=== PATIENT | male | born 1940 | race Caucasian/White ===

== ENCOUNTER 2017-07-24 10:15 | Emergency (ER) | payer OTHER ==
--- NOTE | 2017-07-24 10:26 | PDOC ---
History of Present Illness - General Chief Complaint: Itching Stated Complaint: ITCHING BOTH LEGS Time Seen by Provider: 07/24/17 10:26 History Source: Patient Exam Limitations: No Limitations - History of Present Illness Initial Comments: 07/24/17 10:47 76 yo legs itching for the past four days..... no obvious cause. Has not taken or used any otc meds. Diabetes HTN, CAD on a boatload of medicines. Dr. Alba is his doctor. He does not want me to do any tests he just wants to know what he can do to stop the itching. I reviewed all of his meds.... he can use benadryl oral or topical. Timing/Duration: getting worse Severity: moderate Modifying Factors: improves with: other (none) Associated Symptoms: denies: denies symptoms Past History - Past Medical History Allergies/Adverse Reactions: Allergies Allergy/AdvReac Type Severity Reaction Status Date / Time ranolazine [From Ranexa] AdvReac Intermediate Hallucinati Verified 07/24/17 10: 18 ons Home Medications: Ambulatory Orders Clopidogrel Bisulfate [Plavix -] 75 mg PO DAILY 09/04/15 Pantoprazole Sodium [Protonix] 40 mg PO DAILY 09/04/15 [place]-3 Acid Ethyl Esters [Lovaza -] 0 mg PO BID 12/12/15 Cholecalciferol (Vitamin D3) [Vitamin D3] 1,000 unit PO DAILY tablet 04/05/17 Furosemide 0 mg PO BID tablet 04/05/17 Insulin Glargine,Hum.rec.anlog [Lantus Solostar PEN (NF)] 16 units SQ AM Insulin Glargine,Hum.rec.anlog [Lantus Solostar PEN (NF)] 50 units SQ HS Insulin Lispro [Humalog] 14 unit SQ TID 07/24/17 Metoprolol Succinate [Toprol Xl] 50 mg PO ASDIR 07/24/17 Nitroglycerin 0.6 mg SL ASDIR 07/24/17 Nitroglycerin [Nitrostat] 0.4 mg SL ASDIR 07/24/17 Anemia: Yes Asthma: No Cardiac Disorders: Yes (BYPASS 03/03/13, cath c stent placement 09/2015) COPD: No CHF: No Diabetes: Yes GI Disorders: Yes (REFLUX) Disorders: Yes HTN: Yes Hypercholesterolemia: Yes - Surgical History Cardiac Surgery: Yes (STENT) - Immunization History Immunization Up to Date: No - Psycho/Social/Smoking Cessation Hx Anxiety: No Suicidal Ideation: No Smoking Status: No Smoking History: Never smoked Have you smoked in the past 12 months: No Number of Cigarettes Smoked Daily: 0 Hx Alcohol Use: No Drug/Substance Use Hx: No Substance Use Type: None Hx Substance Use Treatment: No Review of Systems - Review of Systems Able to Perform ROS?: Yes Is the patient limited Algerian proficient: No Constitutional: No: Symptoms Reported HEENTM: No: Symptoms Reported Respiratory: No: Symptoms reported Cardiac (ROS): No: Symptoms Reported ABD/GI: No: Symptoms Reported : No: Symptoms Reported Musculoskeletal: No: Symptoms Reported Integumentary: Yes: See HPI Neurological: No: Symptoms reported Psychiatric: No: Anxiety, Depression Endocrine: No: Symptoms Reported Hematologic/Lymphatic: No: Symptoms Reported All Other Systems: Reviewed and Negative *Physical Exam - Physical Exam Comments: 07/24/17 10:50 76 yo male c.o itching legs, knees down, no redness, no rash, no obvious cause General Appearance: Yes: Nourished, Appropriately Dressed HEENT: positive: EOMI, DEE, Normal ENT Inspection Neck: positive: Normal Thyroid, Supple. negative: Tender Respiratory/Chest: positive: Lungs Clear, Normal Breath Sounds. negative: Chest Tender Cardiovascular: positive: Regular Rhythm, Regular Rate. negative: Edema, JVD, Murmur Gastrointestinal/Abdominal: positive: Normal Bowel Sounds, Flat, Soft Lymphatic: negative: Adenopathy, Tenderness Musculoskeletal: positive: Normal Inspection Extremity: positive: Normal Capillary Refill, Normal Inspection, Normal Range of Motion, Other (no rash). 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 I told him that he refused the blood work and I told him that the medicine would make him sleepy and he could not drive a car..... and he got angry and raised his voice and shook his finger at me.... when I told him to stop that he told me that I was supposed to be a doctor and look how I was treating him...... I walked away rather than continue and security was able to move him from the ED. *DC/Admit/Observation/Transfer Diagnosis at time of Disposition: Pruritus - Discharge Dispostion Disposition: HOME Condition at time of disposition: Unchanged/Unknown Admit: No - Referrals Referrals: Yovani Alba MD [Primary Care Provider] - - Patient Instructions Printed Discharge Instructions: DI for Itching Additional Instructions: Mr Whipple- I am not sure why you are itching. You can use BENADRYL (diphenhydramine) tablets 25mg, You can take one every six hours or you could use a topical benadryl product like a spray. Ask your pharmacist to help you pick a product. Follow up with Dr. Alba. Return to us if any problems
[2017-07-24 10:31] VITALS: BP 133/73; PULSE 58; TEMP 98; BMI 31.5
== END 2017-07-24 11:00 | disposition home or self-care (01) ==
LOC: FER 10:15
DX: L29.9 Pruritus, unspecified (principal); E11.9 Type 2 diabetes mellitus without complications; K21.9 Gastro-esophageal reflux disease without esophagitis; E78.00 Pure hypercholesterolemia, unspecified; I10 Essential (primary) hypertension; Z79.4 Long term (current) use of insulin
CPT/HCPCS: 36415; 80048; 80061; 80076; 82607; 83036; 84153; 84443; 99281-25

== ENCOUNTER 2018-01-09 10:19 | Emergency (ER) | payer OTHER ==
[2018-01-09] MEDS ORDERED: ASPIRIN 81 MG CHEWABLE TABLETS PO ONE (10:41)
[2018-01-09] MEDS ORDERED: NITROGLYCERIN SUBLINGUAL 1/150 0.4 MG TAB SL ONE (10:41)
--- NOTE | 2018-01-09 10:45 | PDOC ---
History of Present Illness - General Chief Complaint: Chest Pain Stated Complaint: CHEST PRESSURE Time Seen by Provider: 01/09/18 10:36 History Source: Patient Exam Limitations: No Limitations - History of Present Illness Initial Comments: 01/09/18 10:42 77 y/o male with left sided chest pain since last night, hx of cardiac disease, denies radiation to arm, jaw or back. No fall or trauma. Did not take any of his medication this morning. Patient see Engineering Tech Dr. Melgar, but did nottake his sublingual nitro fro the ches pain. Denies N/V/d/C, or diaphoresis. Feels a little weak. No SOB. Presenting Symptoms: Chest Pain Timing/Duration: reports: constant Severity/Quality: reports: mild Location: reports: substernal Chest Pain Radiation: reports: no radiation Activities at Onset: reports: none Past History - Past Medical History Allergies/Adverse Reactions: Allergies Allergy/AdvReac Type Severity Reaction Status Date / Time ranolazine [From Ranexa] AdvReac Intermediate Hallucinati Verified 07/24/17 10: 18 ons Home Medications: Ambulatory Orders Clopidogrel Bisulfate [Plavix -] 75 mg PO DAILY 09/04/15 Pantoprazole Sodium [Protonix] 40 mg PO DAILY 09/04/15 [place]-3 Acid Ethyl Esters [Lovaza -] 0 mg PO BID 12/12/15 Cholecalciferol (Vitamin D3) [Vitamin D3] 1,000 unit PO DAILY tablet 04/05/17 Furosemide 80 mg PO DAILY tablet 04/05/17 Insulin Glargine,Hum.rec.anlog [Lantus Solostar PEN (NF)] 16 units SQ AM Insulin Glargine,Hum.rec.anlog [Lantus Solostar PEN (NF)] 50 units SQ HS Metoprolol Succinate [Toprol Xl] 50 mg PO BID 07/24/17 Nitroglycerin 0.6 mg SL ASDIR 07/24/17 Nitroglycerin [Nitrostat] 0.4 mg SL ASDIR 07/24/17 Aspirin [Aspirin EC] 81 mg PO DAILY 01/09/18 Donepezil HCl [Aricept] 5 mg PO DAILY 01/09/18 Duloxetine HCl [Cymbalta] 30 mg PO DAILY 01/09/18 Potassium Chloride [K-Dur -] 20 meq PO DAILY 01/09/18 Anemia: Yes Asthma: No Cardiac Disorders: Yes (BYPASS 03/03/13, cath c stent placement 09/2015) COPD: No CHF: No Diabetes: Yes GI Disorders: Yes (REFLUX) Disorders: Yes HTN: Yes Hypercholesterolemia: Yes - Surgical History Cardiac Surgery: Yes (STENT) - Immunization History Immunization Up to Date: No - Suicide/Smoking/Psychosocial Hx Smoking Status: No Smoking History: Never smoked Have you smoked in the past 12 months: No Number of Cigarettes Smoked Daily: 0 Hx Alcohol Use: No Drug/Substance Use Hx: No Substance Use Type: None Hx Substance Use Treatment: No Review of Systems - Review of Systems Able to Perform ROS?: Yes Is the patient limited Nicaraguan proficient: No Constitutional: No: Chills, Fever HEENTM: No: Throat Pain Respiratory: No: Cough, Shortness of Breath Cardiac (ROS): Yes: Chest Pain ABD/GI: No: Nausea, Vomiting Musculoskeletal: No: Back Pain All Other Systems: Reviewed and Negative *Physical Exam - Vital Signs Last Vital Signs Temp Pulse Resp BP Pulse Ox 97.6 F 70 18 173/89 96 01/09/18 10:20 01/09/18 10:20 01/09/18 10:20 01/09/18 10:20 01/09/18 10:20 - Physical Exam General Appearance: Yes: Nourished, Appropriately Dressed, Mild Distress HEENT: positive: EOMI, DEE, Normal ENT Inspection, Pharynx Normal Neck: positive: Trachea midline, Normal Thyroid, Supple. negative: Tender, Rigid, Carotid bruit Respiratory/Chest: positive: Lungs Clear, Normal Breath Sounds. negative: Chest Tender, Respiratory Distress Cardiovascular: positive: Regular Rhythm, Regular Rate, S1, S2. negative: Edema , JVD, Murmur Vascular Pulses: Femoral (R): 4+, Femoral (L): 4+, Carotid (R): 4+, Carotid (L) : 4+, Dorsalis-Pedis (R): 4+, Doralis-Pedis (L): 4+ Gastrointestinal/Abdominal: positive: Normal Bowel Sounds, Flat, Soft. 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, Fully Oriented, Alert, Normal Mood/ Affect, Normal Response, Motor Strength 5/5 Heart Score/ECG Review - History History: Highly suspicious - Age Age: >/= 65 - Risk Factors Risk Factors Heart Score: Yes Hx Hypertension, Yes Positive family hx of cardiac disease Based on the list above the patient has:: >/=3 risk factors or Hx atherosclerotic disease - ECG Intrepretation Comment:: 01/09/18 10:49 at 1028 NSR LBBB similar to EKG of 12/12/2015 ED Treatment Course - LABORATORY CBC & Chemistry Diagram: 01/09/18 10:50 01/09/18 10:50 - ADDITIONAL ORDERS Additional order review: Laboratory Results 01/09/18 01/09/18 10:50 10:50 Sodium 133 L Potassium 4.1 Chloride 101 Carbon Dioxide 25 Anion Gap 7 L BUN 23 H Creatinine 1.5 H Creat Clearance w eGFR 45.38 Random Glucose 245 H Calcium 8.3 L Total Bilirubin 1.3 H AST 19 ALT 22 Alkaline Phosphatase 58 Troponin I 0.03 Total Protein 6.5 Albumin 3.6 01/09/18 10:50 RBC 3.78 L MCV 86.0 MCHC 34.2 RDW 16.2 H MPV 7.4 L Neutrophils % 75.3 Lymphocytes % 15.4 D Monocytes % 6.5 Eosinophils % 2.2 Basophils % 0.6 - RADIOLOGY Radiology Studies Ordered: Category Date Time Status CHEST PA & LAT [RAD] Stat Radiology 01/09/18 10:41 Completed - Medications Given in the ED: ED Medications Discontinued Medications Generic Name Dose Route Start Last Admin Trade Name Freq PRN Reason Stop Dose Admin Aspirin 324 mg 01/09/18 10:41 01/09/18 11:00 Asa - PO 01/09/18 10:42 324 mg ONCE ONE Administration Nitroglycerin 0.4 mg 01/09/18 10:41 01/09/18 11:03 Nitrostat - SL 01/09/18 10:42 0.4 mg ONCE ONE Administration Progress Note - Progress Note Progress Note: Pt with cardiac history present with chest pain, will obtain cardiac work up. Pt i in agreement with plan. Chest pressure resolved with [address] Alaniz, Engineering Tech, pt has LBBB in 10/2017 Agrees with observation and stress test Pt refuses admission, wants to sign out AMA Risks and benefits discussed with pt. *DC/Admit/Observation/Transfer Diagnosis at time of Disposition: Chest pain Qualifiers: Chest pain type: unspecified Qualified Code(s): R07.9 - Chest pain, unspecified - Discharge Dispostion Disposition: AGAINST MEDICAL ADVICE Condition at time of disposition: Fair Admit: No - Referrals Referrals: Yovani Alba MD [Primary Care Provider] - - Patient Instructions - Post Discharge Activity
[2018-01-09] MEDS ORDERED: ASPIRIN 81 MG CHEWABLE TABLETS ONE (11:01)
[2018-01-09] MEDS ORDERED: NITROGLYCERIN SUBLINGUAL 1/150 0.4 MG TAB ONE (11:02)
[2018-01-09 11:10] VITALS: BP 173/89; PULSE 70; TEMP 97.6; BMI 31.7
[2018-01-09 11:35] LABS: BASO % 0.6 % (0-2.0); EOS % 2.2 % (0-4.5); HEMATOCRIT 32.5 % (35.4-49); HEMOGLOBIN 11.1 GM/dl (11.7-16.9); LYMPH % 15.4 % (8-40); MCH 29.4 pg (25.7-33.7); MCHC 34.2 g/dl (32.0-35.9); MEAN PLT VOLUME 7.4 fl (7.5-11.1); MONO % 6.5 % (3.8-10.2); NEUT % 75.3 % (42.8-82.8); PLATELET COUNT 191 K/MM3 (134-434); RBC 3.78 M/mm3 (4.00-5.60); RDW 16.2 % (11.9-15.9); WHITE BLOOD COUNT 6.7 K/mm3 (4.0-10.8)
[2018-01-09 12:21] LABS: ALBUMIN 3.6 g/dl (3.5-5.0); ALK PHOS 58 U/L (32-92); ANION GAP 7 (8-16); BILIRUBIN,TOTAL 1.3 mg/dl (0.2-1.0); BLOOD UREA NITROGEN 23 mg/dl (7-18); CALCIUM 8.3 mg/dl (8.4-10.2); CHLORIDE 101 mmol/L (98-107); CO2 25 mmol/L (22-28); CREATININE 1.5 mg/dl (0.6-1.3); GLUCOSE,RANDOM 245 mg/dl (74-106); POTASSIUM 4.1 mmol/L (3.5-5.1); SGOT/AST 19 U/L (10-42); SGPT/ALT 22 U/L (10-40); SODIUM 133 mmol/L (136-145); TOT PROT 6.5 g/dl (6.4-8.3)
--- NOTE | 2018-01-09 16:53 | EKG ---
Test Reason : Blood Pressure : / mmHG Vent. Rate : 068 BPM Atrial Rate : 068 BPM P-R Int : 192 ms QRS Dur : 152 ms QT Int : 454 ms P-R-T Axes : 043 -29 145 degrees QTc Int : 482 ms NORMAL SINUS RHYTHM LEFT BUNDLE BRANCH BLOCK WHEN COMPARED WITH ECG OF 02-OCT-2015 09:02, LEFT BUNDLE BRANCH BLOCK IS NOW PRESENT Confirmed by MD GOLD, PITO ([id number]) on 01/09/2018 4:52:47 PM Referred By: LENNIE HUMPHRIES Confirmed By:PITO MALCOLM MD
== END 2018-01-09 12:35 | disposition left against medical advice (07) ==
LOC: FER 10:19
DX: R07.9 Chest pain, unspecified (principal); E11.9 Type 2 diabetes mellitus without complications; I10 Essential (primary) hypertension; E78.00 Pure hypercholesterolemia, unspecified; Z95.5 Presence of coronary angioplasty implant and graft; Z79.4 Long term (current) use of insulin; J45.909 Unspecified asthma, uncomplicated
CPT/HCPCS: 36415; 71046-TC-FY; 80048; 80053; 83036; 84484; 85025; 93005; 99284-25

== ENCOUNTER 2018-11-20 15:50 | Inpatient (IN) | payer OTHER ==
--- NOTE | 2018-11-20 15:56 | PDOC ---
Rapid Medical Evaluation Medical Evaluation: Allergies Allergy/AdvReac Type Severity Reaction Status Date / Time ranolazine [From Ranexa] AdvReac Intermediate Hallucinati Verified 11/20/18 15: 26 ons I have performed a brief in-person evaluation of this patient. The patient presents with a chief complaint of: Sent from wound care clinic to be admitted for R toe infection Pertinent physical exam findings: Currently R toe is wrapped; will have it examined in main ED I have ordered the following: Labs The patient will proceed to the ED for further evaluation. 11/20/18 15:55 Discharge Disposition - Referrals Referrals: Dom Staples MD [Primary Care Provider] - - Patient Instructions - Post Discharge Activity
[2018-11-20 16:01] VITALS: BMI 32.5
[2018-11-20 16:32] LABS: BASO % 0.8 % (0-2.0); EOS % 2.7 % (0-4.5); HEMATOCRIT 33.3 % (35.4-49); HEMOGLOBIN 11.7 GM/dL (11.7-16.9); LYMPH % 20.5 % (8-40); MCH 30.6 pg (25.7-33.7); MCHC 35.2 g/dl (32.0-35.9); MEAN PLT VOLUME 7.4 fl (7.5-11.1); MONO % 8.7 % (3.8-10.2); NEUT % 67.3 % (42.8-82.8); PLATELET COUNT 206 K/MM3 (134-434); RBC 3.83 M/mm3 (4.00-5.60); RDW 19.1 % (11.9-15.9); WHITE BLOOD COUNT 7.2 K/mm3 (4.0-10.0)
[2018-11-20 16:49] LABS: ANION GAP 7 MMOL/L (8-16); BLOOD UREA NITROGEN 40 mg/dL (7-18); CALCIUM 8.8 mg/dL (8.5-10.1); CHLORIDE 101 mmol/L (98-107); CO2 31 mmol/L (21-32); CREATININE 2.4 mg/dL (0.55-1.3); GLUCOSE,RANDOM 121 mg/dL (74-106); POTASSIUM 4.5 mmol/L (3.5-5.1); SODIUM 139 mmol/L (136-145)
--- NOTE | 2018-11-20 20:05 | PDOC ---
History of Present Illness - General Chief Complaint: Wound Stated Complaint: Wound Time Seen by Provider: 11/20/18 19:29 History Source: Patient Exam Limitations: No Limitations - History of Present Illness Initial Comments: 11/20/18 20:30 Patient is a 77 year old male with a PMHx of HTN, HLD, IDDMII, WI s/p multiple stents, CAD, TIA, Systolic CHF, GERD, Anemia of chronic disease, diabetic neuropathy, hard of hearing who presented to the ED from his podiatrists office for worsening right hallux pain and erythema. According to patient, he initially had a small blister one month ago and progressively worsened throughout the last couple of weeks. States his toe is more erythemetous and now his right second toenail is black. When he went to the gun perforator loader this morning, he recommended to come to the ED to rule out osteomyelitis. Otherwise , patient denies any fever, chills, nausea, vomiting, abdominal pain. Denies any trauma, injury or fall Patient follows up at wound clinic with Dr. Jasso. PCP: Dr. Staples Export Coordinator: Dr. Delarosa Bulk Plant Manager: Dr. Steven Gas Derrick Operator: Dr. Gabriel Brown PMHx: HTN HLD IDDMII WI s/p multiple stents CAD TIA Systolic CHF GERD Anemia of chronic disease diabetic neuropathy hard of hearing PSHx: CABG S/P multiple stents B/L Carpal tunnel release B/L rotator cuff surgery Appendectomy Social Hx: Denies alcohol Denies drugs Denies smoking Lives with and son Retired [employer] 11/21/18 00:07 11/21/18 00:35 Past History - Past Medical History Allergies/Adverse Reactions: Allergies Allergy/AdvReac Type Severity Reaction Status Date / Time ranolazine [From Ranexa] AdvReac Intermediate Hallucinati Verified 11/20/18 15: 57 ons Home Medications: Ambulatory Orders Clopidogrel Bisulfate [Plavix -] 75 mg PO DAILY 09/04/15 Pantoprazole Sodium [Protonix] 40 mg PO DAILY 09/04/15 Cholecalciferol (Vitamin D3) [Vitamin D3] 1,000 unit PO DAILY tablet 04/05/17 Furosemide 80 mg PO DAILY tablet 04/05/17 Insulin Glargine,Hum.rec.anlog [Lantus Solostar PEN (NF)] 16 units SQ AM Insulin Glargine,Hum.rec.anlog [Lantus Solostar PEN (NF)] 50 units SQ HS Metoprolol Succinate [Toprol Xl] 50 mg PO BID 07/24/17 Nitroglycerin 0.6 mg SL ASDIR 07/24/17 Nitroglycerin [Nitrostat] 0.4 mg SL ASDIR 07/24/17 Aspirin [Aspirin EC] 81 mg PO DAILY 01/09/18 Collagenase Clostridium Hist. [Santyl] 1 applic TP DAILY #90 oint...g. 11/03/18 Donepezil HCl [Aricept] 10 mg PO DAILY 11/20/18 Escitalopram Oxalate [Lexapro -] 20 mg PO DAILY 11/20/18 Ferrous Sulfate 325 mg PO DAILY 11/20/18 Insulin Aspart [Novolog] 10 unit SQ DAILY 11/20/18 [place]-3S/Dha/Epa/Fish Oil [Fish Oil 1,200 mg Softgel] 1 each PO DAILY 11/20/18 Spironolactone 25 mg PO DAILY 11/20/18 Tamsulosin HCl [Flomax] 0.4 mg PO BID 11/20/18 Anemia: Yes Asthma: No Cardiac Disorders: Yes (Bypass 03/03/13,Cath with Stents 09/2015) COPD: No CHF: No Dementia: Yes Diabetes: Yes GI Disorders: Yes (Reflux) Disorders: Yes HTN: Yes Hypercholesterolemia: Yes - Surgical History Cardiac Surgery: Yes (Stents) - Immunization History Immunization Up to Date: No - Suicide/Smoking/Psychosocial Hx Smoking Status: No Smoking History: Current every day smoker Have you smoked in the past 12 months: No Number of Cigarettes Smoked Daily: 0 Information on smoking cessation initiated: No Hx Alcohol Use: No Drug/Substance Use Hx: No Substance Use Type: None Hx Substance Use Treatment: No Review of Systems - Review of Systems Constitutional: No: Chills, Diaphoresis, Fever, Night Sweats, Weakness HEENTM: No: Eye Pain, Blurred Vision, Throat Pain Respiratory: No: Cough, Orthopnea, Shortness of Breath, SOB with Exertion, Wheezing, Productive cough Cardiac (ROS): No: Chest Pain, Edema, Lightheadedness, Syncope, Chest Tightness ABD/GI: No: Abdominal Distended, Constipated, Diarrhea, Difficulty Swallowing, Nausea, Rectal Bleeding, Vomiting, Indigestion, Abdominal cramping : No: Burning, Dysuria, Discharge Musculoskeletal: No: Muscle Pain, Muscle Weakness Integumentary: Yes: Erythema (right first digit ) Neurological: No: Headache, Numbness, Seizure, Tingling Psychiatric: No: Frequent Crying, Sleep Pattern Change Endocrine: No: Flushing, Intolerance to Cold, Intolerance to Heat *Physical Exam - Vital Signs Last Vital Signs Temp Pulse Resp BP Pulse Ox 97.7 F 89 16 102/53 L 100 11/20/18 15:57 11/20/18 15:57 11/20/18 15:57 11/20/18 15:57 11/20/18 15:57 - Physical Exam General Appearance: Yes: Other (Awake, alert, oriented x3, in no acute distress ) HEENT: positive: EOMI, DEE, Pharynx Normal. negative: Tonsillar Exudate, Rhinorrhea, Sinus Tenderness Neck: positive: Trachea midline, Supple Respiratory/Chest: positive: Lungs Clear, Normal Breath Sounds. negative: Respiratory Distress, Accessory Muscle Use, Decreased Breath Sounds, Crackles, Rales, Rhonchi Cardiovascular: positive: Regular Rhythm, Regular Rate, Systolic Murmur Gastrointestinal/Abdominal: positive: Normal Bowel Sounds, Soft. negative: Distended, Guarding, Rebound Musculoskeletal: positive: Normal Inspection. negative: CVA Tenderness, CVA Tenderness (R), CVA Tenderness (L) Extremity: positive: Normal Range of Motion, Other (2x2 cm right medial 1st digit wound with fibrotic and granulation tissue. Right second toe nail with black eschar ). 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, Fully Oriented, Alert, Normal Mood/ Affect, Normal Response, Motor Strength 5/5 Moderate Sedation - Procedure Monitoring Vital Signs: Procedure Monitoring Vital Signs Temperature 97.7 F 11/20/18 15:57 Pulse Rate 89 11/20/18 15:57 Respiratory Rate 16 11/20/18 15:57 Blood Pressure 102/53 L 11/20/18 15:57 O2 Sat by Pulse Oximetry (%) 100 11/20/18 15:57 ED Treatment Course - LABORATORY CBC & Chemistry Diagram: 11/20/18 16:16 11/20/18 21:00 - ADDITIONAL ORDERS Additional order review: Laboratory Results 11/20/18 16:16 Sodium 139 Potassium 4.5 Chloride 101 Carbon Dioxide 31 Anion Gap 7 L BUN 40 H Creatinine 2.4 H Creat Clearance w eGFR 26.38 Random Glucose 121 H Calcium 8.8 11/20/18 16:16 RBC 3.83 L MCV 87.0 MCHC 35.2 RDW 19.1 H MPV 7.4 L Neutrophils % 67.3 Lymphocytes % 20.5 Monocytes % 8.7 Eosinophils % 2.7 Basophils % 0.8 Progress Note - Progress Note Progress Note: Patient is a 77 year old male who was sent by his gun perforator loader for worsening diabetic foot wound. -Will order x-ray to rule out osteo -CXR, EKG -cbc, cmp, esr, crp, coags, cardiac profile ordered -Blood cultures ordered -IV Vanco and Zosyn -Awaiting X-rays -Patient admitted to [facility] *DC/Admit/Observation/Transfer Diagnosis at time of Disposition: Diabetic foot infection - Discharge Dispostion Condition at time of disposition: Stable - Referrals - Patient Instructions - Post Discharge Activity
--- NOTE | 2018-11-20 20:13 | PDOC ---
Attending Attestation - HPI HPI: 11/20/18 20:31 The patient is a 77 year old male with a significant past medical history of insulin dependant diabetes who presents to the ED with worsening foot wound. Patient reports a diabetic foot wound to his right toe for several weeks. He states he is currently being treated with outpatient antibiotics but states his right foot wound is worsening. 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 Denies fever or chills. Denies chest pain or shortness of breath. Denies abdominal pain, nausea, vomiting, or diarrhea. Denies headache, dizziness, or lightheadedness. Denies focal numbness/weakness/tingling. Denies any other symptoms. - Physicial Exam PE: 11/20/18 20:31 Constitutional: Awake, alert, oriented. No acute distress. Head: Normocephalic. Atraumatic Eyes: PERRL. EOMI. Conjunctivae are not pale. ENT: Mucous membranes are moist and intact. Posterior pharynx without exudates or erythema. Uvula midline. Neck: Supple. Full ROM. No lymphadenopathy. Cardiovascular: Regular rate. Regular rhythm. S1, S2 regular. Distal pulses are 2+ and symmetric. Pulmonary/Chest: No evidence of respiratory distress. Clear to auscultation bilaterally No wheezing, rales or rhonchi. Abdominal: Soft and non-distended. There is no tenderness. No rebound, guarding or rigidity. No organomegaly. No palpable masses. Good bowel sounds. Back: No CVA tenderness. Musculoskeletal: + Wound underneath right big toe, no drainage. The entire right toe is cellulitic, coming up forefoot. No edema. No cyanosis. No clubbing. Full range of motion in all extremities. No calf tenderness. Radial/ pedal pulses are intact and 2+ bilaterally Skin: Skin is warm and dry. No petechiae. No purpura. Neurological: Alert and oriented to person, place, and time. Cranial nerves II -XII are grossly intact. Normal speech. Strength is grossly symmetric. No sensory deficits. Psychiatric: Good eye contact. Normal interaction, affect and behavior. <Andrea Pike - Last Filed: 11/20/18 20:31> - Resident Resident Name: Michelle Estrada - ED Attending Attestation I have performed the following: I have examined & evaluated the patient, The case was reviewed & discussed with the resident, I agree w/resident's findings & plan, Exceptions are as noted - Medical Decision Making 11/20/18 20:13 I, Dr. Marina Alvarez DO, attest that this document has been prepared under my direction and personally reviewed by me in its entirety. I further attest, that it accurately reflects all work, treatment, procedures and medical decision -making performed by me. 11/20/18 21:15 a/p: 77yo male with diabetic foot wound sent from podiatry for failed outpt abx -concern for poss osteo and diabetic foot wound to R big toe with redness spreading up toe and midfoot. also with dry wound to underside of R big toe and 2nd toe on right foot -will send labs, cultures, xray foot -will start broad spectrum abx -will admit for failed outpt abx -will consult podiatry and vasc sx 11/20/18 22:04 case discussed with Nataly from [facility] who accepts pt to service 11/20/18 22:[address] Jasso and Dr. Steven <Marina Alvarez - Last Filed: 11/20/18 22:06> *DC/Admit/Observation/Transfer - Discharge Dispostion Decision to Admit order: Yes <Marina Alvarez - Last Filed: 11/20/18 22:06> Diagnosis at time of Disposition: Diabetic foot infection - Discharge Dispostion Condition at time of disposition: Stable - Referrals Referrals: Dom Staples MD [Primary Care Provider] - - Patient Instructions - Post Discharge Activity Heart Score/ECG Review - ECG Intrepretation Comment:: 11/20/18 22:04 sinus at 61, L axis, LBBB, no acute st/t wave findings <Marina Alvarez - Last Filed: 11/20/18 22:06> Attestations - Attestations 11/20/18 20:32 Documentation prepared by Andrea Pike, acting as medical lab technician for Marina Alvarez DO <Andrea Pike - Last Filed: 11/20/18 20:31>
[2018-11-20] MEDS ORDERED: PIPERACILLIN/TAZOB 2.25 GM 2.25 GM in DEXTROSE 5%-WATER - 50 ML IVPB ONE (20:26)
[2018-11-20] MEDS ORDERED: VANCOMYCIN 1 GM in D5W (PRE-DOCKED) 1,000 MG/250 ML IVPB ONE (20:27)
[2018-11-20] MEDS ORDERED: PIPERACILLIN/TAZOB 2.25 GM 2.25 GM/50 ML BAG IVPB ONE (20:30)
[2018-11-20] MEDS ORDERED: VANCOMYCIN 1 GRAM (PRE-DOCKED) 1,000 MG/250 ML BAG IVPB ONE (20:30)
[2018-11-20 21:43] LABS: ALBUMIN 4.1 g/dl (3.4-5.0); ALK PHOS 88 U/L (45-117); ANION GAP 6 MMOL/L (8-16); BILIRUBIN,TOTAL 1.2 mg/dL (0.2-1); BLOOD UREA NITROGEN 43 mg/dL (7-18); CALCIUM 8.3 mg/dL (8.5-10.1); CHLORIDE 104 mmol/L (98-107); CO2 27 mmol/L (21-32); CREATININE 2.4 mg/dL (0.55-1.3); GLUCOSE,RANDOM 113 mg/dL (74-106); POTASSIUM 4.6 mmol/L (3.5-5.1); SGOT/AST 20 U/L (15-37); SGPT/ALT 25 U/L (13-61); SODIUM 137 mmol/L (136-145); TOT PROT 7.8 g/dl (6.4-8.2)
[2018-11-20 21:44] LABS: INR 1.15 (0.83-1.09); PROTHROMBIN TIME (PATIENT) 13.6 SEC (9.7-13.0)
[2018-11-20] MEDS ORDERED: NITROGLYCERIN SUBLINGUAL 1/150 0.4 MG TAB SL PRN (23:15)
[2018-11-20] MEDS ORDERED: NITROGLYCERIN 0.6 MG SL SCH (23:15)
--- NOTE | 2018-11-21 00:17 | HP ---
CHIEF COMPLAINT: Right toe wound cellulitis failed OP abx PCP: Dr. Sood HISTORY OF PRESENT ILLNESS: 77 year old male with a PMHx significant for HTN, HLD, IDDMII, [place] s/p multiple stents, CAD, TIA, Systolic CHF, GERD, Anemia of chronic disease, diabetic neuropathy, hard of hearing who presented to the ED from his podiatrists office for worsening right hallux pain and erythema which first appeared one month ago. Patient is follwed at the wound clinic with Dr. Jasso. Denies fever, chills , CP, palpitations, SOB, abdominal pain, n/v/d. Upon admission to the ED, VSS, labs notable for ESR of 37, BUN/Cr 43/2.4 ( baseline), final read pending for foot x-ray and CXR. Recent Travel: No PAST MEDICAL HISTORY: HTN HLD IDDMII AK s/p multiple stents CAD TIA Systolic CHF GERD Anemia of chronic disease diabetic neuropathy hard of hearing PAST SURGICAL HISTORY: Bypass 03/03/13, Cath with Stents 09/2015 B/L Carpal tunnel release B/L rotator cuff surgery Appendectomy Social History: Retired [employer], lives with and son Smoking: Never Alcohol: Denies Drugs: Denies Family History: Mother: HTN, DM Father: AK, age 45 Allergies ranolazine [From Ranexa] Adverse Reaction (Intermediate, Verified 11/20/18 15:57 ) Hallucinations only at high dose of 1000, taking 500 mg and has been ok HOME MEDICATIONS: Home Medications Medication Instructions Recorded Clopidogrel Bisulfate [Plavix -] 75 mg PO DAILY 09/04/15 Pantoprazole Sodium [Protonix] 40 mg PO DAILY 09/04/15 Cholecalciferol (Vitamin D3) 1,000 unit PO DAILY tablet 04/05/17 [Vitamin D3] Furosemide 80 mg PO DAILY tablet 04/05/17 Insulin Glargine,Hum.rec.anlog 16 units SQ AM 07/24/17 [Lantus Solostar PEN (NF)] Insulin Glargine,Hum.rec.anlog 50 units SQ HS 07/24/17 [Lantus Solostar PEN (NF)] Metoprolol Succinate [Toprol Xl] 50 mg PO BID 07/24/17 Nitroglycerin 0.6 mg SL ASDIR 07/24/17 Nitroglycerin [Nitrostat] 0.4 mg SL ASDIR 07/24/17 Aspirin [Aspirin EC] 81 mg PO DAILY 01/09/18 Collagenase Clostridium Hist. 1 applic TP DAILY #90 oint...g. 11/03/18 [Santyl] Donepezil HCl [Aricept] 10 mg PO DAILY 11/20/18 Escitalopram Oxalate [Lexapro -] 20 mg PO DAILY 11/20/18 Ferrous Sulfate 325 mg PO DAILY 11/20/18 Insulin Aspart [Novolog] 10 unit SQ DAILY 11/20/18 [place]-3S/Dha/Epa/Fish Oil [Fish 1 each PO DAILY 11/20/18 Oil 1,200 mg Softgel] Spironolactone 25 mg PO DAILY 11/20/18 Tamsulosin HCl [Flomax] 0.4 mg PO BID 11/20/18 REVIEW OF SYSTEMS CONSTITUTIONAL: Absent: fever, chills, diaphoresis, generalized weakness, malaise, loss of appetite, weight change HEENT: Absent: rhinorrhea, nasal congestion, throat pain, throat swelling, difficulty swallowing, mouth swelling, ear pain, eye pain, visual changes CARDIOVASCULAR: Absent: chest pain, syncope, palpitations, irregular heart rate, lightheadedness , peripheral edema RESPIRATORY: Absent: cough, shortness of breath, dyspnea with exertion, orthopnea, wheezing, stridor, hemoptysis GASTROINTESTINAL: Absent: abdominal pain, abdominal distension, nausea, vomiting, diarrhea, constipation, melena, hematochezia GENITOURINARY: Absent: dysuria, frequency, urgency, hesitancy, hematuria, flank pain, genital pain MUSCULOSKELETAL: (+) right toe swelling, redness and pain Absent: myalgia, arthralgia, joint swelling, back pain, neck pain SKIN: Absent: rash, itching, pallor HEMATOLOGIC/IMMUNOLOGIC: Absent: easy bleeding, easy bruising, lymphadenopathy, frequent infections ENDOCRINE: Absent: unexplained weight gain, unexplained weight loss, heat intolerance, cold intolerance NEUROLOGIC: Absent: headache, focal weakness or paresthesias, dizziness, unsteady gait, seizure, mental status changes, bladder or bowel incontinence PSYCHIATRIC: Absent: anxiety, depression, suicidal or homicidal ideation, hallucinations. PHYSICAL EXAMINATION Vital Signs - 24 hr 11/20/18 11/20/18 15:57 21:09 Temperature 97.7 F Pulse Rate 89 Pulse Rate [ 61 Left Radial] Respiratory 16 22 H Rate Blood Pressure 102/53 L Blood Pressure 103/51 L [Right Arm] O2 Sat by Pulse 100 100 Oximetry (%) GENERAL: Awake, alert, and fully oriented, in no acute distress. HEAD: Normal with no signs of trauma. EYES: Pupils equal, round and reactive to light, extraocular movements intact, sclera anicteric, conjunctiva clear. No lid lag. EARS, NOSE, THROAT: Ears normal, nares patent, oropharynx clear without exudates. Moist mucous membranes. NECK: Normal range of motion, supple without lymphadenopathy, JVD, or masses. LUNGS: Breath sounds equal, clear to auscultation bilaterally. No wheezes, and no crackles. No accessory muscle use. HEART: +SSM, Regular rate and rhythm, normal S1 and S2 ABDOMEN: Obese, protuberent, slightly distended, nontender, normoactive bowel sounds MUSCULOSKELETAL: Normal range of motion at all joints. No bony deformities or tenderness. No CVA tenderness. UPPER EXTREMITIES: 2+ pulses, warm, well-perfused. No cyanosis. No clubbing. No peripheral edema. LOWER EXTREMITIES: 2+ pulses, warm, well-perfused. No calf tenderness. No peripheral edema. NEUROLOGICAL: No focal deficit, normal speech PSYCHIATRIC: Cooperative. Good eye contact. Appropriate mood and affect. SKIN: 2 x 2 cm right medial 1st digit wound with fibrotic and granulation tissue. Right second toe nail with black eschar. Laboratory Results - last 24 hr 11/20/18 11/20/18 11/20/18 16:16 16:16 21:00 WBC 7.2 RBC 3.83 L Hgb 11.7 Hct 33.3 L MCV 87.0 MCH 30.6 MCHC 35.2 RDW 19.1 H Plt Count 206 D MPV 7.4 L Absolute Neuts (auto) 4.8 Neutrophils % 67.3 Lymphocytes % 20.5 Monocytes % 8.7 Eosinophils % 2.7 Basophils % 0.8 Nucleated RBC % 0 ESR PT with INR 13.60 H INR 1.15 H PTT (Actin FS) 28.0 Sodium 139 Potassium 4.5 Chloride 101 Carbon Dioxide 31 Anion Gap 7 L BUN 40 H Creatinine 2.4 H Creat Clearance w eGFR 26.38 Random Glucose 121 H Calcium 8.8 Total Bilirubin AST ALT Alkaline Phosphatase C-Reactive Protein Total Protein Albumin 12/11/20/18 11/20/18 21:00 21:00 21:00 WBC RBC Hgb Hct MCV MCH MCHC RDW Plt Count MPV Absolute Neuts (auto) Neutrophils % Lymphocytes % Monocytes % Eosinophils % Basophils % Nucleated RBC % ESR 37 H PT with INR INR PTT (Actin FS) Sodium 137 Potassium 4.6 Chloride 104 Carbon Dioxide 27 Anion Gap 6 L BUN 43 H Creatinine 2.4 H Creat Clearance w eGFR 26.38 Random Glucose 113 H Calcium 8.3 L Total Bilirubin 1.2 H AST 20 ALT 25 Alkaline Phosphatase 88 C-Reactive Protein 0.3 Total Protein 7.8 Albumin 4.1 ASSESSMENT/PLAN: 77 year old male with a PMHx significant for HTN, HLD, IDDMII, [place] s/p multiple stents, CAD, TIA, Systolic CHF, GERD, Anemia of chronic disease, diabetic neuropathy, hard of hearing who presented to the ED from his podiatrists office for worsening right hallux pain and erythema which first appeared one month ago. He has been admitted for treatment with IV antibiotics and possible surgical intervention by vascular and or podiatry. Right toe cellulitis - Failed OP course of PO antibiotics - Given Vancomycin and Zosyn in the ED - Consult with ID specialist Dr. Fulton ordered - Consult with vascular surgeon Dr. Jasso ordered - Consult with lease out man Dr. Delgadillo ordered HTN - Metoprolol Succinate 50 mg PO BID IDDMII - Fingerstick glucose monitoring - SS with Novolog - Lantus 16 units SQ AM and 50 units SQ HS - Gabapentin 100 mg PO TID for neuropathy CKD - BUN/Cr 43/2.4 - Baseline - Renal dosing for medications - Avoid nephrotoxic agents - Consider renal consult - Monitor BMP CAD - [place] s/p multiple stents - Aspirin 81 mg PO DAILY - Plavix 75 mg PO DAILY Systolic CHF - Euvolemic - Aldactone 25 mg po DAILY - Furosemide 80 mg PO DAILY - Potassium Chloride 20 meq PO DAILY Iron deficiency anemia - H&H 11.7/33.3 - FeSO4 325 mg PO DAILY BPH - Tamsulosin 0.4 mg PO qday Dementia - Aricept 5 mg PO DAILY Depression - Lexapro 20 mg PO DAILY Supplement - [place]-3 1 tab PO BID - Vitamin D3 1,000 unit PO DAILY Prophylaxis - DVT: Heparin SQ - GI: Protonix 40 mg PO DAILY FEN - PO intake adequate - BMP in the morning - DM, Na, cholesterol diet Disp: Patient requires further inpatient monitoring for his emergent condition. Visit type - Emergency Visit Emergency Visit: Yes ED Registration Date: 11/20/18 Care time: The patient presented to the Emergency Department on the above date and was hospitalized for further evaluation of their emergent condition. - New Patient This patient is new to me today: Yes Date on this admission: 11/21/18 - Critical Care Critical Care patient: No
[2018-11-21] MEDS ORDERED: INSULIN SLIDING SCALE (NOVOLOG) 1 VIAL SQ SCH ×2 (00:20→07:00)
[2018-11-21] MEDS: INSULIN SLIDING SCALE (NOVOLOG) 1 VIAL SQ SCH ×5 (00:32→21:13)
[2018-11-21] MEDS ORDERED: INSULIN REGULAR HUMAN 100 UNITS/ML *VIAL ONE (00:34)
[2018-11-21] MEDS ORDERED: PIPERACILLIN/TAZOB 2.25 GM 2.25 GM/50 ML BAG IVPB ONE (04:57)
[2018-11-21] MEDS ORDERED: PIPERACILLIN/TAZOB 2.25 GM 2.25 GM in DEXTROSE 5%-WATER - 50 ML IVPB ONE (05:00)
[2018-11-21 06:40] LABS: HEMATOCRIT 32.9 % (35.4-49); HEMOGLOBIN 10.6 GM/dL (11.7-16.9); MCH 28.4 pg (25.7-33.7); MCHC 32.1 g/dl (32.0-35.9); MEAN CELL VOLUME 88.4 fl (80-96); MEAN PLT VOLUME 7.5 fl (7.5-11.1); PLATELET COUNT 167 K/MM3 (134-434); RBC 3.72 M/mm3 (4.00-5.60); WHITE BLOOD COUNT 7.2 K/mm3 (4.0-10.0)
[2018-11-21] MEDS ORDERED: HEPARIN NA (PORCINE) 5,000 UNITS/ML 1ML VIAL ONE (06:49)
[2018-11-21] MEDS ORDERED: INSULIN (LEVEMIR) 100 UNITS/ML UNITS SQ ONE (06:50)
[2018-11-21] MEDS: INSULIN (LEVEMIR) 100 UNITS/ML UNITS SQ SCH ×2 (06:56→21:22)
[2018-11-21] MEDS: GABAPENTIN 300 MG CAPSULE (FP) PO SCH ×3 (06:57→21:12)
[2018-11-21] MEDS: HEPARIN NA (PORCINE) 5,000 UNITS/ML 1ML VIAL SQ SCH ×3 (06:57→21:12)
[2018-11-21 09:09] LABS: BLOOD UREA NITROGEN 43 mg/dL (7-18); CREATININE 2.4 mg/dL (0.55-1.3); GLUCOSE,RANDOM 121 mg/dL (74-106); SODIUM 137 mmol/L (136-145)
[2018-11-21 09:10] LABS: ANION GAP 7 MMOL/L (8-16); CALCIUM 7.9 mg/dL (8.5-10.1); CHLORIDE 103 mmol/L (98-107); CO2 27 mmol/L (21-32); MAGNESIUM 2.1 mg/dL (1.8-2.4)
[2018-11-21] MEDS ORDERED: FUROSEMIDE 40 MG TABLET (FP) PO SCH (10:00)
--- NOTE | 2018-11-21 10:09 | PN ---
Progress Note, Physician History of Present Illness: 77 year old male with a PMHx significant for HTN, HLD, IDDMII, [place] s/p multiple stents, CAD, TIA, Systolic CHF, GERD, Anemia of chronic disease, diabetic neuropathy, hard of hearing who presented to the ED from his podiatrists office for worsening right hallux pain and erythema which first appeared one month ago. Patient is follwed at the wound clinic with Dr. Jasso. Denies fever, chills , CP, palpitations, SOB, abdominal pain, n/v/d. - Current Medication List Current Medications: Active Medications Aspirin (Ecotrin -) 81 mg PO DAILY [facility] Atorvastatin Calcium (Lipitor -) 20 mg PO HS [facility] Cholecalciferol (Vitamin D3 -) 1,000 unit PO DAILY [facility] Clopidogrel Bisulfate (Plavix -) 75 mg PO DAILY [facility] Collagenase (Santyl -) 1 applic TP DAILY [facility]; Protocol Donepezil HCl (Aricept -) 10 mg PO HS [facility] Escitalopram Oxalate (Lexapro -) 20 mg PO DAILY [facility] Ferrous Sulfate (Feosol -) 325 mg PO DAILY [facility] Furosemide (Lasix -) 80 mg PO DAILY [facility] Gabapentin (Neurontin -) 300 mg PO TID [facility] Last Admin: 11/21/18 06:57 Dose: 300 mg Heparin Sodium (Porcine) (Heparin -) 5,000 unit SQ TID [facility] Last Admin: 11/21/18 06:57 Dose: 5,000 unit Insulin Aspart (Novolog Vial Sliding Scale -) 1 vial SQ ACHS [facility]; Protocol Last Admin: 11/21/18 06:43 Dose: Not Given Insulin Detemir (Levemir Vial) 16 units SQ AM [facility] Last Admin: 11/21/18 06:56 Dose: 16 unit Insulin Detemir (Levemir Vial) 50 units SQ HS [facility] Metoprolol Succinate (Toprol Xl -) 50 mg PO BID [facility] Nitroglycerin (Nitrostat -) 0.4 mg SL Q5M PRN PRN Reason: ANGINA [place]-3-[place] Ethyl Esters (Lovaza -) 1 gm PO DAILY [facility] Pantoprazole Sodium (Protonix -) 40 mg PO DAILY [facility] Spironolactone (Aldactone -) 25 mg PO DAILY [facility] Tamsulosin HCl (Flomax -) 0.4 mg PO BID [facility] - Objective Vital Signs: Vital Signs Temperature 97.8 F 11/21/18 07:14 Pulse Rate 60 11/21/18 07:14 Respiratory Rate 18 11/21/18 01:25 Blood Pressure 97/55 L 11/21/18 07:14 O2 Sat by Pulse Oximetry (%) 98 11/21/18 07:14 Cardiovascular: Yes: Murmur, S1, S2 Respiratory: Yes: Regular, CTA Bilaterally Gastrointestinal: Yes: Normal Bowel Sounds, Soft Edema: No Labs: CBC, BMP 11/21/18 06:02 11/21/18 06:02 INR, PTT INR 1.15 (0.83-1.09) H 11/20/18 21:00 Problem List - Problems (1) Diabetic foot infection Assessment/Plan: - Failed OP course of PO antibiotics - Given Vancomycin and Zosyn in the ED - Consult with ID specialist - Consult with vascular surgeon Dr. Jasso ordered - Consult with labor relations consultant Dr. Delgadillo ordered - DVT: Heparin SQ - GI: Protonix 40 mg PO DAILY Code(s): E11.628 - TYPE 2 DIABETES MELLITUS WITH OTHER SKIN COMPLICATIONS; L08.9 - LOCAL INFECTION OF THE SKIN AND SUBCUTANEOUS TISSUE, UNSP (2) CAD (coronary artery disease) Assessment/Plan: - MD s/p multiple stents - Aspirin 81 mg PO DAILY - Plavix 75 mg PO DAILY Code(s): I25.10 - ATHSCL HEART DISEASE OF [place] CORONARY ARTERY W/O ANG PCTRS Qualifiers: Coronary Disease-Associated Artery/Lesion type: [place] artery [place] vs. transplanted heart: [place] heart Associated angina: with unstable angina Qualified Code(s): I25.110 - Atherosclerotic heart disease of [place] coronary artery with unstable angina pectoris (3) CKD (chronic kidney disease) Assessment/Plan: - BUN/Cr 43/2.4 - Baseline - Renal dosing for medications - Avoid nephrotoxic agents - renal consult - Monitor BMP Code(s): N18.9 - CHRONIC KIDNEY DISEASE, UNSPECIFIED (4) Diabetes mellitus Assessment/Plan: - Fingerstick glucose monitoring - SS with Novolog - Lantus 16 units SQ AM and 50 units SQ HS - Gabapentin 100 mg PO TID for neuropathy Code(s): E11.9 - TYPE 2 DIABETES MELLITUS WITHOUT COMPLICATIONS Qualifiers: Diabetes mellitus type: type 2 Diabetes mellitus complication status: with kidney complications Diabetes mellitus complication detail: with chronic kidney disease Qualified Code(s): E11.22 - Type 2 diabetes mellitus with diabetic chronic kidney disease (5) HTN (hypertension) Assessment/Plan: - Metoprolol Succinate 50 mg Po bid Code(s): I10 - ESSENTIAL (PRIMARY) HYPERTENSION Qualifiers: Hypertension type: essential hypertension Qualified Code(s): I10 - Essential (primary) hypertension (6) Sleep apnea in adult Code(s): G47.33 - OBSTRUCTIVE SLEEP APNEA (ADULT) (PEDIATRIC) (7) Chronic systolic heart failure Assessment/Plan: - Euvolemic - Aldactone 25 mg po DAILY - Furosemide 80 mg PO DAILY - Potassium Chloride 20 meq PO DAILY Code(s): I50.22 - CHRONIC SYSTOLIC (CONGESTIVE) HEART FAILURE
[2018-11-21] MEDS: SPIRONOLACTONE 25 MG TABLET (FP) PO SCH (10:56)
[2018-11-21] MEDS: FERROUS SO4 325 MG TABLET (FP) PO SCH (10:57)
[2018-11-21] MEDS: ESCITALOPRAM OXALATE 20 MG TABLET (FP) PO SCH (10:57)
[2018-11-21] MEDS: OMEGA-3 ACID ETHYL ESTERS (FATTY-ACIDS) 1 GM CAPSULE (FP) PO SCH (10:57)
[2018-11-21] MEDS: PANTOPRAZOLE 40 MG TABLET (FP) PO SCH (10:57)
[2018-11-21] MEDS: TAMSULOSIN HCL 0.4 MG CAP PO SCH ×2 (10:57→21:12)
[2018-11-21] MEDS: CLOPIDOGREL BISULFATE 75 MG TABLET (FP) PO SCH (10:57)
[2018-11-21] MEDS: CHOLECALCIFEROL (VITAMIN D3) 1,000 UNIT TABLET (FP) PO SCH (10:57)
[2018-11-21] MEDS: ASPIRIN COATED 81 MG TABLET.EC PO SCH (11:00)
--- NOTE | 2018-11-21 11:29 | EKG ---
Test Reason : Blood Pressure : / mmHG Vent. Rate : 061 BPM Atrial Rate : 061 BPM P-R Int : 160 ms QRS Dur : 148 ms QT Int : 490 ms P-R-T Axes : 067 -35 134 degrees QTc Int : 493 ms NORMAL SINUS RHYTHM LEFT AXIS DEVIATION LEFT BUNDLE BRANCH BLOCK ABNORMAL ECG WHEN COMPARED WITH ECG OF 09-JAN-2018 10:28, NO SIGNIFICANT CHANGE WAS FOUND Confirmed by WADE SALMON, ELMIRA ([id number]) on 11/21/2018 11:29:18 AM Referred By: Confirmed By:ELMIRA OLVERA MD
--- NOTE | 2018-11-21 12:33 | PN ---
Progress Note (short form) - Note Progress Note: Vascular surgery Pt seen and examined. Well known to wound care clinic. Right great toe gangrene with osteo. Pt will get nereida/arterial duplex here on 5w on saturday morning at 8am. That was his regularly scheduled visit. Pt's Creatinine is 2.4. Cannot order CTA. Pt does not have any palpable pulses in right foot. Will probably need angiogram after ultrasound on saturday Ender Jasso DO
--- NOTE | 2018-11-21 13:36 | CONSULT ---
Consult Consult Specialty:: Podiatry Reason for Consultation:: Vanesa right foot - History of Present Illness Chief Complaint: Pain and redness right big toe. History of Present Illness: Chronic wound with questionable outpatient MRI for OM - History Source History Provided By: Medical Record - Past Medical History [employer]: Yes: Dementia, TIA Cardio/Vascular: Yes: CAD, CHF, HTN, Hyperlipdemia, [place] Gastrointestinal: Yes: GERD Psych: Yes: Depression Musculoskeletal: Yes: Chronic low back pain, Other (diabetic neuropathy) ENT: Yes: Other (hard of hearing) Endocrine: Yes: Diabetes Mellitus - Past Surgical History Past Surgical History: Yes: Appendectomy, CABG, Stent - Alcohol/Substance Use Hx Alcohol Use: No History of Substance Use: reports: None - Smoking History Smoking history: Current every day smoker Have you smoked in the past 12 months: No Aproximately how many cigarettes per day: 0 - Social History Usual Living Arrangement: With Spouse History of Recent Travel: No Home Medications - Allergies Allergies/Adverse Reactions: Allergies Allergy/AdvReac Type Severity Reaction Status Date / Time ranolazine [From Ranexa] AdvReac Intermediate Hallucinati Verified 11/20/18 15: 57 ons - Home Medications Home Medications: Ambulatory Orders Clopidogrel Bisulfate [Plavix -] 75 mg PO DAILY 09/04/15 Pantoprazole Sodium [Protonix] 40 mg PO DAILY 09/04/15 Cholecalciferol (Vitamin D3) [Vitamin D3] 1,000 unit PO DAILY tablet 04/05/17 Insulin Glargine,Hum.rec.anlog [Lantus Solostar PEN (NF)] 16 units SQ AM Insulin Glargine,Hum.rec.anlog [Lantus Solostar PEN (NF)] 50 units SQ HS Metoprolol Succinate [Toprol Xl] 50 mg PO BID 07/24/17 Nitroglycerin 0.6 mg SL ASDIR 07/24/17 Nitroglycerin [Nitrostat] 0.4 mg SL ASDIR 07/24/17 Aspirin [Aspirin EC] 81 mg PO DAILY 01/09/18 Collagenase Clostridium Hist. [Santyl] 1 applic TP DAILY #90 oint...g. 11/03/18 Donepezil HCl [Aricept] 10 mg PO DAILY 11/20/18 Escitalopram Oxalate [Lexapro -] 20 mg PO DAILY 11/20/18 Ferrous Sulfate 325 mg PO DAILY 11/20/18 Insulin Aspart [Novolog] 10 unit SQ DAILY 11/20/18 [place]-3S/Dha/Epa/Fish Oil [Fish Oil 1,200 mg Softgel] 1 each PO DAILY 11/20/18 Spironolactone 25 mg PO DAILY 11/20/18 Tamsulosin HCl [Flomax] 0.4 mg PO BID 11/20/18 Family Disease History - Family Disease History Family Disease History: Diabetes: Mother (HTN), Heart Disease: Father ( of [place] age 45), Mother Physical Exam Vital Signs: Vital Signs Temperature 97.8 F 11/21/18 07:14 Pulse Rate 60 11/21/18 07:14 Respiratory Rate 18 11/21/18 01:25 Blood Pressure 97/55 L 11/21/18 07:14 O2 Sat by Pulse Oximetry (%) 98 11/21/18 07:14 Extremities: Yes: Other (+cellulitis right big toe, +eschar with wound, -mal odor, -drainage, pvd) Labs: CBC, BMP 11/21/18 06:02 11/21/18 06:02 Assessment/Plan PVD chronic wound right big toe cellulitis Eschar wound XRAY. MRI. Vascular consult done. Santyl to wound right big toe. Will follow. ID requesting bone biopsy.
--- NOTE | 2018-11-21 15:05 | CONSULT ---
Consult - text type - Consultation Consultation Note: Renal consult for CKD This is a 77 year old gentleman with hx of CKD stage 3 (baseline Cr ~2), DM on insulin, CAD, Hypertension, diabetic neuropathy who presented with LE pain and found to have suspected osteomylitis. Pt follows with Dr. Yovany Kaplan for his CKD as an outpatient. Pt reports that his toe has been bothering him for 1 month and had an outpatient course of oral antibiotics w/o improvement. He currently denies any sob, cp, abd pain, N/V/D. No flank pain. Making urine w/o difficulty. PMHx: as above Allergies: Ranolazine Family Hx: NC social Hx: ROS: as per HPI Home Medications Medication Instructions Recorded Clopidogrel Bisulfate [Plavix -] 75 mg PO DAILY 09/04/15 Pantoprazole Sodium [Protonix] 40 mg PO DAILY 09/04/15 Cholecalciferol (Vitamin D3) 1,000 unit PO DAILY tablet 04/05/17 [Vitamin D3] Insulin Glargine,Hum.rec.anlog 16 units SQ AM 07/24/17 [Lantus Solostar PEN (NF)] Insulin Glargine,Hum.rec.anlog 50 units SQ HS 07/24/17 [Lantus Solostar PEN (NF)] Metoprolol Succinate [Toprol Xl] 50 mg PO BID 07/24/17 Nitroglycerin 0.6 mg SL ASDIR 07/24/17 Nitroglycerin [Nitrostat] 0.4 mg SL ASDIR 07/24/17 Aspirin [Aspirin EC] 81 mg PO DAILY 01/09/18 Collagenase Clostridium Hist. 1 applic TP DAILY #90 oint...g. 11/03/18 [Santyl] Donepezil HCl [Aricept] 10 mg PO DAILY 11/20/18 Escitalopram Oxalate [Lexapro -] 20 mg PO DAILY 11/20/18 Ferrous Sulfate 325 mg PO DAILY 11/20/18 Insulin Aspart [Novolog] 10 unit SQ DAILY 11/20/18 [place]-3S/Dha/Epa/Fish Oil [Fish 1 each PO DAILY 11/20/18 Oil 1,200 mg Softgel] Spironolactone 25 mg PO DAILY 11/20/18 Tamsulosin HCl [Flomax] 0.4 mg PO BID 12/20/18 Vital Signs Temperature 98.6 F 11/21/18 13:52 Pulse Rate 70 11/21/18 13:52 Respiratory Rate 18 11/21/18 13:52 Blood Pressure 136/50 L 11/21/18 13:52 O2 Sat by Pulse Oximetry (%) 98 11/21/18 07:14 Intake & Output 11/18/18 11/19/18 11/20/18 11/21/18 23:59 23:59 23:59 23:59 Weight 99.79 kg 99.79 kg NAD awake and alert neck supple no JVD RRR, + systolic murmur CTA, on rales soft, obese NT/ND no CVA tenderness Trace LE edema, eschar on 2nd right toe CBC, BMP 11/21/18 06:02 11/21/18 06:02 Laboratory Tests 11/21/18 06:02 Creat Clearance w eGFR 26.38 Calcium 7.9 L Magnesium 2.1 Current Medications Aspirin (Ecotrin -) 81 mg PO DAILY [facility] Last Admin: 11/21/18 11:00 Dose: 81 mg Atorvastatin Calcium (Lipitor -) 20 mg PO HS [facility] Cholecalciferol (Vitamin D3 -) 1,000 unit PO DAILY [facility] Last Admin: 11/21/18 10:57 Dose: 1,000 unit Clopidogrel Bisulfate (Plavix -) 75 mg PO DAILY [facility] Last Admin: 11/21/18 10:57 Dose: 75 mg Collagenase (Santyl -) 1 applic TP DAILY [facility]; Protocol Donepezil HCl (Aricept -) 10 mg PO [facility] Escitalopram Oxalate (Lexapro -) 20 mg PO DAILY [facility] Last Admin: 11/21/18 10:57 Dose: 20 mg Ferrous Sulfate (Feosol -) 325 mg PO DAILY [facility] Last Admin: 11/21/18 10:57 Dose: 325 mg Furosemide (Lasix -) 80 mg PO DAILY [facility] Last Admin: 11/21/18 10:58 Dose: 80 mg Gabapentin (Neurontin -) 300 mg PO TID [facility] Last Admin: 11/21/18 06:57 Dose: 300 mg Heparin Sodium (Porcine) (Heparin -) 5,000 unit SQ TID [facility] Last Admin: 11/21/18 06:57 Dose: 5,000 unit Insulin Aspart (Novolog Vial Sliding Scale -) 1 vial SQ [facility]; Protocol Last Admin: 12/21/18 11:42 Dose: 4 unit Insulin Detemir (Levemir Vial) 16 units SQ AM [facility] Last Admin: 11/21/18 06:56 Dose: 16 unit Insulin Detemir (Levemir Vial) 50 units SQ HS [facility] Metoprolol Succinate (Toprol Xl -) 50 mg PO BID [facility] Last Admin: 11/21/18 10:57 Dose: 50 mg Nitroglycerin (Nitrostat -) 0.4 mg SL Q5M PRN PRN Reason: ANGINA [place]-2-[place] Ethyl Esters (Lovaza -) 1 gm PO DAILY [facility] Last Admin: 11/21/18 10:57 Dose: 1 gm Pantoprazole Sodium (Protonix -) 40 mg PO DAILY [facility] Last Admin: 11/21/18 10:57 Dose: 40 mg Spironolactone (Aldactone -) 25 mg PO DAILY [facility] Last Admin: 11/21/18 10:56 Dose: 25 mg Tamsulosin HCl (Flomax -) 0.4 mg PO BID [facility] Last Admin: 11/21/18 10:57 Dose: 0.4 mg A/P 77 year old gentleman with hx of CKD stage 3 (baseline Cr ~2), DM on insulin, CAD, Hypertension, diabetic neuropathy who presented with LE pain and found to have suspected osteomylitis. 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 Would continue oral diuretics: Torsemide + Aldactone Pt not on ACEi, was discontinue by cardiology as an outpatient Continue Abx as per ID, if vanco to be continued please monitor levels pt is at risk for contrast nephropathy given his hx of significant CKD, would avoid IV contrast and attempt CO2 angiogram if an angiogram is warranted avoid nephrotoxins (NSAIDs, Fleets) Vacuolar and podiatry follow up BP goal < 140/90 as inpatinet continue SC insulin Thank you Will follow up Cortes Houser DO
[2018-11-21] MEDS: COLLAGENASE CLOSTRIDIUM HIST. 30 GRAMS TUBE TP SCH (15:24)
--- NOTE | 2018-11-21 16:22 | CONS ---
INFECTIOUS DISEASE CONSULTATION DATE OF CONSULTATION: DATE OF DICTATION: 11/21/2018 The patient is a 77-year-old male who is evaluated for osteomyelitis of the right great toe. The patient presented to the wound care center for followup yesterday. He was noted to have a necrotic, dry ulceration over the medial aspect of the right great toe as well as swelling and erythema of the great toe. He had been prescribed an oral antibiotic prior to admission without significant improvement. The patient had originally developed a blister on the great toe, which ruptured and resulted in a nonhealing ulcer. He now has persistent erythema of the great toe as well as a nonhealing ulcer. No reports of any wound drainage. No associated fever or chills. An MRI was performed as an outpatient and was positive for osteomyelitis of the right distal phalanx. PAST MEDICAL HISTORY: Positive for diabetes mellitus, chronic kidney disease, mild dementia, coronary artery disease, congestive heart failure, hypertension, hyperlipidemia, myocardial infarction. PAST SURGICAL HISTORY: Status post appendectomy and bypass surgery. ALLERGIES: RANOLAZINE. MEDICATIONS: At the present time include Flomax, heparin, Neurontin, Lexapro, Lovaza, Toprol, Lipitor, NovoLog, Levemir, Demadex, Aldactone, Ecotrin, Aricept, Plavix, Protonix. SOCIAL HISTORY: He lives at home with his in the community. He suffers from mild dementia and is hard of hearing. He is a nonsmoker, nondrinker. SYSTEMS REVIEW: Neurologic: Positive for mild dementia. No loss of consciousness, seizure activity, focal weakness. Cardiac: Negative chest pain or palpitations. Respiratory: Negative cough or sputum production. Gastrointestinal: Negative vomiting or diarrhea. Genitourinary: Negative for urinary tract infection. LABORATORY DATA: White count 7.2, hematocrit 32.9, platelet count 167. ESR 37. BUN 43, creatinine 2.4. C-reactive protein 0.3. Urinalysis pending. Blood culture is pending. PHYSICAL EXAMINATION: General: Patient is awake and alert, out of bed to chair, in no acute distress. Vital Signs: Temperature 98.6; blood pressure 136/50; pulse 70, regular; respirations 18 per minute. HEENT: Sclerae anicteric. Heart: Sounds S1, S2. Lungs: Clear. Abdomen: Soft. No tenderness elicited. Right Foot: There is an oval-shaped, shallow-based ulceration present over the medial aspect of the right great toe. It is approximately 3 x 2 cm. There is erythema and swelling involving the right great toe. There is no purulent drainage. No crepitus or fluctuance. No lymphangitic streaking. IMPRESSION: 1. Nonhealing right great toe ulcer. 2. Chronic osteomyelitis of the right great toe. 3. Azotemia. Podiatry consultation has been requested for biopsy of the right great toe with cultures to direct antibiotic therapy. Will need a PICC line and long-term IV antibiotic therapy. Continue local wound care. Will follow. Thank you for the kind referral. YULISSA KIMBLE M.D. [id number]
[2018-11-21] MEDS ORDERED: INSULIN (NOVOLOG) ASPART 100 UNITS/ML 10ML VIAL ONE (18:35)
[2018-11-21] MEDS ORDERED: FLU VACCINE QUAD 60 MCG/0.5 ML (MDV 18-19) IM ONE (19:00)
[2018-11-21] MEDS: DONEPEZIL HCL 10 MG TABLET (FP) PO SCH (21:12)
[2018-11-21] MEDS: ATORVASTATIN CA 20 MG TABLET (FP) PO SCH (21:12)
[2018-11-21] MEDS ORDERED: PT OWN MED DRAWER 7, Y5N ONE (21:48)
[2018-11-22] MEDS: GABAPENTIN 300 MG CAPSULE (FP) PO SCH ×3 (06:20→21:16)
[2018-11-22] MEDS: HEPARIN NA (PORCINE) 5,000 UNITS/ML 1ML VIAL SQ SCH ×3 (06:20→21:17)
[2018-11-22] MEDS: INSULIN SLIDING SCALE (NOVOLOG) 1 VIAL SQ SCH ×4 (06:21→21:42)
[2018-11-22] MEDS: INSULIN (LEVEMIR) 100 UNITS/ML UNITS SQ SCH ×2 (06:25→21:41)
[2018-11-22] MEDS ORDERED: INSULIN (NOVOLOG) ASPART 100 UNITS/ML 10ML VIAL ONE (07:19)
[2018-11-22] MEDS ORDERED: INSULIN (LEVEMIR) 100 UNITS/ML UNITS SQ ONE (07:20)
[2018-11-22 07:26] LABS: BASO % 0.7 % (0-2.0); EOS % 1.9 % (0-4.5); HEMATOCRIT 31.7 % (35.4-49); HEMOGLOBIN 10.5 GM/dL (11.7-16.9); LYMPH % 14.1 % (8-40); MCH 29.1 pg (25.7-33.7); MCHC 33.2 g/dl (32.0-35.9); MEAN CELL VOLUME 87.5 fl (80-96); MEAN PLT VOLUME 7.5 fl (7.5-11.1); MONO % 8.2 % (3.8-10.2); NEUT % 75.1 % (42.8-82.8); PLATELET COUNT 155 K/MM3 (134-434); RBC 3.62 M/mm3 (4.00-5.60); RDW 18.7 % (11.9-15.9); WHITE BLOOD COUNT 6.7 K/mm3 (4.0-10.0)
[2018-11-22 08:44] LABS: ALBUMIN 3.4 g/dl (3.4-5.0); ALK PHOS 79 U/L (45-117); ANION GAP 11 MMOL/L (8-16); BLOOD UREA NITROGEN 37 mg/dL (7-18); CALCIUM 7.9 mg/dL (8.5-10.1); CHLORIDE 100 mmol/L (98-107); CO2 26 mmol/L (21-32); CREATININE 2.2 mg/dL (0.55-1.3); GLUCOSE,RANDOM 107 mg/dL (74-106); PHOSPHOROUS 6.1 mg/dL (2.5-4.9); SGOT/AST 16 U/L (15-37); SGPT/ALT 21 U/L (13-61); SODIUM 136 mmol/L (136-145); TOT PROT 6.8 g/dl (6.4-8.2)
--- NOTE | 2018-11-22 10:19 | PN ---
Progress Note, Physician Chief Complaint: Diabetic Ulcer R great toe History of Present Illness: Previous notes and events reviewed awake and alert NAD transferred to ED from wound center for ulcer to R great toe that did not respond to PO ABT , MRI of lower extremity show osteomyelitis WBC wnl, afebrile - Current Medication List Current Medications: Active Medications Aspirin (Ecotrin -) 81 mg PO DAILY [facility] Last Admin: 11/21/18 11:00 Dose: 81 mg Atorvastatin Calcium (Lipitor -) 20 mg PO HS [facility] Last Admin: 11/21/18 21:12 Dose: 20 mg Cholecalciferol (Vitamin D3 -) 1,000 unit PO DAILY [facility] Last Admin: 11/21/18 10:57 Dose: 1,000 unit Clopidogrel Bisulfate (Plavix -) 75 mg PO DAILY [facility] Last Admin: 11/21/18 10:57 Dose: 75 mg Collagenase (Santyl -) 1 applic TP DAILY [facility]; Protocol Last Admin: 11/21/18 15:24 Dose: 1 applic Donepezil HCl (Aricept -) 10 mg PO HS [facility] Last Admin: 11/21/18 21:12 Dose: 10 mg Escitalopram Oxalate (Lexapro -) 20 mg PO DAILY [facility] Last Admin: 11/21/18 10:57 Dose: 20 mg Ferrous Sulfate (Feosol -) 325 mg PO DAILY [facility] Last Admin: 11/21/18 10:57 Dose: 325 mg Gabapentin (Neurontin -) 300 mg PO TID [facility] Last Admin: 11/22/18 06:20 Dose: 300 mg Heparin Sodium (Porcine) (Heparin -) 5,000 unit SQ TID [facility] Last Admin: 11/22/18 06:20 Dose: 5,000 unit Insulin Aspart (Novolog Vial Sliding Scale -) 1 vial SQ [facility]; Protocol Last Admin: 11/22/18 06:21 Dose: Not Given Insulin Detemir (Levemir Vial) 16 units SQ AM [facility] Last Admin: 11/22/18 06:25 Dose: 16 unit Insulin Detemir (Levemir Vial) 50 units SQ HS [facility] Last Admin: 11/21/18 21:22 Dose: 50 units Metoprolol Succinate (Toprol Xl -) 50 mg PO BID [facility] Last Admin: 11/21/18 21:12 Dose: 50 mg Nitroglycerin (Nitrostat -) 0.4 mg SL Q5M PRN PRN Reason: ANGINA Zfgnk-2-Couh Ethyl Esters (Lovaza -) 1 gm PO DAILY [facility] Last Admin: 11/21/18 10:57 Dose: 1 gm Pantoprazole Sodium (Protonix -) 40 mg PO DAILY [facility] Last Admin: 11/21/18 10:57 Dose: 40 mg Spironolactone (Aldactone -) 25 mg PO DAILY [facility] Last Admin: 11/21/18 10:56 Dose: 25 mg Tamsulosin HCl (Flomax -) 0.4 mg PO BID [facility] Last Admin: 11/21/18 21:12 Dose: 0.4 mg Torsemide (Demadex -) 20 mg PO DAILY [facility] - Objective Vital Signs: Vital Signs Temperature 97.8 F 11/22/18 07:07 Pulse Rate 66 11/22/18 07:07 Respiratory Rate 20 11/22/18 07:07 Blood Pressure 125/69 11/22/18 07:07 O2 Sat by Pulse Oximetry (%) 98 11/21/18 21:00 Constitutional: Yes: Well Nourished, No Distress, Calm Neck: Yes: Supple Cardiovascular: Yes: Regular Rate and Rhythm Respiratory: Yes: Regular, CTA Bilaterally Gastrointestinal: Yes: Normal Bowel Sounds, Soft Musculoskeletal: Yes: WNL Extremities: Yes: WNL Edema: No Wound/Incision: Yes: Dressing Dry and Intact, Other (diabetic ulcer noted to R great toe, eschar, no drainage, mal-odor) Neurological: Yes: Alert, Oriented Psychiatric: Yes: Alert, Oriented Labs: CBC, BMP 11/22/18 06:30 11/22/18 06:30 INR, PTT INR 1.15 (0.83-1.09) H 11/20/18 21:00 Problem List - Problems (1) Diabetic foot infection Code(s): E11.628 - TYPE 2 DIABETES MELLITUS WITH OTHER SKIN COMPLICATIONS; L08.9 - LOCAL INFECTION OF THE SKIN AND SUBCUTANEOUS TISSUE, UNSP (2) CAD (coronary artery disease) Code(s): I25.10 - ATHSCL HEART DISEASE OF [place] CORONARY ARTERY W/O ANG PCTRS Qualifiers: Coronary Disease-Associated Artery/Lesion type: [place] artery [place] vs. transplanted heart: [place] heart Associated angina: with unstable angina Qualified Code(s): I25.110 - Atherosclerotic heart disease of [place] coronary artery with unstable angina pectoris (3) Diabetes mellitus Code(s): E11.9 - TYPE 2 DIABETES MELLITUS WITHOUT COMPLICATIONS Qualifiers: Diabetes mellitus type: type 2 Diabetes mellitus complication status: with kidney complications Diabetes mellitus complication detail: with chronic kidney disease Qualified Code(s): E11.22 - Type 2 diabetes mellitus with diabetic chronic kidney disease (4) HTN (hypertension) Code(s): I10 - ESSENTIAL (PRIMARY) HYPERTENSION Qualifiers: Hypertension type: essential hypertension Qualified Code(s): I10 - Essential (primary) hypertension Assessment/Plan -ID on board -Podiatry on board -pending bone bx to determine ABT -wound care -BGM -cont with BP med regimen -dvt ppx
[2018-11-22] MEDS: PANTOPRAZOLE 40 MG TABLET (FP) PO SCH (10:41)
[2018-11-22] MEDS: FERROUS SO4 325 MG TABLET (FP) PO SCH (10:41)
[2018-11-22] MEDS: CLOPIDOGREL BISULFATE 75 MG TABLET (FP) PO SCH (10:41)
[2018-11-22] MEDS: ESCITALOPRAM OXALATE 20 MG TABLET (FP) PO SCH (10:41)
[2018-11-22] MEDS: ASPIRIN COATED 81 MG TABLET.EC PO SCH (10:41)
[2018-11-22] MEDS: TAMSULOSIN HCL 0.4 MG CAP PO SCH ×2 (10:42→21:16)
[2018-11-22] MEDS: SPIRONOLACTONE 25 MG TABLET (FP) PO SCH (10:42)
[2018-11-22] MEDS: TORSEMIDE 20 MG TABLET (FP) PO SCH (10:42)
[2018-11-22] MEDS: OMEGA-3 ACID ETHYL ESTERS (FATTY-ACIDS) 1 GM CAPSULE (FP) PO SCH (10:43)
[2018-11-22] MEDS ORDERED: LIDOCAINE HCL 1%, 10 MG/ML (20ML VIAL) NR ONE (11:27)
--- NOTE | 2018-11-22 11:59 | PN ---
Progress Note (short form) - Note Progress Note: Patint seen in bed. vss, Tmax 97.8 +dry eschar, +om right great toe, om pvd diabetic wound ID requesting bone biopsy to tx patient. HBO consult. Will do bone biopsy once kit is available on floor. Currently unavailable.
[2018-11-22] MEDS: CHOLECALCIFEROL (VITAMIN D3) 1,000 UNIT TABLET (FP) PO SCH (12:18)
[2018-11-22] MEDS: COLLAGENASE CLOSTRIDIUM HIST. 30 GRAMS TUBE TP SCH (13:51)
--- NOTE | 2018-11-22 13:58 | PN ---
Progress Note, Physician History of Present Illness: Awake, alert No c/o foot pain No fever - Current Medication List Current Medications: Active Medications Aspirin (Ecotrin -) 81 mg PO DAILY [facility] Last Admin: 11/22/18 10:41 Dose: 81 mg Atorvastatin Calcium (Lipitor -) 20 mg PO HS [facility] Last Admin: 11/21/18 21:12 Dose: 20 mg Cholecalciferol (Vitamin D3 -) 1,000 unit PO DAILY [facility] Last Admin: 11/22/18 12:18 Dose: 1,000 unit Clopidogrel Bisulfate (Plavix -) 75 mg PO DAILY [facility] Last Admin: 11/22/18 10:41 Dose: 75 mg Collagenase (Santyl -) 1 applic TP DAILY [facility]; Protocol Last Admin: 11/22/18 13:51 Dose: 1 applic Donepezil HCl (Aricept -) 10 mg PO HS [facility] Last Admin: 11/21/18 21:12 Dose: 10 mg Escitalopram Oxalate (Lexapro -) 20 mg PO DAILY [facility] Last Admin: 11/22/18 10:41 Dose: 20 mg Ferrous Sulfate (Feosol -) 325 mg PO DAILY [facility] Last Admin: 11/22/18 10:41 Dose: 325 mg Gabapentin (Neurontin -) 300 mg PO TID [facility] Last Admin: 11/22/18 13:43 Dose: 300 mg Heparin Sodium (Porcine) (Heparin -) 5,000 unit SQ TID [facility] Last Admin: 11/22/18 13:43 Dose: Not Given Vancomycin HCl 1,000 mg/ (Dextrose) 250 mls @ 200 mls/hr IVPB Q24H [facility]; Protocol Piperacillin Sod/Tazobactam (Sod 2.25 gm/ Dextrose) 50 mls @ 100 mls/hr IVPB Q8H-IV [facility]; Protocol Insulin Aspart (Novolog Vial Sliding Scale -) 1 vial SQ ACHS [facility]; Protocol Last Admin: 11/22/18 12:14 Dose: 8 unit Insulin Detemir (Levemir Vial) 16 units SQ AM [facility] Last Admin: 11/22/18 06:25 Dose: 16 unit Insulin Detemir (Levemir Vial) 50 units SQ HS [facility] Last Admin: 11/21/18 21:22 Dose: 50 units Metoprolol Succinate (Toprol Xl -) 50 mg PO BID [facility] Last Admin: 11/22/18 10:41 Dose: 50 mg Nitroglycerin (Nitrostat -) 0.4 mg SL Q5M PRN PRN Reason: ANGINA [id number] Ethyl Esters (Lovaza -) 1 gm PO DAILY [facility] Last Admin: 11/22/18 10:43 Dose: 1 gm Pantoprazole Sodium (Protonix -) 40 mg PO DAILY [facility] Last Admin: 11/22/18 10:41 Dose: 40 mg Spironolactone (Aldactone -) 25 mg PO DAILY [facility] Last Admin: 11/22/18 10:42 Dose: 25 mg Tamsulosin HCl (Flomax -) 0.4 mg PO BID [facility] Last Admin: 11/22/18 10:42 Dose: 0.4 mg Torsemide (Demadex -) 20 mg PO DAILY [facility] Last Admin: 11/22/18 10:42 Dose: 20 mg - Objective Vital Signs: Vital Signs Temperature 97.7 F 11/22/18 10:00 Pulse Rate 66 11/22/18 10:00 Respiratory Rate 18 11/22/18 10:00 Blood Pressure 112/63 11/22/18 10:00 O2 Sat by Pulse Oximetry (%) 98 11/21/18 21:00 Constitutional: Yes: No Distress Eyes: Yes: Conjunctiva Clear Cardiovascular: Yes: Regular Rate and Rhythm, S1, S2 Respiratory: Yes: CTA Bilaterally Gastrointestinal: Yes: Normal Bowel Sounds, Soft. No: Tenderness Extremities: Yes: Other (+ erythema great toe, dry ulcer) Labs: CBC, BMP 11/22/18 06:30 11/22/18 06:30 INR, PTT INR 1.15 (0.83-1.09) H 11/20/18 21:00 Assessment/Plan Cellulitis/ osteomyelitis great toe Azotemia For bone bx Empiric vancomycin/ zosyn
[2018-11-22] MEDS ORDERED: VANCOMYCIN 1,000 MG in DEXTROSE 5%-WATER - 250 ML IVPB SCH (14:00)
[2018-11-22] MEDS ORDERED: DEXTROSE 5%-WATER - 50 ML IVPB ONE (14:50)
[2018-11-22] MEDS ORDERED: PIPERACILLIN/TAZOBACTAM 2.25 GM VIAL IVPB ONE (14:50)
[2018-11-22] MEDS: PIPERACILLIN/TAZOB 2.25 GM 2.25 GM in DEXTROSE 5%-WATER - 50 ML IVPB SCH ×2 (14:59→17:02)
[2018-11-22] MEDS: VANCOMYCIN 1 GRAM (PRE-DOCKED) 1,000 MG/250 ML BAG IVPB SCH (15:21)
[2018-11-22] MEDS ORDERED: LIDOCAINE HCL 1%, 10 MG/ML (20ML VIAL) ONE (16:20)
--- NOTE | 2018-11-22 17:08 | PN ---
Progress Note (short form) - Note Progress Note: covering dr lee 77 year old gentleman with hx of CKD stage 3 (baseline Cr ~2), DM on insulin, CAD, Hypertension, diabetic neuropathy who presented with LE pain/suspected osteomylitis. 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 #r/o arterial insufficiency #Hypertension #Dm on insulin Current Medications Aspirin (Ecotrin -) 81 mg PO DAILY [facility] Last Admin: 11/22/18 10:41 Dose: 81 mg Atorvastatin Calcium (Lipitor -) 20 mg PO HS [facility] Last Admin: 11/21/18 21:12 Dose: 20 mg Cholecalciferol (Vitamin D3 -) 1,000 unit PO DAILY [facility] Last Admin: 11/22/18 12:18 Dose: 1,000 unit Clopidogrel Bisulfate (Plavix -) 75 mg PO DAILY [facility] Last Admin: 11/22/18 10:41 Dose: 75 mg Collagenase (Santyl -) 1 applic TP DAILY [facility]; Protocol Last Admin: 11/22/18 13:51 Dose: 1 applic Donepezil HCl (Aricept -) 10 mg PO HS [facility] Last Admin: 11/21/18 21:12 Dose: 10 mg Escitalopram Oxalate (Lexapro -) 20 mg PO DAILY [facility] Last Admin: 11/22/18 10:41 Dose: 20 mg Ferrous Sulfate (Feosol -) 325 mg PO DAILY [facility] Last Admin: 11/22/18 10:41 Dose: 325 mg Gabapentin (Neurontin -) 300 mg PO TID [facility] Last Admin: 11/22/18 13:43 Dose: 300 mg Heparin Sodium (Porcine) (Heparin -) 5,000 unit SQ TID [facility] Last Admin: 11/22/18 13:43 Dose: Not Given Piperacillin Sod/Tazobactam (Sod 2.25 gm/ Dextrose) 50 mls @ 100 mls/hr IVPB Q8H-IV [facility]; Protocol Last Admin: 11/22/18 17:02 Dose: Not Given Vancomycin HCl (Vancomycin (Pre-Docked)) 1,000 mg in 250 mls @ 166.667 mls/hr IVPB DAILY@1500 [facility]; Protocol Last Admin: 11/22/18 15:21 Dose: 166.667 mls/hr Insulin Aspart (Novolog Vial Sliding Scale -) 1 vial SQ ACHS [facility]; Protocol Last Admin: 11/22/18 17:01 Dose: 8 unit Insulin Detemir (Levemir Vial) 16 units SQ AM [facility] Last Admin: 11/22/18 06:25 Dose: 16 unit Insulin Detemir (Levemir Vial) 50 units SQ HS [facility] Last Admin: 11/21/18 21:22 Dose: 50 units Metoprolol Succinate (Toprol Xl -) 50 mg PO BID [facility] Last Admin: 11/22/18 10:41 Dose: 50 mg Nitroglycerin (Nitrostat -) 0.4 mg SL Q5M PRN PRN Reason: ANGINA [id number]-3-[id number] Ethyl Esters (Lovaza -) 1 gm PO DAILY [facility] Last Admin: 11/22/18 10:43 Dose: 1 gm Pantoprazole Sodium (Protonix -) 40 mg PO DAILY [facility] Last Admin: 11/22/18 10:41 Dose: 40 mg Spironolactone (Aldactone -) 25 mg PO DAILY [facility] Last Admin: 11/22/18 10:42 Dose: 25 mg Tamsulosin HCl (Flomax -) 0.4 mg PO BID [facility] Last Admin: 11/22/18 10:42 Dose: 0.4 mg Torsemide (Demadex -) 20 mg PO DAILY [facility] Last Admin: 11/22/18 10:42 Dose: 20 mg Last Vital Signs Temp Pulse Resp BP Pulse Ox 97.7 F 58 L 20 119/68 98 11/22/18 17:05 11/22/18 17:05 11/22/18 17:05 11/22/18 17:05 11/21/18 21:00 CBC, BMP 11/22/18 06:30 11/22/18 06:30 11/20/18 11/21/18 11/22/18 21:00 06:02 06:30 Sodium 137 137 136 Potassium 4.6 4.0 4.0 BUN 43 H 43 H 37 H Creatinine 2.4 H 2.4 H 2.2 H Serum Cr is slightly above his baseline but not a significant change. Would continue oral diuretics: Torsemide + Aldactone Pt not on ACEi, was discontinue by cardiology as an outpatient Continue Abx as per ID, if vanco to be continued please monitor levels pt is at risk for contrast nephropathy given his hx of significant CKD, would avoid IV contrast and attempt CO2 angiogram if an angiogram is warranted avoid nephrotoxins (NSAIDs, Fleets) Vacuolar and podiatry follow up BP goal < 140/90 as inpatinet continue SC insulin
[2018-11-22] MEDS: ATORVASTATIN CA 20 MG TABLET (FP) PO SCH (21:16)
[2018-11-22] MEDS: DONEPEZIL HCL 10 MG TABLET (FP) PO SCH (21:16)
[2018-11-23] MEDS ORDERED: PIPERACILLIN/TAZOBACTAM 2.25 GM VIAL IVPB ONE ×3 (01:08→18:14)
[2018-11-23] MEDS ORDERED: DEXTROSE 5%-WATER - 50 ML IVPB ONE ×3 (01:08→18:15)
[2018-11-23] MEDS: PIPERACILLIN/TAZOB 2.25 GM 2.25 GM in DEXTROSE 5%-WATER - 50 ML IVPB SCH ×3 (01:22→18:26)
[2018-11-23] MEDS: INSULIN SLIDING SCALE (NOVOLOG) 1 VIAL SQ SCH ×4 (06:35→21:09)
[2018-11-23] MEDS: HEPARIN NA (PORCINE) 5,000 UNITS/ML 1ML VIAL SQ SCH ×3 (06:39→21:05)
[2018-11-23] MEDS: GABAPENTIN 300 MG CAPSULE (FP) PO SCH ×3 (06:45→21:04)
[2018-11-23] MEDS: INSULIN (LEVEMIR) 100 UNITS/ML UNITS SQ SCH ×2 (06:45→21:08)
[2018-11-23] MEDS ORDERED: INSULIN (LEVEMIR) 100 UNITS/ML UNITS SQ ONE (07:05)
[2018-11-23] MEDS ORDERED: INSULIN (NOVOLOG) ASPART 100 UNITS/ML 10ML VIAL ONE (07:05)
[2018-11-23 08:50] LABS: ALBUMIN 3.3 g/dl (3.4-5.0); ALK PHOS 74 U/L (45-117); ANION GAP 9 MMOL/L (8-16); BLOOD UREA NITROGEN 36 mg/dL (7-18); CALCIUM 8.1 mg/dL (8.5-10.1); CHLORIDE 101 mmol/L (98-107); CO2 29 mmol/L (21-32); CREATININE 2.3 mg/dL (0.55-1.3); GLUCOSE,RANDOM 99 mg/dL (74-106); SGOT/AST 13 U/L (15-37); SGPT/ALT 20 U/L (13-61); SODIUM 139 mmol/L (136-145); TOT PROT 6.7 g/dl (6.4-8.2)
[2018-11-23] MEDS ORDERED: PT OWN MED DRAWER 7, Y5N ONE (10:48)
[2018-11-23] MEDS: PANTOPRAZOLE 40 MG TABLET (FP) PO SCH (11:21)
[2018-11-23] MEDS: ESCITALOPRAM OXALATE 20 MG TABLET (FP) PO SCH (11:21)
[2018-11-23] MEDS: TAMSULOSIN HCL 0.4 MG CAP PO SCH ×2 (11:22→21:05)
[2018-11-23] MEDS: FERROUS SO4 325 MG TABLET (FP) PO SCH (11:22)
[2018-11-23] MEDS: ASPIRIN COATED 81 MG TABLET.EC PO SCH (11:22)
[2018-11-23] MEDS: CLOPIDOGREL BISULFATE 75 MG TABLET (FP) PO SCH (11:22)
[2018-11-23] MEDS: CHOLECALCIFEROL (VITAMIN D3) 1,000 UNIT TABLET (FP) PO SCH (11:22)
[2018-11-23] MEDS: OMEGA-3 ACID ETHYL ESTERS (FATTY-ACIDS) 1 GM CAPSULE (FP) PO SCH (11:23)
[2018-11-23] MEDS: COLLAGENASE CLOSTRIDIUM HIST. 30 GRAMS TUBE TP SCH (11:25)
[2018-11-23] MEDS: TORSEMIDE 20 MG TABLET (FP) PO SCH (11:26)
--- NOTE | 2018-11-23 11:33 | PN ---
Progress Note, Physician Chief Complaint: Diabetic Ulcer R great toe History of Present Illness: Previous notes and events reviewed awake and alert NAD transferred to ED from wound center for ulcer to R great toe that did not respond to PO ABT , MRI of lower extremity show osteomyelitis WBC wnl, afebrile - Current Medication List Current Medications: Active Medications Aspirin (Ecotrin -) 81 mg PO DAILY [facility] Last Admin: 11/23/18 11:22 Dose: 81 mg Atorvastatin Calcium (Lipitor -) 20 mg PO HS [facility] Last Admin: 11/22/18 21:16 Dose: 20 mg Cholecalciferol (Vitamin D3 -) 1,000 unit PO DAILY [facility] Last Admin: 11/23/18 11:22 Dose: 1,000 unit Clopidogrel Bisulfate (Plavix -) 75 mg PO DAILY [facility] Last Admin: 11/23/18 11:22 Dose: 75 mg Collagenase (Santyl -) 1 applic TP DAILY [facility]; Protocol Last Admin: 11/23/18 11:25 Dose: 1 applic Donepezil HCl (Aricept -) 10 mg PO HS [facility] Last Admin: 11/22/18 21:16 Dose: 10 mg Escitalopram Oxalate (Lexapro -) 20 mg PO DAILY [facility] Last Admin: 11/23/18 11:21 Dose: 20 mg Ferrous Sulfate (Feosol -) 325 mg PO DAILY [facility] Last Admin: 11/23/18 11:22 Dose: 325 mg Gabapentin (Neurontin -) 300 mg PO TID [facility] Last Admin: 11/23/18 06:45 Dose: 300 mg Heparin Sodium (Porcine) (Heparin -) 5,000 unit SQ TID [facility] Last Admin: 11/23/18 06:39 Dose: Not Given Piperacillin Sod/Tazobactam (Sod 2.25 gm/ Dextrose) 50 mls @ 100 mls/hr IVPB Q8H-IV [facility]; Protocol Last Admin: 11/23/18 11:20 Dose: 100 mls/hr Vancomycin HCl (Vancomycin (Pre-Docked)) 1,000 mg in 250 mls @ 166.667 mls/hr IVPB DAILY@1500 [facility]; Protocol Last Admin: 11/22/18 15:21 Dose: 166.667 mls/hr Insulin Aspart (Novolog Vial Sliding Scale -) 1 vial SQ ACHS [facility]; Protocol Last Admin: 11/23/18 11:26 Dose: 2 unit Insulin Detemir (Levemir Vial) 16 units SQ AM [facility] Last Admin: 11/23/18 06:45 Dose: 16 unit Insulin Detemir (Levemir Vial) 50 units SQ HS [facility] Last Admin: 11/22/18 21:41 Dose: 50 units Metoprolol Succinate (Toprol Xl -) 50 mg PO BID [facility] Last Admin: 11/23/18 11:25 Dose: Not Given Nitroglycerin (Nitrostat -) 0.4 mg SL Q5M PRN PRN Reason: ANGINA Sewxh-1-Wyah Ethyl Esters (Lovaza -) 1 gm PO DAILY [facility] Last Admin: 11/23/18 11:23 Dose: 1 gm Pantoprazole Sodium (Protonix -) 40 mg PO DAILY [facility] Last Admin: 11/23/18 11:21 Dose: 40 mg Spironolactone (Aldactone -) 25 mg PO DAILY [facility] Last Admin: 11/22/18 10:42 Dose: 25 mg Tamsulosin HCl (Flomax -) 0.4 mg PO BID [facility] Last Admin: 11/23/18 11:22 Dose: 0.4 mg Torsemide (Demadex -) 20 mg PO DAILY [facility] Last Admin: 11/23/18 11:26 Dose: 20 mg - Objective Vital Signs: Vital Signs Temperature 98 F 11/23/18 06:41 Pulse Rate 56 L 11/23/18 06:41 Respiratory Rate 20 11/23/18 06:41 Blood Pressure 128/66 11/23/18 06:41 O2 Sat by Pulse Oximetry (%) 98 11/22/18 21:00 Constitutional: Yes: Well Nourished, No Distress, Calm Eyes: Yes: Conjunctiva Clear Neck: Yes: Supple Cardiovascular: Yes: Regular Rate and Rhythm Respiratory: Yes: Regular, CTA Bilaterally Gastrointestinal: Yes: WNL, Normal Bowel Sounds, Soft Musculoskeletal: Yes: WNL Extremities: Yes: WNL Edema: No Wound/Incision: Yes: Other (ulcer R great toe, malodor) Neurological: Yes: Alert, Oriented Psychiatric: Yes: Alert, Oriented Labs: CBC, BMP 11/22/18 06:30 11/23/18 06:00 INR, PTT INR 1.15 (0.83-1.09) H 11/20/18 21:00 Problem List - Problems (1) Diabetic foot infection Code(s): E11.628 - TYPE 2 DIABETES MELLITUS WITH OTHER SKIN COMPLICATIONS; L08.9 - LOCAL INFECTION OF THE SKIN AND SUBCUTANEOUS TISSUE, UNSP (2) CAD (coronary artery disease) Code(s): I25.10 - ATHSCL HEART DISEASE OF [place] CORONARY ARTERY W/O ANG PCTRS Qualifiers: Coronary Disease-Associated Artery/Lesion type: [place] artery [place] vs. transplanted heart: [place] heart Associated angina: with unstable angina Qualified Code(s): I25.110 - Atherosclerotic heart disease of [place] coronary artery with unstable angina pectoris (3) Diabetes mellitus Code(s): E11.9 - TYPE 2 DIABETES MELLITUS WITHOUT COMPLICATIONS Qualifiers: Diabetes mellitus type: type 2 Diabetes mellitus complication status: with kidney complications Diabetes mellitus complication detail: with chronic kidney disease Qualified Code(s): E11.22 - Type 2 diabetes mellitus with diabetic chronic kidney disease (4) HTN (hypertension) Code(s): I10 - ESSENTIAL (PRIMARY) HYPERTENSION Qualifiers: Hypertension type: essential hypertension Qualified Code(s): I10 - Essential (primary) hypertension Assessment/Plan -ID on board, started on IB ABT -Podiatry on board -pending bone bx -wound care -BGM, ISS -cont with BP med regimen -dvt ppx
--- NOTE | 2018-11-23 12:14 | PN ---
Progress Note (short form) - Note Progress Note: Patint seen in bed. +dry eschar, +om right great toe, om pvd diabetic wound Bone biopsy and bone culture done today under sterile technique after surgical consent signed and witnessed. Abx as per ID. Betadine dressing done.
[2018-11-23] MEDS: SPIRONOLACTONE 25 MG TABLET (FP) PO SCH (12:47)
--- NOTE | 2018-11-23 13:26 | PN ---
Progress Note, Physician History of Present Illness: Awake, alert Seated in bed S/P Bone bx great toe No c/o foot pain No fever - Current Medication List Current Medications: Active Medications Aspirin (Ecotrin -) 81 mg PO DAILY [facility] Last Admin: 11/23/18 11:22 Dose: 81 mg Atorvastatin Calcium (Lipitor -) 20 mg PO HS [facility] Last Admin: 11/22/18 21:16 Dose: 20 mg Cholecalciferol (Vitamin D3 -) 1,000 unit PO DAILY [facility] Last Admin: 11/23/18 11:22 Dose: 1,000 unit Clopidogrel Bisulfate (Plavix -) 75 mg PO DAILY [facility] Last Admin: 11/23/18 11:22 Dose: 75 mg Collagenase (Santyl -) 1 applic TP DAILY [facility]; Protocol Last Admin: 11/23/18 11:25 Dose: 1 applic Donepezil HCl (Aricept -) 10 mg PO HS [facility] Last Admin: 11/22/18 21:16 Dose: 10 mg Escitalopram Oxalate (Lexapro -) 20 mg PO DAILY [facility] Last Admin: 11/23/18 11:21 Dose: 20 mg Ferrous Sulfate (Feosol -) 325 mg PO DAILY [facility] Last Admin: 11/23/18 11:22 Dose: 325 mg Gabapentin (Neurontin -) 300 mg PO TID [facility] Last Admin: 11/23/18 06:45 Dose: 300 mg Heparin Sodium (Porcine) (Heparin -) 5,000 unit SQ TID [facility] Last Admin: 11/23/18 06:39 Dose: Not Given Piperacillin Sod/Tazobactam (Sod 2.25 gm/ Dextrose) 50 mls @ 100 mls/hr IVPB Q8H-IV [facility]; Protocol Last Admin: 11/23/18 11:20 Dose: 100 mls/hr Vancomycin HCl (Vancomycin (Pre-Docked)) 1,000 mg in 250 mls @ 166.667 mls/hr IVPB DAILY@1500 [facility]; Protocol Last Admin: 11/22/18 15:21 Dose: 166.667 mls/hr Insulin Aspart (Novolog Vial Sliding Scale -) 1 vial SQ ACHS [facility]; Protocol Last Admin: 11/23/18 11:26 Dose: 2 unit Insulin Detemir (Levemir Vial) 16 units SQ AM [facility] Last Admin: 11/23/18 06:45 Dose: 16 unit Insulin Detemir (Levemir Vial) 50 units SQ HS [facility] Last Admin: 11/22/18 21:41 Dose: 50 units Metoprolol Succinate (Toprol Xl -) 50 mg PO BID [facility] Last Admin: 11/23/18 11:25 Dose: Not Given Nitroglycerin (Nitrostat -) 0.4 mg SL Q5M PRN PRN Reason: ANGINA [id number]-[id number] Ethyl Esters (Lovaza -) 1 gm PO DAILY [facility] Last Admin: 11/23/18 11:23 Dose: 1 gm Pantoprazole Sodium (Protonix -) 40 mg PO DAILY [facility] Last Admin: 11/23/18 11:21 Dose: 40 mg Spironolactone (Aldactone -) 25 mg PO DAILY [facility] Last Admin: 11/23/18 12:47 Dose: Not Given Tamsulosin HCl (Flomax -) 0.4 mg PO BID [facility] Last Admin: 11/23/18 11:22 Dose: 0.4 mg Torsemide (Demadex -) 20 mg PO DAILY [facility] Last Admin: 11/23/18 11:26 Dose: 20 mg - Objective Vital Signs: Vital Signs Temperature 98.7 F 11/23/18 11:36 Pulse Rate 54 L 11/23/18 11:36 Respiratory Rate 18 11/23/18 11:36 Blood Pressure 104/52 L 11/23/18 11:36 O2 Sat by Pulse Oximetry (%) 98 11/22/18 21:00 Constitutional: Yes: No Distress Eyes: Yes: Conjunctiva Clear Cardiovascular: Yes: Regular Rate and Rhythm, S1, S2 Respiratory: Yes: CTA Bilaterally Gastrointestinal: Yes: Normal Bowel Sounds, Soft. No: Tenderness Extremities: Yes: Other (dressing in place post procedure Left intact) Labs: CBC, BMP 11/22/18 06:30 11/23/18 06:00 INR, PTT INR 1.15 (0.83-1.09) H 11/20/18 21:00 Assessment/Plan Cellulitis/ osteomyelitis R great toe Azotemia S/P bone bx Empiric vancomycin/ zosyn
[2018-11-23] MEDS: VANCOMYCIN 1 GRAM (PRE-DOCKED) 1,000 MG/250 ML BAG IVPB SCH (14:22)
[2018-11-23] MEDS: ATORVASTATIN CA 20 MG TABLET (FP) PO SCH (21:05)
[2018-11-23] MEDS: DONEPEZIL HCL 10 MG TABLET (FP) PO SCH (21:05)
--- NOTE | 2018-11-23 21:12 | PN ---
Progress Note (short form) - Note Progress Note: covering dr lee 77 year old gentleman with hx of CKD stage 3 (baseline Cr ~2), DM on insulin, CAD, Hypertension, diabetic neuropathy who presented with LE pain/suspected osteomylitis. 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 #r/o arterial insufficiency #Hypertension #Dm on insulin Current Medications Aspirin (Ecotrin -) 81 mg PO DAILY KJ Last Admin: 11/23/18 11:22 Dose: 81 mg Atorvastatin Calcium (Lipitor -) 20 mg PO HS KJ Last Admin: 11/22/18 21:16 Dose: 20 mg Cholecalciferol (Vitamin D3 -) 1,000 unit PO DAILY KJ Last Admin: 11/23/18 11:22 Dose: 1,000 unit Clopidogrel Bisulfate (Plavix -) 75 mg PO DAILY [facility] Last Admin: 11/23/18 11:22 Dose: 75 mg Collagenase (Santyl -) 1 applic TP DAILY KJ; Protocol Last Admin: 11/23/18 11:25 Dose: 1 applic Donepezil HCl (Aricept -) 10 mg PO HS [facility] Last Admin: 11/22/18 21:16 Dose: 10 mg Escitalopram Oxalate (Lexapro -) 20 mg PO DAILY KJ Last Admin: 11/23/18 11:21 Dose: 20 mg Ferrous Sulfate (Feosol -) 325 mg PO DAILY [facility] Last Admin: 11/23/18 11:22 Dose: 325 mg Gabapentin (Neurontin -) 300 mg PO TID KJ Last Admin: 11/23/18 14:22 Dose: 300 mg Heparin Sodium (Porcine) (Heparin -) 5,000 unit SQ TID KJ Last Admin: 11/23/18 14:22 Dose: 5,000 unit Piperacillin Sod/Tazobactam (Sod 2.25 gm/ Dextrose) 50 mls @ 100 mls/hr IVPB Q8H-IV KJ; Protocol Last Admin: 11/23/18 18:26 Dose: 100 mls/hr Vancomycin HCl (Vancomycin (Pre-Docked)) 1,000 mg in 250 mls @ 166.667 mls/hr IVPB DAILY@1500 KJ; Protocol Last Admin: 11/23/18 14:22 Dose: 166.667 mls/hr Insulin Aspart (Novolog Vial Sliding Scale -) 1 vial SQ ACHS KJ; Protocol Last Admin: 11/23/18 18:25 Dose: 6 unit Insulin Detemir (Levemir Vial) 16 units SQ AM [facility] Last Admin: 11/23/18 06:45 Dose: 16 unit Insulin Detemir (Levemir Vial) 50 units SQ HS [facility] Last Admin: 11/22/18 21:41 Dose: 50 units Metoprolol Succinate (Toprol Xl -) 50 mg PO BID [facility] Last Admin: 11/23/18 11:25 Dose: Not Given Nitroglycerin (Nitrostat -) 0.4 mg SL Q5M PRN PRN Reason: ANGINA [id number] Ethyl Esters (Lovaza -) 1 gm PO DAILY [facility] Last Admin: 11/23/18 11:23 Dose: 1 gm Pantoprazole Sodium (Protonix -) 40 mg PO DAILY [facility] Last Admin: 11/23/18 11:21 Dose: 40 mg Spironolactone (Aldactone -) 25 mg PO DAILY [facility] Last Admin: 11/23/18 12:47 Dose: Not Given Tamsulosin HCl (Flomax -) 0.4 mg PO BID [facility] Last Admin: 11/23/18 11:22 Dose: 0.4 mg Torsemide (Demadex -) 20 mg PO DAILY [facility] Last Admin: 11/23/18 11:26 Dose: 20 mg Last Vital Signs Temp Pulse Resp BP Pulse Ox 98 F 61 20 103/59 L 98 11/23/18 17:10 11/23/18 17:10 11/23/18 17:10 11/23/18 17:10 11/23/18 20:56 CBC, BMP 11/23/18 06:00 CBC, BMP 11/22/18 06:30 11/22/18 06:30 11/20/18 11/21/18 11/22/18 21:00 06:02 06:30 Sodium 137 137 136 Potassium 4.6 4.0 4.0 BUN 43 H 43 H 37 H Creatinine 2.4 H 2.4 H 2.2 H IMP- CKD Cellulitis/ osteomyelitis R great toe Azotemia S/P bone bx Empiric vancomycin/ zosyn Plan- follow renal function
--- NOTE | 2018-11-23 22:44 | OP ---
Operative Note - Note: Operative Date: 11/23/18 Pre-Operative Diagnosis: osteomyelitis right big toe Operation: right big toe sterile bone biopsy and culture bedside utilizing a Jamsheedi needle. Findings: soft bone distal phalanx Post-Operative Diagnosis: Same as Pre-op Surgeon: Kenny Steven Anesthesia: Local Specimens Removed: bone and bone marrow. Through puncture lateral to wound. Wound avoided. Biopsy of bone under ulceration through angled technique. Estimated Blood Loss (mls): 2 Operative Report Dictated: No
[2018-11-24] MEDS ORDERED: DEXTROSE 5%-WATER - 50 ML IVPB ONE ×3 (01:10→18:08)
[2018-11-24] MEDS ORDERED: PIPERACILLIN/TAZOBACTAM 2.25 GM VIAL IVPB ONE ×3 (01:10→18:08)
[2018-11-24] MEDS: PIPERACILLIN/TAZOB 2.25 GM 2.25 GM in DEXTROSE 5%-WATER - 50 ML IVPB SCH ×3 (01:27→18:28)
[2018-11-24] MEDS: HEPARIN NA (PORCINE) 5,000 UNITS/ML 1ML VIAL SQ SCH ×3 (05:51→21:21)
[2018-11-24] MEDS: INSULIN SLIDING SCALE (NOVOLOG) 1 VIAL SQ SCH ×4 (06:08→21:48)
[2018-11-24] MEDS: GABAPENTIN 300 MG CAPSULE (FP) PO SCH ×3 (06:53→21:21)
[2018-11-24] MEDS: INSULIN (LEVEMIR) 100 UNITS/ML UNITS SQ SCH ×2 (06:54→21:47)
--- NOTE | 2018-11-24 10:19 | PN ---
Progress Note (short form) - Note Progress Note: Vascular Surgery Arterial US performed today. In right leg there is severe tibial disease. In left leg there is a moderate stenosis in the above knee popliteal artery . Pt's creatinine is 2.3. Cannot get contrast. please optimize. Pt will need CO2 angio to try to get more runoff into foot. Please clear from medical and cardiology standpoint for angiogram. ID on case treating osteo. Ender Jasso dO
[2018-11-24] MEDS: COLLAGENASE CLOSTRIDIUM HIST. 30 GRAMS TUBE TP SCH (10:43)
[2018-11-24] MEDS: SPIRONOLACTONE 25 MG TABLET (FP) PO SCH (10:48)
[2018-11-24] MEDS: ASPIRIN COATED 81 MG TABLET.EC PO SCH (10:48)
[2018-11-24] MEDS: FERROUS SO4 325 MG TABLET (FP) PO SCH (10:48)
[2018-11-24] MEDS: TORSEMIDE 20 MG TABLET (FP) PO SCH (10:48)
[2018-11-24] MEDS: TAMSULOSIN HCL 0.4 MG CAP PO SCH ×2 (10:48→21:21)
[2018-11-24] MEDS: CLOPIDOGREL BISULFATE 75 MG TABLET (FP) PO SCH (10:50)
[2018-11-24] MEDS: OMEGA-3 ACID ETHYL ESTERS (FATTY-ACIDS) 1 GM CAPSULE (FP) PO SCH (10:50)
[2018-11-24] MEDS: PANTOPRAZOLE 40 MG TABLET (FP) PO SCH (10:50)
[2018-11-24] MEDS: CHOLECALCIFEROL (VITAMIN D3) 1,000 UNIT TABLET (FP) PO SCH (10:50)
[2018-11-24] MEDS: ESCITALOPRAM OXALATE 20 MG TABLET (FP) PO SCH (10:50)
--- NOTE | 2018-11-24 10:56 | PN ---
Progress Note (short form) - Note Progress Note: Patint seen in wound care. having vascular study today. post bone biopsy. no pain. +dry eschar, +om right great toe, om pvd diabetic wound santyl dressing change daily will follow. read and appreciate vascular note. May debride once re-vascularized.
[2018-11-24] MEDS ORDERED: INSULIN (NOVOLOG) ASPART 100 UNITS/ML 10ML VIAL ONE (11:45)
--- NOTE | 2018-11-24 12:31 | PN ---
Progress Note, Physician Chief Complaint: Diabetic Ulcer R great toe History of Present Illness: Previous notes and events reviewed awake and alert NAD WBC wnl, afebrile - Current Medication List Current Medications: Active Medications Aspirin (Ecotrin -) 81 mg PO DAILY [facility] Last Admin: 11/24/18 10:48 Dose: Not Given Atorvastatin Calcium (Lipitor -) 20 mg PO HS [facility] Last Admin: 11/23/18 21:05 Dose: 20 mg Cholecalciferol (Vitamin D3 -) 1,000 unit PO DAILY [facility] Last Admin: 11/24/18 10:50 Dose: Not Given Clopidogrel Bisulfate (Plavix -) 75 mg PO DAILY [facility] Last Admin: 11/24/18 10:50 Dose: Not Given Collagenase (Santyl -) 1 applic TP DAILY [facility]; Protocol Last Admin: 11/24/18 10:43 Dose: 1 applic Donepezil HCl (Aricept -) 10 mg PO HS [facility] Last Admin: 11/23/18 21:05 Dose: 10 mg Escitalopram Oxalate (Lexapro -) 20 mg PO DAILY [facility] Last Admin: 11/24/18 10:50 Dose: Not Given Ferrous Sulfate (Feosol -) 325 mg PO DAILY [facility] Last Admin: 11/24/18 10:48 Dose: Not Given Gabapentin (Neurontin -) 300 mg PO TID [facility] Last Admin: 11/24/18 06:53 Dose: Not Given Heparin Sodium (Porcine) (Heparin -) 5,000 unit SQ TID [facility] Last Admin: 11/24/18 05:51 Dose: Not Given Piperacillin Sod/Tazobactam (Sod 2.25 gm/ Dextrose) 50 mls @ 100 mls/hr IVPB Q8H-IV [facility]; Protocol Last Admin: 11/24/18 10:39 Dose: 100 mls/hr Vancomycin HCl (Vancomycin (Pre-Docked)) 1,000 mg in 250 mls @ 166.667 mls/hr IVPB DAILY@1500 KJ; Protocol Last Admin: 11/23/18 14:22 Dose: 166.667 mls/hr Insulin Aspart (Novolog Vial Sliding Scale -) 1 vial SQ ACHS [facility]; Protocol Last Admin: 11/24/18 11:46 Dose: 4 unit Insulin Detemir (Levemir Vial) 16 units SQ AM [facility] Last Admin: 11/24/18 06:54 Dose: Not Given Insulin Detemir (Levemir Vial) 50 units SQ HS [facility] Last Admin: 11/23/18 21:08 Dose: 50 units Metoprolol Succinate (Toprol Xl -) 50 mg PO BID [facility] Last Admin: 11/24/18 10:45 Dose: 50 mg Nitroglycerin (Nitrostat -) 0.4 mg SL Q5M PRN PRN Reason: ANGINA [id number] Ethyl Esters (Lovaza -) 1 gm PO DAILY [facility] Last Admin: 11/24/18 10:50 Dose: Not Given Pantoprazole Sodium (Protonix -) 40 mg PO DAILY [facility] Last Admin: 11/24/18 10:50 Dose: Not Given Spironolactone (Aldactone -) 25 mg PO DAILY [facility] Last Admin: 11/24/18 10:48 Dose: Not Given Tamsulosin HCl (Flomax -) 0.4 mg PO BID [facility] Last Admin: 11/24/18 10:48 Dose: Not Given Torsemide (Demadex -) 20 mg PO DAILY [facility] Last Admin: 11/24/18 10:48 Dose: Not Given - Objective Vital Signs: Vital Signs Temperature 97.9 F 11/24/18 06:00 Pulse Rate 60 11/24/18 06:00 Respiratory Rate 20 11/24/18 06:00 Blood Pressure 141/65 11/24/18 06:00 O2 Sat by Pulse Oximetry (%) 98 11/23/18 20:56 Constitutional: Yes: Well Nourished, No Distress, Calm Eyes: Yes: Conjunctiva Clear Cardiovascular: Yes: Regular Rate and Rhythm Respiratory: Yes: Regular, CTA Bilaterally Musculoskeletal: Yes: WNL Extremities: Yes: WNL Edema: No Wound/Incision: Yes: Dressing Dry and Intact Neurological: Yes: Alert, Oriented Psychiatric: Yes: Alert, Oriented Labs: CBC, BMP 11/22/18 06:30 11/23/18 06:00 INR, PTT INR 1.15 (0.83-1.09) H 11/20/18 21:00 Problem List - Problems (1) Diabetic foot infection Code(s): E11.628 - TYPE 2 DIABETES MELLITUS WITH OTHER SKIN COMPLICATIONS; L08.9 - LOCAL INFECTION OF THE SKIN AND SUBCUTANEOUS TISSUE, UNSP (2) CAD (coronary artery disease) Code(s): I25.10 - ATHSCL HEART DISEASE OF [place] CORONARY ARTERY W/O ANG PCTRS Qualifiers: Coronary Disease-Associated Artery/Lesion type: [place] artery [place] vs. transplanted heart: [place] heart Associated angina: with unstable angina Qualified Code(s): I25.110 - Atherosclerotic heart disease of [place] coronary artery with unstable angina pectoris (3) Diabetes mellitus Code(s): E11.9 - TYPE 2 DIABETES MELLITUS WITHOUT COMPLICATIONS Qualifiers: Diabetes mellitus type: type 2 Diabetes mellitus complication status: with kidney complications Diabetes mellitus complication detail: with chronic kidney disease Qualified Code(s): E11.22 - Type 2 diabetes mellitus with diabetic chronic kidney disease (4) HTN (hypertension) Code(s): I10 - ESSENTIAL (PRIMARY) HYPERTENSION Qualifiers: Hypertension type: essential hypertension Qualified Code(s): I10 - Essential (primary) hypertension Assessment/Plan -ID on board, started on IV ABT -Podiatry on board -bone bx performed, pending result -vascular on board, requesting medical and cardiac clearance for CO2 angio, cardiology consult placed -wound care -BGM, ISS -cont with BP med regimen -dvt ppx
[2018-11-24 12:44] LABS: HEMOGLOBIN 10.2 GM/dL (11.7-16.9); MCH 28.6 pg (25.7-33.7); MEAN CELL VOLUME 86.8 fl (80-96); MEAN PLT VOLUME 7.6 fl (7.5-11.1); PLATELET COUNT 144 K/MM3 (134-434); RBC 3.57 M/mm3 (4.00-5.60); RDW 18.8 % (11.9-15.9); WHITE BLOOD COUNT 5.3 K/mm3 (4.0-10.0)
[2018-11-24 13:23] LABS: ALBUMIN 3.3 g/dl (3.4-5.0); ALK PHOS 71 U/L (45-117); ANION GAP 7 MMOL/L (8-16); BLOOD UREA NITROGEN 31 mg/dL (7-18); CHLORIDE 101 mmol/L (98-107); CO2 29 mmol/L (21-32); CREATININE 2.3 mg/dL (0.55-1.3); GLUCOSE,RANDOM 207 mg/dL (74-106); POTASSIUM 4.5 mmol/L (3.5-5.1); SGOT/AST 16 U/L (15-37); SGPT/ALT 19 U/L (13-61); SODIUM 137 mmol/L (136-145); TOT PROT 6.5 g/dl (6.4-8.2)
--- NOTE | 2018-11-24 13:44 | CON.CARD ---
Consult Consult Specialty:: Cardiology Referred by:: Paolo Reason for Consultation:: preop - History of Present Illness Chief Complaint: preop, foot pain History of Present Illness: 77M h/o HTN, HLD, DM, CAD s/p stents, chronic systolic HF EF 30-35%, moderate , TIA, GERD, anemia p/w right toe pain, erythema. On abx per ID, had bone bx with plan for CO2 angio. Patient of Dr. Delarosa, last seen 10/2018. Had PET with inferior ischemia and partially reversible anterior/apex, TID, severely reduced EF <30%, awaiting evaluation with Dr. Ortez for consult regarding CABG/AVR vs multivessel PCI to attempt to improve LV function. Has been stable, walks at home including stairs without dyspnea, chest pain, no edema, orthopnea, PND. 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 Cardio/Vascular: Yes: CAD, CHF, HTN, Hyperlipdemia, DC Gastrointestinal: Yes: GERD Psych: Yes: Depression Musculoskeletal: Yes: Chronic low back pain, Other (diabetic neuropathy) ENT: Yes: Other (hard of hearing) Endocrine: Yes: Diabetes Mellitus - Past Surgical History Past Surgical History: Yes: Appendectomy, CABG, Stent - Alcohol/Substance Use Hx Alcohol Use: No History of Substance Use: reports: None - Smoking History Smoking history: Current every day smoker Have you smoked in the past 12 months: No Aproximately how many cigarettes per day: 0 - Social History Usual Living Arrangement: With Spouse History of Recent Travel: No Home Medications - Allergies Allergies/Adverse Reactions: Allergies Allergy/AdvReac Type Severity Reaction Status Date / Time ranolazine [From Ranexa] AdvReac Intermediate Hallucinati Verified 11/20/18 15: 57 ons - Home Medications Home Medications: Ambulatory Orders Clopidogrel Bisulfate [Plavix -] 75 mg PO DAILY 09/04/15 Pantoprazole Sodium [Protonix] 40 mg PO DAILY 09/04/15 Cholecalciferol (Vitamin D3) [Vitamin D3] 1,000 unit PO DAILY tablet 04/05/17 Insulin Glargine,Hum.rec.anlog [Lantus Solostar PEN (NF)] 16 units SQ AM Insulin Glargine,Hum.rec.anlog [Lantus Solostar PEN (NF)] 50 units SQ HS Metoprolol Succinate [Toprol Xl] 50 mg PO BID 07/24/17 Nitroglycerin 0.6 mg SL ASDIR 07/24/17 Nitroglycerin [Nitrostat] 0.4 mg SL ASDIR 07/24/17 Aspirin [Aspirin EC] 81 mg PO DAILY 01/09/18 Collagenase Clostridium Hist. [Santyl] 1 applic TP DAILY #90 oint...g. 11/03/18 Donepezil HCl [Aricept] 10 mg PO DAILY 11/20/18 Escitalopram Oxalate [Lexapro -] 20 mg PO DAILY 11/20/18 Ferrous Sulfate 325 mg PO DAILY 11/20/18 Insulin Aspart [Novolog] 10 unit SQ DAILY 11/20/18 Beattie-3S/Dha/Epa/Fish Oil [Fish Oil 1,200 mg Softgel] 1 each PO DAILY 11/20/18 Spironolactone 25 mg PO DAILY 11/20/18 Tamsulosin HCl [Flomax] 0.4 mg PO BID 11/20/18 Gabapentin 600 mg PO TID 11/23/18 Family Disease History - Family Disease History Family Disease History: Diabetes: Mother (HTN), Heart Disease: Father ( of [place] age 45), Mother Review of Systems - Review of Systems Constitutional: reports: No Symptoms Eyes: reports: No Symptoms HENT: reports: No Symptoms Neck: reports: No Symptoms Cardiovascular: reports: No Symptoms Respiratory: reports: No Symptoms Gastrointestinal: reports: No Symptoms Genitourinary: reports: No Symptoms Musculoskeletal: reports: No Symptoms Integumentary: reports: No Symptoms Neurological: reports: No Symptoms Endocrine: reports: No Symptoms Hematology/Lymphatic: reports: No Symptoms Psychiatric: reports: No Symptoms Vital Signs: Vital Signs Temperature 97.9 F 11/24/18 06:00 Pulse Rate 60 11/24/18 06:00 Respiratory Rate 20 11/24/18 06:00 Blood Pressure 141/65 11/24/18 06:00 O2 Sat by Pulse Oximetry (%) 98 11/24/18 09:00 Constitutional: Yes: No Distress, Calm Eyes: Yes: Conjunctiva Clear, EOM Intact HENT: Yes: Atraumatic, Normocephalic Neck: Yes: Supple, Trachea Midline Respiratory: Yes: Regular, CTA Bilaterally Gastrointestinal: Yes: Normal Bowel Sounds, Soft Cardiovascular: Yes: Regular Rate and Rhythm JVD: No Carotid Bruit: No PMI: Non-Displaced Heart Sounds: Yes: S1, S2 Murmur: Yes: Systolic Murmur, Grade 3 (systolic crescendo-decrescendo, audible S2) Musculoskeletal: No: Back Pain Extremities: No: Cold Edema: No Peripheral Pulses WNL: No Peripheral Pulses: 1+ Left Doralis Pedis, 2+ Left Carotid, 2+ Right Carotid Integumentary: No: Jaundice Neurological: Yes: Alert, Oriented Psychiatric: Yes: Alert, Oriented - Other Data Labs, Other Data: CBC, BMP 11/24/18 11:40 11/24/18 11:40 INR, PTT INR 1.15 (0.83-1.09) H 11/20/18 21:00 Assessment/Plan EKG: sinus, LBBB, PVCs cardiac FDG PET perfusion [facility] 10/2018: large, severe partially reversible defect anterior and apex, medium , moderate predominantly reversible inferior defect +TID, globally decreased LVSF , EF 28%, myocardium viable throughout Echo 08/2018 [facility] exam limited, no definity used. 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 with large collateral from LCx, mid dstal LA occluded (CARPET FINISHING SUPERVISOR) prior to LINDER touchdown, D2 jailed ([employer]PET FINISHING SUPERVISOR), OM1 moderate diffuse dz Preop evaluation, R toe osteo - while patient is currently undergoing workup for revascularization, he is currently asymptomatic and euvolemic - may proceed with angiogram for RLE as planned, continue current meds perioperativel CAD - s/p PCI (LAURA pLAD with PTCA of ostial diag 12/2011, ISR with CABG 03/2013, cath 05/2013 patient LINDER (30% at anasthamosis site) with good perfusion of distal LAD but anasthamotic clips distal wall and occludes backflow; old CARPET FINISHING SUPERVISOR of RCA with collats unchanged) - stable, asymptomatic with plan for further workup and management of CAD, at [facility] - on aspirin, plavix, metoprolol, statin Chronic systolic HF - euvolemic on aldactone, furosemide, continue HTN - stable on metoprolol HLD - continue statin DM - manage per primary CKD - renal function at baseline anemia - stable, manage per primary
--- NOTE | 2018-11-24 14:29 | EKG ---
Test Reason : Blood Pressure : / mmHG Vent. Rate : 060 BPM Atrial Rate : 060 BPM P-R Int : 196 ms QRS Dur : 160 ms QT Int : 508 ms P-R-T Axes : 039 -33 137 degrees QTc Int : 508 ms SINUS RHYTHM WITH OCCASIONAL PREMATURE VENTRICULAR COMPLEXES LEFT AXIS DEVIATION LEFT BUNDLE BRANCH BLOCK ABNORMAL ECG WHEN COMPARED WITH ECG OF 20-NOV-2018 20:49, PREMATURE VENTRICULAR COMPLEXES ARE NOW PRESENT Confirmed by Nael Carter ([id number]) on 11/24/2018 2:29:04 PM Referred By: LEONELA MAY Confirmed By:Nael Carter
[2018-11-24] MEDS: VANCOMYCIN 1 GRAM (PRE-DOCKED) 1,000 MG/250 ML BAG IVPB SCH (14:51)
[2018-11-24] MEDS ORDERED: PT OWN MED DRAWER 7, Y5N ONE ×3 (18:48→22:30)
--- NOTE | 2018-11-24 19:14 | PN ---
Progress Note (short form) - Note Progress Note: covering dr lee 77 year old gentleman with hx of CKD stage 3 (baseline Cr ~2), DM on insulin, CAD, Hypertension, diabetic neuropathy who presented with LE pain/suspected osteomylitis. 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 r/o arterial insufficiency Hypertension Dm on insulin Current Medications Aspirin (Ecotrin -) 81 mg PO DAILY KJ Last Admin: 11/24/18 10:48 Dose: Not Given Atorvastatin Calcium (Lipitor -) 20 mg PO HS KJ Last Admin: 11/23/18 21:05 Dose: 20 mg Cholecalciferol (Vitamin D3 -) 1,000 unit PO DAILY KJ Last Admin: 11/24/18 10:50 Dose: Not Given Clopidogrel Bisulfate (Plavix -) 75 mg PO DAILY [facility] Last Admin: 11/24/18 10:50 Dose: Not Given Collagenase (Santyl -) 1 applic TP DAILY [facility]; Protocol Last Admin: 11/24/18 10:43 Dose: 1 applic Donepezil HCl (Aricept -) 10 mg PO HS [facility] Last Admin: 11/23/18 21:05 Dose: 10 mg Escitalopram Oxalate (Lexapro -) 20 mg PO DAILY [facility] Last Admin: 11/24/18 10:50 Dose: Not Given Ferrous Sulfate (Feosol -) 325 mg PO DAILY [facility] Last Admin: 11/24/18 10:48 Dose: Not Given Gabapentin (Neurontin -) 300 mg PO TID [facility] Last Admin: 11/24/18 13:10 Dose: Not Given Heparin Sodium (Porcine) (Heparin -) 5,000 unit SQ TID KJ Last Admin: 11/24/18 15:13 Dose: 5,000 unit Piperacillin Sod/Tazobactam (Sod 2.25 gm/ Dextrose) 50 mls @ 100 mls/hr IVPB Q8H-IV KJ; Protocol Last Admin: 11/24/18 18:28 Dose: 100 mls/hr Vancomycin HCl (Vancomycin (Pre-Docked)) 1,000 mg in 250 mls @ 166.667 mls/hr IVPB DAILY@1500 KJ; Protocol Last Admin: 11/24/18 14:51 Dose: 166.667 mls/hr Insulin Aspart (Novolog Vial Sliding Scale -) 1 vial SQ ACHS KJ; Protocol Last Admin: 11/24/18 16:42 Dose: 4 unit Insulin Detemir (Levemir Vial) 16 units SQ AM [facility] Last Admin: 11/24/18 06:54 Dose: Not Given Insulin Detemir (Levemir Vial) 50 units SQ HS [facility] Last Admin: 11/23/18 21:08 Dose: 50 units Metoprolol Succinate (Toprol Xl -) 50 mg PO BID [facility] Last Admin: 11/24/18 10:45 Dose: 50 mg Nitroglycerin (Nitrostat -) 0.4 mg SL Q5M PRN PRN Reason: ANGINA [id number] Ethyl Esters (Lovaza -) 1 gm PO DAILY [facility] Last Admin: 11/24/18 10:50 Dose: Not Given Pantoprazole Sodium (Protonix -) 40 mg PO DAILY [facility] Last Admin: 11/24/18 10:50 Dose: Not Given Spironolactone (Aldactone -) 25 mg PO DAILY [facility] Last Admin: 11/24/18 10:48 Dose: Not Given Tamsulosin HCl (Flomax -) 0.4 mg PO BID [facility] Last Admin: 11/24/18 10:48 Dose: Not Given Torsemide (Demadex -) 20 mg PO DAILY [facility] Last Admin: 11/24/18 10:48 Dose: Not Given Last Vital Signs Temp Pulse Resp BP Pulse Ox 97.5 F L 55 L 20 141/66 98 11/24/18 17:16 11/24/18 17:16 11/24/18 17:16 11/24/18 17:16 11/24/18 09:00 Lungs clear Heart reg Abd soft nontender ext no edema CBC, BMP 11/24/18 11:40 11/24/18 11:40 IMP- CKD- stable renal function (baseline s creatinine 1.7-1.8) Cellulitis/ osteomyelitis R great toe Azotemia S/P bone bx Empiric vancomycin/ zosyn Plan- encourage plenty fluids follow renal function
[2018-11-24] MEDS: ACETAMINOPHEN 325 MG TABLET (FP) PO PRN (19:49)
[2018-11-24] MEDS: ATORVASTATIN CA 20 MG TABLET (FP) PO SCH (21:21)
[2018-11-24] MEDS: DONEPEZIL HCL 10 MG TABLET (FP) PO SCH (21:21)
[2018-11-25] MEDS ORDERED: PIPERACILLIN/TAZOBACTAM 2.25 GM VIAL IVPB ONE ×4 (01:54→23:21)
[2018-11-25] MEDS ORDERED: DEXTROSE 5%-WATER - 50 ML IVPB ONE ×4 (01:54→23:21)
[2018-11-25] MEDS: PIPERACILLIN/TAZOB 2.25 GM 2.25 GM in DEXTROSE 5%-WATER - 50 ML IVPB SCH ×3 (02:13→17:40)
[2018-11-25] MEDS: HEPARIN NA (PORCINE) 5,000 UNITS/ML 1ML VIAL SQ SCH ×3 (07:19→21:11)
[2018-11-25] MEDS: GABAPENTIN 300 MG CAPSULE (FP) PO SCH ×3 (07:19→21:10)
[2018-11-25] MEDS: INSULIN SLIDING SCALE (NOVOLOG) 1 VIAL SQ SCH ×4 (07:20→21:13)
[2018-11-25] MEDS: INSULIN (LEVEMIR) 100 UNITS/ML UNITS SQ SCH ×2 (07:21→21:14)
--- NOTE | 2018-11-25 10:51 | PN ---
Progress Note (short form) - Note Progress Note: [facility] *LIVE* Consult Specialty:: Cardiology Referred by:: Paolo Reason for Consultation:: preop - History of Present Illness Chief Complaint: preop, foot pain s: feels well, no chest pain, palps, dizziness, lightheadedness Current Medications Acetaminophen (Tylenol -) 650 mg PO Q6H PRN PRN Reason: PAIN LEVEL 1-5 Last Admin: 11/24/18 19:49 Dose: 650 mg Aspirin (Ecotrin -) 81 mg PO DAILY [facility] Last Admin: 11/24/18 10:48 Dose: Not Given Atorvastatin Calcium (Lipitor -) 20 mg PO HS [facility] Last Admin: 11/24/18 21:21 Dose: 20 mg Cholecalciferol (Vitamin D3 -) 1,000 unit PO DAILY [facility] Last Admin: 11/24/18 10:50 Dose: Not Given Clopidogrel Bisulfate (Plavix -) 75 mg PO DAILY [facility] Last Admin: 11/24/18 10:50 Dose: Not Given Collagenase (Santyl -) 1 applic TP DAILY [facility]; Protocol Last Admin: 11/24/18 10:43 Dose: 1 applic Donepezil HCl (Aricept -) 10 mg PO HS [facility] Last Admin: 11/24/18 21:21 Dose: 10 mg Escitalopram Oxalate (Lexapro -) 20 mg PO DAILY [facility] Last Admin: 11/24/18 10:50 Dose: Not Given Ferrous Sulfate (Feosol -) 325 mg PO DAILY [facility] Last Admin: 11/24/18 10:48 Dose: Not Given Gabapentin (Neurontin -) 300 mg PO TID [facility] Last Admin: 11/25/18 07:19 Dose: 300 mg Heparin Sodium (Porcine) (Heparin -) 5,000 unit SQ TID [facility] Last Admin: 11/25/18 07:19 Dose: 5,000 unit Piperacillin Sod/Tazobactam (Sod 2.25 gm/ Dextrose) 50 mls @ 100 mls/hr IVPB Q8H-IV [facility]; Protocol Last Admin: 11/25/18 02:13 Dose: 100 mls/hr Vancomycin HCl (Vancomycin (Pre-Docked)) 1,000 mg in 250 mls @ 166.667 mls/hr IVPB DAILY@1500 [facility]; Protocol Last Admin: 11/24/18 14:51 Dose: 166.667 mls/hr Insulin Aspart (Novolog Vial Sliding Scale -) 1 vial SQ ACHS [facility]; Protocol Last Admin: 11/25/18 07:20 Dose: 4 unit Insulin Detemir (Levemir Vial) 16 units SQ AM [facility] Last Admin: 11/25/18 07:21 Dose: 16 unit Insulin Detemir (Levemir Vial) 50 units SQ HS [facility] Last Admin: 11/24/18 21:47 Dose: 50 units Metoprolol Succinate (Toprol Xl -) 50 mg PO BID [facility] Last Admin: 11/24/18 21:21 Dose: 50 mg Nitroglycerin (Nitrostat -) 0.4 mg SL Q5M PRN PRN Reason: ANGINA Rvcoz-0-Oaoi Ethyl Esters (Lovaza -) 1 gm PO DAILY [facility] Last Admin: 11/24/18 10:50 Dose: Not Given Pantoprazole Sodium (Protonix -) 40 mg PO DAILY [facility] Last Admin: 11/24/18 10:50 Dose: Not Given Spironolactone (Aldactone -) 25 mg PO DAILY [facility] Last Admin: 11/24/18 10:48 Dose: Not Given Tamsulosin HCl (Flomax -) 0.4 mg PO BID [facility] Last Admin: 11/24/18 21:21 Dose: 0.4 mg Torsemide (Demadex -) 20 mg PO DAILY [facility] Last Admin: 11/24/18 10:48 Dose: Not Given Vital Signs: Vital Signs Period Temp Pulse Resp BP Sys/Julio Pulse Ox Last 24 Hr 97.4 F-97.8 F 53-60 18-20 116-141/55-76 98 Constitutional: Yes: No Distress, Calm Eyes: Yes: Conjunctiva Clear, EOM Intact HENT: Yes: Atraumatic, Normocephalic Neck: Yes: Supple, Trachea Midline Respiratory: Yes: Regular, CTA Bilaterally Gastrointestinal: Yes: Normal Bowel Sounds, Soft Cardiovascular: Yes: Regular Rate and Rhythm JVD: No Carotid Bruit: No PMI: Non-Displaced Heart Sounds: Yes: S1, S2 Murmur: Yes: Systolic Murmur, Grade 3 (systolic crescendo-decrescendo, audible S2) Musculoskeletal: No: Back Pain Extremities: No: Cold Edema: No Peripheral Pulses WNL: No Peripheral Pulses: 1+ Left Doralis Pedis, 2+ Left Carotid, 2+ Right Carotid Integumentary: No: Jaundice Neurological: Yes: Alert, Oriented Psychiatric: Yes: Alert, Oriented Assessment/Plan EKG: sinus, LBBB, PVCs cardiac FDG PET perfusion [facility] 10/2018: large, severe partially reversible defect anterior and apex, medium , moderate predominantly reversible inferior defect +TID, globally decreased LVSF , EF 28%, myocardium viable throughout Echo 08/2018 [facility] exam limited, no definity used. 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 with large collateral from LCx, mid dstal LA occluded (LACQUER MIXER) prior to LINDER touchdown, D2 jailed (LACQUER MIXER), OM1 moderate diffuse dz Preop evaluation, R toe osteo - while patient is currently undergoing workup for revascularization, he is currently asymptomatic and euvolemic - may proceed with angiogram for RLE as planned, continue current meds perioperatively CAD - s/p PCI (LAURA pLAD with PTCA of ostial diag 12/2011, ISR with CABG 03/2013, cath 05/2013 patient LINDER (30% at anasthamosis site) with good perfusion of distal LAD but anasthamotic clips distal wall and occludes backflow; old LACQUER MIXER of RCA with collats unchanged) - stable, asymptomatic with plan for further workup and management of CAD, at [facility] - on aspirin, plavix, metoprolol, statin Chronic systolic HF - euvolemic on aldactone, furosemide, continue HTN - stable on metoprolol HLD - continue statin DM - manage per primary CKD - renal function at baseline anemia - stable, manage per primary
[2018-11-25] MEDS: TORSEMIDE 20 MG TABLET (FP) PO SCH (11:14)
[2018-11-25] MEDS: TAMSULOSIN HCL 0.4 MG CAP PO SCH ×2 (11:14→21:10)
[2018-11-25] MEDS: ESCITALOPRAM OXALATE 20 MG TABLET (FP) PO SCH (11:14)
[2018-11-25] MEDS: ASPIRIN COATED 81 MG TABLET.EC PO SCH (11:14)
[2018-11-25] MEDS: CLOPIDOGREL BISULFATE 75 MG TABLET (FP) PO SCH (11:14)
[2018-11-25] MEDS: FERROUS SO4 325 MG TABLET (FP) PO SCH (11:15)
[2018-11-25] MEDS: CHOLECALCIFEROL (VITAMIN D3) 1,000 UNIT TABLET (FP) PO SCH (11:15)
[2018-11-25] MEDS: PANTOPRAZOLE 40 MG TABLET (FP) PO SCH (11:15)
[2018-11-25] MEDS: OMEGA-3 ACID ETHYL ESTERS (FATTY-ACIDS) 1 GM CAPSULE (FP) PO SCH (11:16)
[2018-11-25] MEDS: SPIRONOLACTONE 25 MG TABLET (FP) PO SCH (11:23)
--- NOTE | 2018-11-25 11:58 | PN ---
Progress Note, Physician Chief Complaint: CHART AND NOTES REVIEWED PATIENT COMFORTABLE DENIES FEVER/CHILLS PAIN - Current Medication List Current Medications: Active Medications Acetaminophen (Tylenol -) 650 mg PO Q6H PRN PRN Reason: PAIN LEVEL 1-5 Last Admin: 11/24/18 19:49 Dose: 650 mg Aspirin (Ecotrin -) 81 mg PO DAILY [facility] Last Admin: 11/25/18 11:14 Dose: 81 mg Atorvastatin Calcium (Lipitor -) 20 mg PO HS [facility] Last Admin: 11/24/18 21:21 Dose: 20 mg Cholecalciferol (Vitamin D3 -) 1,000 unit PO DAILY [facility] Last Admin: 11/25/18 11:15 Dose: 1,000 unit Clopidogrel Bisulfate (Plavix -) 75 mg PO DAILY [facility] Last Admin: 11/25/18 11:14 Dose: 75 mg Collagenase (Santyl -) 1 applic TP DAILY [facility]; Protocol Last Admin: 11/25/18 11:17 Dose: 1 applic Donepezil HCl (Aricept -) 10 mg PO HS [facility] Last Admin: 11/24/18 21:21 Dose: 10 mg Escitalopram Oxalate (Lexapro -) 20 mg PO DAILY [facility] Last Admin: 11/25/18 11:14 Dose: 20 mg Ferrous Sulfate (Feosol -) 325 mg PO DAILY [facility] Last Admin: 11/25/18 11:15 Dose: 325 mg Gabapentin (Neurontin -) 300 mg PO TID [facility] Last Admin: 11/25/18 07:19 Dose: 300 mg Heparin Sodium (Porcine) (Heparin -) 5,000 unit SQ TID [facility] Last Admin: 11/25/18 07:19 Dose: 5,000 unit Piperacillin Sod/Tazobactam (Sod 2.25 gm/ Dextrose) 50 mls @ 100 mls/hr IVPB Q8H-IV [facility]; Protocol Last Admin: 11/25/18 11:15 Dose: 100 mls/hr Vancomycin HCl (Vancomycin (Pre-Docked)) 1,000 mg in 250 mls @ 166.667 mls/hr IVPB DAILY@1500 [facility]; Protocol Last Admin: 11/24/18 14:51 Dose: 166.667 mls/hr Insulin Aspart (Novolog Vial Sliding Scale -) 1 vial SQ ACHS [facility]; Protocol Last Admin: 11/25/18 11:12 Dose: 6 unit Insulin Detemir (Levemir Vial) 16 units SQ AM [facility] Last Admin: 11/25/18 07:21 Dose: 16 unit Insulin Detemir (Levemir Vial) 50 units SQ HS [facility] Last Admin: 11/24/18 21:47 Dose: 50 units Metoprolol Succinate (Toprol Xl -) 50 mg PO BID [facility] Last Admin: 11/25/18 11:23 Dose: Not Given Nitroglycerin (Nitrostat -) 0.4 mg SL Q5M PRN PRN Reason: ANGINA Aertr-2-Fgnp Ethyl Esters (Lovaza -) 1 gm PO DAILY [facility] Last Admin: 11/25/18 11:16 Dose: 1 gm Pantoprazole Sodium (Protonix -) 40 mg PO DAILY [facility] Last Admin: 11/25/18 11:15 Dose: 40 mg Spironolactone (Aldactone -) 25 mg PO DAILY [facility] Last Admin: 11/25/18 11:23 Dose: 25 mg Tamsulosin HCl (Flomax -) 0.4 mg PO BID [facility] Last Admin: 11/25/18 11:14 Dose: 0.4 mg Torsemide (Demadex -) 20 mg PO DAILY [facility] Last Admin: 11/25/18 11:14 Dose: 20 mg - Objective Vital Signs: Vital Signs Temperature 97.4 F L 11/25/18 10:21 Pulse Rate 53 L 11/25/18 10:21 Respiratory Rate 18 11/25/18 10:21 Blood Pressure 116/55 L 11/25/18 10:21 O2 Sat by Pulse Oximetry (%) 98 11/24/18 20:23 Constitutional: Yes: Mild Distress Eyes: Yes: WNL HENT: Yes: WNL Neck: Yes: WNL Respiratory: Yes: WNL Gastrointestinal: Yes: WNL Genitourinary: Yes: Incontinence Musculoskeletal: Yes: Muscle Weakness Extremities: Yes: Deformity Edema: Yes Wound/Incision: Yes: Dressing Dry and Intact (RIGHT FOOT) Labs: CBC, BMP 11/24/18 11:40 11/24/18 11:40 INR, PTT INR 1.15 (0.83-1.09) H 11/20/18 21:00 Problem List - Problems (1) Diabetic foot infection Code(s): E11.628 - TYPE 2 DIABETES MELLITUS WITH OTHER SKIN COMPLICATIONS; L08.9 - LOCAL INFECTION OF THE SKIN AND SUBCUTANEOUS TISSUE, UNSP (2) Anemia Code(s): D64.9 - ANEMIA, UNSPECIFIED (3) 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 transplanted heart: [place] heart Associated angina: with unstable angina Qualified Code(s): I25.110 - Atherosclerotic heart disease of [place] coronary artery with unstable angina pectoris (5) CKD (chronic kidney disease) Code(s): N18.9 - CHRONIC KIDNEY DISEASE, UNSPECIFIED (6) HTN (hypertension) Code(s): I10 - ESSENTIAL (PRIMARY) HYPERTENSION Qualifiers: Hypertension type: essential hypertension Qualified Code(s): I10 - Essential (primary) hypertension (7) Hyperlipidemia Code(s): E78.5 - HYPERLIPIDEMIA, UNSPECIFIED Qualifiers: Hyperlipidemia type: unspecified hyperlipidemia Qualified Code(s): E78.5 - Hyperlipidemia, unspecified (8) Type 2 diabetes mellitus with foot ulcer Code(s): E11.621 - TYPE 2 DIABETES MELLITUS WITH FOOT ULCER; L97.509 - NON- PRESSURE CHRONIC ULCER OTH PRT UNSP FOOT W UNSP SEVERITY Assessment/Plan IV ABX PER ID PAIN CONTROL PODIATRY/VASC SX EVAL BGM CHECKS [facility] SN[facility] CANDIDATE FOR IV ABX
[2018-11-25] MEDS: VANCOMYCIN 1 GRAM (PRE-DOCKED) 1,000 MG/250 ML BAG IVPB SCH (14:08)
[2018-11-25] MEDS: ACETAMINOPHEN 325 MG TABLET (FP) PO PRN (15:32)
[2018-11-25] MEDS: COLLAGENASE CLOSTRIDIUM HIST. 30 GRAMS TUBE TP SCH (15:45)
--- NOTE | 2018-11-25 18:51 | PN ---
Progress Note (short form) - Note Progress Note: covering dr lee 77 year old gentleman with hx of CKD stage 3 (baseline Cr ~2), DM on insulin, CAD, Hypertension, diabetic neuropathy who presented with LE pain/suspected osteomylitis. 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 r/o arterial insufficiency Hypertension Dm on insulin Current Medications Acetaminophen (Tylenol -) 650 mg PO Q6H PRN PRN Reason: PAIN LEVEL 1-5 Last Admin: 11/25/18 15:32 Dose: 650 mg Aspirin (Ecotrin -) 81 mg PO DAILY [facility] Last Admin: 11/25/18 11:14 Dose: 81 mg Atorvastatin Calcium (Lipitor -) 20 mg PO HS [facility] Last Admin: 11/24/18 21:21 Dose: 20 mg Cholecalciferol (Vitamin D3 -) 1,000 unit PO DAILY [facility] Last Admin: 11/25/18 11:15 Dose: 1,000 unit Clopidogrel Bisulfate (Plavix -) 75 mg PO DAILY [facility] Last Admin: 11/25/18 11:14 Dose: 75 mg Collagenase (Santyl -) 1 applic TP DAILY [facility]; Protocol Last Admin: 11/25/18 15:45 Dose: 1 applic Donepezil HCl (Aricept -) 10 mg PO HS [facility] Last Admin: 11/24/18 21:21 Dose: 10 mg Escitalopram Oxalate (Lexapro -) 20 mg PO DAILY [facility] Last Admin: 11/25/18 11:14 Dose: 20 mg Ferrous Sulfate (Feosol -) 325 mg PO DAILY [facility] Last Admin: 11/25/18 11:15 Dose: 325 mg Gabapentin (Neurontin -) 300 mg PO TID [facility] Last Admin: 11/25/18 14:08 Dose: 300 mg Heparin Sodium (Porcine) (Heparin -) 5,000 unit SQ TID [facility] Last Admin: 11/25/18 14:07 Dose: 5,000 unit Piperacillin Sod/Tazobactam (Sod 2.25 gm/ Dextrose) 50 mls @ 100 mls/hr IVPB Q8H-IV [facility]; Protocol Last Admin: 11/25/18 17:40 Dose: 100 mls/hr Vancomycin HCl (Vancomycin (Pre-Docked)) 1,000 mg in 250 mls @ 166.667 mls/hr IVPB DAILY@1500 [facility]; Protocol Last Admin: 11/25/18 14:08 Dose: 166.667 mls/hr Insulin Aspart (Novolog Vial Sliding Scale -) 1 vial SQ ACHS [facility]; Protocol Last Admin: 11/25/18 16:30 Dose: 6 unit Insulin Detemir (Levemir Vial) 16 units SQ AM [facility] Last Admin: 11/25/18 07:21 Dose: 16 unit Insulin Detemir (Levemir Vial) 50 units SQ HS [facility] Last Admin: 11/24/18 21:47 Dose: 50 units Metoprolol Succinate (Toprol Xl -) 50 mg PO BID [facility] Last Admin: 11/25/18 11:23 Dose: Not Given Nitroglycerin (Nitrostat -) 0.4 mg SL Q5M PRN PRN Reason: ANGINA [id number] Ethyl Esters (Lovaza -) 1 gm PO DAILY [facility] Last Admin: 11/25/18 11:16 Dose: 1 gm Pantoprazole Sodium (Protonix -) 40 mg PO DAILY [facility] Last Admin: 11/25/18 11:15 Dose: 40 mg Spironolactone (Aldactone -) 25 mg PO DAILY [facility] Last Admin: 11/25/18 11:23 Dose: 25 mg Tamsulosin HCl (Flomax -) 0.4 mg PO BID [facility] Last Admin: 11/25/18 11:14 Dose: 0.4 mg Torsemide (Demadex -) 20 mg PO DAILY [facility] Last Admin: 11/25/18 11:14 Dose: 20 mg Last Vital Signs Temp Pulse Resp BP Pulse Ox 98.0 F 73 18 94/57 L 98 11/25/18 14:50 11/25/18 14:50 11/25/18 14:50 11/25/18 14:50 11/25/18 09:00 Lungs clear Heart reg Abd soft nontender ext no edema CBC, BMP 11/24/18 11:40 11/24/18 11:40 IMP- CKD- stable renal function (baseline s creatinine 1.7-1.8) Cellulitis/ osteomyelitis R great toe Azotemia S/P bone bx Empiric vancomycin/ zosyn Plan- continue to encourage plenty fluids follow renal function
[2018-11-25] MEDS: DONEPEZIL HCL 10 MG TABLET (FP) PO SCH (21:10)
[2018-11-25] MEDS: ATORVASTATIN CA 20 MG TABLET (FP) PO SCH (21:10)
[2018-11-26] MEDS: PIPERACILLIN/TAZOB 2.25 GM 2.25 GM in DEXTROSE 5%-WATER - 50 ML IVPB SCH ×3 (02:26→17:17)
[2018-11-26] MEDS: HEPARIN NA (PORCINE) 5,000 UNITS/ML 1ML VIAL SQ SCH ×3 (06:37→21:11)
[2018-11-26] MEDS: GABAPENTIN 300 MG CAPSULE (FP) PO SCH ×3 (06:37→21:10)
[2018-11-26] MEDS: INSULIN SLIDING SCALE (NOVOLOG) 1 VIAL SQ SCH ×4 (06:38→21:15)
[2018-11-26] MEDS: INSULIN (LEVEMIR) 100 UNITS/ML UNITS SQ SCH ×2 (06:38→21:16)
[2018-11-26] MEDS ORDERED: PIPERACILLIN/TAZOBACTAM 2.25 GM VIAL IVPB ONE ×3 (08:47→23:40)
[2018-11-26] MEDS ORDERED: DEXTROSE 5%-WATER - 50 ML IVPB ONE ×3 (08:48→23:40)
--- NOTE | 2018-11-26 10:01 | PN ---
Progress Note (short form) - Note Progress Note: Patint seen in bed. +dry eschar, +om right great toe, wbc=5.3, +cellulitis greatly improved, no growth aerobic bone biopsy om pvd diabetic wound santyl dressing change daily will follow. Awaiting ID recommendations and vascular.
[2018-11-26] MEDS: FERROUS SO4 325 MG TABLET (FP) PO SCH (10:43)
[2018-11-26] MEDS: ASPIRIN COATED 81 MG TABLET.EC PO SCH (10:43)
[2018-11-26] MEDS: TAMSULOSIN HCL 0.4 MG CAP PO SCH ×2 (10:44→21:10)
[2018-11-26] MEDS: TORSEMIDE 20 MG TABLET (FP) PO SCH (10:44)
[2018-11-26] MEDS: CHOLECALCIFEROL (VITAMIN D3) 1,000 UNIT TABLET (FP) PO SCH (10:44)
[2018-11-26] MEDS: CLOPIDOGREL BISULFATE 75 MG TABLET (FP) PO SCH (10:44)
[2018-11-26] MEDS: PANTOPRAZOLE 40 MG TABLET (FP) PO SCH (10:44)
[2018-11-26] MEDS: ESCITALOPRAM OXALATE 20 MG TABLET (FP) PO SCH (10:44)
[2018-11-26] MEDS: SPIRONOLACTONE 25 MG TABLET (FP) PO SCH (10:44)
[2018-11-26] MEDS: COLLAGENASE CLOSTRIDIUM HIST. 30 GRAMS TUBE TP SCH (10:45)
[2018-11-26] MEDS: OMEGA-3 ACID ETHYL ESTERS (FATTY-ACIDS) 1 GM CAPSULE (FP) PO SCH (10:45)
--- NOTE | 2018-11-26 10:48 | PN ---
Progress Note, Physician Chief Complaint: SURGERY CANCELED UNTIL TOMORROW PATIENT ASLEEP NO ACUTE CHANGES OVERNIGHT - Current Medication List Current Medications: Active Medications Acetaminophen (Tylenol -) 650 mg PO Q6H PRN PRN Reason: PAIN LEVEL 1-5 Last Admin: 11/25/18 15:32 Dose: 650 mg Aspirin (Ecotrin -) 81 mg PO DAILY [facility] Last Admin: 11/26/18 10:43 Dose: 81 mg Atorvastatin Calcium (Lipitor -) 20 mg PO HS [facility] Last Admin: 11/25/18 21:10 Dose: 20 mg Cholecalciferol (Vitamin D3 -) 1,000 unit PO DAILY [facility] Last Admin: 11/26/18 10:44 Dose: 1,000 unit Clopidogrel Bisulfate (Plavix -) 75 mg PO DAILY [facility] Last Admin: 11/26/18 10:44 Dose: 75 mg Collagenase (Santyl -) 1 applic TP DAILY [facility]; Protocol Last Admin: 11/26/18 10:45 Dose: 1 applic Donepezil HCl (Aricept -) 10 mg PO HS [facility] Last Admin: 11/25/18 21:10 Dose: 10 mg Escitalopram Oxalate (Lexapro -) 20 mg PO DAILY [facility] Last Admin: 11/26/18 10:44 Dose: 20 mg Ferrous Sulfate (Feosol -) 325 mg PO DAILY [facility] Last Admin: 11/26/18 10:43 Dose: 325 mg Gabapentin (Neurontin -) 300 mg PO TID [facility] Last Admin: 11/26/18 06:37 Dose: Not Given Heparin Sodium (Porcine) (Heparin -) 5,000 unit SQ TID [facility] Last Admin: 11/26/18 06:37 Dose: Not Given Piperacillin Sod/Tazobactam (Sod 2.25 gm/ Dextrose) 50 mls @ 100 mls/hr IVPB Q8H-IV [facility]; Protocol Last Admin: 11/26/18 09:18 Dose: 100 mls/hr Vancomycin HCl (Vancomycin (Pre-Docked)) 1,000 mg in 250 mls @ 166.667 mls/hr IVPB DAILY@1500 [facility]; Protocol Last Admin: 11/25/18 14:08 Dose: 166.667 mls/hr Insulin Aspart (Novolog Vial Sliding Scale -) 1 vial SQ ACHS [facility]; Protocol Last Admin: 11/26/18 06:38 Dose: Not Given Insulin Detemir (Levemir Vial) 16 units SQ AM [facility] Last Admin: 11/26/18 06:38 Dose: Not Given Insulin Detemir (Levemir Vial) 50 units SQ HS [facility] Last Admin: 11/25/18 21:14 Dose: 50 units Metoprolol Succinate (Toprol Xl -) 50 mg PO BID [facility] Last Admin: 11/26/18 09:18 Dose: 50 mg Nitroglycerin (Nitrostat -) 0.4 mg SL Q5M PRN PRN Reason: ANGINA Ovddf-7-Ezze Ethyl Esters (Lovaza -) 1 gm PO DAILY [facility] Last Admin: 11/26/18 10:45 Dose: 1 gm Pantoprazole Sodium (Protonix -) 40 mg PO DAILY [facility] Last Admin: 11/26/18 10:44 Dose: 40 mg Spironolactone (Aldactone -) 25 mg PO DAILY [facility] Last Admin: 11/26/18 10:44 Dose: 25 mg Tamsulosin HCl (Flomax -) 0.4 mg PO BID [facility] Last Admin: 11/26/18 10:44 Dose: 0.4 mg Torsemide (Demadex -) 20 mg PO DAILY [facility] Last Admin: 11/26/18 10:44 Dose: 20 mg - Objective Vital Signs: Vital Signs Temperature 97.6 F 11/26/18 10:00 Pulse Rate 59 L 11/26/18 10:00 Respiratory Rate 20 11/26/18 10:00 Blood Pressure 136/64 11/26/18 10:00 O2 Sat by Pulse Oximetry (%) 98 11/25/18 21:00 Constitutional: Yes: No Distress Eyes: Yes: WNL HENT: Yes: WNL Neck: Yes: WNL Cardiovascular: Yes: WNL Respiratory: Yes: WNL Gastrointestinal: Yes: Abdomen, Obese Genitourinary: Yes: WNL Musculoskeletal: Yes: Muscle Weakness Extremities: Yes: Deformity Edema: Yes Peripheral Pulses WNL: Yes Integumentary: Yes: Pressure Ulcer Wound/Incision: Yes: Dressing Dry and Intact Neurological: Yes: Pre-Existing Deficit ...Motor Strength: LLE, RLE Psychiatric: Yes: Other Labs: CBC, BMP 11/24/18 11:40 11/24/18 11:40 INR, PTT INR 1.15 (0.83-1.09) H 12/20/18 21:00 Problem List - Problems (1) Diabetic foot infection Code(s): E11.628 - TYPE 2 DIABETES MELLITUS WITH OTHER SKIN COMPLICATIONS; L08.9 - LOCAL INFECTION OF THE SKIN AND SUBCUTANEOUS TISSUE, UNSP (2) Anemia Code(s): D64.9 - ANEMIA, UNSPECIFIED (3) 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 transplanted heart: [place] heart Associated angina: with unstable angina Qualified Code(s): I25.110 - Atherosclerotic heart disease of [place] coronary artery with unstable angina pectoris (5) CKD (chronic kidney disease) Code(s): N18.9 - CHRONIC KIDNEY DISEASE, UNSPECIFIED (6) HTN (hypertension) Code(s): I10 - ESSENTIAL (PRIMARY) HYPERTENSION Qualifiers: Hypertension type: essential hypertension Qualified Code(s): I10 - Essential (primary) hypertension (7) Hyperlipidemia Code(s): E78.5 - HYPERLIPIDEMIA, UNSPECIFIED Qualifiers: Hyperlipidemia type: unspecified hyperlipidemia (8) Type 2 diabetes mellitus with foot ulcer Code(s): E11.621 - TYPE 2 DIABETES MELLITUS WITH FOOT ULCER; L97.509 - NON- PRESSURE CHRONIC ULCER OTH PRT UNSP FOOT W UNSP SEVERITY Assessment/Plan IV ABX PER ID PAIN CONTROL PODIATRY/VASC SX EVAL BGM CHECKS [facility] SN[facility] CANDIDATE FOR IV ABX VASC SX TOMORROW
--- NOTE | 2018-11-26 10:52 | SPA.PREOP ---
- PRE-OP NOTE Dx: Rigt great to gangrene Planned Procedure: CO2 angiogram Surgeon: Dr. Jasso Last Vital Signs Temp Pulse Resp BP Pulse Ox 97.6 F 59 L 20 136/64 98 11/26/18 10:00 11/26/18 10:00 11/26/18 10:00 11/26/18 10:00 11/25/18 21:00 Lab Results WBC 5.3 K/mm3 (4.0-10.0) 11/24/18 11:40 RBC 3.57 M/mm3 (4.00-5.60) L 11/24/18 11:40 Hgb 10.2 GM/dL (11.7-16.9) L 11/24/18 11:40 Hct 31.0 % (35.4-49) L 11/24/18 11:40 MCV 86.8 fl (80-96) 11/24/18 11:40 MCHC 33.0 g/dl (32.0-35.9) 11/24/18 11:40 RDW 18.8 % (11.9-15.9) H 11/24/18 11:40 Plt Count 144 K/MM3 (134-434) 11/24/18 11:40 Sodium 137 mmol/L (136-145) 11/24/18 11:40 Potassium 4.5 mmol/L (3.5-5.1) 11/24/18 11:40 Chloride 101 mmol/L (98-107) 11/24/18 11:40 Carbon Dioxide 29 mmol/L (21-32) 11/24/18 11:40 Anion Gap 7 MMOL/L (8-16) L 11/24/18 11:40 BUN 31 mg/dL (7-18) H 11/24/18 11:40 Creatinine 2.3 mg/dL (0.55-1.3) H 11/24/18 11:40 Random Glucose 207 mg/dL (74-106) H 11/24/18 11:40 Calcium 8.0 mg/dL (8.5-10.1) L 11/24/18 11:40 INR 1.15 (0.83-1.09) H 11/20/18 21:00 Microbiology 11/23/18 12:30 Bone Gram Stain - Final 11/23/18 12:30 Bone Anaerobic Culture - Final NO ANAEROBES WERE ISOLATED 11/20/18 21:00 Blood - Peripheral Venous Blood Culture - Final NO GROWTH AFTER 5 DAYS INCUBATION 11/20/18 21:00 Blood - Peripheral Venous Blood Culture - Final NO GROWTH AFTER 5 DAYS INCUBATION 11/23/18 12:30 Bone Tissue Culture - Preliminary Staphylococcus Coagulase Neg - ASSESSMENT/PLAN 1. Make NPO after midnight except po meds 2. GI/DVT PPX 3. Medical optimization / clearance 4. Consent to be obtained by surgeon after risks, benefits and alternatives discussed with patient and or Health Care Proxy. Problem List - Problems (1) Diabetic foot infection Assessment/Plan: Right great toe with infection, s/p bedside Right great toe bone biopsy and tissue culture by podiatry The patient is cleared for an angiogram procedure, he is awaiting CT surgery eval for possible CABF/AVR Npo after midnight, may take cardiac meds with sip of water T&S ordered Code(s): E11.628 - TYPE 2 DIABETES MELLITUS WITH OTHER SKIN COMPLICATIONS; L08.9 - LOCAL INFECTION OF THE SKIN AND SUBCUTANEOUS TISSUE, UNSP
--- NOTE | 2018-11-26 12:35 | PN ---
Progress Note (short form) - Note Progress Note: Renal follow up for CKD Pt seen and examined at the bedside awake and alert no acute complaints for angiogram tomorrow Vital Signs Temperature 97.6 F 11/26/18 10:00 Pulse Rate 59 L 11/26/18 10:00 Respiratory Rate 20 11/26/18 10:00 Blood Pressure 136/64 11/26/18 10:00 O2 Sat by Pulse Oximetry (%) 98 11/25/18 21:00 Intake & Output 11/23/18 11/24/18 11/25/18 11/26/18 23:59 23:59 23:59 23:59 Intake Total 1450 1300 700 50 Balance 1450 1300 700 50 NAD awake and alert no LE edema CBC, BMP 11/24/18 11:40 11/24/18 11:40 Current Medications Acetaminophen (Tylenol -) 650 mg PO Q6H PRN PRN Reason: PAIN LEVEL 1-5 Last Admin: 11/25/18 15:32 Dose: 650 mg Aspirin (Ecotrin -) 81 mg PO DAILY [facility] Last Admin: 11/26/18 10:43 Dose: 81 mg Atorvastatin Calcium (Lipitor -) 20 mg PO HS [facility] Last Admin: 11/25/18 21:10 Dose: 20 mg Cholecalciferol (Vitamin D3 -) 1,000 unit PO DAILY [facility] Last Admin: 11/26/18 10:44 Dose: 1,000 unit Clopidogrel Bisulfate (Plavix -) 75 mg PO DAILY [facility] Last Admin: 11/26/18 10:44 Dose: 75 mg Collagenase (Santyl -) 1 applic TP DAILY [facility]; Protocol Last Admin: 11/26/18 10:45 Dose: 1 applic Donepezil HCl (Aricept -) 10 mg PO HS [facility] Last Admin: 11/25/18 21:10 Dose: 10 mg Escitalopram Oxalate (Lexapro -) 20 mg PO DAILY [facility] Last Admin: 11/26/18 10:44 Dose: 20 mg Ferrous Sulfate (Feosol -) 325 mg PO DAILY [facility] Last Admin: 11/26/18 10:43 Dose: 325 mg Gabapentin (Neurontin -) 300 mg PO TID [facility] Last Admin: 11/26/18 06:37 Dose: Not Given Heparin Sodium (Porcine) (Heparin -) 5,000 unit SQ TID [facility] Last Admin: 11/26/18 06:37 Dose: Not Given Piperacillin Sod/Tazobactam (Sod 2.25 gm/ Dextrose) 50 mls @ 100 mls/hr IVPB Q8H-IV [facility]; Protocol Last Admin: 11/26/18 09:18 Dose: 100 mls/hr Vancomycin HCl (Vancomycin (Pre-Docked)) 1,000 mg in 250 mls @ 166.667 mls/hr IVPB DAILY@1500 [facility]; Protocol Last Admin: 11/25/18 14:08 Dose: 166.667 mls/hr Insulin Aspart (Novolog Vial Sliding Scale -) 1 vial SQ ACHS [facility]; Protocol Last Admin: 11/26/18 11:09 Dose: 2 unit Insulin Detemir (Levemir Vial) 16 units SQ AM [facility] Last Admin: 11/26/18 06:38 Dose: Not Given Insulin Detemir (Levemir Vial) 50 units SQ HS [facility] Last Admin: 11/25/18 21:14 Dose: 50 units Metoprolol Succinate (Toprol Xl -) 50 mg PO BID [facility] Last Admin: 11/26/18 09:18 Dose: 50 mg Nitroglycerin (Nitrostat -) 0.4 mg SL Q5M PRN PRN Reason: ANGINA Miopp-[id number] Ethyl Esters (Lovaza -) 1 gm PO DAILY [facility] Last Admin: 11/26/18 10:45 Dose: 1 gm Pantoprazole Sodium (Protonix -) 40 mg PO DAILY [facility] Last Admin: 11/26/18 10:44 Dose: 40 mg Spironolactone (Aldactone -) 25 mg PO DAILY [facility] Last Admin: 11/26/18 10:44 Dose: 25 mg Tamsulosin HCl (Flomax -) 0.4 mg PO BID [facility] Last Admin: 11/26/18 10:44 Dose: 0.4 mg Torsemide (Demadex -) 20 mg PO DAILY [facility] Last Admin: 11/26/18 10:44 Dose: 20 mg A/P 77 year old gentleman with hx of CKD stage 3 (baseline Cr ~2), DM on insulin, CAD, Hypertension, diabetic neuropathy who presented with LE pain and found to have suspected osteomylitis. 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
[2018-11-26] MEDS: VANCOMYCIN 1 GRAM (PRE-DOCKED) 1,000 MG/250 ML BAG IVPB SCH (14:29)
--- NOTE | 2018-11-26 16:44 | PN ---
Progress Note (short form) - Note Progress Note: Chief Complaint: preop, foot pain s: feels well, no chest pain, palps, dizziness, lightheadedness Current Medications Generic Name Dose Route Start Last Admin Trade Name Chuck PRN Reason Stop Dose Admin Acetaminophen 650 mg 11/24/18 19:16 11/25/18 15:32 Tylenol - PO 650 mg Q6H PRN Administration PAIN LEVEL 1-5 Aspirin 81 mg 11/21/18 10:00 11/26/18 10:43 Ecotrin - PO 81 mg DAILY KJ Administration Atorvastatin Calcium 20 mg 11/21/18 22:00 11/25/18 21:10 Lipitor - PO 20 mg HS KJ Administration Cholecalciferol 1,000 unit 11/21/18 10:00 11/26/18 10:44 Vitamin D3 - PO 1,000 unit DAILY KJ Administration Clopidogrel Bisulfate 75 mg 11/21/18 10:00 11/26/18 10:44 Plavix - PO 75 mg DAILY KJ Administration Collagenase 1 applic 11/21/18 10:00 11/26/18 10:45 Santyl - TP 1 applic DAILY KJ Administration Protocol Donepezil HCl 10 mg 11/21/18 22:00 11/25/18 21:10 Aricept - PO 10 mg HS KJ Administration Escitalopram Oxalate 20 mg 11/21/18 10:00 11/26/18 10:44 Lexapro - PO 20 mg DAILY KJ Administration Ferrous Sulfate 325 mg 11/21/18 10:00 11/26/18 10:43 Feosol - PO 325 mg DAILY KJ Administration Gabapentin 300 mg 11/21/18 06:00 11/26/18 13:21 Neurontin - PO 300 mg TID KJ Administration Heparin Sodium (Porcine) 5,000 unit 11/21/18 06:00 11/26/18 13:21 Heparin - SQ 5,000 unit TID KJ Administration Piperacillin Sod/Tazobactam 50 mls @ 100 mls/hr 11/22/18 14:00 11/26/18 09:18 Sod 2.25 gm/ Dextrose IVPB 100 mls/hr Q8H-IV KJ Administration Protocol Vancomycin HCl 1,000 mg in 250 mls @ 166.667 mls/hr 11/22/18 15:00 11/26/18 14:29 Vancomycin (Pre-Docked) IVPB 166.667 mls/hr DAILY@1500 [facility] Administration Protocol Insulin Aspart 1 vial 11/21/18 00:30 11/26/18 11:09 Novolog Vial Sliding Scale - SQ 2 unit ACHS [facility] Administration Protocol Insulin Detemir 16 units 11/21/18 07:00 11/26/18 06:38 Levemir Vial SQ Not Given AM [facility] Insulin Detemir 50 units 11/21/18 22:00 11/25/18 21:14 Levemir Vial SQ 50 units HS [facility] Administration Metoprolol Succinate 50 mg 11/21/18 10:00 11/26/18 09:18 Toprol Xl - PO 50 mg BID KJ Administration Nitroglycerin 0.4 mg 11/20/18 23:15 Nitrostat - SL Q5M PRN ANGINA Flpgl-3-Avfs Ethyl Esters 1 gm 11/21/18 10:00 11/26/18 10:45 Lovaza - PO 1 gm DAILY KJ Administration Pantoprazole Sodium 40 mg 11/21/18 10:00 11/26/18 10:44 Protonix - PO 40 mg DAILY KJ Administration Spironolactone 25 mg 11/21/18 10:00 11/26/18 10:44 Aldactone - PO 25 mg DAILY KJ Administration Tamsulosin HCl 0.4 mg 11/21/18 10:00 11/26/18 10:44 Flomax - PO 0.4 mg BID KJ Administration Torsemide 20 mg 11/22/18 10:00 11/26/18 10:44 Demadex - PO 20 mg DAILY KJ Administration Vital Signs: Vital Signs Period Temp Pulse Resp BP Sys/Julio Pulse Ox Last 24 Hr 97.3 F-98.2 F 51-59 18-20 119-136/59-73 98-98 Constitutional: Yes: No Distress, Calm Eyes: Yes: Conjunctiva Clear Neck: Yes: Supple, Trachea Midline Respiratory: Yes: Regular, CTA Bilaterally Gastrointestinal: Yes: Normal Bowel Sounds, Soft Cardiovascular: Yes: Regular Rate and Rhythm JVD: No Heart Sounds: Yes: S1, S2 Murmur: Yes: Systolic Murmur, Grade 3 (systolic crescendo-decrescendo, audible S2) Musculoskeletal: No: Back Pain Extremities: No: Cold Edema: No Peripheral Pulses: 1+ Left Doralis Pedis, 2+ Left Carotid, 2+ Right Carotid Integumentary: No: Jaundice Neurological: Yes: Alert, Oriented Assessment/Plan EKG: sinus, LBBB, PVCs cardiac FDG PET perfusion [facility] [place] 10/2018: large, severe partially reversible defect anterior and apex, medium , moderate predominantly reversible inferior defect +TID, globally decreased LVSF , EF 28%, myocardium viable throughout Echo 08/2018 [facility] [place] exam limited, no definity used. 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 with large collateral from LCx, mid dstal LA occluded (ADJUNCT PROFESSOR) prior to LINDER touchdown, D2 jailed (ADJUNCT PROFESSOR), OM1 moderate diffuse dz Preop evaluation, R toe osteo - while patient is currently undergoing workup for revascularization, he is currently asymptomatic and euvolemic - may proceed with angiogram for RLE as planned, continue current meds perioperatively CAD - s/p PCI (LAURA pLAD with PTCA of ostial diag 12/2011, ISR with CABG 03/2013, cath 05/2013 patient LINDER (30% at anasthamosis site) with good perfusion of distal LAD but anasthamotic clips distal wall and occludes backflow; old ADJUNCT PROFESSOR of RCA with collats unchanged) - stable, asymptomatic with plan for further workup and management of CAD, at [facility] [place] - on aspirin, plavix, metoprolol, statin Chronic systolic HF - euvolemic on aldactone, furosemide, continue HTN - stable on metoprolol HLD - continue statin DM - manage per primary CKD - renal function at baseline anemia - stable, manage per primary
[2018-11-26] MEDS: DONEPEZIL HCL 10 MG TABLET (FP) PO SCH (21:10)
[2018-11-26] MEDS: ATORVASTATIN CA 20 MG TABLET (FP) PO SCH (21:10)
[2018-11-27] MEDS: PIPERACILLIN/TAZOB 2.25 GM 2.25 GM in DEXTROSE 5%-WATER - 50 ML IVPB SCH ×3 (01:14→17:27)
[2018-11-27] MEDS: HEPARIN NA (PORCINE) 5,000 UNITS/ML 1ML VIAL SQ SCH ×3 (05:54→21:25)
[2018-11-27] MEDS: GABAPENTIN 300 MG CAPSULE (FP) PO SCH ×3 (05:54→21:24)
[2018-11-27] MEDS: INSULIN SLIDING SCALE (NOVOLOG) 1 VIAL SQ SCH ×4 (06:06→21:25)
[2018-11-27] MEDS: INSULIN (LEVEMIR) 100 UNITS/ML UNITS SQ SCH ×2 (06:06→21:27)
[2018-11-27 07:26] LABS: HEMATOCRIT 29.9 % (35.4-49); HEMOGLOBIN 10.5 GM/dL (11.7-16.9); MCH 30.3 pg (25.7-33.7); MEAN CELL VOLUME 86.6 fl (80-96); MEAN PLT VOLUME 7.6 fl (7.5-11.1); PLATELET COUNT 159 K/MM3 (134-434); RBC 3.46 M/mm3 (4.00-5.60); RDW 18.6 % (11.9-15.9); WHITE BLOOD COUNT 5.5 K/mm3 (4.0-10.0)
[2018-11-27 08:05] LABS: ANION GAP 6 MMOL/L (8-16); BLOOD UREA NITROGEN 26 mg/dL (7-18); CALCIUM 7.9 mg/dL (8.5-10.1); CHLORIDE 102 mmol/L (98-107); CO2 28 mmol/L (21-32); CREATININE 2.2 mg/dL (0.55-1.3); GLUCOSE,RANDOM 184 mg/dL (74-106); MAGNESIUM 1.8 mg/dL (1.8-2.4); PHOSPHOROUS 3.3 mg/dL (2.5-4.9); SODIUM 136 mmol/L (136-145)
[2018-11-27] MEDS: TORSEMIDE 20 MG TABLET (FP) PO SCH (09:40)
[2018-11-27] MEDS: SPIRONOLACTONE 25 MG TABLET (FP) PO SCH (09:40)
[2018-11-27] MEDS: ASPIRIN COATED 81 MG TABLET.EC PO SCH (09:40)
[2018-11-27] MEDS: TAMSULOSIN HCL 0.4 MG CAP PO SCH ×2 (09:41→21:24)
[2018-11-27] MEDS: CLOPIDOGREL BISULFATE 75 MG TABLET (FP) PO SCH (09:41)
[2018-11-27] MEDS: CHOLECALCIFEROL (VITAMIN D3) 1,000 UNIT TABLET (FP) PO SCH (09:41)
[2018-11-27] MEDS: ESCITALOPRAM OXALATE 20 MG TABLET (FP) PO SCH (09:41)
[2018-11-27] MEDS: FERROUS SO4 325 MG TABLET (FP) PO SCH (09:41)
[2018-11-27] MEDS: PANTOPRAZOLE 40 MG TABLET (FP) PO SCH (09:41)
[2018-11-27] MEDS: OMEGA-3 ACID ETHYL ESTERS (FATTY-ACIDS) 1 GM CAPSULE (FP) PO SCH (09:41)
[2018-11-27] MEDS ORDERED: PIPERACILLIN/TAZOBACTAM 2.25 GM VIAL IVPB ONE ×2 (09:43→17:22)
[2018-11-27] MEDS ORDERED: DEXTROSE 5%-WATER - 50 ML IVPB ONE ×2 (09:44→17:23)
[2018-11-27] MEDS: COLLAGENASE CLOSTRIDIUM HIST. 30 GRAMS TUBE TP SCH (09:50)
[2018-11-27] MEDS ORDERED: PROMETHAZINE HCL 25 MG/1 ML VIAL IVPUSH PRN ×2 (11:10→14:23)
[2018-11-27] MEDS ORDERED: ONDANSETRON 4 MG/2 ML VIAL IVPUSH PRN ×2 (11:10→14:23)
[2018-11-27] MEDS ORDERED: SODIUM CHLORIDE 1,000 ML IV SCH (11:15)
[2018-11-27] MEDS ORDERED: ceFAZolin SODIUM 1 GM VIAL IVPB ONE (11:38)
--- NOTE | 2018-11-27 11:48 | PN ---
Progress Note (short form) - Note Progress Note: Chief Complaint: preop, foot pain s: feels well, no chest pain, palps, dizziness, lightheadedness Current Medications Generic Name Dose Route Start Last Admin Trade Name Chuck PRN Reason Stop Dose Admin Acetaminophen 650 mg 11/24/18 19:16 11/25/18 15:32 Tylenol - PO 650 mg Q6H PRN Administration PAIN LEVEL 1-5 Aspirin 81 mg 11/21/18 10:00 11/27/18 09:40 Ecotrin - PO Not Given DAILY [facility] Atorvastatin Calcium 20 mg 11/21/18 22:00 11/26/18 21:10 Lipitor - PO 20 mg HS KJ Administration Cholecalciferol 1,000 unit 11/21/18 10:00 11/27/18 09:41 Vitamin D3 - PO Not Given DAILY [facility] Clopidogrel Bisulfate 75 mg 11/21/18 10:00 11/27/18 09:41 Plavix - PO Not Given DAILY [facility] Collagenase 1 applic 11/21/18 10:00 11/27/18 09:50 Santyl - TP 1 applic DAILY [facility] Administration Protocol Donepezil HCl 10 mg 11/21/18 22:00 11/26/18 21:10 Aricept - PO 10 mg HS KJ Administration Escitalopram Oxalate 20 mg 11/21/18 10:00 11/27/18 09:41 Lexapro - PO Not Given DAILY [facility] Fentanyl 50 mcg 11/27/18 11:10 Sublimaze Injection - IVPUSH [id number] PRN PAIN-PACU ORDER X 4 DOSES ONLY Ferrous Sulfate 325 mg 11/21/18 10:00 11/27/18 09:41 Feosol - PO Not Given DAILY [facility] Gabapentin 300 mg 11/21/18 06:00 11/27/18 05:54 Neurontin - PO Not Given TID [facility] Heparin Sodium (Porcine) 5,000 unit 11/21/18 06:00 11/27/18 05:54 Heparin - SQ Not Given TID [facility] Piperacillin Sod/Tazobactam 50 mls @ 100 mls/hr 11/22/18 14:00 11/27/18 09:46 Sod 2.25 gm/ Dextrose IVPB 100 mls/hr Q8H-IV KJ Administration Protocol Vancomycin HCl 1,000 mg in 250 mls @ 166.667 mls/hr 11/22/18 15:00 11/26/18 14:29 Vancomycin (Pre-Docked) IVPB 166.667 mls/hr DAILY@1500 [facility] Administration Protocol Sodium Chloride 1,000 mls @ 83 mls/hr 11/27/18 11:15 Normal Saline - IV ASDIR [facility] Insulin Aspart 1 vial 11/21/18 00:30 11/27/18 06:06 Novolog Vial Sliding Scale - SQ Not Given ACHS [facility] Protocol Insulin Detemir 16 units 11/21/18 07:00 11/27/18 06:06 Levemir Vial SQ Not Given AM [facility] Insulin Detemir 50 units 11/21/18 22:00 11/26/18 21:16 Levemir Vial SQ 50 units HS [facility] Administration Metoprolol Succinate 50 mg 11/21/18 10:00 11/27/18 09:40 Toprol Xl - PO 50 mg BID [facility] Administration Nitroglycerin 0.4 mg 11/20/18 23:15 Nitrostat - SL Q5M PRN ANGINA Cwglz-4-Ztav Ethyl Esters 1 gm 11/21/18 10:00 11/27/18 09:41 Lovaza - PO Not Given DAILY [facility] Ondansetron HCl 4 mg 11/27/18 11:10 Zofran Injection IVPUSH 11/28/18 11:09 Q6H PRN NAUSEA AND/OR VOMITING Pantoprazole Sodium 40 mg 11/21/18 10:00 11/27/18 09:41 Protonix - PO Not Given DAILY [facility] Promethazine HCl 12.5 mg 11/27/18 11:10 Phenergan Injection - IVPUSH 11/28/18 11:09 Q6H PRN NAUSEA-FOR RESCUE AFTER 15 MIN Spironolactone 25 mg 11/21/18 10:00 11/27/18 09:40 Aldactone - PO Not Given DAILY [facility] Tamsulosin HCl 0.4 mg 11/21/18 10:00 11/27/18 09:41 Flomax - PO Not Given BID [facility] Torsemide 20 mg 11/22/18 10:00 11/27/18 09:40 Demadex - PO Not Given DAILY [facility] Vital Signs: Vital Signs Period Temp Pulse Resp BP Sys/Julio Pulse Ox Last 24 Hr 97.6 F-98.2 F 51-99 18-20 115-140/60-91 98-99 Constitutional: Yes: No Distress, Calm Eyes: Yes: Conjunctiva Clear Neck: Yes: Supple, Trachea Midline Respiratory: Yes: Regular, CTA Bilaterally Gastrointestinal: Yes: Normal Bowel Sounds, Soft Cardiovascular: Yes: Regular Rate and Rhythm JVD: No Heart Sounds: Yes: S1, S2 Murmur: Yes: Systolic Murmur, Grade 3 (systolic crescendo-decrescendo, audible S2) Musculoskeletal: No: Back Pain Extremities: No: Cold Edema: No Peripheral Pulses: 1+ Left Doralis Pedis, 2+ Left Carotid, 2+ Right Carotid Integumentary: No: Jaundice Neurological: Yes: Alert, Oriented Assessment/Plan EKG: sinus, LBBB, PVCs cardiac FDG PET perfusion [facility] [place] 10/2018: large, severe partially reversible defect anterior and apex, medium , moderate predominantly reversible inferior defect +TID, globally decreased LVSF , EF 28%, myocardium viable throughout Echo 08/2018 [facility] [place] exam limited, no definity used. mod dec LVSF, EF 30-35%nl filling pressures, dd1, nl RV size, mildly decreased RVSF, mod , mod MR L/RHC 11/17 wedge 25, PA 60/25, RA 15, CI 2.1, AV gradient peak 25, mean 18, MADELINE 0.9, ISR of pLAD 70-80%-Xience, remainder unchanged vs prior: MECHANICAL DEVELOPER PROVER of RCA with large collateral from LCx, mid dstal LA occluded (MECHANICAL DEVELOPER PROVER) prior to LINDER touchdown, D2 jailed (MECHANICAL DEVELOPER PROVER), OM1 moderate diffuse dz Preop evaluation, R toe osteo - while patient is currently undergoing workup for revascularization, he is currently asymptomatic and euvolemic - may proceed with angiogram for RLE as planned, continue current meds perioperatively CAD - s/p PCI (LAURA pLAD with PTCA of ostial diag 12/2011, ISR with CABG 03/2013, cath 05/2013 patient LINDER (30% at anasthamosis site) with good perfusion of distal LAD but anasthamotic clips distal wall and occludes backflow; old MECHANICAL DEVELOPER PROVER of RCA with collats unchanged) - stable, asymptomatic with plan for further workup and management of CAD, at [facility] [place] - on aspirin, plavix, metoprolol, statin Chronic systolic HF - euvolemic on aldactone, furosemide, continue HTN - stable on metoprolol HLD - continue statin DM - manage per primary CKD - renal function at baseline anemia - stable, manage per primary
--- NOTE | 2018-11-27 12:54 | PN ---
Progress Note (short form) - Note Progress Note: Vascular Surgery S/P posterior tibial artery angioplasty . 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 Posterior tibial artery angoplasty performed all the way down to above the ankle. Good plantar flow now. Would treat toe with local wound care and not amputate since it might not have enough flow to heal. Angio performed with CO2. Can proceed with cardiac revascularization protocol as cardiology. Would like to start plavix, due to angioplasty, but will wait for cardiology to clear for that. Not sure if pt needs CABG. Ender Jasso DO
--- NOTE | 2018-11-27 12:59 | OP ---
Operative Note - Note: Operative Date: 11/27/18 Pre-Operative Diagnosis: Right great toe gangrene Operation: CO2 Aortogram, CO2 RLE angiogram, posterior tibial artery angioplasty Findings: Severe tibial disease. Post-Operative Diagnosis: Same as Pre-op Surgeon: Ender Jasso Anesthesiologist/CARTON MAKER: Amaunel Tucker Anesthesia: Fractional Estimated Blood Loss (mls): 50 Fluid Volume Replaced (mls): 500 Operative Report Dictated: Yes
[2018-11-27] MEDS: VANCOMYCIN 1 GRAM (PRE-DOCKED) 1,000 MG/250 ML BAG IVPB SCH ×2 (14:23→15:11)
[2018-11-27] MEDS ORDERED: NITROGLYCERIN SUBLINGUAL 1/150 0.4 MG TAB SL PRN (14:23)
[2018-11-27] MEDS ORDERED: ACETAMINOPHEN 325 MG TABLET (FP) PO PRN (14:23)
[2018-11-27] MEDS: SODIUM CHLORIDE 1,000 ML IV SCH (15:11)
--- NOTE | 2018-11-27 15:51 | PN ---
Progress Note, Physician History of Present Illness: S/P angio R LE Awake, alert Seated in bed No c/o foot pain No fever - Current Medication List Current Medications: Active Medications Acetaminophen (Tylenol -) 650 mg PO Q6H PRN PRN Reason: PAIN LEVEL 1-5 Aspirin (Ecotrin -) 81 mg PO DAILY [facility] Atorvastatin Calcium (Lipitor -) 20 mg PO HS [facility] Cholecalciferol (Vitamin D3 -) 1,000 unit PO DAILY [facility] Clopidogrel Bisulfate (Plavix -) 75 mg PO DAILY [facility] Collagenase (Santyl -) 1 applic TP DAILY [facility]; Protocol Donepezil HCl (Aricept -) 10 mg PO HS [facility] Escitalopram Oxalate (Lexapro -) 20 mg PO DAILY [facility] Fentanyl (Sublimaze Injection -) 50 mcg IVPUSH [id number] PRN PRN Reason: PAIN-PACU ORDER X 4 DOSES ONLY Ferrous Sulfate (Feosol -) 325 mg PO DAILY [facility] Gabapentin (Neurontin -) 300 mg PO TID [facility] Heparin Sodium (Porcine) (Heparin -) 5,000 unit SQ TID [facility] Sodium Chloride (Normal Saline -) 1,000 mls @ 83 mls/hr IV ASDIR [facility] Last Admin: 11/27/18 15:11 Dose: Not Given Vancomycin HCl (Vancomycin (Pre-Docked)) 1,000 mg in 250 mls @ 166.667 mls/hr IVPB DAILY@1500 [facility]; Protocol Last Admin: 11/27/18 15:11 Dose: Not Given Piperacillin Sod/Tazobactam (Sod 2.25 gm/ Dextrose) 50 mls @ 100 mls/hr IVPB Q8H-IV [facility]; Protocol Insulin Aspart (Novolog Vial Sliding Scale -) 1 vial SQ ACHS [facility]; Protocol Insulin Detemir (Levemir Vial) 16 units SQ AM [facility] Insulin Detemir (Levemir Vial) 50 units SQ HS [facility] Metoprolol Succinate (Toprol Xl -) 50 mg PO BID [facility] Nitroglycerin (Nitrostat -) 0.4 mg SL Q5M PRN PRN Reason: ANGINA Kxcrf-7-Yovu Ethyl Esters (Lovaza -) 1 gm PO DAILY [facility] Ondansetron HCl (Zofran Injection) 4 mg IVPUSH Q6H PRN PRN Reason: NAUSEA AND/OR VOMITING Stop: 11/28/18 11:09 Pantoprazole Sodium (Protonix -) 40 mg PO DAILY [facility] Promethazine HCl (Phenergan Injection -) 12.5 mg IVPUSH Q6H PRN PRN Reason: NAUSEA-FOR RESCUE AFTER 15 MIN Stop: 11/28/18 11:09 Spironolactone (Aldactone -) 25 mg PO DAILY [facility] Tamsulosin HCl (Flomax -) 0.4 mg PO BID KJ Torsemide (Demadex -) 20 mg PO DAILY KJ - Objective Vital Signs: Vital Signs Temperature 97.3 F L 11/27/18 14:53 Pulse Rate 55 L 11/27/18 14:53 Respiratory Rate 20 11/27/18 14:53 Blood Pressure 103/56 L 11/27/18 14:53 O2 Sat by Pulse Oximetry (%) 95 11/27/18 13:40 Constitutional: Yes: No Distress Eyes: Yes: Conjunctiva Clear Cardiovascular: Yes: Regular Rate and Rhythm, S1, S2 Respiratory: Yes: CTA Bilaterally Gastrointestinal: Yes: Normal Bowel Sounds, Soft Extremities: Yes: Other (decreased erythema/ warmth/ swelling R great toe. Ulcer dry) Labs: CBC, BMP 11/27/18 06:30 11/27/18 06:30 INR, PTT INR 1.15 (0.83-1.09) H 11/20/18 21:00 Assessment/Plan Cellulitis/ osteomyelitis R great toe improved Azotemia S/P bone bx Bone c/s noted Continue vancomycin. D/C zosyn
--- NOTE | 2018-11-27 16:45 | PN ---
Progress Note, Physician Chief Complaint: Diabetic Ulcer R great toe History of Present Illness: Previous notes and events reviewed awake and alert NAD WBC wnl, afebrile s/p L posterior tibial artery angioplasty in OR today-dressing dry and intact, no blood noted on dressing bone bx results noted complain of rash with itching to B/L inner thigh - Current Medication List Current Medications: Active Medications Acetaminophen (Tylenol -) 650 mg PO Q6H PRN PRN Reason: PAIN LEVEL 1-5 Aspirin (Ecotrin -) 81 mg PO DAILY [facility] Atorvastatin Calcium (Lipitor -) 20 mg PO HS [facility] Cholecalciferol (Vitamin D3 -) 1,000 unit PO DAILY [facility] Clopidogrel Bisulfate (Plavix -) 75 mg PO DAILY [facility] Collagenase (Santyl -) 1 applic TP DAILY [facility]; Protocol Donepezil HCl (Aricept -) 10 mg PO HS [facility] Escitalopram Oxalate (Lexapro -) 20 mg PO DAILY [facility] Fentanyl (Sublimaze Injection -) 50 mcg IVPUSH [id number] PRN PRN Reason: PAIN-PACU ORDER X 4 DOSES ONLY Ferrous Sulfate (Feosol -) 325 mg PO DAILY [facility] Gabapentin (Neurontin -) 300 mg PO TID [facility] Heparin Sodium (Porcine) (Heparin -) 5,000 unit SQ TID [facility] Sodium Chloride (Normal Saline -) 1,000 mls @ 83 mls/hr IV ASDIR [facility] Last Admin: 11/27/18 15:11 Dose: Not Given Vancomycin HCl (Vancomycin (Pre-Docked)) 1,000 mg in 250 mls @ 166.667 mls/hr IVPB DAILY@1500 KJ; Protocol Last Admin: 11/27/18 15:11 Dose: Not Given Piperacillin Sod/Tazobactam (Sod 2.25 gm/ Dextrose) 50 mls @ 100 mls/hr IVPB Q8H-IV KJ; Protocol Insulin Aspart (Novolog Vial Sliding Scale -) 1 vial SQ ACHS [facility]; Protocol Last Admin: 11/27/18 16:22 Dose: 6 units Insulin Detemir (Levemir Vial) 16 units SQ AM [facility] Insulin Detemir (Levemir Vial) 50 units SQ HS [facility] Metoprolol Succinate (Toprol Xl -) 50 mg PO BID [facility] Nitroglycerin (Nitrostat -) 0.4 mg SL Q5M PRN PRN Reason: ANGINA Dewkr-1-Hugt Ethyl Esters (Lovaza -) 1 gm PO DAILY [facility] Ondansetron HCl (Zofran Injection) 4 mg IVPUSH Q6H PRN PRN Reason: NAUSEA AND/OR VOMITING Stop: 11/28/18 11:09 Pantoprazole Sodium (Protonix -) 40 mg PO DAILY [facility] Promethazine HCl (Phenergan Injection -) 12.5 mg IVPUSH Q6H PRN PRN Reason: NAUSEA-FOR RESCUE AFTER 15 MIN Stop: 11/28/18 11:09 Spironolactone (Aldactone -) 25 mg PO DAILY [facility] Tamsulosin HCl (Flomax -) 0.4 mg PO BID [facility] Torsemide (Demadex -) 20 mg PO DAILY [facility] - Objective Vital Signs: Vital Signs Temperature 97.3 F L 11/27/18 14:53 Pulse Rate 55 L 11/27/18 14:53 Respiratory Rate 20 11/27/18 14:53 Blood Pressure 103/56 L 11/27/18 14:53 O2 Sat by Pulse Oximetry (%) 95 11/27/18 13:40 Constitutional: Yes: Well Nourished, No Distress, Calm Eyes: Yes: Conjunctiva Clear Neck: Yes: Supple Cardiovascular: Yes: Regular Rate and Rhythm Respiratory: Yes: Regular, CTA Bilaterally Gastrointestinal: Yes: Normal Bowel Sounds, Soft Musculoskeletal: Yes: Muscle Weakness Extremities: Yes: WNL Edema: No Integumentary: Yes: Rash Wound/Incision: Yes: Dressing Dry and Intact Neurological: Yes: Alert, Oriented Psychiatric: Yes: Alert, Oriented Labs: CBC, BMP 11/27/18 06:30 11/27/18 06:30 INR, PTT INR 1.15 (0.83-1.09) H 11/20/18 21:00 Problem List - Problems (1) Diabetic foot infection Code(s): E11.628 - TYPE 2 DIABETES MELLITUS WITH OTHER SKIN COMPLICATIONS; L08.9 - LOCAL INFECTION OF THE SKIN AND SUBCUTANEOUS TISSUE, UNSP (2) CAD (coronary artery disease) Code(s): I25.10 - ATHSCL HEART DISEASE OF [place] CORONARY ARTERY W/O ANG PCTRS Qualifiers: Coronary Disease-Associated Artery/Lesion type: [place] artery [place] vs. transplanted heart: [place] heart Associated angina: with unstable angina Qualified Code(s): I25.110 - Atherosclerotic heart disease of [place] coronary artery with unstable angina pectoris (3) Diabetes mellitus Code(s): E11.9 - TYPE 2 DIABETES MELLITUS WITHOUT COMPLICATIONS Qualifiers: Diabetes mellitus type: type 2 Diabetes mellitus complication status: with kidney complications Diabetes mellitus complication detail: with chronic kidney disease Qualified Code(s): E11.22 - Type 2 diabetes mellitus with diabetic chronic kidney disease (4) HTN (hypertension) Code(s): I10 - ESSENTIAL (PRIMARY) HYPERTENSION Qualifiers: Hypertension type: essential hypertension Qualified Code(s): I10 - Essential (primary) hypertension Assessment/Plan -ID on board, cont on IV ABT, vanco trough ordered -Podiatry on board -cardiology consult -bone bx result reviewed -vascular on board -wound care -BGM, ISS -hydrocortisone cream for rash -cont with BP med regimen -dvt ppx
[2018-11-27] MEDS: HYDROCORTISONE 0.5% TOPICAL CREAM 30 GM TUBE TP PRN (17:31)
[2018-11-27] MEDS ORDERED: PT OWN MED DRAWER 7, Y5N ONE (18:18)
--- NOTE | 2018-11-27 18:33 | PATH ---
Surgical Pathology Report Patient Name: PAULETTE ARNOLD Med. Rec. #: [id number] /Age/Gender: 1940 (Age: 77) / M Account: [id number] Location: [facility] MED/SURG Taken: 11/23/2018 Received: 11/24/2018 Reported: 11/27/2018 Physicians: CHIQUI Aguilar M.D. Specimen(s) Received TOE BONE BIOPSY Clinical History Toe bone BX Final Diagnosis TOE BONE, BIOPSY: BONE WITHOUT SIGNIFICANT PATHOLOGIC FINDINGS. NO ACUTE OSTEOMYELITIS IDENTIFIED. SMALL FRAGMENT OF SKIN. Electronically Signed Sarita Contreras M.D. Gross Description Received in formalin labeled "toe bone BX" is a cylindrical fragment of bone measuring 0.7 x 0.1 cm. A separate small fragment of soft tissue measuring 0.1 x 0.2 cm is likewise identified. The specimen is submitted entirely in one cassette after brief decalcification. ANDREWS/11/24/2018 gautam/11/24/2018
[2018-11-27] MEDS: ATORVASTATIN CA 20 MG TABLET (FP) PO SCH (21:25)
[2018-11-27] MEDS: DONEPEZIL HCL 10 MG TABLET (FP) PO SCH (21:25)
[2018-11-28] MEDS ORDERED: DEXTROSE 5%-WATER - 50 ML IVPB ONE ×3 (01:11→17:52)
[2018-11-28] MEDS ORDERED: PIPERACILLIN/TAZOBACTAM 2.25 GM VIAL IVPB ONE ×3 (01:11→17:52)
[2018-11-28] MEDS: PIPERACILLIN/TAZOB 2.25 GM 2.25 GM in DEXTROSE 5%-WATER - 50 ML IVPB SCH ×3 (01:47→18:29)
[2018-11-28] MEDS: SODIUM CHLORIDE 1,000 ML IV SCH ×3 (06:05→22:07)
[2018-11-28] MEDS: GABAPENTIN 300 MG CAPSULE (FP) PO SCH ×3 (06:20→21:08)
[2018-11-28] MEDS: HEPARIN NA (PORCINE) 5,000 UNITS/ML 1ML VIAL SQ SCH ×3 (06:21→21:06)
[2018-11-28] MEDS: INSULIN SLIDING SCALE (NOVOLOG) 1 VIAL SQ SCH ×4 (07:04→21:07)
[2018-11-28] MEDS: INSULIN (LEVEMIR) 100 UNITS/ML UNITS SQ SCH ×2 (07:04→21:07)
[2018-11-28] MEDS ORDERED: INSULIN (NOVOLOG) ASPART 100 UNITS/ML 10ML VIAL ONE ×2 (07:09→20:36)
[2018-11-28] MEDS ORDERED: INSULIN (LEVEMIR) 100 UNITS/ML UNITS SQ ONE (07:10)
--- NOTE | 2018-11-28 08:10 | PN ---
Progress Note (short form) - Note Progress Note: Anesthesia Pt seen and examined S:Alert and awake comfortable O: Vital Signs Temperature 97.9 F 11/28/18 06:49 Pulse Rate 58 L 11/28/18 06:49 Respiratory Rate 18 11/28/18 06:49 Blood Pressure 135/65 11/28/18 06:49 O2 Sat by Pulse Oximetry (%) 95 11/27/18 21:00 CBC, BMP 11/27/18 06:30 11/27/18 06:30 A/P: Current Active Problems Diabetic foot infection (Acute) s/p angiogram/angioplasty Doing well post op Continue current care Gabriel Covarrubias MD
[2018-11-28 08:32] LABS: HEMATOCRIT 27.9 % (35.4-49); HEMOGLOBIN 9.2 GM/dL (11.7-16.9); MCH 29.2 pg (25.7-33.7); MCHC 33.1 g/dl (32.0-35.9); MEAN CELL VOLUME 88.1 fl (80-96); MEAN PLT VOLUME 7.4 fl (7.5-11.1); PLATELET COUNT 133 K/MM3 (134-434); RBC 3.16 M/mm3 (4.00-5.60); RDW 18.6 % (11.9-15.9); WHITE BLOOD COUNT 5.4 K/mm3 (4.0-10.0)
--- NOTE | 2018-11-28 08:57 | PN ---
Progress Note (short form) - Note Progress Note: Surgery POD #1 CO2 Aortogram, CO2 RLE angiogram, posterior tibial artery angioplasty patient seen and at the bedside with no complaints. Patient is tolerating a regular diet and voiding. He denies any new or worsening leg pain, CP, SOB, N/V , Fever or chills Vital Signs Temp 97.9 F 11/28/18 06:49 Pulse 58 L 11/28/18 06:49 Resp 18 11/28/18 06:49 BP 135/65 11/28/18 06:49 Pulse Ox 95 11/27/18 21:00 Intake & Output 11/27/18 11/27/18 11/28/18 11:59 23:59 11:59 Intake Total 50 1314 631 Output Total 350 Balance 50 964 631 Intake: IV 964 581 Normal Saline - 1,000 ml 664 581 @ 83 mls/hr IV ASDIR KJ Rx#:[id number] IVPB 50 350 50 Output: Urine 300 Void 300 Estimated Blood Loss 50 Other: Voiding Method Toilet Urinal # Unmeasured Voids Void 2 2 1 Bowel Movement No CBC, BMP 11/28/18 07:00 PE: A&Ox3, NAD Unlabored Resp on RA Left groin clean and dry, scabbed over , thigh and groin soft, supple and non- tender, LE compartments soft, supple an non-tender , foot warm well perfused. Right leg thigh soft supple and non-tender to palpation LE compartments soft, supple and non-tender with foot well perfused. Right toe with dry gangrene over lateral boarder stable, no bogginess with slight odor. Problem List - Problems (1) PVD (peripheral vascular disease) Assessment/Plan: 77yo s/p CO2 Aortogram, CO2 RLE angiogram, posterior tibial artery angioplasty doing well S/P posterior tibial artery angioplasty . 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 Posterior tibial artery angoplasty performed all the way down to above the ankle. 1) Per Dr Jasso continue local wound care on great toe as amputation may not heal 2) Cardiology to proceed with revascularization protocol- please make recommendations on starting Plavix 3) OOB as tolerated 4) Podiatry to treat right great toe gangrene Code(s): I73.9 - PERIPHERAL VASCULAR DISEASE, UNSPECIFIED
[2018-11-28 09:03] LABS: ALBUMIN 3.1 g/dl (3.4-5.0); ALK PHOS 62 U/L (45-117); ANION GAP 7 MMOL/L (8-16); BILIRUBIN,TOTAL 0.7 mg/dL (0.2-1); BLOOD UREA NITROGEN 22 mg/dL (7-18); CALCIUM 7.5 mg/dL (8.5-10.1); CHLORIDE 106 mmol/L (98-107); CO2 26 mmol/L (21-32); GLUCOSE,RANDOM 130 mg/dL (74-106); SGOT/AST 15 U/L (15-37); SGPT/ALT 16 U/L (13-61); SODIUM 140 mmol/L (136-145); TOT PROT 6.1 g/dl (6.4-8.2)
[2018-11-28] MEDS ORDERED: CLOPIDOGREL BISULFATE 75 MG TABLET (FP) PO SCH (10:00)
[2018-11-28] MEDS: FERROUS SO4 325 MG TABLET (FP) PO SCH (11:08)
[2018-11-28] MEDS: ESCITALOPRAM OXALATE 20 MG TABLET (FP) PO SCH (11:09)
[2018-11-28] MEDS: CHOLECALCIFEROL (VITAMIN D3) 1,000 UNIT TABLET (FP) PO SCH (11:09)
[2018-11-28] MEDS: TORSEMIDE 20 MG TABLET (FP) PO SCH (11:09)
[2018-11-28] MEDS: PANTOPRAZOLE 40 MG TABLET (FP) PO SCH (11:09)
[2018-11-28] MEDS: TAMSULOSIN HCL 0.4 MG CAP PO SCH ×2 (11:09→21:07)
[2018-11-28] MEDS: OMEGA-3 ACID ETHYL ESTERS (FATTY-ACIDS) 1 GM CAPSULE (FP) PO SCH (11:10)
[2018-11-28] MEDS: ASPIRIN COATED 81 MG TABLET.EC PO SCH (11:11)
[2018-11-28] MEDS: COLLAGENASE CLOSTRIDIUM HIST. 30 GRAMS TUBE TP SCH (11:15)
[2018-11-28] MEDS: HYDROCORTISONE 0.5% TOPICAL CREAM 30 GM TUBE TP PRN (11:16)
--- NOTE | 2018-11-28 11:29 | PN ---
Progress Note (short form) - Note Progress Note: Patint seen in bed. No distress. +dry eschar, +om right great toe, wbc=5.3, +cellulitis greatly improved om pvd diabetic wound santyl dressing change daily will follow. IVABX as per ID. Discussed with vascular, cleared for Cardiac Procedure. May be dc from Podiatry standpoint. Will follow till dc.
--- NOTE | 2018-11-28 12:02 | PN ---
Progress Note (short form) - Note Progress Note: Chief Complaint: preop, foot pain s: feels well, no chest pain, palps, dizziness, lightheadedness Current Medications Generic Name Dose Route Start Last Admin Trade Name Chuck PRN Reason Stop Dose Admin Acetaminophen 650 mg 11/27/18 14:23 Tylenol - PO Q6H PRN PAIN LEVEL 1-5 Aspirin 81 mg 11/28/18 10:00 11/28/18 11:11 Ecotrin - PO 81 mg DAILY KJ Administration Atorvastatin Calcium 20 mg 11/27/18 22:00 11/27/18 21:25 Lipitor - PO 20 mg HS KJ Administration Cholecalciferol 1,000 unit 11/28/18 10:00 11/28/18 11:09 Vitamin D3 - PO 1,000 unit DAILY KJ Administration Clopidogrel Bisulfate 75 mg 11/28/18 10:00 11/28/18 11:10 Plavix - PO 75 mg DAILY KJ Administration Collagenase 1 applic 11/28/18 10:00 11/28/18 11:15 Santyl - TP 1 applic DAILY KJ Administration Protocol Donepezil HCl 10 mg 11/27/18 22:00 11/27/18 21:25 Aricept - PO 10 mg HS KJ Administration Escitalopram Oxalate 20 mg 11/28/18 10:00 11/28/18 11:09 Lexapro - PO 20 mg DAILY KJ Administration Fentanyl 50 mcg 11/27/18 14:23 Sublimaze Injection - IVPUSH [id number] PRN PAIN-PACU ORDER X 4 DOSES ONLY Ferrous Sulfate 325 mg 11/28/18 10:00 11/28/18 11:08 Feosol - PO 325 mg DAILY KJ Administration Gabapentin 300 mg 11/27/18 22:00 11/28/18 06:20 Neurontin - PO 300 mg TID KJ Administration Heparin Sodium (Porcine) 5,000 unit 11/27/18 22:00 11/28/18 06:21 Heparin - SQ 5,000 unit TID KJ Administration Hydrocortisone 1 applic 11/27/18 16:45 11/28/18 11:16 Hytone 0.5% Cream - TP 1 applic BID PRN Administration FOR ITCHING Sodium Chloride 1,000 mls @ 83 mls/hr 11/27/18 14:23 11/28/18 06:05 Normal Saline - IV 83 mls/hr ASDIR KJ Administration Vancomycin HCl 1,000 mg in 250 mls @ 166.667 mls/hr 11/27/18 15:00 11/27/18 15:11 Vancomycin (Pre-Docked) IVPB Not Given DAILY@1500 [facility] Protocol Piperacillin Sod/Tazobactam 50 mls @ 100 mls/hr 11/27/18 18:00 11/28/18 11:08 Sod 2.25 gm/ Dextrose IVPB 100 mls/hr Q8H-IV KJ Administration Protocol Insulin Aspart 1 vial 11/27/18 16:30 11/28/18 07:04 Novolog Vial Sliding Scale - SQ 2 units ACHS KJ Administration Protocol Insulin Detemir 16 units 11/28/18 07:00 11/28/18 07:04 Levemir Vial SQ 16 unit AM KJ Administration Insulin Detemir 50 units 11/27/18 22:00 11/27/18 21:27 Levemir Vial SQ 50 units HS KJ Administration Metoprolol Succinate 50 mg 11/27/18 22:00 11/27/18 21:25 Toprol Xl - PO 50 mg BID KJ Administration Nitroglycerin 0.4 mg 11/27/18 14:23 Nitrostat - SL Q5M PRN ANGINA [id number]-[id number] Ethyl Esters 1 gm 11/28/18 10:00 11/28/18 11:10 Lovaza - PO 1 gm DAILY KJ Administration Pantoprazole Sodium 40 mg 11/28/18 10:00 11/28/18 11:09 Protonix - PO 40 mg DAILY KJ Administration Spironolactone 25 mg 11/28/18 10:00 Aldactone - PO DAILY KJ Tamsulosin HCl 0.4 mg 11/27/18 22:00 11/28/18 11:09 Flomax - PO 0.4 mg BID KJ Administration Torsemide 20 mg 11/28/18 10:00 11/28/18 11:09 Demadex - PO 20 mg DAILY KJ Administration Vital Signs: Vital Signs Period Temp Pulse Resp BP Sys/Julio Pulse Ox Last 24 Hr 97.3 F-97.9 F 53-60 12-20 95-135/51-65 95-99 Constitutional: Yes: No Distress, Calm Eyes: Yes: Conjunctiva Clear Neck: Yes: Supple, Trachea Midline Respiratory: Yes: Regular, CTA Bilaterally Gastrointestinal: Yes: Normal Bowel Sounds, Soft Cardiovascular: Yes: Regular Rate and Rhythm JVD: No Heart Sounds: Yes: S1, S2 Murmur: Yes: Systolic Murmur, Grade 3 (systolic crescendo-decrescendo, audible S2) Musculoskeletal: No: Back Pain Extremities: No: Cold Edema: No Peripheral Pulses: 1+ Left Doralis Pedis, 2+ Left Carotid, 2+ Right Carotid Integumentary: No: Jaundice Neurological: Yes: Alert, Oriented CBC, BMP 11/28/18 07:00 11/28/18 07:00 Assessment/Plan EKG: sinus, LBBB, PVCs cardiac FDG PET perfusion [facility] 10/2018: large, severe partially reversible defect anterior and apex, medium , moderate predominantly reversible inferior defect +TID, globally decreased LVSF , EF 28%, myocardium viable throughout Echo 08/2018 [facility] exam limited, no definity used. mod dec LVSF, EF 30-35%nl filling pressures, dd1, nl RV size, mildly decreased RVSF, mod , mod MR L/RHC 11/17 wedge 25, PA 60/25, RA 15, CI 2.1, AV gradient peak 25, mean 18, MADELINE 0.9, ISR of pLAD 70-80%-Xience, remainder unchanged vs prior: SHIPPING/RECEIVING MANAGER of RCA with large collateral from LCx, mid dstal LA occluded (SHIPPING/RECEIVING MANAGER) prior to LINDER touchdown, D2 jailed (SHIPPING/RECEIVING MANAGER), OM1 moderate diffuse dz PAd, R toe osteo -s/p RLE angioplasty -abx per ID -on asa, plavix CAD - s/p PCI (LAURA pLAD with PTCA of ostial diag 12/2011, ISR with CABG 03/2013, cath 05/2013 patient LINDER (30% at anasthamosis site) with good perfusion of distal LAD but anasthamotic clips distal wall and occludes backflow; old SHIPPING/RECEIVING MANAGER of RCA with collats unchanged) - stable, asymptomatic with plan for further workup and management of CAD, at [facility] as outpt - on aspirin, plavix, metoprolol, statin Chronic systolic HF - euvolemic on aldactone, furosemide, continue HTN - stable on metoprolol HLD - continue statin DM - manage per primary CKD - renal function at baseline anemia - stable, manage per primary cardiac lundy stable
[2018-11-28] MEDS: SPIRONOLACTONE 25 MG TABLET (FP) PO SCH (12:18)
--- NOTE | 2018-11-28 12:22 | PN ---
Progress Note, Physician History of Present Illness: Awake, alert Seated in bed No c/o foot pain No fever - Current Medication List Current Medications: Active Medications Acetaminophen (Tylenol -) 650 mg PO Q6H PRN PRN Reason: PAIN LEVEL 1-5 Aspirin (Ecotrin -) 81 mg PO DAILY [facility] Last Admin: 11/28/18 11:11 Dose: 81 mg Atorvastatin Calcium (Lipitor -) 20 mg PO HS [facility] Last Admin: 11/27/18 21:25 Dose: 20 mg Cholecalciferol (Vitamin D3 -) 1,000 unit PO DAILY [facility] Last Admin: 11/28/18 11:09 Dose: 1,000 unit Clopidogrel Bisulfate (Plavix -) 75 mg PO DAILY [facility] Last Admin: 11/28/18 11:10 Dose: 75 mg Collagenase (Santyl -) 1 applic TP DAILY [facility]; Protocol Last Admin: 11/28/18 11:15 Dose: 1 applic Donepezil HCl (Aricept -) 10 mg PO HS [facility] Last Admin: 11/27/18 21:25 Dose: 10 mg Escitalopram Oxalate (Lexapro -) 20 mg PO DAILY [facility] Last Admin: 11/28/18 11:09 Dose: 20 mg Fentanyl (Sublimaze Injection -) 50 mcg IVPUSH [id number] PRN PRN Reason: PAIN-PACU ORDER X 4 DOSES ONLY Ferrous Sulfate (Feosol -) 325 mg PO DAILY [facility] Last Admin: 11/28/18 11:08 Dose: 325 mg Gabapentin (Neurontin -) 300 mg PO TID [facility] Last Admin: 11/28/18 06:20 Dose: 300 mg Heparin Sodium (Porcine) (Heparin -) 5,000 unit SQ TID [facility] Last Admin: 11/28/18 06:21 Dose: 5,000 unit Hydrocortisone (Hytone 0.5% Cream -) 1 applic TP BID PRN PRN Reason: FOR ITCHING Last Admin: 11/28/18 11:16 Dose: 1 applic Sodium Chloride (Normal Saline -) 1,000 mls @ 83 mls/hr IV ASDIR [facility] Last Admin: 11/28/18 06:05 Dose: 83 mls/hr Vancomycin HCl (Vancomycin (Pre-Docked)) 1,000 mg in 250 mls @ 166.667 mls/hr IVPB DAILY@1500 KJ; Protocol Last Admin: 11/27/18 15:11 Dose: Not Given Piperacillin Sod/Tazobactam (Sod 2.25 gm/ Dextrose) 50 mls @ 100 mls/hr IVPB Q8H-IV [facility]; Protocol Last Admin: 11/28/18 11:08 Dose: 100 mls/hr Insulin Aspart (Novolog Vial Sliding Scale -) 1 vial SQ ACHS [facility]; Protocol Last Admin: 11/28/18 07:04 Dose: 2 units Insulin Detemir (Levemir Vial) 16 units SQ AM [facility] Last Admin: 11/28/18 07:04 Dose: 16 unit Insulin Detemir (Levemir Vial) 50 units SQ HS [facility] Last Admin: 11/27/18 21:27 Dose: 50 units Metoprolol Succinate (Toprol Xl -) 50 mg PO BID [facility] Last Admin: 11/27/18 21:25 Dose: 50 mg Nitroglycerin (Nitrostat -) 0.4 mg SL Q5M PRN PRN Reason: ANGINA [id number] Ethyl Esters (Lovaza -) 1 gm PO DAILY [facility] Last Admin: 11/28/18 11:10 Dose: 1 gm Pantoprazole Sodium (Protonix -) 40 mg PO DAILY [facility] Last Admin: 11/28/18 11:09 Dose: 40 mg Spironolactone (Aldactone -) 25 mg PO DAILY [facility] Tamsulosin HCl (Flomax -) 0.4 mg PO BID [facility] Last Admin: 11/28/18 11:09 Dose: 0.4 mg Torsemide (Demadex -) 20 mg PO DAILY [facility] Last Admin: 11/28/18 11:09 Dose: 20 mg - Objective Vital Signs: Vital Signs Temperature 97.4 F L 11/28/18 10:32 Pulse Rate 53 L 11/28/18 10:32 Respiratory Rate 18 11/28/18 10:32 Blood Pressure 95/64 11/28/18 10:32 O2 Sat by Pulse Oximetry (%) 95 11/27/18 21:00 Constitutional: Yes: No Distress Eyes: Yes: Conjunctiva Clear Cardiovascular: Yes: Regular Rate and Rhythm, S1, S2 Respiratory: Yes: CTA Bilaterally Gastrointestinal: Yes: Normal Bowel Sounds, Soft. No: Tenderness Extremities: Yes: Other (Decreased erythema/ swelling great toe) Labs: CBC, BMP 11/28/18 07:00 11/28/18 07:00 INR, PTT INR 1.15 (0.83-1.09) H 11/20/18 21:00 Assessment/Plan Cellulitis/ osteomyelitis R great toe improved Azotemia S/P bone bx PICC/ tunnelled catheter for outpatient antibiotic therapy: Vancomycin 1gm IVPB q24h x 5 weeks
--- NOTE | 2018-11-28 12:26 | PN ---
Progress Note, Physician Chief Complaint: Diabetic Ulcer R great toe, bone bx show osteomyelitis s/p CO2 angiogram History of Present Illness: Previous notes and events reviewed awake and alert NAD WBC wnl, afebrile bone bx results noted patient states feeling better, denies any new or worsening leg pain, denies SOB or chest pain dressing to LUE dry and intact, dressing to RLE dry and intact HR 48bpm-denies chest pain, EKG ordered STAT and cardiology consult - Current Medication List Current Medications: Active Medications Acetaminophen (Tylenol -) 650 mg PO Q6H PRN PRN Reason: PAIN LEVEL 1-5 Aspirin (Ecotrin -) 81 mg PO DAILY [facility] Last Admin: 11/28/18 11:11 Dose: 81 mg Atorvastatin Calcium (Lipitor -) 20 mg PO HS [facility] Last Admin: 11/27/18 21:25 Dose: 20 mg Cholecalciferol (Vitamin D3 -) 1,000 unit PO DAILY [facility] Last Admin: 11/28/18 11:09 Dose: 1,000 unit Clopidogrel Bisulfate (Plavix -) 75 mg PO DAILY [facility] Last Admin: 11/28/18 11:10 Dose: 75 mg Collagenase (Santyl -) 1 applic TP DAILY [facility]; Protocol Last Admin: 11/28/18 11:15 Dose: 1 applic Donepezil HCl (Aricept -) 10 mg PO HS [facility] Last Admin: 11/27/18 21:25 Dose: 10 mg Escitalopram Oxalate (Lexapro -) 20 mg PO DAILY [facility] Last Admin: 11/28/18 11:09 Dose: 20 mg Fentanyl (Sublimaze Injection -) 50 mcg IVPUSH [id number] PRN PRN Reason: PAIN-PACU ORDER X 4 DOSES ONLY Ferrous Sulfate (Feosol -) 325 mg PO DAILY [facility] Last Admin: 11/28/18 11:08 Dose: 325 mg Gabapentin (Neurontin -) 300 mg PO TID [facility] Last Admin: 11/28/18 06:20 Dose: 300 mg Heparin Sodium (Porcine) (Heparin -) 5,000 unit SQ TID [facility] Last Admin: 11/28/18 06:21 Dose: 5,000 unit Hydrocortisone (Hytone 0.5% Cream -) 1 applic TP BID PRN PRN Reason: FOR ITCHING Last Admin: 11/28/18 11:16 Dose: 1 applic Sodium Chloride (Normal Saline -) 1,000 mls @ 83 mls/hr IV ASDIR [facility] Last Admin: 11/28/18 06:05 Dose: 83 mls/hr Vancomycin HCl (Vancomycin (Pre-Docked)) 1,000 mg in 250 mls @ 166.667 mls/hr IVPB DAILY@1500 KJ; Protocol Last Admin: 11/27/18 15:11 Dose: Not Given Piperacillin Sod/Tazobactam (Sod 2.25 gm/ Dextrose) 50 mls @ 100 mls/hr IVPB Q8H-IV KJ; Protocol Last Admin: 11/28/18 11:08 Dose: 100 mls/hr Insulin Aspart (Novolog Vial Sliding Scale -) 1 vial SQ ACHS [facility]; Protocol Last Admin: 11/28/18 07:04 Dose: 2 units Insulin Detemir (Levemir Vial) 16 units SQ AM [facility] Last Admin: 11/28/18 07:04 Dose: 16 unit Insulin Detemir (Levemir Vial) 50 units SQ HS [facility] Last Admin: 11/27/18 21:27 Dose: 50 units Metoprolol Succinate (Toprol Xl -) 50 mg PO BID [facility] Last Admin: 11/28/18 12:19 Dose: Not Given Nitroglycerin (Nitrostat -) 0.4 mg SL Q5M PRN PRN Reason: ANGINA [id number] Ethyl Esters (Lovaza -) 1 gm PO DAILY [facility] Last Admin: 11/28/18 11:10 Dose: 1 gm Pantoprazole Sodium (Protonix -) 40 mg PO DAILY [facility] Last Admin: 11/28/18 11:09 Dose: 40 mg Spironolactone (Aldactone -) 25 mg PO DAILY [facility] Last Admin: 11/28/18 12:18 Dose: Not Given Tamsulosin HCl (Flomax -) 0.4 mg PO BID [facility] Last Admin: 11/28/18 11:09 Dose: 0.4 mg Torsemide (Demadex -) 20 mg PO DAILY [facility] Last Admin: 11/28/18 11:09 Dose: 20 mg - Objective Vital Signs: Vital Signs Temperature 97.4 F L 11/28/18 10:32 Pulse Rate 53 L 11/28/18 10:32 Respiratory Rate 18 11/28/18 10:32 Blood Pressure 95/64 11/28/18 10:32 O2 Sat by Pulse Oximetry (%) 95 11/27/18 21:00 Constitutional: Yes: Well Nourished, No Distress, Calm Eyes: Yes: Conjunctiva Clear Cardiovascular: Yes: WNL, Bradycardia Respiratory: Yes: Regular, CTA Bilaterally Gastrointestinal: Yes: Normal Bowel Sounds, Soft Musculoskeletal: Yes: Muscle Weakness Extremities: Yes: Other (Dressing to R foot) Edema: No Wound/Incision: Yes: Dressing Dry and Intact Neurological: Yes: Alert, Oriented Psychiatric: Yes: Alert, Oriented Labs: CBC, BMP 11/28/18 07:00 11/28/18 07:00 INR, PTT INR 1.15 (0.83-1.09) H 11/20/18 21:00 <Jazzy Dye - Last Filed: 11/28/18 12:58> - Current Medication List Current Medications: Active Medications Acetaminophen (Tylenol -) 650 mg PO Q6H PRN PRN Reason: PAIN LEVEL 1-5 Aspirin (Ecotrin -) 81 mg PO DAILY [facility] Last Admin: 11/28/18 11:11 Dose: 81 mg Atorvastatin Calcium (Lipitor -) 20 mg PO HS [facility] Last Admin: 11/28/18 21:07 Dose: 20 mg Cholecalciferol (Vitamin D3 -) 1,000 unit PO DAILY [facility] Last Admin: 11/28/18 11:09 Dose: 1,000 unit Clopidogrel Bisulfate (Plavix -) 75 mg PO DAILY [facility] Last Admin: 11/28/18 11:10 Dose: 75 mg Collagenase (Santyl -) 1 applic TP DAILY [facility]; Protocol Last Admin: 11/28/18 11:15 Dose: 1 applic Donepezil HCl (Aricept -) 10 mg PO HS [facility] Last Admin: 11/28/18 21:09 Dose: 10 mg Escitalopram Oxalate (Lexapro -) 20 mg PO DAILY [facility] Last Admin: 11/28/18 11:09 Dose: 20 mg Fentanyl (Sublimaze Injection -) 50 mcg IVPUSH [id number] PRN PRN Reason: PAIN-PACU ORDER X 4 DOSES ONLY Ferrous Sulfate (Feosol -) 325 mg PO DAILY [facility] Last Admin: 11/28/18 11:08 Dose: 325 mg Gabapentin (Neurontin -) 300 mg PO TID [facility] Last Admin: 11/29/18 06:01 Dose: 300 mg Heparin Sodium (Porcine) (Heparin -) 5,000 unit SQ TID [facility] Last Admin: 11/29/18 06:01 Dose: 5,000 unit Hydrocortisone (Hytone 0.5% Cream -) 1 applic TP BID PRN PRN Reason: FOR ITCHING Last Admin: 11/28/18 11:16 Dose: 1 applic Sodium Chloride (Normal Saline -) 1,000 mls @ 83 mls/hr IV ASDIR [facility] Last Admin: 11/28/18 22:07 Dose: 83 mls/hr Vancomycin HCl (Vancomycin (Pre-Docked)) 1,000 mg in 250 mls @ 166.667 mls/hr IVPB DAILY@1500 KJ; Protocol Last Admin: 11/28/18 15:38 Dose: 166.667 mls/hr Piperacillin Sod/Tazobactam (Sod 2.25 gm/ Dextrose) 50 mls @ 100 mls/hr IVPB Q8H-IV [facility]; Protocol Last Admin: 11/29/18 01:00 Dose: Not Given Insulin Aspart (Novolog Vial Sliding Scale -) 1 vial SQ ACHS [facility]; Protocol Last Admin: 11/29/18 06:02 Dose: Not Given Insulin Detemir (Levemir Vial) 16 units SQ AM [facility] Last Admin: 11/29/18 06:02 Dose: 16 unit Insulin Detemir (Levemir Vial) 50 units SQ HS [facility] Last Admin: 11/28/18 21:07 Dose: 50 units Metoprolol Succinate (Toprol Xl -) 50 mg PO BID [facility] Last Admin: 11/28/18 21:07 Dose: 50 mg Nitroglycerin (Nitrostat -) 0.4 mg SL Q5M PRN PRN Reason: ANGINA Last Admin: 11/28/18 22:16 Dose: 0.4 mg [id number] Ethyl Esters (Lovaza -) 1 gm PO DAILY [facility] Last Admin: 11/28/18 11:10 Dose: 1 gm Pantoprazole Sodium (Protonix -) 40 mg PO DAILY [facility] Last Admin: 11/28/18 11:09 Dose: 40 mg Spironolactone (Aldactone -) 25 mg PO DAILY [facility] Last Admin: 11/28/18 12:18 Dose: Not Given Tamsulosin HCl (Flomax -) 0.4 mg PO BID [facility] Last Admin: 11/28/18 21:07 Dose: 0.4 mg Torsemide (Demadex -) 20 mg PO DAILY KJ Last Admin: 11/28/18 11:09 Dose: 20 mg - Objective Vital Signs: Vital Signs Temperature 97.6 F 11/29/18 06:36 Pulse Rate 60 11/29/18 06:36 Respiratory Rate 18 11/29/18 06:36 Blood Pressure 134/59 L 11/29/18 06:36 O2 Sat by Pulse Oximetry (%) 100 11/28/18 20:13 Labs: CBC, BMP 11/29/18 07:00 11/29/18 07:00 INR, PTT INR 1.15 (0.83-1.09) H 11/20/18 21:00 <Edgar Fuller - Last Filed: 11/29/18 08:01> Problem List - Problems (1) Diabetic foot infection Code(s): E11.628 - TYPE 2 DIABETES MELLITUS WITH OTHER SKIN COMPLICATIONS; L08.9 - LOCAL INFECTION OF THE SKIN AND SUBCUTANEOUS TISSUE, UNSP (2) CAD (coronary artery disease) Code(s): I25.10 - ATHSCL HEART DISEASE OF [place] CORONARY ARTERY W/O ANG PCTRS Qualifiers: Coronary Disease-Associated Artery/Lesion type: [place] artery [place] vs. transplanted heart: [place] heart Associated angina: with unstable angina Qualified Code(s): I25.110 - Atherosclerotic heart disease of [place] coronary artery with unstable angina pectoris (3) Diabetes mellitus Code(s): E11.9 - TYPE 2 DIABETES MELLITUS WITHOUT COMPLICATIONS Qualifiers: Diabetes mellitus type: type 2 Diabetes mellitus complication status: with kidney complications Diabetes mellitus complication detail: with chronic kidney disease Qualified Code(s): E11.22 - Type 2 diabetes mellitus with diabetic chronic kidney disease (4) HTN (hypertension) Code(s): I10 - ESSENTIAL (PRIMARY) HYPERTENSION Qualifiers: Hypertension type: essential hypertension Qualified Code(s): I10 - Essential (primary) hypertension <Jazzy Dye - Last Filed: 11/28/18 12:58> - Problems (1) Diabetic foot infection Code(s): E11.628 - TYPE 2 DIABETES MELLITUS WITH OTHER SKIN COMPLICATIONS; L08.9 - LOCAL INFECTION OF THE SKIN AND SUBCUTANEOUS TISSUE, UNSP (2) Anemia Code(s): D64.9 - ANEMIA, UNSPECIFIED (3) 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 transplanted heart: [place] heart Associated angina: with unstable angina Qualified Code(s): I25.110 - Atherosclerotic heart disease of [place] coronary artery with unstable angina pectoris (5) CKD (chronic kidney disease) Code(s): N18.9 - CHRONIC KIDNEY DISEASE, UNSPECIFIED (6) HTN (hypertension) Code(s): I10 - ESSENTIAL (PRIMARY) HYPERTENSION Qualifiers: Hypertension type: essential hypertension Qualified Code(s): I10 - Essential (primary) hypertension (7) Hyperlipidemia Code(s): E78.5 - HYPERLIPIDEMIA, UNSPECIFIED Qualifiers: Hyperlipidemia type: unspecified hyperlipidemia (8) Type 2 diabetes mellitus with foot ulcer Code(s): E11.621 - TYPE 2 DIABETES MELLITUS WITH FOOT ULCER; L97.509 - NON- PRESSURE CHRONIC ULCER OTH PRT UNSP FOOT W UNSP SEVERITY <Edgar Fuller - Last Filed: 11/29/18 08:01> Assessment/Plan -cont IV ABT, will cont on vancomycin for 5 weeks due to osteo -IR consult for tunnel cath placement due to prison ABT, will discuss with cardiology because plavix will need to be held for 5 days -SNF vs VNS homecare services for discharge due to wound care and intermediate project manager ABT -cont with daily wound care to R foot -BUN/Cr cont to be mildly elevated renal on board and recommendations appreciated -EKG STAT, cardiology consult for bradycardia -tolerating PO food, d/c IVF -BGM, ISS -cont with BP med regimen -dvt ppx <Jazzy Dye - Last Filed: 11/28/18 12:58> PATIENT SEEN AND EXAMINED ALONGSIDE CLASSROOM MONITOR DONELL I AGREE WITH THE ABOVE NOTE. <Edgar Fuller - Last Filed: 11/29/18 08:01>
--- NOTE | 2018-11-28 12:30 | PN ---
Progress Note (short form) - Note Progress Note: Renal follow up for CKD Pt seen and examined at the bedside no acute complaints s/p CO2 angiogram and angioplast yesterday Vital Signs Temperature 97.4 F L 11/28/18 10:32 Pulse Rate 53 L 11/28/18 10:32 Respiratory Rate 18 11/28/18 10:32 Blood Pressure 95/64 11/28/18 10:32 O2 Sat by Pulse Oximetry (%) 95 11/27/18 21:00 Intake & Output 11/25/18 11/26/18 11/27/18 11/28/18 23:59 23:59 23:59 23:59 Intake Total 033 391 2064 631 Output Total 350 Balance 265 866 6902 631 NAD awake and alert no LE edema CBC, BMP 11/28/18 07:00 11/28/18 07:00 Current Medications Acetaminophen (Tylenol -) 650 mg PO Q6H PRN PRN Reason: PAIN LEVEL 1-5 Aspirin (Ecotrin -) 81 mg PO DAILY [facility] Last Admin: 11/28/18 11:11 Dose: 81 mg Atorvastatin Calcium (Lipitor -) 20 mg PO HS [facility] Last Admin: 11/27/18 21:25 Dose: 20 mg Cholecalciferol (Vitamin D3 -) 1,000 unit PO DAILY [facility] Last Admin: 11/28/18 11:09 Dose: 1,000 unit Clopidogrel Bisulfate (Plavix -) 75 mg PO DAILY [facility] Last Admin: 11/28/18 11:10 Dose: 75 mg Collagenase (Santyl -) 1 applic TP DAILY [facility]; Protocol Last Admin: 11/28/18 11:15 Dose: 1 applic Donepezil HCl (Aricept -) 10 mg PO HS [facility] Last Admin: 11/27/18 21:25 Dose: 10 mg Escitalopram Oxalate (Lexapro -) 20 mg PO DAILY [facility] Last Admin: 11/28/18 11:09 Dose: 20 mg Fentanyl (Sublimaze Injection -) 50 mcg IVPUSH [id number] PRN PRN Reason: PAIN-PACU ORDER X 4 DOSES ONLY Ferrous Sulfate (Feosol -) 325 mg PO DAILY [facility] Last Admin: 11/28/18 11:08 Dose: 325 mg Gabapentin (Neurontin -) 300 mg PO TID [facility] Last Admin: 11/28/18 06:20 Dose: 300 mg Heparin Sodium (Porcine) (Heparin -) 5,000 unit SQ TID [facility] Last Admin: 11/28/18 06:21 Dose: 5,000 unit Hydrocortisone (Hytone 0.5% Cream -) 1 applic TP BID PRN PRN Reason: FOR ITCHING Last Admin: 11/28/18 11:16 Dose: 1 applic Sodium Chloride (Normal Saline -) 1,000 mls @ 83 mls/hr IV ASDIR [facility] Last Admin: 11/28/18 06:05 Dose: 83 mls/hr Vancomycin HCl (Vancomycin (Pre-Docked)) 1,000 mg in 250 mls @ 166.667 mls/hr IVPB DAILY@1500 KJ; Protocol Last Admin: 11/27/18 15:11 Dose: Not Given Piperacillin Sod/Tazobactam (Sod 2.25 gm/ Dextrose) 50 mls @ 100 mls/hr IVPB Q8H-IV [facility]; Protocol Last Admin: 11/28/18 11:08 Dose: 100 mls/hr Insulin Aspart (Novolog Vial Sliding Scale -) 1 vial SQ ACHS [facility]; Protocol Last Admin: 11/28/18 07:04 Dose: 2 units Insulin Detemir (Levemir Vial) 16 units SQ AM [facility] Last Admin: 11/28/18 07:04 Dose: 16 unit Insulin Detemir (Levemir Vial) 50 units SQ HS [facility] Last Admin: 11/27/18 21:27 Dose: 50 units Metoprolol Succinate (Toprol Xl -) 50 mg PO BID [facility] Last Admin: 11/28/18 12:19 Dose: Not Given Nitroglycerin (Nitrostat -) 0.4 mg SL Q5M PRN PRN Reason: ANGINA [id number]-1-[id number] Ethyl Esters (Lovaza -) 1 gm PO DAILY [facility] Last Admin: 11/28/18 11:10 Dose: 1 gm Pantoprazole Sodium (Protonix -) 40 mg PO DAILY [facility] Last Admin: 11/28/18 11:09 Dose: 40 mg Spironolactone (Aldactone -) 25 mg PO DAILY [facility] Last Admin: 11/28/18 12:18 Dose: Not Given Tamsulosin HCl (Flomax -) 0.4 mg PO BID [facility] Last Admin: 11/28/18 11:09 Dose: 0.4 mg Torsemide (Demadex -) 20 mg PO DAILY [facility] Last Admin: 11/28/18 11:09 Dose: 20 mg A/P 77 year old gentleman with hx of CKD stage 3 (baseline Cr ~2), DM on insulin, CAD, Hypertension, diabetic neuropathy who presented with LE pain and found to have suspected osteomylitis. 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
[2018-11-28] MEDS: VANCOMYCIN 1 GRAM (PRE-DOCKED) 1,000 MG/250 ML BAG IVPB SCH (15:38)
--- NOTE | 2018-11-28 19:06 | EKG ---
Test Reason : Blood Pressure : / mmHG Vent. Rate : 054 BPM Atrial Rate : 054 BPM P-R Int : 200 ms QRS Dur : 160 ms QT Int : 520 ms P-R-T Axes : 050 -36 141 degrees QTc Int : 493 ms SINUS BRADYCARDIA LEFT AXIS DEVIATION LEFT BUNDLE BRANCH BLOCK ABNORMAL ECG WHEN COMPARED WITH ECG OF 24-NOV-2018 13:59, PREMATURE VENTRICULAR COMPLEXES ARE NO LONGER PRESENT Confirmed by WADE SALMON, ELMIRA ([id number]) on 11/28/2018 7:06:19 PM Referred By: Confirmed By:ELMIRA OLVERA MD
[2018-11-28] MEDS: ATORVASTATIN CA 20 MG TABLET (FP) PO SCH (21:07)
[2018-11-28] MEDS: DONEPEZIL HCL 10 MG TABLET (FP) PO SCH (21:09)
[2018-11-29] MEDS ORDERED: DEXTROSE 5%-WATER - 50 ML IVPB ONE ×4 (00:33→23:14)
[2018-11-29] MEDS ORDERED: PIPERACILLIN/TAZOBACTAM 2.25 GM VIAL IVPB ONE ×4 (00:33→23:14)
[2018-11-29] MEDS: PIPERACILLIN/TAZOB 2.25 GM 2.25 GM in DEXTROSE 5%-WATER - 50 ML IVPB SCH ×4 (00:55→17:50)
[2018-11-29] MEDS: GABAPENTIN 300 MG CAPSULE (FP) PO SCH ×3 (06:01→21:18)
[2018-11-29] MEDS: HEPARIN NA (PORCINE) 5,000 UNITS/ML 1ML VIAL SQ SCH ×3 (06:01→21:19)
[2018-11-29] MEDS: INSULIN (LEVEMIR) 100 UNITS/ML UNITS SQ SCH ×2 (06:02→21:21)
[2018-11-29] MEDS: INSULIN SLIDING SCALE (NOVOLOG) 1 VIAL SQ SCH ×4 (06:02→21:20)
[2018-11-29 07:25] LABS: HEMATOCRIT 27.2 % (35.4-49); MCH 29.1 pg (25.7-33.7); MCHC 33.1 g/dl (32.0-35.9); MEAN CELL VOLUME 87.8 fl (80-96); MEAN PLT VOLUME 7.2 fl (7.5-11.1); PLATELET COUNT 122 K/MM3 (134-434); RDW 18.7 % (11.9-15.9); WHITE BLOOD COUNT 4.6 K/mm3 (4.0-10.0)
[2018-11-29 07:48] LABS: ALBUMIN 2.9 g/dl (3.4-5.0); ALK PHOS 58 U/L (45-117); ANION GAP 7 MMOL/L (8-16); BILIRUBIN,TOTAL 0.8 mg/dL (0.2-1); BLOOD UREA NITROGEN 19 mg/dL (7-18); CALCIUM 7.4 mg/dL (8.5-10.1); CHLORIDE 106 mmol/L (98-107); CO2 27 mmol/L (21-32); GLUCOSE,RANDOM 132 mg/dL (74-106); SGOT/AST 16 U/L (15-37); SGPT/ALT 16 U/L (13-61); SODIUM 139 mmol/L (136-145); TOT PROT 5.8 g/dl (6.4-8.2)
[2018-11-29] MEDS ORDERED: PT OWN MED DRAWER 7, Y5N ONE (09:55)
[2018-11-29] MEDS: SPIRONOLACTONE 25 MG TABLET (FP) PO SCH (09:57)
[2018-11-29] MEDS: TAMSULOSIN HCL 0.4 MG CAP PO SCH ×2 (09:57→21:18)
[2018-11-29] MEDS: TORSEMIDE 20 MG TABLET (FP) PO SCH (09:57)
[2018-11-29] MEDS: ASPIRIN COATED 81 MG TABLET.EC PO SCH (09:57)
[2018-11-29] MEDS: FERROUS SO4 325 MG TABLET (FP) PO SCH (09:57)
[2018-11-29] MEDS: PANTOPRAZOLE 40 MG TABLET (FP) PO SCH (09:58)
[2018-11-29] MEDS: OMEGA-3 ACID ETHYL ESTERS (FATTY-ACIDS) 1 GM CAPSULE (FP) PO SCH (09:58)
[2018-11-29] MEDS: ESCITALOPRAM OXALATE 20 MG TABLET (FP) PO SCH (09:58)
[2018-11-29] MEDS: CHOLECALCIFEROL (VITAMIN D3) 1,000 UNIT TABLET (FP) PO SCH (09:58)
[2018-11-29] MEDS: SODIUM CHLORIDE 1,000 ML IV SCH (10:42)
--- NOTE | 2018-11-29 12:47 | PN ---
Progress Note (short form) - Note Progress Note: Chief Complaint: preop, foot pain s: feels well, no chest pain, palps, dizziness, lightheadedness Current Medications Generic Name Dose Route Start Last Admin Trade Name Cuhck PRN Reason Stop Dose Admin Acetaminophen 650 mg 11/27/18 14:23 Tylenol - PO Q6H PRN PAIN LEVEL 1-5 Aspirin 81 mg 11/28/18 10:00 11/29/18 09:57 Ecotrin - PO 81 mg DAILY KJ Administration Atorvastatin Calcium 20 mg 11/27/18 22:00 11/28/18 21:07 Lipitor - PO 20 mg HS KJ Administration Cholecalciferol 1,000 unit 11/28/18 10:00 11/29/18 09:58 Vitamin D3 - PO 1,000 unit DAILY KJ Administration Clopidogrel Bisulfate 75 mg 11/28/18 10:00 11/28/18 11:10 Plavix - PO 75 mg DAILY KJ Administration Collagenase 1 applic 11/28/18 10:00 11/28/18 11:15 Santyl - TP 1 applic DAILY KJ Administration Protocol Donepezil HCl 10 mg 11/27/18 22:00 11/28/18 21:09 Aricept - PO 10 mg HS KJ Administration Escitalopram Oxalate 20 mg 11/28/18 10:00 11/29/18 09:58 Lexapro - PO 20 mg DAILY KJ Administration Fentanyl 50 mcg 11/27/18 14:23 Sublimaze Injection - IVPUSH [id number] PRN PAIN-PACU ORDER X 4 DOSES ONLY Ferrous Sulfate 325 mg 11/28/18 10:00 11/29/18 09:57 Feosol - PO 325 mg DAILY KJ Administration Gabapentin 300 mg 11/27/18 22:00 11/29/18 06:01 Neurontin - PO 300 mg TID KJ Administration Heparin Sodium (Porcine) 5,000 unit 11/27/18 22:00 11/29/18 06:01 Heparin - SQ 5,000 unit TID KJ Administration Hydrocortisone 1 applic 11/27/18 16:45 11/28/18 11:16 Hytone 0.5% Cream - TP 1 applic BID PRN Administration FOR ITCHING Sodium Chloride 1,000 mls @ 83 mls/hr 11/27/18 14:23 11/29/18 10:42 Normal Saline - IV 83 mls/hr ASDIR KJ Administration Vancomycin HCl 1,000 mg in 250 mls @ 166.667 mls/hr 11/27/18 15:00 11/28/18 15:38 Vancomycin (Pre-Docked) IVPB 166.667 mls/hr DAILY@1500 KJ Administration Protocol Piperacillin Sod/Tazobactam 50 mls @ 100 mls/hr 11/27/18 18:00 11/29/18 09:58 Sod 2.25 gm/ Dextrose IVPB 100 mls/hr Q8H-IV KJ Administration Protocol Insulin Aspart 1 vial 11/27/18 16:30 11/29/18 11:33 Novolog Vial Sliding Scale - SQ 2 units ACHS KJ Administration Protocol Insulin Detemir 16 units 11/28/18 07:00 11/29/18 06:02 Levemir Vial SQ 16 unit AM KJ Administration Insulin Detemir 50 units 11/27/18 22:00 11/28/18 21:07 Levemir Vial SQ 50 units HS KJ Administration Metoprolol Succinate 50 mg 11/28/18 13:26 11/29/18 09:58 Toprol Xl - PO 50 mg BID KJ Administration Nitroglycerin 0.4 mg 11/27/18 14:23 11/28/18 22:16 Nitrostat - SL 0.4 mg Q5M PRN Administration ANGINA [id number] Ethyl Esters 1 gm 11/28/18 10:00 11/29/18 09:58 Lovaza - PO 1 gm DAILY KJ Administration Pantoprazole Sodium 40 mg 11/28/18 10:00 11/29/18 09:58 Protonix - PO 40 mg DAILY KJ Administration Spironolactone 25 mg 11/28/18 10:00 11/29/18 09:57 Aldactone - PO 25 mg DAILY KJ Administration Tamsulosin HCl 0.4 mg 11/27/18 22:00 11/29/18 09:57 Flomax - PO 0.4 mg BID KJ Administration Torsemide 20 mg 11/28/18 10:00 11/29/18 09:57 Demadex - PO 20 mg DAILY KJ Administration Vital Signs: Vital Signs Period Temp Pulse Resp BP Sys/Julio Pulse Ox Last 24 Hr 97.3 F-97.9 F 51-63 18-20 112-138/53-69 100 Constitutional: Yes: No Distress, Calm Eyes: Yes: Conjunctiva Clear Neck: Yes: Supple, Trachea Midline Respiratory: Yes: Regular, CTA Bilaterally Gastrointestinal: Yes: Normal Bowel Sounds, Soft Cardiovascular: Yes: Regular Rate and Rhythm JVD: No Heart Sounds: Yes: S1, S2 Murmur: Yes: Systolic Murmur, Grade 3 (systolic crescendo-decrescendo, audible S2) Musculoskeletal: No: Back Pain Extremities: No: Cold Edema: No Peripheral Pulses: 1+ Left Doralis Pedis, 2+ Left Carotid, 2+ Right Carotid Integumentary: No: Jaundice Neurological: Yes: Alert, Oriented CBC, BMP 11/29/18 07:00 11/29/18 07:00 Assessment/Plan EKG: sinus, LBBB, PVCs cardiac FDG [place] [facility] [place]: large, severe partially reversible defect anterior and apex, medium , moderate predominantly reversible inferior defect +TID, globally decreased LVSF , EF 28%, myocardium viable throughout Echo 08/2018 [facility] [place] limited, no definity used. mod dec LVSF, EF 30-35%nl filling pressures, dd1, nl RV size, mildly decreased RVSF, mod , mod MR L/RHC 11/17 wedge 25, PA 60/25, RA 15, CI 2.1, AV gradient peak 25, mean 18, MADELINE 0.9, ISR of pLAD 70-80%-Xience, remainder unchanged vs prior: PAYMENT SPECIALIST of RCA with large collateral from LCx, mid dstal LA occluded (PAYMENT SPECIALIST) prior to LINDER touchdown, D2 jailed (PAYMENT SPECIALIST), OM1 moderate diffuse dz PAd, R toe osteo -s/p RLE angioplasty -abx per ID -on asa, plavix -No cardiac contraindications to tunneled catheter/PICC, plavix can be held if needed. CAD - s/p PCI (LAURA pLAD with PTCA of ostial diag 12/2011, ISR with CABG 03/2013, cath 05/2013 patient LINDER (30% at anasthamosis site) with good perfusion of distal LAD but anasthamotic clips distal wall and occludes backflow; old PAYMENT SPECIALIST of RCA with collats unchanged) - stable, asymptomatic with plan for further workup and management of CAD, [place] [facility] [place] - on aspirin, plavix, metoprolol, statin Chronic systolic HF - euvolemic on aldactone, furosemide, continue HTN - stable on metoprolol HLD - continue statin DM - manage per primary CKD - renal function at baseline anemia - stable, manage per primary
[2018-11-29] MEDS: COLLAGENASE CLOSTRIDIUM HIST. 30 GRAMS TUBE TP SCH (12:58)
--- NOTE | 2018-11-29 13:44 | PN ---
Progress Note (short form) - Note Progress Note: Renal follow up for CKD Pt seen and examined at the bedside no acute complaints Vital Signs Temperature 97.3 F L 11/29/18 08:45 Pulse Rate 59 L 11/29/18 08:45 Respiratory Rate 18 11/29/18 08:45 Blood Pressure 138/69 11/29/18 08:45 O2 Sat by Pulse Oximetry (%) 100 11/28/18 20:13 NAD awake and alert no LE edema CBC, BMP 11/29/18 07:00 11/29/18 07:00 Current Medications Acetaminophen (Tylenol -) 650 mg PO Q6H PRN PRN Reason: PAIN LEVEL 1-5 Aspirin (Ecotrin -) 81 mg PO DAILY [facility] Last Admin: 11/29/18 09:57 Dose: 81 mg Atorvastatin Calcium (Lipitor -) 20 mg PO HS [facility] Last Admin: 11/28/18 21:07 Dose: 20 mg Cholecalciferol (Vitamin D3 -) 1,000 unit PO DAILY [facility] Last Admin: 11/29/18 09:58 Dose: 1,000 unit Clopidogrel Bisulfate (Plavix -) 75 mg PO DAILY [facility] Last Admin: 11/28/18 11:10 Dose: 75 mg Collagenase (Santyl -) 1 applic TP DAILY [facility]; Protocol Last Admin: 11/29/18 12:58 Dose: 1 applic Donepezil HCl (Aricept -) 10 mg PO HS [facility] Last Admin: 11/28/18 21:09 Dose: 10 mg Escitalopram Oxalate (Lexapro -) 20 mg PO DAILY [facility] Last Admin: 11/29/18 09:58 Dose: 20 mg Fentanyl (Sublimaze Injection -) 50 mcg IVPUSH [id number] PRN PRN Reason: PAIN-PACU ORDER X 4 DOSES ONLY Ferrous Sulfate (Feosol -) 325 mg PO DAILY [facility] Last Admin: 11/29/18 09:57 Dose: 325 mg Gabapentin (Neurontin -) 300 mg PO TID [facility] Last Admin: 11/29/18 06:01 Dose: 300 mg Heparin Sodium (Porcine) (Heparin -) 5,000 unit SQ TID [facility] Last Admin: 11/29/18 06:01 Dose: 5,000 unit Hydrocortisone (Hytone 0.5% Cream -) 1 applic TP BID PRN PRN Reason: FOR ITCHING Last Admin: 11/28/18 11:16 Dose: 1 applic Sodium Chloride (Normal Saline -) 1,000 mls @ 83 mls/hr IV ASDIR KJ Last Admin: 11/29/18 10:42 Dose: 83 mls/hr Vancomycin HCl (Vancomycin (Pre-Docked)) 1,000 mg in 250 mls @ 166.667 mls/hr IVPB DAILY@1500 KJ; Protocol Last Admin: 11/28/18 15:38 Dose: 166.667 mls/hr Piperacillin Sod/Tazobactam (Sod 2.25 gm/ Dextrose) 50 mls @ 100 mls/hr IVPB Q8H-IV KJ; Protocol Last Admin: 11/29/18 09:58 Dose: 100 mls/hr Insulin Aspart (Novolog Vial Sliding Scale -) 1 vial SQ ACHS [facility]; Protocol Last Admin: 11/29/18 11:33 Dose: 2 units Insulin Detemir (Levemir Vial) 16 units SQ AM [facility] Last Admin: 11/29/18 06:02 Dose: 16 unit Insulin Detemir (Levemir Vial) 50 units SQ HS KJ Last Admin: 11/28/18 21:07 Dose: 50 units Metoprolol Succinate (Toprol Xl -) 50 mg PO BID [facility] Last Admin: 11/29/18 09:58 Dose: 50 mg Nitroglycerin (Nitrostat -) 0.4 mg SL Q5M PRN PRN Reason: ANGINA Last Admin: 11/28/18 22:16 Dose: 0.4 mg Ikult-1-Huow Ethyl Esters (Lovaza -) 1 gm PO DAILY [facility] Last Admin: 11/29/18 09:58 Dose: 1 gm Pantoprazole Sodium (Protonix -) 40 mg PO DAILY [facility] Last Admin: 11/29/18 09:58 Dose: 40 mg Spironolactone (Aldactone -) 25 mg PO DAILY [facility] Last Admin: 11/29/18 09:57 Dose: 25 mg Tamsulosin HCl (Flomax -) 0.4 mg PO BID [facility] Last Admin: 11/29/18 09:57 Dose: 0.4 mg Torsemide (Demadex -) 20 mg PO DAILY [facility] Last Admin: 11/29/18 09:57 Dose: 20 mg A/P 77 year old gentleman with hx of CKD stage 3 (baseline Cr ~2), DM on insulin, CAD, Hypertension, diabetic neuropathy who presented with LE pain and found to have suspected osteomylitis. 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
[2018-11-29] MEDS: VANCOMYCIN 1 GRAM (PRE-DOCKED) 1,000 MG/250 ML BAG IVPB SCH (14:42)
--- NOTE | 2018-11-29 16:40 | PN ---
Progress Note, Physician Chief Complaint: Diabetic Ulcer R great toe, bone bx show osteomyelitis s/p CO2 angiogram History of Present Illness: NAD Awake and alert Getting IV Vanco+ Zosyn for osteomyelitis Seen by ID Afebrile - Current Medication List Current Medications: Active Medications Acetaminophen (Tylenol -) 650 mg PO Q6H PRN PRN Reason: PAIN LEVEL 1-5 Aspirin (Ecotrin -) 81 mg PO DAILY [facility] Last Admin: 11/29/18 09:57 Dose: 81 mg Atorvastatin Calcium (Lipitor -) 20 mg PO HS [facility] Last Admin: 11/28/18 21:07 Dose: 20 mg Cholecalciferol (Vitamin D3 -) 1,000 unit PO DAILY [facility] Last Admin: 11/29/18 09:58 Dose: 1,000 unit Clopidogrel Bisulfate (Plavix -) 75 mg PO DAILY [facility] Last Admin: 11/28/18 11:10 Dose: 75 mg Collagenase (Santyl -) 1 applic TP DAILY [facility]; Protocol Last Admin: 11/29/18 12:58 Dose: 1 applic Donepezil HCl (Aricept -) 10 mg PO HS [facility] Last Admin: 11/28/18 21:09 Dose: 10 mg Escitalopram Oxalate (Lexapro -) 20 mg PO DAILY [facility] Last Admin: 11/29/18 09:58 Dose: 20 mg Fentanyl (Sublimaze Injection -) 50 mcg IVPUSH [id number] PRN PRN Reason: PAIN-PACU ORDER X 4 DOSES ONLY Ferrous Sulfate (Feosol -) 325 mg PO DAILY [facility] Last Admin: 11/29/18 09:57 Dose: 325 mg Gabapentin (Neurontin -) 300 mg PO TID [facility] Last Admin: 11/29/18 14:40 Dose: 300 mg Heparin Sodium (Porcine) (Heparin -) 5,000 unit SQ TID [facility] Last Admin: 11/29/18 14:40 Dose: 5,000 unit Hydrocortisone (Hytone 0.5% Cream -) 1 applic TP BID PRN PRN Reason: FOR ITCHING Last Admin: 11/28/18 11:16 Dose: 1 applic Vancomycin HCl (Vancomycin (Pre-Docked)) 1,000 mg in 250 mls @ 166.667 mls/hr IVPB DAILY@1500 KJ; Protocol Last Admin: 11/29/18 14:42 Dose: 166.667 mls/hr Piperacillin Sod/Tazobactam (Sod 2.25 gm/ Dextrose) 50 mls @ 100 mls/hr IVPB Q8H-IV [facility]; Protocol Last Admin: 11/29/18 09:58 Dose: 100 mls/hr Insulin Aspart (Novolog Vial Sliding Scale -) 1 vial SQ ACHS [facility]; Protocol Last Admin: 11/29/18 16:36 Dose: 4 units Insulin Detemir (Levemir Vial) 16 units SQ AM [facility] Last Admin: 11/29/18 06:02 Dose: 16 unit Insulin Detemir (Levemir Vial) 50 units SQ HS [facility] Last Admin: 11/28/18 21:07 Dose: 50 units Metoprolol Succinate (Toprol Xl -) 50 mg PO BID [facility] Last Admin: 11/29/18 09:58 Dose: 50 mg Nitroglycerin (Nitrostat -) 0.4 mg SL Q5M PRN PRN Reason: ANGINA Last Admin: 11/28/18 22:16 Dose: 0.4 mg Ppkst-[id number] Ethyl Esters (Lovaza -) 1 gm PO DAILY [facility] Last Admin: 11/29/18 09:58 Dose: 1 gm Pantoprazole Sodium (Protonix -) 40 mg PO DAILY [facility] Last Admin: 11/29/18 09:58 Dose: 40 mg Spironolactone (Aldactone -) 25 mg PO DAILY [facility] Last Admin: 11/29/18 09:57 Dose: 25 mg Tamsulosin HCl (Flomax -) 0.4 mg PO BID [facility] Last Admin: 11/29/18 09:57 Dose: 0.4 mg Torsemide (Demadex -) 20 mg PO DAILY [facility] Last Admin: 11/29/18 09:57 Dose: 20 mg - Objective Vital Signs: Vital Signs Temperature 97.4 F L 11/29/18 15:27 Pulse Rate 56 L 11/29/18 15:27 Respiratory Rate 18 11/29/18 15:27 Blood Pressure 134/70 11/29/18 15:27 O2 Sat by Pulse Oximetry (%) 100 11/28/18 20:13 Constitutional: Yes: Well Nourished, No Distress, Calm Cardiovascular: Yes: Regular Rate and Rhythm Respiratory: Yes: Regular Gastrointestinal: Yes: Normal Bowel Sounds, Soft Genitourinary: Yes: WNL Musculoskeletal: Yes: WNL Extremities: Yes: WNL Edema: No Peripheral Pulses WNL: Yes Wound/Incision: Yes: Dressing Dry and Intact (R foot) Neurological: Yes: Alert, Oriented Psychiatric: Yes: Alert, Oriented Labs: CBC, BMP 11/29/18 07:00 11/29/18 07:00 INR, PTT INR 1.15 (0.83-1.09) H 11/20/18 21:00 Problem List - Problems (1) Osteomyelitis Assessment/Plan: -ID on board -afebrile -IV abx x 5 weeks -would need a PICC line Code(s): M86.9 - OSTEOMYELITIS, UNSPECIFIED (2) Diabetic foot infection Assessment/Plan: -ID on board -afebrile -IV abx x 5 weeks -would need a PICC line -no leukocytosis -Podiatry on board -daily dressing change -Culture: Microbiology 11/23/18 12:30 Bone Gram Stain - Final 11/23/18 12:30 Bone Tissue Culture - Final Staphylococcus Epidermidis 11/23/18 12:30 Bone Anaerobic Culture - Final NO ANAEROBES WERE ISOLATED 11/20/18 21:00 Blood - Peripheral Venous Blood Culture - Final NO GROWTH AFTER 5 DAYS INCUBATION 11/20/18 21:00 Blood - Peripheral Venous Blood Culture - Final NO GROWTH AFTER 5 DAYS INCUBATION Code(s): E11.628 - TYPE 2 DIABETES MELLITUS WITH OTHER SKIN COMPLICATIONS; L08.9 - LOCAL INFECTION OF THE SKIN AND SUBCUTANEOUS TISSUE, UNSP (3) PVD (peripheral vascular disease) Assessment/Plan: -Seen by Vascular surgery Code(s): I73.9 - PERIPHERAL VASCULAR DISEASE, UNSPECIFIED (4) Anemia Assessment/Plan: -H/H stable -CKD vs CD -check b12, thyroid, iron profile and stool ob -monitor trend Code(s): D64.9 - ANEMIA, UNSPECIFIED (5) CAD (coronary artery disease) Code(s): I25.10 - ATHSCL HEART DISEASE OF [place] CORONARY ARTERY W/O ANG PCTRS Qualifiers: Coronary Disease-Associated Artery/Lesion type: [place] artery [place] vs. transplanted heart: [place] heart Associated angina: with unstable angina Qualified Code(s): I25.110 - Atherosclerotic heart disease of [place] coronary artery with unstable angina pectoris (6) CKD (chronic kidney disease) Assessment/Plan: -nephrology on board -Cr improving -d/c IVF -monitor trend Code(s): N18.9 - CHRONIC KIDNEY DISEASE, UNSPECIFIED (7) Diabetes mellitus Assessment/Plan: -BGM AC HS -Diabetic diet -Novolog sliding scale -Levemir -RD consult -A1C at 7.3 Code(s): E11.9 - TYPE 2 DIABETES MELLITUS WITHOUT COMPLICATIONS Qualifiers: Diabetes mellitus type: type 2 Diabetes mellitus complication status: with kidney complications Diabetes mellitus complication detail: with chronic kidney disease Qualified Code(s): E11.22 - Type 2 diabetes mellitus with diabetic chronic kidney disease Assessment/Plan see problem list Physical therapy
[2018-11-29] MEDS: ATORVASTATIN CA 20 MG TABLET (FP) PO SCH (21:18)
[2018-11-29] MEDS: DONEPEZIL HCL 10 MG TABLET (FP) PO SCH (21:18)
[2018-11-30] MEDS: PIPERACILLIN/TAZOB 2.25 GM 2.25 GM in DEXTROSE 5%-WATER - 50 ML IVPB SCH ×3 (01:34→17:33)
[2018-11-30] MEDS: GABAPENTIN 300 MG CAPSULE (FP) PO SCH ×3 (05:59→21:33)
[2018-11-30] MEDS: HEPARIN NA (PORCINE) 5,000 UNITS/ML 1ML VIAL SQ SCH (05:59)
[2018-11-30] MEDS: INSULIN SLIDING SCALE (NOVOLOG) 1 VIAL SQ SCH ×4 (06:02→21:36)
[2018-11-30] MEDS: INSULIN (LEVEMIR) 100 UNITS/ML UNITS SQ SCH ×2 (06:03→21:37)
[2018-11-30 08:24] LABS: BASO % 0.9 % (0-2.0); HEMOGLOBIN 9.5 GM/dL (11.7-16.9); LYMPH % 14.5 % (8-40); MCH 28.6 pg (25.7-33.7); MCHC 32.6 g/dl (32.0-35.9); MEAN CELL VOLUME 87.6 fl (80-96); MEAN PLT VOLUME 7.4 fl (7.5-11.1); MONO % 8.4 % (3.8-10.2); NEUT % 72.2 % (42.8-82.8); PLATELET COUNT 133 K/MM3 (134-434); RBC 3.32 M/mm3 (4.00-5.60); RDW 18.6 % (11.9-15.9); WHITE BLOOD COUNT 5.6 K/mm3 (4.0-10.0)
--- NOTE | 2018-11-30 09:22 | PN ---
Progress Note, Physician Chief Complaint: Diabetic Ulcer R great toe, bone bx show osteomyelitis s/p CO2 angiogram History of Present Illness: NAD Awake and alert Getting IV Vanco+ Zosyn for osteomyelitis Seen by ID Afebrile Tunnel cath ordered, plavix last dose on 11/26/18 - Current Medication List Current Medications: Active Medications Acetaminophen (Tylenol -) 650 mg PO Q6H PRN PRN Reason: PAIN LEVEL 1-5 Aspirin (Ecotrin -) 81 mg PO DAILY [facility] Last Admin: 11/29/18 09:57 Dose: 81 mg Atorvastatin Calcium (Lipitor -) 20 mg PO HS [facility] Last Admin: 11/29/18 21:18 Dose: 20 mg Cholecalciferol (Vitamin D3 -) 1,000 unit PO DAILY [facility] Last Admin: 11/29/18 09:58 Dose: 1,000 unit Clopidogrel Bisulfate (Plavix -) 75 mg PO DAILY [facility] Last Admin: 11/28/18 11:10 Dose: 75 mg Collagenase (Santyl -) 1 applic TP DAILY [facility]; Protocol Last Admin: 11/29/18 12:58 Dose: 1 applic Donepezil HCl (Aricept -) 10 mg PO HS [facility] Last Admin: 11/29/18 21:18 Dose: 10 mg Escitalopram Oxalate (Lexapro -) 20 mg PO DAILY [facility] Last Admin: 11/29/18 09:58 Dose: 20 mg Fentanyl (Sublimaze Injection -) 50 mcg IVPUSH [id number] PRN PRN Reason: PAIN-PACU ORDER X 4 DOSES ONLY Ferrous Sulfate (Feosol -) 325 mg PO DAILY [facility] Last Admin: 11/29/18 09:57 Dose: 325 mg Gabapentin (Neurontin -) 300 mg PO TID [facility] Last Admin: 11/30/18 05:59 Dose: 300 mg Heparin Sodium (Porcine) (Heparin -) 5,000 unit SQ TID [facility] Last Admin: 11/30/18 05:59 Dose: Not Given Hydrocortisone (Hytone 0.5% Cream -) 1 applic TP BID PRN PRN Reason: FOR ITCHING Last Admin: 11/28/18 11:16 Dose: 1 applic Vancomycin HCl (Vancomycin (Pre-Docked)) 1,000 mg in 250 mls @ 166.667 mls/hr IVPB DAILY@1500 KJ; Protocol Last Admin: 11/29/18 14:42 Dose: 166.667 mls/hr Piperacillin Sod/Tazobactam (Sod 2.25 gm/ Dextrose) 50 mls @ 100 mls/hr IVPB Q8H-IV [facility]; Protocol Last Admin: 11/30/18 01:34 Dose: 100 mls/hr Insulin Aspart (Novolog Vial Sliding Scale -) 1 vial SQ ACHS [facility]; Protocol Last Admin: 11/30/18 06:02 Dose: 2 units Insulin Detemir (Levemir Vial) 16 units SQ AM [facility] Last Admin: 11/30/18 06:03 Dose: 16 unit Insulin Detemir (Levemir Vial) 50 units SQ HS [facility] Last Admin: 11/29/18 21:21 Dose: 50 units Metoprolol Succinate (Toprol Xl -) 50 mg PO BID [facility] Last Admin: 11/29/18 21:18 Dose: 50 mg Nitroglycerin (Nitrostat -) 0.4 mg SL Q5M PRN PRN Reason: ANGINA Last Admin: 11/28/18 22:16 Dose: 0.4 mg [id number] Ethyl Esters (Lovaza -) 1 gm PO DAILY [facility] Last Admin: 11/29/18 09:58 Dose: 1 gm Pantoprazole Sodium (Protonix -) 40 mg PO DAILY [facility] Last Admin: 11/29/18 09:58 Dose: 40 mg Spironolactone (Aldactone -) 25 mg PO DAILY [facility] Last Admin: 11/29/18 09:57 Dose: 25 mg Tamsulosin HCl (Flomax -) 0.4 mg PO BID [facility] Last Admin: 11/29/18 21:18 Dose: 0.4 mg Torsemide (Demadex -) 20 mg PO DAILY [facility] Last Admin: 11/29/18 09:57 Dose: 20 mg - Objective Vital Signs: Vital Signs Temperature 97.9 F 11/30/18 06:00 Pulse Rate 56 L 11/30/18 06:00 Respiratory Rate 18 11/30/18 06:00 Blood Pressure 148/70 11/30/18 06:00 O2 Sat by Pulse Oximetry (%) 100 11/29/18 21:00 Constitutional: Yes: Well Nourished, No Distress, Calm Cardiovascular: Yes: Regular Rate and Rhythm Respiratory: Yes: Regular Gastrointestinal: Yes: WNL Genitourinary: Yes: WNL Musculoskeletal: Yes: WNL Extremities: Yes: WNL Edema: No Peripheral Pulses WNL: Yes Wound/Incision: Yes: Dressing Dry and Intact (Right foot) Neurological: Yes: Alert, Oriented Psychiatric: Yes: Alert, Oriented Labs: CBC, BMP 11/30/18 07:00 INR, PTT INR 1.15 (0.83-1.09) H 11/20/18 21:00 Problem List - Problems (1) Osteomyelitis Assessment/Plan: -ID on board -afebrile -IV abx x 5 weeks -Tunnel cath ordered -plavix on hold, last dose received on 11/26/18 Code(s): M86.9 - OSTEOMYELITIS, UNSPECIFIED (2) Diabetic foot infection Assessment/Plan: -ID on board -afebrile -IV abx x 5 weeks -Tunnel cath ordered -no leukocytosis -Podiatry on board -daily dressing change -Culture: Microbiology 11/23/18 12:30 Bone Gram Stain - Final 11/23/18 12:30 Bone Tissue Culture - Final Staphylococcus Epidermidis 11/23/18 12:30 Bone Anaerobic Culture - Final NO ANAEROBES WERE ISOLATED 11/20/18 21:00 Blood - Peripheral Venous Blood Culture - Final NO GROWTH AFTER 5 DAYS INCUBATION 11/20/18 21:00 Blood - Peripheral Venous Blood Culture - Final NO GROWTH AFTER 5 DAYS INCUBATION Code(s): E11.628 - TYPE 2 DIABETES MELLITUS WITH OTHER SKIN COMPLICATIONS; L08.9 - LOCAL INFECTION OF THE SKIN AND SUBCUTANEOUS TISSUE, UNSP (3) PVD (peripheral vascular disease) Assessment/Plan: -Seen by Vascular surgery Code(s): I73.9 - PERIPHERAL VASCULAR DISEASE, UNSPECIFIED (4) Anemia Assessment/Plan: -H/H stable -CKD vs CD -check b12, thyroid, iron profile and stool ob -monitor trend Code(s): D64.9 - ANEMIA, UNSPECIFIED (5) CAD (coronary artery disease) Code(s): I25.10 - ATHSCL HEART DISEASE OF [place] CORONARY ARTERY W/O ANG PCTRS Qualifiers: Coronary Disease-Associated Artery/Lesion type: [place] artery [place] vs. transplanted heart: [place] heart Associated angina: with unstable angina Qualified Code(s): I25.110 - Atherosclerotic heart disease of [place] coronary artery with unstable angina pectoris (6) CKD (chronic kidney disease) Assessment/Plan: -nephrology on board -Cr improving -d/c IVF -monitor trend Code(s): N18.9 - CHRONIC KIDNEY DISEASE, UNSPECIFIED (7) Diabetes mellitus Assessment/Plan: -BGM AC HS -Diabetic diet -Novolog sliding scale -Levemir -RD consult -A1C at 7.3 Code(s): E11.9 - TYPE 2 DIABETES MELLITUS WITHOUT COMPLICATIONS Qualifiers: Diabetes mellitus type: type 2 Diabetes mellitus complication status: with kidney complications Diabetes mellitus complication detail: with chronic kidney disease Qualified Code(s): E11.22 - Type 2 diabetes mellitus with diabetic chronic kidney disease Assessment/Plan see problem list Physical therapy
[2018-11-30] MEDS ORDERED: PIPERACILLIN/TAZOBACTAM 2.25 GM VIAL IVPB ONE ×2 (09:23→17:29)
[2018-11-30] MEDS ORDERED: PT OWN MED DRAWER 7, Y5N ONE (09:23)
[2018-11-30] MEDS ORDERED: DEXTROSE 5%-WATER - 50 ML IVPB ONE ×2 (09:23→17:29)
[2018-11-30] MEDS: TORSEMIDE 20 MG TABLET (FP) PO SCH (09:27)
[2018-11-30] MEDS: ASPIRIN COATED 81 MG TABLET.EC PO SCH (09:27)
[2018-11-30] MEDS: FERROUS SO4 325 MG TABLET (FP) PO SCH (09:27)
[2018-11-30] MEDS: SPIRONOLACTONE 25 MG TABLET (FP) PO SCH (09:27)
[2018-11-30] MEDS: CHOLECALCIFEROL (VITAMIN D3) 1,000 UNIT TABLET (FP) PO SCH (09:28)
[2018-11-30] MEDS: ESCITALOPRAM OXALATE 20 MG TABLET (FP) PO SCH (09:28)
[2018-11-30] MEDS: PANTOPRAZOLE 40 MG TABLET (FP) PO SCH (09:28)
[2018-11-30] MEDS: TAMSULOSIN HCL 0.4 MG CAP PO SCH ×2 (09:28→21:33)
[2018-11-30] MEDS: OMEGA-3 ACID ETHYL ESTERS (FATTY-ACIDS) 1 GM CAPSULE (FP) PO SCH (09:28)
[2018-11-30 09:31] LABS: ALBUMIN 3.1 g/dl (3.4-5.0); ALK PHOS 60 U/L (45-117); ANION GAP 7 MMOL/L (8-16); BLOOD UREA NITROGEN 19 mg/dL (7-18); CALCIUM 8.3 mg/dL (8.5-10.1); CHLORIDE 104 mmol/L (98-107); CO2 27 mmol/L (21-32); CREATININE 1.9 mg/dL (0.55-1.3); GLUCOSE,RANDOM 128 mg/dL (74-106); POTASSIUM 4.5 mmol/L (3.5-5.1); SGOT/AST 14 U/L (15-37); SGPT/ALT 20 U/L (13-61); SODIUM 137 mmol/L (136-145); TOT PROT 6.2 g/dl (6.4-8.2)
[2018-11-30] MEDS: COLLAGENASE CLOSTRIDIUM HIST. 30 GRAMS TUBE TP SCH (10:38)
--- NOTE | 2018-11-30 11:11 | PN ---
Progress Note (short form) - Note Progress Note: Chief Complaint: preop, foot pain s: feels well, no chest pain, palps, dizziness, lightheadedness Current Medications Generic Name Dose Route Start Last Admin Trade Name Fresary PRN Reason Stop Dose Admin Acetaminophen 650 mg 11/27/18 14:23 Tylenol - PO Q6H PRN PAIN LEVEL 1-5 Aspirin 81 mg 11/28/18 10:00 11/30/18 09:27 Ecotrin - PO 81 mg DAILY KJ Administration Atorvastatin Calcium 20 mg 11/27/18 22:00 11/29/18 21:18 Lipitor - PO 20 mg HS KJ Administration Cholecalciferol 1,000 unit 11/28/18 10:00 11/30/18 09:28 Vitamin D3 - PO 1,000 unit DAILY KJ Administration Clopidogrel Bisulfate 75 mg 11/28/18 10:00 11/28/18 11:10 Plavix - PO 75 mg DAILY KJ Administration Collagenase 1 applic 11/28/18 10:00 11/30/18 10:38 Santyl - TP 1 applic DAILY KJ Administration Protocol Donepezil HCl 10 mg 11/27/18 22:00 11/29/18 21:18 Aricept - PO 10 mg HS KJ Administration Enoxaparin Sodium 40 mg 11/30/18 11:15 Lovenox - SQ DAILY KJ Escitalopram Oxalate 20 mg 11/28/18 10:00 11/30/18 09:28 Lexapro - PO 20 mg DAILY KJ Administration Fentanyl 50 mcg 11/27/18 14:23 Sublimaze Injection - IVPUSH [id number] PRN PAIN-PACU ORDER X 4 DOSES ONLY Ferrous Sulfate 325 mg 11/28/18 10:00 11/30/18 09:27 Feosol - PO 325 mg DAILY KJ Administration Gabapentin 300 mg 11/27/18 22:00 11/30/18 05:59 Neurontin - PO 300 mg TID KJ Administration Hydrocortisone 1 applic 11/27/18 16:45 11/28/18 11:16 Hytone 0.5% Cream - TP 1 applic BID PRN Administration FOR ITCHING Vancomycin HCl 1,000 mg in 250 mls @ 166.667 mls/hr 11/27/18 15:00 11/29/18 14:42 Vancomycin (Pre-Docked) IVPB 166.667 mls/hr DAILY@1500 KJ Administration Protocol Piperacillin Sod/Tazobactam 50 mls @ 100 mls/hr 11/27/18 18:00 11/30/18 09:29 Sod 2.25 gm/ Dextrose IVPB 100 mls/hr Q8H-IV KJ Administration Protocol Insulin Aspart 1 vial 11/27/18 16:30 11/30/18 06:02 Novolog Vial Sliding Scale - SQ 2 units ACHS KJ Administration Protocol Insulin Detemir 16 units 11/28/18 07:00 11/30/18 06:03 Levemir Vial SQ 16 unit AM KJ Administration Insulin Detemir 50 units 11/27/18 22:00 11/29/18 21:21 Levemir Vial SQ 50 units HS KJ Administration Metoprolol Succinate 50 mg 11/28/18 13:26 11/30/18 09:28 Toprol Xl - PO 50 mg BID KJ Administration Nitroglycerin 0.4 mg 11/27/18 14:23 11/28/18 22:16 Nitrostat - SL 0.4 mg Q5M PRN Administration ANGINA Distc-3-Fdnn Ethyl Esters 1 gm 11/28/18 10:00 11/30/18 09:28 Lovaza - PO 1 gm DAILY KJ Administration Pantoprazole Sodium 40 mg 11/28/18 10:00 11/30/18 09:28 Protonix - PO 40 mg DAILY KJ Administration Spironolactone 25 mg 11/28/18 10:00 11/30/18 09:27 Aldactone - PO 25 mg DAILY KJ Administration Tamsulosin HCl 0.4 mg 11/27/18 22:00 11/30/18 09:28 Flomax - PO 0.4 mg BID KJ Administration Torsemide 20 mg 11/28/18 10:00 11/30/18 09:27 Demadex - PO 20 mg DAILY KJ Administration Vital Signs: Vital Signs Period Temp Pulse Resp BP Sys/Julio Pulse Ox Last 24 Hr 97.4 F-97.9 F 50-56 18-18 120-148/55-70 100 Constitutional: Yes: No Distress, Calm Eyes: Yes: Conjunctiva Clear Neck: Yes: Supple, Trachea Midline Respiratory: Yes: Regular, CTA Bilaterally Gastrointestinal: Yes: Normal Bowel Sounds, Soft Cardiovascular: Yes: Regular Rate and Rhythm JVD: No Heart Sounds: Yes: S1, S2 Murmur: Yes: Systolic Murmur, Grade 3 (systolic crescendo-decrescendo, audible S2) Musculoskeletal: No: Back Pain Extremities: No: Cold Edema: No Integumentary: No: Jaundice Neurological: Yes: Alert, Oriented CBC, BMP 11/30/18 07:00 11/30/18 07:00 Assessment/Plan EKG: sinus, LBBB, PVCs cardiac FDG PET perfusion [facility] 10/2018: large, severe partially reversible defect anterior and apex, medium , moderate predominantly reversible inferior defect +TID, globally decreased LVSF , EF 28%, myocardium viable throughout Echo 08/2018 [facility] exam limited, no definity used. mod dec LVSF, EF 30-35%nl filling pressures, dd1, nl RV size, mildly decreased RVSF, mod , mod MR L/RHC 11/17 wedge 25, PA 60/25, RA 15, CI 2.1, AV gradient peak 25, mean 18, MADELINE 0.9, ISR of pLAD 70-80%-Xience, remainder unchanged vs prior: BOOM STICK MAN of RCA with large collateral from LCx, mid dstal LA occluded (BOOM STICK MAN) prior to LINDER touchdown, D2 jailed (BOOM STICK MAN), OM1 moderate diffuse dz PAd, R toe osteo -s/p RLE angioplasty -abx per ID -on asa, plavix -No cardiac contraindications to tunneled catheter/PICC, plavix can be held if needed. CAD - s/p PCI (LAURA pLAD with PTCA of ostial diag 12/2011, ISR with CABG 03/2013, cath 05/2013 patient LINDER (30% at anasthamosis site) with good perfusion of distal LAD but anasthamotic clips distal wall and occludes backflow; old BOOM STICK MAN of RCA with collats unchanged) - stable, asymptomatic with plan for further workup and management of CAD, at [facility] as outpt - on aspirin, plavix, metoprolol, statin Chronic systolic HF - euvolemic on aldactone, furosemide, continue HTN - stable on metoprolol HLD - continue statin DM - manage per primary CKD - renal function at baseline anemia - stable, manage per primary
--- NOTE | 2018-11-30 13:18 | PN ---
Progress Note (short form) - Note Progress Note: Patint seen in bed. No distress. Family present. +moist eschar, +om right great toe, wbc=5.6, +erythema om pvd diabetic wound santyl dressing change daily will follow. IVABX as per ID. Needs HBO. May be dc from Podiatry standpoint. Will follow till dc. Patient would greatly benefit from HBO.
[2018-11-30] MEDS: LORATADINE 10 MG TABLET PO SCH (13:32)
[2018-11-30] MEDS: HYDROCORTISONE 0.5% TOPICAL CREAM 30 GM TUBE TP PRN (13:32)
[2018-11-30] MEDS: ENOXAPARIN NA (PORCINE) 40 MG/0.4 ML DISP.SYRIN SQ SCH (13:32)
[2018-11-30] MEDS: VANCOMYCIN 1 GRAM (PRE-DOCKED) 1,000 MG/250 ML BAG IVPB SCH (15:09)
[2018-11-30] MEDS: ATORVASTATIN CA 20 MG TABLET (FP) PO SCH (21:33)
[2018-11-30] MEDS: DONEPEZIL HCL 10 MG TABLET (FP) PO SCH (21:33)
[2018-12-01] MEDS ORDERED: PIPERACILLIN/TAZOBACTAM 2.25 GM VIAL IVPB ONE ×3 (00:15→17:00)
[2018-12-01] MEDS ORDERED: DEXTROSE 5%-WATER - 50 ML IVPB ONE ×3 (00:15→17:01)
[2018-12-01] MEDS: PIPERACILLIN/TAZOB 2.25 GM 2.25 GM in DEXTROSE 5%-WATER - 50 ML IVPB SCH ×3 (01:32→17:30)
[2018-12-01] MEDS: GABAPENTIN 300 MG CAPSULE (FP) PO SCH ×3 (05:48→22:11)
[2018-12-01] MEDS: INSULIN SLIDING SCALE (NOVOLOG) 1 VIAL SQ SCH ×4 (06:39→22:14)
[2018-12-01] MEDS: INSULIN (LEVEMIR) 100 UNITS/ML UNITS SQ SCH ×2 (06:39→22:15)
[2018-12-01 07:17] LABS: SERUM IRON SATURATION 21 % (15-55); TOTAL IRON BINDING CAPACITY 206 ug/dL (250-450); UIBC 163 ug/dL (111-343)
[2018-12-01] MEDS ORDERED: PT OWN MED DRAWER 7, Y5N ONE ×3 (09:35→23:08)
[2018-12-01] MEDS: SPIRONOLACTONE 25 MG TABLET (FP) PO SCH (09:40)
[2018-12-01] MEDS: ENOXAPARIN NA (PORCINE) 40 MG/0.4 ML DISP.SYRIN SQ SCH (09:41)
[2018-12-01] MEDS: LORATADINE 10 MG TABLET PO SCH (09:41)
[2018-12-01] MEDS: PANTOPRAZOLE 40 MG TABLET (FP) PO SCH (09:41)
[2018-12-01] MEDS: TORSEMIDE 20 MG TABLET (FP) PO SCH (09:41)
[2018-12-01] MEDS: ESCITALOPRAM OXALATE 20 MG TABLET (FP) PO SCH (09:41)
[2018-12-01] MEDS: CHOLECALCIFEROL (VITAMIN D3) 1,000 UNIT TABLET (FP) PO SCH (09:41)
[2018-12-01] MEDS: TAMSULOSIN HCL 0.4 MG CAP PO SCH ×2 (09:41→22:11)
[2018-12-01] MEDS: ASPIRIN COATED 81 MG TABLET.EC PO SCH (09:41)
[2018-12-01] MEDS: FERROUS SO4 325 MG TABLET (FP) PO SCH (09:41)
[2018-12-01] MEDS: COLLAGENASE CLOSTRIDIUM HIST. 30 GRAMS TUBE TP SCH (09:42)
[2018-12-01] MEDS: OMEGA-3 ACID ETHYL ESTERS (FATTY-ACIDS) 1 GM CAPSULE (FP) PO SCH (09:42)
--- NOTE | 2018-12-01 10:38 | PN ---
Progress Note (short form) - Note Progress Note: Renal follow up for CKD Pt seen and examined at the bedside no acute complaints awaiting tunnneled IV Line placement has cough Vital Signs Temperature 98.3 F 12/01/18 06:00 Pulse Rate 58 L 12/01/18 06:00 Respiratory Rate 18 12/01/18 06:00 Blood Pressure 135/71 12/01/18 06:00 O2 Sat by Pulse Oximetry (%) 100 11/30/18 21:00 NAD awake and alert trace Le edema CBC, BMP 11/30/18 07:00 11/30/18 07:00 Current Medications Acetaminophen (Tylenol -) 650 mg PO Q6H PRN PRN Reason: PAIN LEVEL 1-5 Aspirin (Ecotrin -) 81 mg PO DAILY [facility] Last Admin: 12/01/18 09:41 Dose: 81 mg Atorvastatin Calcium (Lipitor -) 20 mg PO HS [facility] Last Admin: 11/30/18 21:33 Dose: 20 mg Cholecalciferol (Vitamin D3 -) 1,000 unit PO DAILY [facility] Last Admin: 12/01/18 09:41 Dose: 1,000 unit Clopidogrel Bisulfate (Plavix -) 75 mg PO DAILY [facility] Last Admin: 11/28/18 11:10 Dose: 75 mg Collagenase (Santyl -) 1 applic TP DAILY [facility]; Protocol Last Admin: 12/01/18 09:42 Dose: 1 applic Donepezil HCl (Aricept -) 10 mg PO HS [facility] Last Admin: 11/30/18 21:33 Dose: 10 mg Enoxaparin Sodium (Lovenox -) 40 mg SQ DAILY [facility] Last Admin: 12/01/18 09:41 Dose: 40 mg Escitalopram Oxalate (Lexapro -) 20 mg PO DAILY [facility] Last Admin: 12/01/18 09:41 Dose: 20 mg Fentanyl (Sublimaze Injection -) 50 mcg IVPUSH [id number] PRN PRN Reason: PAIN-PACU ORDER X 4 DOSES ONLY Ferrous Sulfate (Feosol -) 325 mg PO DAILY [facility] Last Admin: 12/01/18 09:41 Dose: 325 mg Gabapentin (Neurontin -) 300 mg PO TID [facility] Last Admin: 12/01/18 05:48 Dose: 300 mg Hydrocortisone (Hytone 0.5% Cream -) 1 applic TP BID PRN PRN Reason: FOR ITCHING Last Admin: 11/30/18 13:32 Dose: 1 applic Vancomycin HCl (Vancomycin (Pre-Docked)) 1,000 mg in 250 mls @ 166.667 mls/hr IVPB DAILY@1500 KJ; Protocol Last Admin: 11/30/18 15:09 Dose: 166.667 mls/hr Piperacillin Sod/Tazobactam (Sod 2.25 gm/ Dextrose) 50 mls @ 100 mls/hr IVPB Q8H-IV KJ; Protocol Last Admin: 12/01/18 09:42 Dose: 100 mls/hr Insulin Aspart (Novolog Vial Sliding Scale -) 1 vial SQ ACHS [facility]; Protocol Last Admin: 12/01/18 06:39 Dose: 2 units Insulin Detemir (Levemir Vial) 16 units SQ AM KJ Last Admin: 12/01/18 06:39 Dose: 16 unit Insulin Detemir (Levemir Vial) 50 units SQ HS [facility] Last Admin: 11/30/18 21:37 Dose: 50 units Loratadine (Claritin -) 10 mg PO DAILY [facility] Last Admin: 12/01/18 09:41 Dose: 10 mg Metoprolol Succinate (Toprol Xl -) 50 mg PO BID [facility] Last Admin: 12/01/18 09:41 Dose: 50 mg Nitroglycerin (Nitrostat -) 0.4 mg SL Q5M PRN PRN Reason: ANGINA Last Admin: 11/28/18 22:16 Dose: 0.4 mg [id number] Ethyl Esters (Lovaza -) 1 gm PO DAILY [facility] Last Admin: 12/01/18 09:42 Dose: 1 gm Pantoprazole Sodium (Protonix -) 40 mg PO DAILY [facility] Last Admin: 12/01/18 09:41 Dose: 40 mg Spironolactone (Aldactone -) 25 mg PO DAILY [facility] Last Admin: 12/01/18 09:40 Dose: 25 mg Tamsulosin HCl (Flomax -) 0.4 mg PO BID [facility] Last Admin: 12/01/18 09:41 Dose: 0.4 mg Torsemide (Demadex -) 20 mg PO DAILY [facility] Last Admin: 12/01/18 09:41 Dose: 20 mg A/P 77 year old gentleman with hx of CKD stage 3 (baseline Cr ~2), DM on insulin, CAD, Hypertension, diabetic neuropathy who presented with LE pain and found to have suspected osteomylitis. 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
--- NOTE | 2018-12-01 13:05 | DS ---
Physical Examination Vital Signs: Vital Signs Temperature 98.3 F 12/01/18 06:00 Pulse Rate 58 L 12/01/18 06:00 Respiratory Rate 18 12/01/18 06:00 Blood Pressure 135/71 12/01/18 06:00 O2 Sat by Pulse Oximetry (%) 100 11/30/18 21:00 Findings/Remarks: Patient is a 77 y/o male patient that was being treated for diabetic R foot ulcer and bone bx showed osteomyelitis. Patient will continue Vancomycin IV x 5 weeks as per ID. Will received Hyperbaric treatment for R foot ulcer daily. Patient had tunnel catheter placed to R chest wall on 12/01/18 for IV ABT. No s /s of bleeding observed to catheter site. Following discharge patient will receive IV ABT at [facility] Infusion center. VNS services for wound care to R foot. Constitutional: Yes: Well Nourished, No Distress, Calm Eyes: Yes: Conjunctiva Clear Neck: Yes: Tenderness Cardiovascular: Yes: Regular Rate and Rhythm Respiratory: Yes: Regular, CTA Bilaterally Gastrointestinal: Yes: Normal Bowel Sounds, Soft Musculoskeletal: Yes: Muscle Weakness Extremities: Yes: Other (Ulcer R foot) Edema: No Integumentary: Yes: WNL Wound/Incision: Yes: Dressing Dry and Intact Neurological: Yes: Alert, Oriented Psychiatric: Yes: Alert, Oriented Labs: CBC, BMP 11/30/18 07:00 11/30/18 07:00 <Jazzy Dye - Last Filed: 12/01/18 13:37> Vital Signs: Vital Signs Temperature 98.0 F 12/02/18 13:49 Pulse Rate 66 12/02/18 13:49 Respiratory Rate 16 12/02/18 13:49 Blood Pressure 119/63 12/02/18 13:49 O2 Sat by Pulse Oximetry (%) 96 12/02/18 09:00 Labs: CBC, BMP 12/02/18 13:00 12/02/18 13:00 <Edgar Fuller - Last Filed: 12/02/18 14:06> Discharge Summary Reason For Visit: DIABETIC FOOT INFECTION Current Active Problems Diabetic foot infection (Acute) Osteomyelitis (Acute) PVD (peripheral vascular disease) (Acute) Procedures: Principal: Tunnel Catheter Placement. CO2 Angiogram. EKG. Flouroscopy. Lower extremity MRI. Foot Xray. CXR. Bone Biopsy - Home Medications Comprehensive Discharge Medication List: Ambulatory Orders Clopidogrel Bisulfate [Plavix -] 75 mg PO DAILY 09/04/15 Pantoprazole Sodium [Protonix] 40 mg PO DAILY 09/04/15 Cholecalciferol (Vitamin D3) [Vitamin D3] 1,000 unit PO DAILY tablet 04/05/17 Insulin Glargine,Hum.rec.anlog [Lantus Solostar PEN (NF)] 16 units SQ AM Insulin Glargine,Hum.rec.anlog [Lantus Solostar PEN (NF)] 50 units SQ HS Metoprolol Succinate [Toprol Xl] 50 mg PO BID 07/24/17 Nitroglycerin 0.6 mg SL ASDIR 07/24/17 Nitroglycerin [Nitrostat] 0.4 mg SL ASDIR 07/24/17 Aspirin [Aspirin EC] 81 mg PO DAILY 01/09/18 Collagenase Clostridium Hist. [Santyl] 1 applic TP DAILY #90 oint...g. 11/03/18 Donepezil HCl [Aricept] 10 mg PO DAILY 11/20/18 Escitalopram Oxalate [Lexapro -] 20 mg PO DAILY 11/20/18 Ferrous Sulfate 325 mg PO DAILY 11/20/18 Insulin Aspart [Novolog] 10 unit SQ DAILY 11/20/18 [place]-3S/Dha/Epa/Fish Oil [Fish Oil 1,200 mg Softgel] 1 each PO DAILY 11/20/18 Spironolactone 25 mg PO DAILY 11/20/18 Tamsulosin HCl [Flomax] 0.4 mg PO BID 11/20/18 Gabapentin 600 mg PO TID 11/23/18 <Jazzy Dye - Last Filed: 12/01/18 13:37> Current Active Problems Diabetic foot infection (Acute) Osteomyelitis (Acute) PVD (peripheral vascular disease) (Acute) - Home Medications Comprehensive Discharge Medication List: Ambulatory Orders Nitroglycerin 0.6 mg SL ASDIR 07/24/17 Aspirin [Aspirin EC] 81 mg PO DAILY 30 Days #30 tablet. 12/01/18 Atorvastatin Calcium 20 mg PO DAILY #30 tablet 12/01/18 Cholecalciferol (Vitamin D3) [Vitamin D3] 1,000 unit PO DAILY 30 Days #30 tablet 12/01/18 Clopidogrel Bisulfate [Plavix -] 75 mg PO DAILY 30 Days #30 tablet 12/01/18 Collagenase Clostridium Hist. [Santyl] 1 applic TP DAILY #90 oint...g. 12/01/18 Donepezil HCl [Aricept] 10 mg PO DAILY 30 Days #30 tablet 12/01/18 Escitalopram Oxalate [Lexapro -] 20 mg PO DAILY 30 Days #30 tablet 12/01/18 Ferrous Sulfate 325 mg PO DAILY 30 Days #30 tab 12/01/18 Insulin Glargine,Hum.rec.anlog [Lantus Solostar PEN -] 16 units SQ AM 30 Days # 16 ins 12/01/18 Loratadine [Claritin -] 10 mg PO DAILY 14 Days #14 tablet 12/01/18 Metoprolol Succinate [Toprol Xl] 50 mg PO BID 30 Days #30 tab.er.24h 12/01/18 Nitroglycerin [Nitrostat] 0.4 mg SL ASDIR 30 Days #30 tab.subl 12/01/18 Kearsar[place]-3 Acid Ethyl Esters [Lovaza -] 1 gm PO DAILY 30 Days #30 cap 12/01/18 Pantoprazole Sodium [Protonix] 40 mg PO DAILY 30 Days #30 tablet.dr 12/01/18 Spironolactone 25 mg PO DAILY 30 Days #30 tablet 12/01/18 Tamsulosin HCl [Flomax] 0.4 mg PO BID 30 Days #30 capsule 12/01/18 Torsemide [Demadex -] 20 mg PO DAILY 30 Days #30 tablet 12/01/18 Aspirin Coated [Ecotrin -] 81 mg PO DAILY tablet.ec 12/02/18 Clopidogrel Bisulfate [Plavix -] 75 mg PO DAILY tablet 12/02/18 <Edgar Fuller - Last Filed: 12/02/18 14:06> Condition: Improved - Instructions Diet, Activity, Other Instructions: Patient to follow up at [facility] for Hyperbaric treatment for R foot ulcer Patient will follow up at [facility] Infusion room for completion of mcfp Vancomycin IV therapy for 5 weeks VNS for wound care R foot Prescription sent to patient pharmacy Follow up with pmd 3-4 days, follow up with corn grower 3-4 days Keep tunnel cath site clean and dry, monitor for infection Low Na, diabetic diet Referrals: Dom Staples MD [Primary Care Provider] - Disposition: HOME
[2018-12-01] MEDS: VANCOMYCIN 1 GRAM (PRE-DOCKED) 1,000 MG/250 ML BAG IVPB SCH (14:23)
--- NOTE | 2018-12-01 15:32 | PN ---
Progress Note (short form) - Note Progress Note: Chief Complaint: preop, foot pain s: feels well, no chest pain, palps, dizziness, lightheadedness Current Medications Generic Name Dose Route Start Last Admin Trade Name Freq PRN Reason Stop Dose Admin Acetaminophen 650 mg 11/27/18 14:23 Tylenol - PO Q6H PRN PAIN LEVEL 1-5 Aspirin 81 mg 11/28/18 10:00 12/01/18 09:41 Ecotrin - PO 81 mg DAILY JK Administration Atorvastatin Calcium 20 mg 11/27/18 22:00 11/30/18 21:33 Lipitor - PO 20 mg HS KJ Administration Cholecalciferol 1,000 unit 11/28/18 10:00 12/01/18 09:41 Vitamin D3 - PO 1,000 unit DAILY KJ Administration Clopidogrel Bisulfate 75 mg 11/28/18 10:00 11/28/18 11:10 Plavix - PO 75 mg DAILY KJ Administration Collagenase 1 applic 11/28/18 10:00 12/01/18 09:42 Santyl - TP 1 applic DAILY KJ Administration Protocol Donepezil HCl 10 mg 11/27/18 22:00 11/30/18 21:33 Aricept - PO 10 mg HS KJ Administration Enoxaparin Sodium 40 mg 11/30/18 11:15 12/01/18 09:41 Lovenox - SQ 40 mg DAILY KJ Administration Escitalopram Oxalate 20 mg 11/28/18 10:00 12/01/18 09:41 Lexapro - PO 20 mg DAILY KJ Administration Fentanyl 50 mcg 11/27/18 14:23 Sublimaze Injection - IVPUSH [id number] PRN PAIN-PACU ORDER X 4 DOSES ONLY Ferrous Sulfate 325 mg 11/28/18 10:00 12/01/18 09:41 Feosol - PO 325 mg DAILY KJ Administration Gabapentin 300 mg 11/27/18 22:00 12/01/18 13:48 Neurontin - PO 300 mg TID KJ Administration Guaifenesin 5 ml 12/01/18 15:10 Diabetic Tussin Dm - PO Q6H PRN COUGH Hydrocortisone 1 applic 11/27/18 16:45 11/30/18 13:32 Hytone 0.5% Cream - TP 1 applic BID PRN Administration FOR ITCHING Vancomycin HCl 1,000 mg in 250 mls @ 166.667 mls/hr 11/27/18 15:00 12/01/18 14:23 Vancomycin (Pre-Docked) IVPB 166.667 mls/hr DAILY@1500 KJ Administration Protocol Piperacillin Sod/Tazobactam 50 mls @ 100 mls/hr 11/27/18 18:00 12/01/18 09:42 Sod 2.25 gm/ Dextrose IVPB 100 mls/hr Q8H-IV KJ Administration Protocol Insulin Aspart 1 vial 11/27/18 16:30 12/01/18 12:07 Novolog Vial Sliding Scale - SQ 2 units ACHS KJ Administration Protocol Insulin Detemir 16 units 11/28/18 07:00 12/01/18 06:39 Levemir Vial SQ 16 unit AM KJ Administration Insulin Detemir 50 units 11/27/18 22:00 11/30/18 21:37 Levemir Vial SQ 50 units HS KJ Administration Loratadine 10 mg 11/30/18 13:30 12/01/18 09:41 Claritin - PO 10 mg DAILY KJ Administration Metoprolol Succinate 50 mg 11/28/18 13:26 12/01/18 09:41 Toprol Xl - PO 50 mg BID KJ Administration Nitroglycerin 0.4 mg 11/27/18 14:23 11/28/18 22:16 Nitrostat - SL 0.4 mg Q5M PRN Administration ANGINA [id number] Ethyl Esters 1 gm 11/28/18 10:00 12/01/18 09:42 Lovaza - PO 1 gm DAILY KJ Administration Pantoprazole Sodium 40 mg 11/28/18 10:00 12/01/18 09:41 Protonix - PO 40 mg DAILY KJ Administration Spironolactone 25 mg 11/28/18 10:00 12/01/18 09:40 Aldactone - PO 25 mg DAILY KJ Administration Tamsulosin HCl 0.4 mg 11/27/18 22:00 12/01/18 09:41 Flomax - PO 0.4 mg BID KJ Administration Torsemide 20 mg 11/28/18 10:00 12/01/18 09:41 Demadex - PO 20 mg DAILY KJ Administration Vital Signs: Vital Signs Period Temp Pulse Resp BP Sys/Julio Pulse Ox Last 24 Hr 97.4 F-98.6 F 52-67 18-18 113-142/51-83 99-100 Constitutional: Yes: No Distress, Calm Eyes: Yes: Conjunctiva Clear Neck: Yes: Supple, Trachea Midline Respiratory: Yes: Regular, CTA Bilaterally Gastrointestinal: Yes: Normal Bowel Sounds, Soft Cardiovascular: Yes: Regular Rate and Rhythm JVD: No Heart Sounds: Yes: S1, S2 Murmur: Yes: Systolic Murmur, Grade 3 (systolic crescendo-decrescendo, audible S2) Musculoskeletal: No: Back Pain Extremities: No: Cold Edema: No Integumentary: No: Jaundice Neurological: Yes: Alert, Oriented CBC, BMP 11/30/18 07:00 11/30/18 07:00 Assessment/Plan EKG: sinus, LBBB, PVCs cardiac FDG PET perfusion [facility] [place]: large, severe partially reversible defect anterior and apex, medium , moderate predominantly reversible inferior defect +TID, globally decreased LVSF , EF 28%, myocardium viable throughout Echo 08/2018 [facility] [place] exam limited, no definity used. mod dec LVSF, EF 30-35%nl filling pressures, dd1, nl RV size, mildly decreased RVSF, mod , mod MR L/RHC 11/17 wedge 25, PA 60/25, RA 15, CI 2.1, AV gradient peak 25, mean 18, MADELINE 0.9, ISR of pLAD 70-80%-Xience, remainder unchanged vs prior: VOUCHER CLERK of RCA with large collateral from LCx, mid dstal LA occluded (VOUCHER CLERK) prior to LINDER touchdown, D2 jailed (VOUCHER CLERK), OM1 moderate diffuse dz PAd, R toe osteo -s/p RLE angioplasty -abx per ID -on asa, plavix CAD - s/p PCI (LAURA pLAD with PTCA of ostial diag 12/2011, ISR with CABG 03/2013, cath 05/2013 patient LINDER (30% at anasthamosis site) with good perfusion of distal LAD but anasthamotic clips distal wall and occludes backflow; old VOUCHER CLERK of RCA with collats unchanged) - stable, asymptomatic with plan for further workup and management of CAD, at [facility] [place] as outpt - on aspirin, plavix, metoprolol, statin Chronic systolic HF - euvolemic on aldactone, furosemide, continue HTN - stable on metoprolol HLD - continue statin DM - manage per primary CKD - renal function at baseline anemia - stable, manage per primary cardiac lundy stable
[2018-12-01] MEDS: guaiFENesin/D-M SUGAR-FREE/ACLHOL-FREE 118 ML BOTTLE PO PRN (18:16)
[2018-12-01] MEDS: DONEPEZIL HCL 10 MG TABLET (FP) PO SCH (22:12)
[2018-12-01] MEDS: ATORVASTATIN CA 20 MG TABLET (FP) PO SCH (22:12)
[2018-12-02] MEDS ORDERED: PIPERACILLIN/TAZOBACTAM 2.25 GM VIAL IVPB ONE ×2 (01:02→10:33)
[2018-12-02] MEDS ORDERED: DEXTROSE 5%-WATER - 50 ML IVPB ONE ×2 (01:02→10:34)
[2018-12-02] MEDS: PIPERACILLIN/TAZOB 2.25 GM 2.25 GM in DEXTROSE 5%-WATER - 50 ML IVPB SCH ×2 (01:24→10:47)
[2018-12-02] MEDS: GABAPENTIN 300 MG CAPSULE (FP) PO SCH ×2 (06:39→14:59)
[2018-12-02] MEDS: INSULIN SLIDING SCALE (NOVOLOG) 1 VIAL SQ SCH ×2 (06:40→11:32)
[2018-12-02] MEDS: INSULIN (LEVEMIR) 100 UNITS/ML UNITS SQ SCH (06:40)
[2018-12-02] MEDS ORDERED: PT OWN MED DRAWER 7, Y5N ONE ×2 (10:33→17:43)
[2018-12-02] MEDS: FERROUS SO4 325 MG TABLET (FP) PO SCH (10:43)
[2018-12-02] MEDS: TORSEMIDE 20 MG TABLET (FP) PO SCH (10:43)
[2018-12-02] MEDS: ESCITALOPRAM OXALATE 20 MG TABLET (FP) PO SCH (10:43)
[2018-12-02] MEDS: SPIRONOLACTONE 25 MG TABLET (FP) PO SCH (10:43)
[2018-12-02] MEDS: CHOLECALCIFEROL (VITAMIN D3) 1,000 UNIT TABLET (FP) PO SCH (10:43)
[2018-12-02] MEDS: ASPIRIN COATED 81 MG TABLET.EC PO SCH (10:43)
[2018-12-02] MEDS: TAMSULOSIN HCL 0.4 MG CAP PO SCH (10:43)
[2018-12-02] MEDS: OMEGA-3 ACID ETHYL ESTERS (FATTY-ACIDS) 1 GM CAPSULE (FP) PO SCH (10:44)
[2018-12-02] MEDS: ENOXAPARIN NA (PORCINE) 40 MG/0.4 ML DISP.SYRIN SQ SCH (10:44)
[2018-12-02] MEDS: LORATADINE 10 MG TABLET PO SCH (10:47)
[2018-12-02] MEDS: PANTOPRAZOLE 40 MG TABLET (FP) PO SCH (10:49)
[2018-12-02] MEDS: guaiFENesin/D-M SUGAR-FREE/ACLHOL-FREE 118 ML BOTTLE PO PRN (10:49)
[2018-12-02] MEDS: COLLAGENASE CLOSTRIDIUM HIST. 30 GRAMS TUBE TP SCH (11:32)
--- NOTE | 2018-12-02 11:33 | PN ---
Progress Note, Physician Chief Complaint: toe wound History of Present Illness: no cp here (stable cp pattern at home) no sob, orthopnea no palpit no syncope - Current Medication List Current Medications: Active Medications Acetaminophen (Tylenol -) 650 mg PO Q6H PRN PRN Reason: PAIN LEVEL 1-5 Aspirin (Ecotrin -) 81 mg PO DAILY [facility] Last Admin: 12/02/18 10:43 Dose: 81 mg Atorvastatin Calcium (Lipitor -) 20 mg PO HS [facility] Last Admin: 12/01/18 22:12 Dose: 20 mg Cholecalciferol (Vitamin D3 -) 1,000 unit PO DAILY [facility] Last Admin: 12/02/18 10:43 Dose: 1,000 unit Clopidogrel Bisulfate (Plavix -) 75 mg PO DAILY [facility] Last Admin: 11/28/18 11:10 Dose: 75 mg Collagenase (Santyl -) 1 applic TP DAILY [facility]; Protocol Last Admin: 12/01/18 09:42 Dose: 1 applic Donepezil HCl (Aricept -) 10 mg PO HS [facility] Last Admin: 12/01/18 22:12 Dose: 10 mg Enoxaparin Sodium (Lovenox -) 40 mg SQ DAILY [facility] Last Admin: 12/02/18 10:44 Dose: 40 mg Escitalopram Oxalate (Lexapro -) 20 mg PO DAILY [facility] Last Admin: 12/02/18 10:43 Dose: 20 mg Fentanyl (Sublimaze Injection -) 50 mcg IVPUSH [id number] PRN PRN Reason: PAIN-PACU ORDER X 4 DOSES ONLY Ferrous Sulfate (Feosol -) 325 mg PO DAILY [facility] Last Admin: 12/02/18 10:43 Dose: 325 mg Gabapentin (Neurontin -) 300 mg PO TID [facility] Last Admin: 12/02/18 06:39 Dose: 300 mg Guaifenesin (Diabetic Tussin Dm -) 5 ml PO Q6H PRN PRN Reason: COUGH Last Admin: 12/02/18 10:49 Dose: 5 ml Hydrocortisone (Hytone 0.5% Cream -) 1 applic TP BID PRN PRN Reason: FOR ITCHING Last Admin: 11/30/18 13:32 Dose: 1 applic Vancomycin HCl (Vancomycin (Pre-Docked)) 1,000 mg in 250 mls @ 166.667 mls/hr IVPB DAILY@1500 KJ; Protocol Last Admin: 12/01/18 14:23 Dose: 166.667 mls/hr Piperacillin Sod/Tazobactam (Sod 2.25 gm/ Dextrose) 50 mls @ 100 mls/hr IVPB Q8H-IV [facility]; Protocol Last Admin: 12/02/18 10:47 Dose: 100 mls/hr Insulin Aspart (Novolog Vial Sliding Scale -) 1 vial SQ ACHS [facility]; Protocol Last Admin: 12/02/18 06:40 Dose: 2 units Insulin Detemir (Levemir Vial) 16 units SQ AM [facility] Last Admin: 12/02/18 06:40 Dose: 16 unit Insulin Detemir (Levemir Vial) 50 units SQ HS [facility] Last Admin: 12/01/18 22:15 Dose: 50 units Loratadine (Claritin -) 10 mg PO DAILY [facility] Last Admin: 12/02/18 10:47 Dose: 10 mg Metoprolol Succinate (Toprol Xl -) 50 mg PO BID [facility] Last Admin: 12/02/18 10:47 Dose: 50 mg Nitroglycerin (Nitrostat -) 0.4 mg SL Q5M PRN PRN Reason: ANGINA Last Admin: 11/28/18 22:16 Dose: 0.4 mg [id number] Ethyl Esters (Lovaza -) 1 gm PO DAILY [facility] Last Admin: 12/02/18 10:44 Dose: 1 gm Pantoprazole Sodium (Protonix -) 40 mg PO DAILY [facility] Last Admin: 12/02/18 10:49 Dose: 40 mg Spironolactone (Aldactone -) 25 mg PO DAILY [facility] Last Admin: 12/02/18 10:43 Dose: 25 mg Tamsulosin HCl (Flomax -) 0.4 mg PO BID [facility] Last Admin: 12/02/18 10:43 Dose: 0.4 mg Torsemide (Demadex -) 20 mg PO DAILY [facility] Last Admin: 12/02/18 10:43 Dose: 20 mg - Objective Vital Signs: Vital Signs Temperature 98.5 F 12/02/18 10:00 Pulse Rate 68 12/02/18 10:00 Respiratory Rate 18 12/02/18 10:00 Blood Pressure 125/88 12/02/18 10:00 O2 Sat by Pulse Oximetry (%) 99 12/01/18 21:00 Constitutional: Yes: Well Nourished, No Distress, Calm Cardiovascular: Yes: Regular Rate and Rhythm, Murmur (soft murmur stable vs priors), S1, S2. No: JVD, Gallop Respiratory: Yes: Regular, CTA Bilaterally. No: Accessory Muscle Use, Rales, Wheezes Extremities: No: Cold Edema: No Neurological: Yes: Alert, Oriented Psychiatric: No: Agitated Labs: CBC, BMP 11/30/18 07:00 11/30/18 07:00 INR, PTT INR 1.15 (0.83-1.09) H 11/20/18 21:00 Assessment/Plan EKG: sinus, LBBB, PVCs cardiac FDG PET perfusion [facility] [place] 10/2018: large, severe partially reversible defect anterior and apex, medium , moderate predominantly reversible inferior defect +TID, globally decreased LVSF , EF 28%, myocardium viable throughout Echo 08/2018 [facility] [place] exam limited, no definity used. mod dec LVSF, EF 30-35%nl filling pressures, dd1, nl RV size, mildly decreased RVSF, mod , mod MR L/RHC 11/17 wedge 25, PA 60/25, RA 15, CI 2.1, AV gradient peak 25, mean 18, MADELINE 0.9, ISR of pLAD 70-80%-Xience, remainder unchanged vs prior: DATA ARCHITECT MANAGER of RCA with large collateral from LCx, mid dstal LA occluded (DATA ARCHITECT MANAGER) prior to LINDER touchdown, D2 jailed (DATA ARCHITECT MANAGER), OM1 moderate diffuse dz severe, diffuse PAD, R toe osteo -s/p RLE angioplasty -abx per ID -on asa, plavix CAD - s/p PCI (LAURA pLAD with PTCA of ostial diag 12/2011, ISR with CABG 03/2013, cath 05/2013 patient LINDER (30% at anasthamosis site) with good perfusion of distal LAD but anasthamotic clips distal wall and occludes backflow; old DATA ARCHITECT MANAGER of RCA with collats unchanged) - stable, asymptomatic with plan for further workup and management of CAD, at [facility] [place] as outpt - on aspirin, plavix, metoprolol, statin Chronic systolic HF - euvolemic on aldactone, furosemide--continue home regimen HTN - stable on metoprolol HLD - continue statin DM - manage per primary CKD - renal function at baseline anemia - stable, manage per primary
[2018-12-02] MEDS ORDERED: ALBUTEROL SO4 2.5/IPRATROPIUM 0.5 INH SOL 3 ML VIAL.NEB. NEB PRN (12:39)
[2018-12-02] MEDS ORDERED: guaiFENesin/D-M SUGAR-FREE/ACLHOL-FREE 118 ML BOTTLE PO PRN (12:47)
--- NOTE | 2018-12-02 12:47 | PN ---
Progress Note, Physician Chief Complaint: AWAKE ALERT IN A GOOD MOOD COUGHING AND WHEEZING - Current Medication List Current Medications: Active Medications Acetaminophen (Tylenol -) 650 mg PO Q6H PRN PRN Reason: PAIN LEVEL 1-5 Albuterol/Ipratropium (Duoneb -) 1 amp NEB Q6H PRN PRN Reason: SHORTNESS OF BREATH Aspirin (Ecotrin -) 81 mg PO DAILY [facility] Last Admin: 12/02/18 10:43 Dose: 81 mg Atorvastatin Calcium (Lipitor -) 20 mg PO HS [facility] Last Admin: 12/01/18 22:12 Dose: 20 mg Cholecalciferol (Vitamin D3 -) 1,000 unit PO DAILY [facility] Last Admin: 12/02/18 10:43 Dose: 1,000 unit Clopidogrel Bisulfate (Plavix -) 75 mg PO DAILY [facility] Last Admin: 11/28/18 11:10 Dose: 75 mg Collagenase (Santyl -) 1 applic TP DAILY [facility]; Protocol Last Admin: 12/02/18 11:32 Dose: 1 applic Donepezil HCl (Aricept -) 10 mg PO HS [facility] Last Admin: 12/01/18 22:12 Dose: 10 mg Enoxaparin Sodium (Lovenox -) 40 mg SQ DAILY [facility] Last Admin: 12/02/18 10:44 Dose: 40 mg Escitalopram Oxalate (Lexapro -) 20 mg PO DAILY [facility] Last Admin: 12/02/18 10:43 Dose: 20 mg Fentanyl (Sublimaze Injection -) 50 mcg IVPUSH [id number] PRN PRN Reason: PAIN-PACU ORDER X 4 DOSES ONLY Ferrous Sulfate (Feosol -) 325 mg PO DAILY [facility] Last Admin: 12/02/18 10:43 Dose: 325 mg Gabapentin (Neurontin -) 300 mg PO TID [facility] Last Admin: 12/02/18 06:39 Dose: 300 mg Guaifenesin (Diabetic Tussin Dm -) 5 ml PO Q6H PRN PRN Reason: COUGH Last Admin: 12/02/18 10:49 Dose: 5 ml Hydrocortisone (Hytone 0.5% Cream -) 1 applic TP BID PRN PRN Reason: FOR ITCHING Last Admin: 11/30/18 13:32 Dose: 1 applic Vancomycin HCl (Vancomycin (Pre-Docked)) 1,000 mg in 250 mls @ 166.667 mls/hr IVPB DAILY@1500 [facility]; Protocol Last Admin: 12/01/18 14:23 Dose: 166.667 mls/hr Piperacillin Sod/Tazobactam (Sod 2.25 gm/ Dextrose) 50 mls @ 100 mls/hr IVPB Q8H-IV [facility]; Protocol Last Admin: 12/02/18 10:47 Dose: 100 mls/hr Insulin Aspart (Novolog Vial Sliding Scale -) 1 vial SQ ACHS [facility]; Protocol Last Admin: 12/02/18 11:32 Dose: 4 units Insulin Detemir (Levemir Vial) 16 units SQ AM [facility] Last Admin: 12/02/18 06:40 Dose: 16 unit Insulin Detemir (Levemir Vial) 50 units SQ HS [facility] Last Admin: 12/01/18 22:15 Dose: 50 units Loratadine (Claritin -) 10 mg PO DAILY [facility] Last Admin: 12/02/18 10:47 Dose: 10 mg Metoprolol Succinate (Toprol Xl -) 50 mg PO BID [facility] Last Admin: 12/02/18 10:47 Dose: 50 mg Nitroglycerin (Nitrostat -) 0.4 mg SL Q5M PRN PRN Reason: ANGINA Last Admin: 11/28/18 22:16 Dose: 0.4 mg [id number] Ethyl Esters (Lovaza -) 1 gm PO DAILY [facility] Last Admin: 12/02/18 10:44 Dose: 1 gm Pantoprazole Sodium (Protonix -) 40 mg PO DAILY [facility] Last Admin: 12/02/18 10:49 Dose: 40 mg Spironolactone (Aldactone -) 25 mg PO DAILY [facility] Last Admin: 12/02/18 10:43 Dose: 25 mg Tamsulosin HCl (Flomax -) 0.4 mg PO BID [facility] Last Admin: 12/02/18 10:43 Dose: 0.4 mg Torsemide (Demadex -) 20 mg PO DAILY [facility] Last Admin: 12/02/18 10:43 Dose: 20 mg - Objective Vital Signs: Vital Signs Temperature 98.5 F 12/02/18 10:00 Pulse Rate 68 12/02/18 10:00 Respiratory Rate 18 12/02/18 10:00 Blood Pressure 125/88 12/02/18 10:00 O2 Sat by Pulse Oximetry (%) 99 12/01/18 21:00 Constitutional: Yes: Mild Distress Eyes: Yes: WNL HENT: Yes: WNL Neck: Yes: WNL Cardiovascular: Yes: Murmur, S2 Respiratory: Yes: Wheezes Gastrointestinal: Yes: Abdomen, Obese Genitourinary: Yes: WNL Musculoskeletal: Yes: Muscle Weakness Extremities: Yes: Deformity Edema: Yes Edema: LLE: Trace, RLE: Trace Peripheral Pulses WNL: Yes Integumentary: Yes: Pressure Ulcer, Other Wound/Incision: Yes: Dressing Dry and Intact Neurological: Yes: Pre-Existing Deficit ...Motor Strength: LLE, RLE Psychiatric: Yes: WNL Labs: CBC, BMP 11/30/18 07:00 11/30/18 07:00 INR, PTT INR 1.15 (0.83-1.09) H 11/20/18 21:00 Problem List - Problems (1) Diabetic foot infection Code(s): E11.628 - TYPE 2 DIABETES MELLITUS WITH OTHER SKIN COMPLICATIONS; L08.9 - LOCAL INFECTION OF THE SKIN AND SUBCUTANEOUS TISSUE, UNSP (2) Anemia Code(s): D64.9 - ANEMIA, UNSPECIFIED (3) 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 transplanted heart: [place] heart Associated angina: with unstable angina Qualified Code(s): I25.110 - Atherosclerotic heart disease of [place] coronary artery with unstable angina pectoris (5) CKD (chronic kidney disease) Code(s): N18.9 - CHRONIC KIDNEY DISEASE, UNSPECIFIED (6) HTN (hypertension) Code(s): I10 - ESSENTIAL (PRIMARY) HYPERTENSION Qualifiers: Hypertension type: essential hypertension Qualified Code(s): I10 - Essential (primary) hypertension (7) Hyperlipidemia Code(s): E78.5 - HYPERLIPIDEMIA, UNSPECIFIED Qualifiers: Hyperlipidemia type: unspecified hyperlipidemia (8) Type 2 diabetes mellitus with foot ulcer Code(s): E11.621 - TYPE 2 DIABETES MELLITUS WITH FOOT ULCER; L97.509 - NON- PRESSURE CHRONIC ULCER OTH PRT UNSP FOOT W UNSP SEVERITY Assessment/Plan CXR/BNP/LABS ORDERED NEBS STARTED COUGH SYRUP AWAIT RESULTS WILL NEED BEDSIDE SPIROMETRY OOB TO CHAIR TUNNEL CATH IN PLACE DC HOME IV ABX/HYPERBARIC CHAMBER
[2018-12-02 13:06] LABS: HEMOGLOBIN 9.5 GM/dL (11.7-16.9); MCHC 32.8 g/dl (32.0-35.9); MEAN CELL VOLUME 88.4 fl (80-96); MEAN PLT VOLUME 6.8 fl (7.5-11.1); PLATELET COUNT 137 K/MM3 (134-434); RBC 3.28 M/mm3 (4.00-5.60); RDW 19.4 % (11.9-15.9); WHITE BLOOD COUNT 5.2 K/mm3 (4.0-10.0)
[2018-12-02 13:40] LABS: ANION GAP 7 MMOL/L (8-16); BLOOD UREA NITROGEN 24 mg/dL (7-18); CALCIUM 8.3 mg/dL (8.5-10.1); CHLORIDE 101 mmol/L (98-107); CO2 28 mmol/L (21-32); CREATININE 2.2 mg/dL (0.55-1.3); GLUCOSE,RANDOM 192 mg/dL (74-106); N-TERMINAL BNP 2778.7 pg/ml (5-450); POTASSIUM 4.4 mmol/L (3.5-5.1); SODIUM 136 mmol/L (136-145)
[2018-12-02] MEDS ORDERED: SODIUM CHLORIDE NASAL SPRAY 44 ML BOTTLE NS PRN (14:03)
[2018-12-02] MEDS: VANCOMYCIN 1 GRAM (PRE-DOCKED) 1,000 MG/250 ML BAG IVPB SCH (14:59)
[2018-12-02 18:18] VITALS: BP 140/56; PULSE 62; TEMP 97.7
[2018-12-02] MEDS ORDERED: FLUTICASONE PROP 0.05% 16 GM NASAL SPRAY NS SCH (22:00)
== END 2018-12-02 18:30 | disposition home or self-care (01) | DRG 253 ==
LOC: JER 15:50 → JERBED 22:06 → J8W 11-21 09:40
PROVIDERS: ADMIT Internal Medicine; ATTEND Family Medicine
PROC: 0QBQ3ZX Excision of Right Toe Phalanx, Percutaneous Approach, Diagnostic (ICD-10-PCS; principal; 2018-11-23)
PROC: 047R3ZZ Dilation of Right Posterior Tibial Artery, Percutaneous Approach (ICD-10-PCS; 2018-11-27)
PROC: B40DYZZ Plain Radiography of Aorta and Bilateral Lower Extremity Arteries using Other Contrast (ICD-10-PCS; 2018-11-27)
PROC: 05HM33Z Insertion of Infusion Device into Right Internal Jugular Vein, Percutaneous Approach (ICD-10-PCS; 2018-12-01)
PROC: B513ZZA Fluoroscopy of Right Jugular Veins, Guidance (ICD-10-PCS; 2018-12-01)
DX: E11.52 Type 2 diabetes mellitus with diabetic peripheral angiopathy with gangrene (principal); I50.22 Chronic systolic (congestive) heart failure; I13.0 Hypertensive heart and chronic kidney disease with heart failure and stage 1 through stage 4 chronic kidney disease, or unspecified chronic kidney disease; I96 Gangrene, not elsewhere classified; M86.9 Osteomyelitis, unspecified; E11.69 Type 2 diabetes mellitus with other specified complication; L08.9 Local infection of the skin and subcutaneous tissue, unspecified; I25.10 Atherosclerotic heart disease of native coronary artery without angina pectoris; N18.3 Chronic kidney disease, stage 3 (moderate); E11.22 Type 2 diabetes mellitus with diabetic chronic kidney disease; Z98.61 Coronary angioplasty status; Z95.1 Presence of aortocoronary bypass graft; K21.9 Gastro-esophageal reflux disease without esophagitis; D64.9 Anemia, unspecified; E78.5 Hyperlipidemia, unspecified; E11.21 Type 2 diabetes mellitus with diabetic nephropathy; E11.621 Type 2 diabetes mellitus with foot ulcer; L97.519 Non-pressure chronic ulcer of other part of right foot with unspecified severity; I74.3 Embolism and thrombosis of arteries of the lower extremities
CPT/HCPCS: 36415; 36558; 71045-TC-FY; 73630-TC-RT-FY; 73721-RT-TC; 76000-TC-FY; 77001-TC-FY; 80048; 80053; 82272; 82550; 82607; 82728; 82962; 83036; 83540; 83550; 83735; 83880; 84100; 84439; 84443; 84484; 85025; 85027; 85610; 85651; 85730; 86140; 86850; 86900; 86901; 87040; 87070; 87075; 87186; 87205; 88305-TC; 88311-TC; 90688; 93005; 93010; 93922; 93925-TC; 94010; 94640; 94760; 99285-25; C1751; G0008; G0463-25; G0480; J1644; J7030

== ENCOUNTER 2018-12-03 11:46 | Day surgery (SDC) | payer OTHER ==
[2018-12-03] MEDS ORDERED: VANCOMYCIN 1,250 MG in SODIUM CHLORIDE 250 ML IVPB ONE (13:00)
[2018-12-03 15:29] VITALS: BP 109/61; PULSE 60; TEMP 98
== END 2018-12-03 15:15 | disposition home or self-care (01) ==
LOC: JINFUSION 11:46
PROVIDERS: ATTEND Family Medicine
DX: E11.69 Type 2 diabetes mellitus with other specified complication (principal); M86.9 Osteomyelitis, unspecified; E11.21 Type 2 diabetes mellitus with diabetic nephropathy; E78.5 Hyperlipidemia, unspecified; I25.2 Old myocardial infarction; I25.10 Atherosclerotic heart disease of native coronary artery without angina pectoris; I13.0 Hypertensive heart and chronic kidney disease with heart failure and stage 1 through stage 4 chronic kidney disease, or unspecified chronic kidney disease; K21.9 Gastro-esophageal reflux disease without esophagitis; D63.8 Anemia in other chronic diseases classified elsewhere; Z95.5 Presence of coronary angioplasty implant and graft; Z95.1 Presence of aortocoronary bypass graft; Z86.73 Personal history of transient ischemic attack (TIA), and cerebral infarction without residual deficits
CPT/HCPCS: 96365; 96366

== ENCOUNTER 2018-12-04 09:45 | Day surgery (SDC) | payer OTHER ==
[2018-12-04] MEDS ORDERED: VANCOMYCIN 1,250 MG in SODIUM CHLORIDE 250 ML IVPB ONE (11:15)
[2018-12-04 13:54] VITALS: PULSE 88; TEMP 98.1
[2018-12-04 15:28] VITALS: BP 112/60
--- NOTE | 2018-12-04 19:49 | PN ---
Progress Note, Physician Chief Complaint: FUV right big toe. Had HBO tx today. Had issues with his ears. History of Present Illness: Necrotic eschar right big toe. PVD. - Objective Vital Signs: Vital Signs Temperature 98.1 F 12/04/18 13:48 Pulse Rate 88 12/04/18 13:48 Respiratory Rate 22 H 12/04/18 13:48 Blood Pressure 112/60 12/04/18 13:48 O2 Sat by Pulse Oximetry (%) Extremities: Yes: Other (+grade 2-3 wound right hallux, +pvd, -drainage, -mal odor, 1.5x2.3x0.3cm in size) Assessment/Plan pvd eschar grade 2-3 wound om? Wound debrided to minimal bleeding using a scalpel blade. Puraply applied. Dressing applied. Needs to get Cardiac clearance and ENT clearance to continue HBO. PTR 1 week. If cleared can continue HBO. Call if any problems or questions. present throughout visit.
--- NOTE | 2018-12-08 13:45 | PATH ---
Surgical Pathology Report Patient Name: PAULETTE ARNOLD [facility]. Rec. #: [id number] /Age/Gender: 1940 (Age: 77) / M Account: [id number] Location: INFUSION Taken: 12/04/2018 Received: 12/05/2018 Reported: 12/08/2018 Physicians: Kenny Steven DPM Specimen(s) Received RIGHT MEDIAL GREAT TOE (1ST DIGIT) Clinical History History of osteomyelitis, DFU, angiogram angioplasty Final Diagnosis RIGHT MEDIAL GREAT TOE (1ST DIGIT), EXCISION: FIBROADIPOSE TISSUE WITH GANGRENOUS NECROSIS, ACUTE INFLAMMATION, AND ABSCESS FORMATION. Electronically Signed Giles Levy M.D. Gross Description Received in formalin, labeled "right great medial toe first digit," is a 1.7 x 1.1 cm maddox skin shave. The base is inked blue and the specimen is serially sectioned. The specimen is entirely submitted in one cassette. /12/05/2018 saudi12/05/2018
== END 2018-12-04 13:35 | disposition home or self-care (01) ==
LOC: JINFUSION 09:45 → JASU-ENDO 09:45 → JWC 13:35
PROVIDERS: ATTEND Family Medicine
DX: E11.69 Type 2 diabetes mellitus with other specified complication (principal); M86.9 Osteomyelitis, unspecified; Z79.4 Long term (current) use of insulin; I10 Essential (primary) hypertension
CPT/HCPCS: 11042; 15275; 82962; 88304-TC; 96365; 96366; G0277; Q4196

== ENCOUNTER 2018-12-05 10:13 | Day surgery (SDC) | payer OTHER ==
[~2018-12-05 10:13] MED LIST: VANCOMYCIN 1,250 MG in SODIUM CHLORIDE 250 ML IVPB ONE
[2018-12-05 11:06] VITALS: TEMP 97.6
[2018-12-05 13:10] VITALS: BP 98/63; PULSE 65
== END 2018-12-05 13:13 | disposition home or self-care (01) ==
LOC: JINFUSION 10:13
PROVIDERS: ATTEND Family Medicine
DX: E11.69 Type 2 diabetes mellitus with other specified complication (principal); M86.9 Osteomyelitis, unspecified; E11.21 Type 2 diabetes mellitus with diabetic nephropathy; E87.1 Hypo-osmolality and hyponatremia; I25.10 Atherosclerotic heart disease of native coronary artery without angina pectoris; I25.2 Old myocardial infarction; I13.0 Hypertensive heart and chronic kidney disease with heart failure and stage 1 through stage 4 chronic kidney disease, or unspecified chronic kidney disease; K21.9 Gastro-esophageal reflux disease without esophagitis; D63.8 Anemia in other chronic diseases classified elsewhere; Z95.5 Presence of coronary angioplasty implant and graft; Z95.1 Presence of aortocoronary bypass graft; Z86.73 Personal history of transient ischemic attack (TIA), and cerebral infarction without residual deficits
CPT/HCPCS: 96365; 96366; G0480

== ENCOUNTER 2018-12-06 09:31 | Day surgery (SDC) | payer OTHER ==
[2018-12-06 09:49] VITALS: TEMP 97.4
[2018-12-06] MEDS ORDERED: VANCOMYCIN 1,250 MG in DEXTROSE 5%-WATER - 250 ML IVPB ONE (10:15)
[2018-12-06] MEDS ORDERED: VANCOMYCIN 1,250 MG in SODIUM CHLORIDE 250 ML IVPB ONE (10:15)
[2018-12-06 13:28] VITALS: BP 133/76; PULSE 66
== END 2018-12-06 13:32 | disposition home or self-care (01) ==
LOC: JINFUSION 09:31 → J7W 09:31 → JINFUSION 13:32
PROVIDERS: ATTEND Family Medicine
DX: E11.69 Type 2 diabetes mellitus with other specified complication (principal); M86.9 Osteomyelitis, unspecified; E11.21 Type 2 diabetes mellitus with diabetic nephropathy; E87.1 Hypo-osmolality and hyponatremia; I25.10 Atherosclerotic heart disease of native coronary artery without angina pectoris; I25.2 Old myocardial infarction; I13.0 Hypertensive heart and chronic kidney disease with heart failure and stage 1 through stage 4 chronic kidney disease, or unspecified chronic kidney disease; K21.9 Gastro-esophageal reflux disease without esophagitis; D63.8 Anemia in other chronic diseases classified elsewhere; Z95.5 Presence of coronary angioplasty implant and graft; Z95.1 Presence of aortocoronary bypass graft; Z86.73 Personal history of transient ischemic attack (TIA), and cerebral infarction without residual deficits
CPT/HCPCS: 96365; 96366

== ENCOUNTER 2018-12-07 09:39 | Day surgery (SDC) | payer OTHER ==
[2018-12-07 09:59] VITALS: TEMP 98
[2018-12-07] MEDS ORDERED: VANCOMYCIN 1,250 MG in DEXTROSE 5%-WATER - 250 ML IVPB ONE (10:00)
[2018-12-07] MEDS ORDERED: VANCOMYCIN 1,250 MG in DEXTROSE 5%-WATER - 500 ML IVPB ONE (10:00)
[2018-12-07] MEDS ORDERED: ACETAMINOPHEN 325 MG TABLET (FP) PO ONE (10:15)
[2018-12-07 13:11] VITALS: BP 110/53; PULSE 57
--- NOTE | 2018-12-07 13:13 | PN ---
Progress Note (short form) - Note Progress Note: Son texted me at 12 noon to discuss fathers care. Came to hospital and met on 7th floor. Discussed tubes in ears scheduled for tomorrow, IVABX, HBO tx and need for cadiologist to see patient for cardiac situation. Son and father understood. Will see in wound care. Call me if any other problems or questions.
== END 2018-12-07 13:12 | disposition home or self-care (01) ==
LOC: JINFUSION 09:39 → J7W 09:40 → JINFUSION 13:12
PROVIDERS: ATTEND Family Medicine
DX: E11.69 Type 2 diabetes mellitus with other specified complication (principal); M86.9 Osteomyelitis, unspecified; I10 Essential (primary) hypertension; Z79.4 Long term (current) use of insulin
CPT/HCPCS: 96365; 96366

== ENCOUNTER 2018-12-08 10:33 | Day surgery (SDC) | payer OTHER ==
[~2018-12-08 10:33] MED LIST changes: +VANCOMYCIN 1,250 MG in DEXTROSE 5%-WATER - 250 ML IVPB ONE
[2018-12-08 13:37] VITALS: TEMP 97.5
[2018-12-08 15:27] VITALS: BP 124/56; PULSE 60
== END 2018-12-08 15:35 | disposition home or self-care (01) ==
LOC: JINFUSION 10:33
PROVIDERS: ATTEND Family Medicine
DX: E11.69 Type 2 diabetes mellitus with other specified complication (principal); M86.9 Osteomyelitis, unspecified; I10 Essential (primary) hypertension; Z79.4 Long term (current) use of insulin
CPT/HCPCS: 82962; 96365; 96366; G0277

== ENCOUNTER 2018-12-09 08:34 | Day surgery (SDC) | payer OTHER ==
[2018-12-09] MEDS ORDERED: VANCOMYCIN 1,250 MG in DEXTROSE 5%-WATER - 250 ML IVPB ONE (10:00)
[2018-12-09] MEDS ORDERED: VANCOMYCIN 1,250 MG in SODIUM CHLORIDE 250 ML IVPB ONE (10:00)
[2018-12-09 10:44] LABS: HEMOGLOBIN 9.8 GM/dL (11.7-16.9); MCH 30.3 pg (25.7-33.7); MCHC 34.9 g/dl (32.0-35.9); MEAN CELL VOLUME 86.7 fl (80-96); PLATELET COUNT 182 K/MM3 (134-434); RBC 3.23 M/mm3 (4.00-5.60); RDW 18.9 % (11.9-15.9); WHITE BLOOD COUNT 6.5 K/mm3 (4.0-10.0)
[2018-12-09 11:19] LABS: ALBUMIN 3.3 g/dl (3.4-5.0); ALK PHOS 72 U/L (45-117); ANION GAP 3 MMOL/L (8-16); BLOOD UREA NITROGEN 37 mg/dL (7-18); CALCIUM 8.9 mg/dL (8.5-10.1); CHLORIDE 100 mmol/L (98-107); CO2 31 mmol/L (21-32); CREATININE 2.3 mg/dL (0.55-1.3); GLUCOSE,RANDOM 260 mg/dL (74-106); POTASSIUM 4.9 mmol/L (3.5-5.1); SGOT/AST 11 U/L (15-37); SGPT/ALT 25 U/L (13-61); SODIUM 134 mmol/L (136-145); TOT PROT 6.6 g/dl (6.4-8.2)
[2018-12-09 11:47] VITALS: TEMP 97.8
[2018-12-09 13:37] VITALS: BP 112/65; PULSE 70
== END 2018-12-09 13:37 | disposition home or self-care (01) ==
LOC: JINFUSION 08:34
PROVIDERS: ATTEND Family Medicine
DX: E11.69 Type 2 diabetes mellitus with other specified complication (principal); M86.9 Osteomyelitis, unspecified; I10 Essential (primary) hypertension; Z79.4 Long term (current) use of insulin
CPT/HCPCS: 36415; 80053; 82962; 85027; 96365; 96366; G0277; G0480

== ENCOUNTER 2018-12-10 10:42 | Observation (INO) | payer OTHER ==
[2018-12-10] MEDS ORDERED: ASPIRIN 81 MG CHEWABLE TABLETS PO ONE (10:57)
--- NOTE | 2018-12-10 10:57 | PDOC ---
History of Present Illness - General History Source: Patient Exam Limitations: No Limitations <Marium Yanez - Last Filed: 12/10/18 14:41> - General History Source: Patient, Spouse Exam Limitations: No Limitations <Alaina Carrasquillo - Last Filed: 12/10/18 14:44> - General Chief Complaint: Chest Pain Stated Complaint: Chest Pain Time Seen by Provider: 12/10/18 10:52 - History of Present Illness Initial Comments: 12/10/18 12:34 The patient is 77 year old male with a significant past medical history of dementia, TIA, anemia, PAD, CAD s/p CABG and PCI, CKD, HTN, HLD, CHF, DM2, diabetic foot ulcer c/b osteomyelitis, on 5 week therapy of IV vancomycin and hyperbaric Tx, who presents to the emergency department with 3 days of midsternal chest pain and a several week history of dyspnea on exertion with associated lightheadedness. The patient states he developed his burning chest pain to the middle of his chest yesterday and reportedly used 3 nitros throughout the course of the day which alleviated his chest pain. He reports the chest pain is localized and not associated with pleuritic pain or diaphoresis. He states he has taken 3 nitros today for his chest pain which offered temporary relief. The patient denies headache and dizziness. The patient denies fever, chills, nausea, vomit, diarrhea and constipation. The patient denies dysuria, frequency , urgency and hematuria. Allergies: ranolazine Past surgical history: CABG, stents x4, appendectomy Social history: denies toxic habits PCP - Dr. Staples Pulm: Dr. Norwood Cards: Dr. Delarosa GI/Renal: Dr. Brown Vascular: Dr. Jasso Podiatry: Dr. Steven (Alaina Carrasquillo) Past History - Past Medical History Anemia: Yes Asthma: No Cardiac Disorders: Yes (Bypass 03/03/13,Cath with Stents 09/2015) COPD: No CHF: No Dementia: Yes Diabetes: Yes GI Disorders: Yes (Reflux) Disorders: Yes HTN: Yes Hypercholesterolemia: Yes - Surgical History Cardiac Surgery: Yes (Stents) - Immunization History Immunization Up to Date: No - Suicide/Smoking/Psychosocial Hx Smoking Status: No Smoking History: Never smoked Have you smoked in the past 12 months: No Number of Cigarettes Smoked Daily: 0 Hx Alcohol Use: No Drug/Substance Use Hx: No Substance Use Type: None Hx Substance Use Treatment: No <Marium Yanezharsha - Last Filed: 12/10/18 14:41> <Alaina Carrasquillo - Last Filed: 12/10/18 14:44> - Past Medical History Allergies/Adverse Reactions: Allergies Allergy/AdvReac Type Severity Reaction Status Date / Time ranolazine [From Ranexa] AdvReac Intermediate Hallucinati Verified 12/10/18 10: 46 ons Home Medications: Ambulatory Orders Nitroglycerin 0.6 mg SL ASDIR 07/24/17 Atorvastatin Calcium 20 mg PO DAILY #30 tablet 12/01/18 Cholecalciferol (Vitamin D3) [Vitamin D3] 1,000 unit PO DAILY 30 Days #30 tablet 12/01/18 Collagenase Clostridium Hist. [Santyl] 1 applic TP DAILY #90 oint...g. 12/01/18 Donepezil HCl [Aricept] 10 mg PO DAILY 30 Days #30 tablet 12/01/18 Escitalopram Oxalate [Lexapro -] 20 mg PO DAILY 30 Days #30 tablet 12/01/18 Ferrous Sulfate 325 mg PO DAILY 30 Days #30 tab 12/01/18 Insulin Glargine,Hum.rec.anlog [Lantus Solostar PEN -] 16 units SQ AM 30 Days # 16 ins 12/01/18 Loratadine [Claritin -] 10 mg PO DAILY 14 Days #14 tablet 12/01/18 Metoprolol Succinate [Toprol Xl] 50 mg PO BID 30 Days #30 tab.er.24h 12/01/18 Nitroglycerin [Nitrostat] 0.4 mg SL ASDIR 30 Days #30 tab.subl 12/01/18 [place]-3 Acid Ethyl Esters [Lovaza -] 1 gm PO DAILY 30 Days #30 cap 12/01/18 Pantoprazole Sodium [Protonix] 40 mg PO DAILY 30 Days #30 tablet.dr 12/01/18 Spironolactone 25 mg PO DAILY 30 Days #30 tablet 12/01/18 Tamsulosin HCl [Flomax] 0.4 mg PO BID 30 Days #30 capsule 12/01/18 Torsemide [Demadex -] 20 mg PO DAILY 30 Days #30 tablet 12/01/18 Aspirin Coated [Ecotrin -] 81 mg PO DAILY tablet.ec 12/02/18 Clopidogrel Bisulfate [Plavix -] 75 mg PO DAILY tablet 12/02/18 Review of Systems <Marium Yanez Jerson - Last Filed: 12/10/18 14:41> - Review of Systems Able to Perform ROS?: Yes <Alaina Carrasquillo - Last Filed: 12/10/18 14:44> - Review of Systems Comments:: 12/10/18 12:34 GENERAL/CONSTITUTIONAL: No fever or chills. No weakness. no sweats. HEAD, EYES, EARS, NOSE AND THROAT: No change in vision or hearing. No ear pain or discharge. No sore throat or mouth pain. No difficulty swallowing. No congestion. CARDIOVASCULAR: (+) chest pain. lightheaded.No palpitations, syncope or edema. RESPIRATORY: (+) SOB, MORALES. cough. No wheezing, or hemoptysis. GASTROINTESTINAL No nausea/vomiting. No diarrhea or constipation. No bloody stools. GENITOURINARY: No hematuria, dysuria, frequency, urgency or other changes. MUSCULOSKELETAL: No joint or muscle swelling or pain. No neck or back pain. SKIN: No rash or changes in skin color or lesions. NEUROLOGIC: No headache, vertigo, loss of consciousness, or change in strength/ sensation. No gait instability. HEMATOLOGIC/LYMPHATIC: +anemia, no easy bruising/bleeding, or history of blood clots. ALLERGIC/IMMUNOLOGIC: No allergies All other systems reviewed and negative, or as documented in HPI. (Alaina Carrasquillo) *Physical Exam <Naveen Yanezstephanie Arthur - Last Filed: 12/10/18 14:41> <Alaina Carrasquillo - Last Filed: 12/10/18 14:44> - Vital Signs Last Vital Signs Temp Pulse Resp BP Pulse Ox 97.5 F L 64 22 H 104/58 L 97 12/10/18 10:46 12/10/18 12:48 12/10/18 12:48 12/10/18 12:48 12/10/18 12:48 - Physical Exam Comments: 12/10/18 12:35 General: Well appearing, awake and alert, NAD. HEENT: NCAT, PERRL, EOMI, clear conjunctiva, anicteric, moist mucus membranes, clear oropharynx, no oral lesions.. Neck: neck supple, FROM Resp: CTAB, normal and even respirations, no respiratory distress CVS:(+) blowing diastolic murmur. RRR, 2+ peripheral pulses throughout, no peripheral edema Abdomen: soft, NTND, no rebound or guarding. No CVAT. Back: nontender, normal inspection and ROM MSK: (+) right foot in boot and bandage, no edema, FLOWERS x4, ROM intact. No clubbing or cyanosis. normal bulk and tone. Neuro:alert, oriented appropriately; no focal neurologic deficits Skin: warm and well perfused, cap refill <2 sec, normal color (Alaina Carrasquillo) Heart Score/ECG Review - History History: Moderately suspicious - Electrocardiogram EKG: Significant ST-depression - Age Age: >/= 65 - Risk Factors Risk Factors Heart Score: Yes Hx Hypercholesterolemia, Yes Hx Hypertension, Yes Hx Diabetes Based on the list above the patient has:: >/=3 risk factors or Hx atherosclerotic disease - Troponin Troponin: </= normal limit - Score Heart Score - Total: 7 - ECG Impressions Normal ECG: No <Marium Yanez - Last Filed: 12/10/18 14:41> <Alaina Carrasquillo - Last Filed: 12/10/18 14:44> - ECG Impressions Comment:: 12/10/18 13:04 EKG normal sinus rhythm, no interval abnormalities, LBBB, wide QRS. Nonspecific T wave abnormalities with ST depressions more pronounced in V5-6. similar EKG to prior. (Marium Yanez) - Procedure Monitoring Vital Signs: Procedure Monitoring Vital Signs Temperature 97.5 F L 12/10/18 10:46 Pulse Rate 64 12/10/18 12:48 Respiratory Rate 22 H 12/10/18 12:48 Blood Pressure 104/58 L 12/10/18 12:48 O2 Sat by Pulse Oximetry (%) 97 12/10/18 12:48 ED Treatment Course - LABORATORY CBC & Chemistry Diagram: 12/10/18 11:15 12/10/18 11:15 <Marium Yanez - Last Filed: 12/10/18 14:41> - LABORATORY CBC & Chemistry Diagram: 12/10/18 11:15 12/10/18 11:15 <Alaina Carrasquillo - Last Filed: 12/10/18 14:44> - ADDITIONAL ORDERS Additional order review: Laboratory Results 12/10/18 12/10/18 11:15 11:15 PT with INR 13.70 H INR 1.16 H Sodium 135 L Potassium 5.1 Chloride 100 Carbon Dioxide 28 Anion Gap 7 L BUN 45 H Creatinine 2.6 H Creat Clearance w eGFR 24.05 Random Glucose 348 H* Calcium 8.5 Magnesium 1.8 Total Bilirubin 0.6 AST 10 L ALT 23 Alkaline Phosphatase 74 Troponin I 0.02 Total Protein 6.7 Albumin 3.3 L 12/10/18 11:15 RBC 3.09 L MCV 86.4 MCHC 34.8 RDW 19.2 H MPV 7.1 L Neutrophils % 76.7 Lymphocytes % 12.2 Monocytes % 6.4 Eosinophils % 3.8 Basophils % 0.9 - Medications Given in the ED: ED Medications Discontinued Medications Generic Name Dose Route Start Last Admin Trade Name Freq PRN Reason Stop Dose Admin Acetaminophen 975 mg 12/10/18 14:23 12/10/18 14:30 Tylenol - PO 12/10/18 14:24 975 mg ONCE ONE Administration Aspirin 162 mg 12/10/18 10:57 12/10/18 11:08 Asa - PO 12/10/18 10:58 162 mg ONCE ONE Administration Vancomycin HCl 1,000 mg/ 250 mls @ 250 mls/2 hr 12/10/18 11:28 12/10/18 11:53 Dextrose IVPB 12/10/18 13:27 250 mls/2 hr ONCE ONE Administration Protocol Sodium Chloride 500 ml 12/10/18 12:16 12/10/18 12:20 Normal Saline - IV 12/10/18 12:17 500 ml ONCE ONE Administration Medical Decision Making <Marium Yanez - Last Filed: 12/10/18 14:41> <Alaina Carrasquillo - Last Filed: 12/10/18 14:44> - Medical Decision Making 12/10/18 12:30 I, Marium Yanez MD, attest that this document has been prepared under my direction and personally reviewed by me in its entirety. I further attest, that it accurately reflects all work, treatment, procedures and medical decision -making performed by me. See HPI for details DDx chest pain: ACS, AK, unstable angina, arrhythmia, coronary vasospasm, NSTEMI , PE, dissection, PUD, esophageal spasm, GERD, gastritis, costochondritis, pneumonia, pleurisy, pericarditis/myocarditis. dehydration, electrolyte/ metabolic derangements. Considered but clinically doubt based on HPI and PE: PE or dissection. Vital signs reviewed, wnl. Prior notes reviewed, including admissions, discharges and consultations. laboratory results and imaging reviewed, basic labs and lytes wnl, notable for stable/baseline anemia. hyperglycemia, does not appear to be symptomatic, eating at bedside. given gentle hydration, repeat FS. CXR_no acute pathology Cardiac panel_neg trop x1, needs serials with EKG. EKG normal sinus rhythm, no interval abnormalities, LBBB, wide QRS. Nonspecific T wave abnormalities with ST depressions more pronounced in V5-6. similar EKG to prior. ED course: ASA. no chest pain currently. HEART score 7, with high risk category risk stratification. has h/o CABG and CAD s/p PCI and anginal equivalent - cards cs with Dr Delarosa/Katty - IV vancomycin 1g for his osteomyelitis therapy, s/p hyperbarics already today. Admit for telemetry, r/o ACS. Discussed results and management plan with pt and family member at bedside, agree with impression and plan admit to Dr Fuller, s/o LIME TRIMMER 12/10/18 14:42 12/10/18 14:43 (Marium Yanez) 12/10/18 12:32 Dr. Fuller was called at this time requesting a call back for admission of this patient. 12/10/18 13:00 LIME TRIMMER Wilfrido Garvey was paged requesting a call back for admission. 12/10/18 13:33 Dr. Delarosa was paged at this time requesting a call back for doctor to doctor consult. (Alaina Carrasquillo) *DC/Admit/Observation/Transfer - Discharge Dispostion Decision to Admit order: Yes <Marium Yanez - Last Filed: 12/10/18 14:41> <Alaina Carrasquillo - Last Filed: 12/10/18 14:44> Diagnosis at time of Disposition: Anemia, CKD (chronic kidney disease), Osteomyelitis, Unstable angina - Discharge Dispostion Condition at time of disposition: Guarded - Attestations Scribe Attestion: 12/10/18 12:35 Documentation prepared by Alaina Carrasquillo, acting as medical technical writer for Marium Yanez MD (Alaina Carrasquillo)
[2018-12-10] MEDS ORDERED: VANCOMYCIN 1,000 MG in DEXTROSE 5%-WATER - 250 ML IVPB ONE (11:28)
[2018-12-10 11:31] LABS: BASO % 0.9 % (0-2.0); EOS % 3.8 % (0-4.5); HEMATOCRIT 26.7 % (35.4-49); HEMOGLOBIN 9.3 GM/dL (11.7-16.9); LYMPH % 12.2 % (8-40); MCH 30.1 pg (25.7-33.7); MCHC 34.8 g/dl (32.0-35.9); MEAN CELL VOLUME 86.4 fl (80-96); MEAN PLT VOLUME 7.1 fl (7.5-11.1); MONO % 6.4 % (3.8-10.2); NEUT % 76.7 % (42.8-82.8); PLATELET COUNT 172 K/MM3 (134-434); RBC 3.09 M/mm3 (4.00-5.60); RDW 19.2 % (11.9-15.9); WHITE BLOOD COUNT 5.8 K/mm3 (4.0-10.0)
[2018-12-10 11:47] LABS: INR 1.16 (0.83-1.09); PROTHROMBIN TIME (PATIENT) 13.7 SEC (9.7-13.0)
[2018-12-10 12:00] LABS: ALBUMIN 3.3 g/dl (3.4-5.0); ALK PHOS 74 U/L (45-117); ANION GAP 7 MMOL/L (8-16); BILIRUBIN,TOTAL 0.6 mg/dL (0.2-1); BLOOD UREA NITROGEN 45 mg/dL (7-18); CALCIUM 8.5 mg/dL (8.5-10.1); CHLORIDE 100 mmol/L (98-107); CO2 28 mmol/L (21-32); CREATININE 2.6 mg/dL (0.55-1.3); MAGNESIUM 1.8 mg/dL (1.8-2.4); POTASSIUM 5.1 mmol/L (3.5-5.1); SGOT/AST 10 U/L (15-37); SGPT/ALT 23 U/L (13-61); SODIUM 135 mmol/L (136-145); TOT PROT 6.7 g/dl (6.4-8.2)
[2018-12-10 12:01] LABS: GLUCOSE,RANDOM 348 mg/dL (74-106)
[2018-12-10] MEDS ORDERED: SODIUM CHLORIDE 0.9% 500 ML INFUS.BAG IV ONE (12:16)
[2018-12-10] MEDS ORDERED: ACETAMINOPHEN 325 MG TABLET (FP) ONE (14:16)
[2018-12-10] MEDS ORDERED: ACETAMINOPHEN 325 MG TABLET (FP) PO ONE (14:23)
--- NOTE | 2018-12-10 14:42 | EKG ---
Test Reason : Blood Pressure : / mmHG Vent. Rate : 065 BPM Atrial Rate : 065 BPM P-R Int : 194 ms QRS Dur : 156 ms QT Int : 470 ms P-R-T Axes : 038 -40 159 degrees QTc Int : 488 ms SINUS RHYTHM WITH PREMATURE ATRIAL COMPLEXES WITH ABERRANT CONDUCTION LEFT AXIS DEVIATION LEFT BUNDLE BRANCH BLOCK ABNORMAL ECG WHEN COMPARED WITH ECG OF 28-NOV-2018 13:17, ABERRANT CONDUCTION IS NOW PRESENT Confirmed by WADE SALMON, ELMIRA ([id number]) on 12/10/2018 2:41:55 PM Referred By: Confirmed By:ELMIRA OLVERA MD
[2018-12-10] MEDS ORDERED: NITROGLYCERIN SUBLINGUAL 1/150 0.4 MG TAB SL SCH ×2 (15:00→15:10)
[2018-12-10] MEDS ORDERED: TAMSULOSIN HCL 0.4 MG CAP ONE (15:07)
[2018-12-10] MEDS: TAMSULOSIN HCL 0.4 MG CAP PO SCH (15:10)
[2018-12-10] MEDS: INSULIN SLIDING SCALE (NOVOLOG) 1 VIAL SQ SCH (16:42)
--- NOTE | 2018-12-10 16:49 | CON.CARD ---
Cardiology Consult (text) - Consultation Consultation Note: Chief Complaint: cp History of Present Illness: 77M h/o HTN, HLD, DM, CAD s/p stents, chronic systolic HF EF 30-35%, moderate , TIA, GERD, anemia, toe osteo on chronic abx as outpt here with cp. Recent dc after long admit for toe osteo. Has been getting iv abx and hbo at hospital. He has chronic bush and stable anginal sxs that have been occuring as usual past few days. CP resolves with sl nitro as he is supposed to take. Today he went for abx and infusion nurse told him to go to er because he has been having this cp. Pt would not have come otherwise as this is his normal anginal sxs. Feels well now. No cp sob palps dizzy loc pnd orthopnea le edema. Asking to go home. 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 Cardio/Vascular: Yes: CAD, CHF, HTN, Hyperlipdemia, [place] Gastrointestinal: Yes: GERD Psych: Yes: Depression Musculoskeletal: Yes: Chronic low back pain, Other (diabetic neuropathy) ENT: Yes: Other (hard of hearing) Endocrine: Yes: Diabetes Mellitus - Past Surgical History Past Surgical History: Yes: Appendectomy, CABG, Stent - Alcohol/Substance Use Hx Alcohol Use: No History of Substance Use: reports: None - Smoking History Smoking history: Current every day smoker Have you smoked in the past 12 months: No Aproximately how many cigarettes per day: 0 - Social History Usual Living Arrangement: With Spouse History of Recent Travel: No Home Medications - Allergies Allergies/Adverse Reactions: Allergies Allergy/AdvReac Type Severity Reaction Status Date / Time ranolazine [From Ranexa] AdvReac Intermediate Hallucinati Verified 12/10/18 10: 46 ons - Home Medications Home Medications Medication Instructions Recorded Nitroglycerin 0.6 mg SL ASDIR 07/24/17 Atorvastatin Calcium 20 mg PO DAILY #30 tablet 12/01/18 Cholecalciferol (Vitamin D3) 1,000 unit PO DAILY 30 Days #30 12/01/18 [Vitamin D3] tablet Collagenase Clostridium Hist. 1 applic TP DAILY #90 oint...g. 12/01/18 [Santyl] Donepezil HCl [Aricept] 10 mg PO DAILY 30 Days #30 tablet 12/01/18 Escitalopram Oxalate [Lexapro -] 20 mg PO DAILY 30 Days #30 tablet 12/01/18 Ferrous Sulfate 325 mg PO DAILY 30 Days #30 tab 12/01/18 Insulin Glargine,Hum.rec.anlog 16 units SQ AM 30 Days #16 ins 12/01/18 [Lantus Solostar PEN -] Loratadine [Claritin -] 10 mg PO DAILY 14 Days #14 tablet 12/01/18 Metoprolol Succinate [Toprol Xl] 50 mg PO BID 30 Days #30 tab.er.24h 12/01/18 Nitroglycerin [Nitrostat] 0.4 mg SL ASDIR 30 Days #30 12/01/18 tab.subl [place]-3 Acid Ethyl Esters [Lovaza 1 gm PO DAILY 30 Days #30 cap 12/01/18 -] Pantoprazole Sodium [Protonix] 40 mg PO DAILY 30 Days #30 12/01/18 tablet. Spironolactone 25 mg PO DAILY 30 Days #30 tablet 12/01/18 Tamsulosin HCl [Flomax] 0.4 mg PO BID 30 Days #30 capsule 12/01/18 Torsemide [Demadex -] 20 mg PO DAILY 30 Days #30 tablet 12/01/18 Aspirin Coated [Ecotrin -] 81 mg PO DAILY tablet.ec 12/02/18 Clopidogrel Bisulfate [Plavix -] 75 mg PO DAILY tablet 12/02/18 Family Disease History - Family Disease History Family Disease History: Diabetes: Mother (HTN), Heart Disease: Father ( of [place] age 45), Mother Review of Systems - Review of Systems Constitutional: reports: No Symptoms Eyes: reports: No Symptoms HENT: reports: No Symptoms Neck: reports: No Symptoms Gastrointestinal: reports: No Symptoms Genitourinary: reports: No Symptoms Integumentary: reports: No Symptoms Neurological: reports: No Symptoms Endocrine: reports: No Symptoms Hematology/Lymphatic: reports: No Symptoms Psychiatric: reports: No Symptoms Vital Signs: Vital Signs Period Temp Pulse Resp BP Sys/Julio Pulse Ox Last 24 Hr 97.5 F 64-66 22-22 101-104/58-66 97-98 Constitutional: Yes: No Distress, Calm Eyes: Yes: Conjunctiva Clear Neck: Yes: Supple, Trachea Midline Respiratory: Yes: Regular, CTA Bilaterally Gastrointestinal: Yes: Normal Bowel Sounds, Soft Cardiovascular: Yes: Regular Rate and Rhythm JVD: No Heart Sounds: Yes: S1, S2 Murmur: Yes: Systolic Murmur, Grade 3 (systolic crescendo-decrescendo, audible S2) Musculoskeletal: No: Back Pain Extremities: No: Cold Edema: No Integumentary: No: Jaundice diaphoresis pos dp pt no carotid bruit Neurological: Yes: Alert, Oriented Laboratory Last Values WBC 5.8 K/mm3 (4.0-10.0) 12/10/18 11:15 RBC 3.09 M/mm3 (4.00-5.60) L 12/10/18 11:15 Hgb 9.3 GM/dL (11.7-16.9) L 12/10/18 11:15 Hct 26.7 % (35.4-49) L 12/10/18 11:15 MCV 86.4 fl (80-96) 12/10/18 11:15 MCH 30.1 pg (25.7-33.7) 12/10/18 11:15 MCHC 34.8 g/dl (32.0-35.9) 12/10/18 11:15 RDW 19.2 % (11.9-15.9) H 12/10/18 11:15 Plt Count 172 K/MM3 (134-434) 12/10/18 11:15 MPV 7.1 fl (7.5-11.1) L 12/10/18 11:15 Absolute Neuts (auto) 4.4 K/mm3 (1.5-8.0) 12/10/18 11:15 Neutrophils % 76.7 % (42.8-82.8) 12/10/18 11:15 Lymphocytes % 12.2 % (8-40) 12/10/18 11:15 Monocytes % 6.4 % (3.8-10.2) 12/10/18 11:15 Eosinophils % 3.8 % (0-4.5) 12/10/18 11:15 Basophils % 0.9 % (0-2.0) 12/10/18 11:15 Nucleated RBC % 0 % (0-0) 12/10/18 11:15 PT with INR 13.70 SEC (9.7-13.0) H 12/10/18 11:15 INR 1.16 (0.83-1.09) H 12/10/18 11:15 Sodium 135 mmol/L (136-145) L 12/10/18 11:15 Potassium 5.1 mmol/L (3.5-5.1) 12/10/18 11:15 Chloride 100 mmol/L (98-107) 12/10/18 11:15 Carbon Dioxide 28 mmol/L (21-32) 12/10/18 11:15 Anion Gap 7 MMOL/L (8-16) L 12/10/18 11:15 BUN 45 mg/dL (7-18) H 12/10/18 11:15 Creatinine 2.6 mg/dL (0.55-1.3) H 12/10/18 11:15 Creat Clearance w eGFR 24.05 (>60) 12/10/18 11:15 Random Glucose 348 mg/dL (74-106) H* 12/10/18 11:15 Calcium 8.5 mg/dL (8.5-10.1) 12/10/18 11:15 Magnesium 1.8 mg/dL (1.8-2.4) 12/10/18 11:15 Total Bilirubin 0.6 mg/dL (0.2-1) 12/10/18 11:15 AST 10 U/L (15-37) L 12/10/18 11:15 ALT 23 U/L (13-61) 12/10/18 11:15 Alkaline Phosphatase 74 U/L (45-117) 12/10/18 11:15 Troponin I 0.02 ng/ml (0.00-0.05) 12/10/18 11:15 Total Protein 6.7 g/dl (6.4-8.2) 12/10/18 11:15 Albumin 3.3 g/dl (3.4-5.0) L 12/10/18 11:15 EKG: sinus, old LBBB, PVC, no sig change prior cardiac FDG PET perfusion [facility] 10/2018: large, severe partially reversible defect anterior and apex, medium , moderate predominantly reversible inferior defect +TID, globally decreased LVSF , EF 28%, myocardium viable throughout Echo 08/2018 [facility] exam limited, no definity used. mod dec LVSF, EF 30-35%nl filling pressures, dd1, nl RV size, mildly decreased RVSF, mod , mod MR L/RHC 11/17 wedge 25, PA 60/25, RA 15, CI 2.1, AV gradient peak 25, mean 18, MADELINE 0.9, ISR of pLAD 70-80%-Xience, remainder unchanged vs prior: FEDERAL JUDGE of RCA with large collateral from LCx, mid dstal LA occluded (FEDERAL JUDGE) prior to LINDER touchdown, D2 jailed (FEDERAL JUDGE), OM1 moderate diffuse dz cxr: clear lungs a/p: 77M h/o HTN, HLD, DM, CAD s/p stents, chronic systolic HF EF 30-35%, moderate , TIA, GERD, anemia, toe osteo on chronic abx as outpt here with cp. cp, CAD: - s/p PCI (LAURA pLAD with PTCA of ostial diag 12/2011, ISR with CABG 03/2013, cath 05/2013 patient LINDER (30% at anasthamosis site) with good perfusion of distal LAD but anasthamotic clips distal wall and occludes backflow; old FEDERAL JUDGE of RCA with collats unchanged) - pt has stable angina for which he takes nitro sl for long time. His current cp is this same angina and was relieved by nitro. No cp now. First trop neg. Would check one more trop and if still negative he can be discharged today from cardiac pov with plan for further workup and management of CAD, at [facility] as outpt - on aspirin, plavix, metoprolol, statin PAd, R toe osteo -s/p RLE angioplasty -abx per ID -on asa, plavix Chronic systolic HF - euvolemic on aldactone, furosemide, continue HTN - stable on metoprolol HLD - continue statin DM - manage per primary CKD - renal function at baseline anemia - stable, manage per primary
--- NOTE | 2018-12-10 17:31 | HP ---
Admitting History and Physical - Primary Care Physician PCP: Edgar Fuller - Admission Chief Complaint: Chest Pain History of Present Illness: 77M h/o HTN, HLD, DM, CAD s/p stents, chronic systolic HF EF 30-35%, moderate , TIA, GERD, anemia, toe osteo on chronic abx as outpt here with cp. Recent dc after long admit for toe osteo. Has been getting iv abx and hbo at hospital. He has chronic bush and stable anginal sxs that have been occuring as usual past few days. CP resolves with sl nitro as he is supposed to take. Today he went for abx and infusion nurse told him to go to er because he has been having this cp. Pt would not have come otherwise as this is his normal anginal sxs. Feels well now. No cp sob palps dizzy loc pnd orthopnea le edema. Asking to go home. 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 Cardiovascular: Yes: CAD, CHF, HTN, Hyperlipdemia, [place] Gastrointestinal: Yes: GERD Heme/Onc: Yes: Anemia Psych: Yes: Depression Musculoskeletal: Yes: Chronic low back pain, Other (diabetic neuropathy) ENT: Yes: Other (hard of hearing) Endocrine: Yes: Diabetes Mellitus - Past Surgical History Past Surgical History: Yes: Appendectomy, CABG, Stent - Smoking History Smoking history: Never smoked Have you smoked in the past 12 months: No Aproximately how many cigarettes per day: 0 - Alcohol/Substance Use Hx Alcohol Use: No History of Substance Use: reports: None - Social History History of Recent Travel: No Home Medications - Allergies Allergies/Adverse Reactions: Allergies Allergy/AdvReac Type Severity Reaction Status Date / Time ranolazine [From Ranexa] AdvReac Intermediate Hallucinati Verified 12/10/18 10: 46 ons - Home Medications Home Medications: Ambulatory Orders Nitroglycerin 0.6 mg SL ASDIR 07/24/17 Atorvastatin Calcium 20 mg PO DAILY #30 tablet 12/01/18 Cholecalciferol (Vitamin D3) [Vitamin D3] 1,000 unit PO DAILY 30 Days #30 tablet 12/01/18 Collagenase Clostridium Hist. [Santyl] 1 applic TP DAILY #90 oint...g. 12/01/18 Donepezil HCl [Aricept] 10 mg PO DAILY 30 Days #30 tablet 12/01/18 Escitalopram Oxalate [Lexapro -] 20 mg PO DAILY 30 Days #30 tablet 12/01/18 Ferrous Sulfate 325 mg PO DAILY 30 Days #30 tab 12/01/18 Insulin Glargine,Hum.rec.anlog [Lantus Solostar PEN -] 16 units SQ AM 30 Days # 16 ins 12/01/18 Loratadine [Claritin -] 10 mg PO DAILY 14 Days #14 tablet 12/01/18 Metoprolol Succinate [Toprol Xl] 50 mg PO BID 30 Days #30 tab.er.24h 12/01/18 Nitroglycerin [Nitrostat] 0.4 mg SL ASDIR 30 Days #30 tab.subl 12/01/18 [place]-3 Acid Ethyl Esters [Lovaza -] 1 gm PO DAILY 30 Days #30 cap 12/01/18 Pantoprazole Sodium [Protonix] 40 mg PO DAILY 30 Days #30 tablet.dr 12/01/18 Spironolactone 25 mg PO DAILY 30 Days #30 tablet 12/01/18 Tamsulosin HCl [Flomax] 0.4 mg PO BID 30 Days #30 capsule 12/01/18 Torsemide [Demadex -] 20 mg PO DAILY 30 Days #30 tablet 12/01/18 Aspirin Coated [Ecotrin -] 81 mg PO DAILY tablet.ec 12/02/18 Clopidogrel Bisulfate [Plavix -] 75 mg PO DAILY tablet 12/02/18 Family Disease History - Family Disease History Family Disease History: Diabetes: Mother (HTN), Heart Disease: Father ( of [place] age 45), Mother Review of Systems - Review of Systems Constitutional: reports: No Symptoms Eyes: reports: No Symptoms HENT: reports: No Symptoms Neck: reports: No Symptoms Cardiovascular: reports: Chest Pain Respiratory: reports: No Symptoms Gastrointestinal: reports: No Symptoms Genitourinary: reports: No Symptoms Breasts: reports: No Symptoms Reported Musculoskeletal: reports: No Symptoms Integumentary: reports: No Symptoms Neurological: reports: No Symptoms Endocrine: reports: No Symptoms Hematology/Lymphatic: reports: No Symptoms Psychiatric: reports: No Symptoms Physical Examination Vital Signs: Vital Signs Temperature 97.5 F L 12/10/18 10:46 Pulse Rate 64 12/10/18 12:48 Respiratory Rate 22 H 12/10/18 12:48 Blood Pressure 104/58 L 12/10/18 12:48 O2 Sat by Pulse Oximetry (%) 97 12/10/18 12:48 Constitutional: Yes: Well Nourished, No Distress, Calm, Obese Cardiovascular: Yes: Regular Rate and Rhythm Respiratory: Yes: Regular Gastrointestinal: Yes: Normal Bowel Sounds, Soft, Abdomen, Obese Musculoskeletal: Yes: WNL Extremities: Yes: WNL Edema: No Peripheral Pulses WNL: Yes Neurological: Yes: Alert, Oriented Psychiatric: Yes: Alert, Oriented Labs: CBC, BMP 12/10/18 11:15 12/10/18 11:15 Imaging - Results Chest X-ray: Report Reviewed EKG: Report Reviewed Problem List - Problems (1) Stable angina Assessment/Plan: -resolved with Nitro -Seen by cardiology -Trop x 1 negative -repeat trop now, if negative can go home as per cardiology Code(s): I20.8 - OTHER FORMS OF ANGINA PECTORIS (2) CKD (chronic kidney disease) Assessment/Plan: -At baseline -monitor trend if he stays Code(s): N18.9 - CHRONIC KIDNEY DISEASE, UNSPECIFIED (3) Type 2 diabetes mellitus with foot ulcer Assessment/Plan: -BGM AC HS -Novolog sliding scale+ levemir -Diabetic sodium diet -On IV vanco daily for osteomyelitis -Seen by ID and Podiatry at Wound care center -Also goes for hyperbaric chamber Code(s): E11.621 - TYPE 2 DIABETES MELLITUS WITH FOOT ULCER; L97.509 - NON- PRESSURE CHRONIC ULCER OTH PRT UNSP FOOT W UNSP SEVERITY Assessment/Plan see problem list D/C if repeat trop negative
[2018-12-10] MEDS ORDERED: NITROGLYCERIN SUBLINGUAL 1/150 0.4 MG TAB SL ONE (22:18)
[2018-12-10] MEDS ORDERED: NITROGLYCERIN SUBLINGUAL 1/150 0.4 MG TAB ONE (22:21)
--- NOTE | 2018-12-10 22:25 | CONSULT ---
Consult Consult Specialty:: Podiatry Reason for Consultation:: Wound right big toe - History of Present Illness Chief Complaint: right big toe wound. chest pain today alleviated by Nitroglycerin. r/o HI History of Present Illness: Chest pain episode today after HBO tx. 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 Cardio/Vascular: Yes: CAD, CHF, HTN, Hyperlipdemia, [place] Gastrointestinal: Yes: GERD Psych: Yes: Depression Musculoskeletal: Yes: Chronic low back pain, Other (diabetic neuropathy) ENT: Yes: Other (hard of hearing) Endocrine: Yes: Diabetes Mellitus - Past Surgical History Past Surgical History: Yes: Appendectomy, CABG, Stent - Alcohol/Substance Use Hx Alcohol Use: No History of Substance Use: reports: None - Smoking History Smoking history: Never smoked Have you smoked in the past 12 months: No Aproximately how many cigarettes per day: 0 - Social History Usual Living Arrangement: With Spouse History of Recent Travel: No Home Medications - Allergies Allergies/Adverse Reactions: Allergies Allergy/AdvReac Type Severity Reaction Status Date / Time ranolazine [From Ranexa] AdvReac Intermediate Hallucinati Verified 12/10/18 10: 46 ons - Home Medications Home Medications: Ambulatory Orders Nitroglycerin 0.6 mg SL ASDIR 07/24/17 Atorvastatin Calcium 20 mg PO DAILY #30 tablet 12/01/18 Cholecalciferol (Vitamin D3) [Vitamin D3] 1,000 unit PO DAILY 30 Days #30 tablet 12/01/18 Collagenase Clostridium Hist. [Santyl] 1 applic TP DAILY #90 oint...g. 12/01/18 Donepezil HCl [Aricept] 10 mg PO DAILY 30 Days #30 tablet 12/01/18 Escitalopram Oxalate [Lexapro -] 20 mg PO DAILY 30 Days #30 tablet 12/01/18 Ferrous Sulfate 325 mg PO DAILY 30 Days #30 tab 12/01/18 Insulin Glargine,Hum.rec.anlog [Lantus Solostar PEN -] 16 units SQ AM 30 Days # 16 ins 12/01/18 Loratadine [Claritin -] 10 mg PO DAILY 14 Days #14 tablet 12/01/18 Metoprolol Succinate [Toprol Xl] 50 mg PO BID 30 Days #30 tab.er.24h 12/01/18 Nitroglycerin [Nitrostat] 0.4 mg SL ASDIR 30 Days #30 tab.subl 12/01/18 [place]-3 Acid Ethyl Esters [Lovaza -] 1 gm PO DAILY 30 Days #30 cap 12/01/18 Pantoprazole Sodium [Protonix] 40 mg PO DAILY 30 Days #30 tablet.dr 12/01/18 Spironolactone 25 mg PO DAILY 30 Days #30 tablet 12/01/18 Tamsulosin HCl [Flomax] 0.4 mg PO BID 30 Days #30 capsule 12/01/18 Torsemide [Demadex -] 20 mg PO DAILY 30 Days #30 tablet 12/01/18 Aspirin Coated [Ecotrin -] 81 mg PO DAILY tablet.ec 12/02/18 Clopidogrel Bisulfate [Plavix -] 75 mg PO DAILY tablet 12/02/18 Family Disease History - Family Disease History Family Disease History: Diabetes: Mother (HTN), Heart Disease: Father ( of [place] age 45), Mother Physical Exam Vital Signs: Vital Signs Temperature 97.6 F 12/10/18 18:43 Pulse Rate 65 12/10/18 20:38 Respiratory Rate 18 12/10/18 20:38 Blood Pressure 112/60 12/10/18 20:38 O2 Sat by Pulse Oximetry (%) 99 12/10/18 20:38 Extremities: Yes: Other (wound right big toe chronic, pvd) Labs: CBC, BMP 12/10/18 11:15 12/10/18 11:15 Assessment/Plan grade 3 wound right medial hallux pvd chest pain r/o mi Dressing intact right big toe. IF dc will see in wound care. If admitted will see on floor. will follow either way.
[2018-12-10] MEDS: INSULIN (LEVEMIR) 100 UNITS/ML UNITS SQ SCH (22:27)
[2018-12-10] MEDS: COLLAGENASE CLOSTRIDIUM HIST. 30 GRAMS TUBE TP SCH (22:28)
[2018-12-11 03:04] VITALS: BMI 32.3
[2018-12-11] MEDS: INSULIN SLIDING SCALE (NOVOLOG) 1 VIAL SQ SCH ×3 (06:06→16:37)
[2018-12-11] MEDS: TAMSULOSIN HCL 0.4 MG CAP PO SCH (09:10)
[2018-12-11] MEDS ORDERED: PT OWN MED DRAWER 7, Y5N ONE (09:48)
[2018-12-11] MEDS: ESCITALOPRAM OXALATE 20 MG TABLET (FP) PO SCH (09:50)
[2018-12-11] MEDS: ENOXAPARIN NA (PORCINE) 40 MG/0.4 ML DISP.SYRIN SQ SCH (09:50)
[2018-12-11] MEDS: PANTOPRAZOLE 40 MG TABLET (FP) PO SCH (09:51)
[2018-12-11] MEDS: CLOPIDOGREL BISULFATE 75 MG TABLET (FP) PO SCH (09:51)
[2018-12-11] MEDS: LORATADINE 10 MG TABLET PO SCH (09:51)
[2018-12-11] MEDS: SPIRONOLACTONE 25 MG TABLET (FP) PO SCH (09:51)
[2018-12-11] MEDS: CHOLECALCIFEROL (VITAMIN D3) 1,000 UNIT TABLET (FP) PO SCH (09:51)
[2018-12-11] MEDS: ASPIRIN COATED 81 MG TABLET.EC PO SCH (09:51)
[2018-12-11] MEDS: TORSEMIDE 20 MG TABLET (FP) PO SCH (09:51)
[2018-12-11] MEDS: FERROUS SO4 325 MG TABLET (FP) PO SCH (09:51)
[2018-12-11] MEDS: DONEPEZIL HCL 10 MG TABLET (FP) PO SCH (09:52)
[2018-12-11] MEDS: COLLAGENASE CLOSTRIDIUM HIST. 30 GRAMS TUBE TP SCH (09:52)
--- NOTE | 2018-12-11 10:47 | DS ---
Physical Examination Vital Signs: Vital Signs Temperature 97.5 F L 12/11/18 09:00 Pulse Rate 71 12/11/18 09:57 Respiratory Rate 18 12/11/18 09:57 Blood Pressure 122/65 12/11/18 09:57 O2 Sat by Pulse Oximetry (%) 99 12/11/18 03:00 Findings/Remarks: troponin neg x 2 denies chest pain or SOB Constitutional: Yes: Well Nourished, No Distress, Calm Eyes: Yes: Conjunctiva Clear Neck: Yes: Supple Cardiovascular: Yes: Regular Rate and Rhythm Respiratory: Yes: Regular, CTA Bilaterally Gastrointestinal: Yes: Normal Bowel Sounds, Soft Musculoskeletal: Yes: WNL Extremities: Yes: WNL Edema: No Integumentary: Yes: WNL Wound/Incision: Yes: Dressing Dry and Intact Neurological: Yes: Alert, Oriented Psychiatric: Yes: Alert, Oriented Labs: CBC, BMP 12/10/18 11:15 12/10/18 11:15 <Jazzy Dye - Last Filed: 12/11/18 10:41> Vital Signs: Vital Signs Temperature 97.6 F 12/12/18 14:00 Pulse Rate 70 12/12/18 14:00 Respiratory Rate 16 12/12/18 14:00 Blood Pressure 102/60 12/12/18 14:00 O2 Sat by Pulse Oximetry (%) 96 12/12/18 12:00 Labs: CBC, BMP 12/12/18 09:10 12/12/18 09:10 <Edgar Fuller - Last Filed: 12/13/18 08:47> Discharge Summary Reason For Visit: ANEMIA/ANGINA AT REST Current Active Problems Anemia (Acute) CKD (chronic kidney disease) (Acute) Osteomyelitis (Acute) Stable angina (Acute) Unstable angina (Acute) Procedures: Principal: EKG. CXR Hospital Course: Patient is a 77 y/o male patient admitted for angina at rest. Was admitted for telemetry monitoring. Troponin neg x 2. Evaluated by Cardiology. Currently denies chest pain or SOB. - Home Medications Comprehensive Discharge Medication List: Ambulatory Orders Nitroglycerin 0.6 mg SL ASDIR 07/24/17 Atorvastatin Calcium 20 mg PO DAILY #30 tablet 12/01/18 Cholecalciferol (Vitamin D3) [Vitamin D3] 1,000 unit PO DAILY 30 Days #30 tablet 12/01/18 Collagenase Clostridium Hist. [Santyl] 1 applic TP DAILY #90 oint...g. 12/01/18 Donepezil HCl [Aricept] 10 mg PO DAILY 30 Days #30 tablet 12/01/18 Escitalopram Oxalate [Lexapro -] 20 mg PO DAILY 30 Days #30 tablet 12/01/18 Ferrous Sulfate 325 mg PO DAILY 30 Days #30 tab 12/01/18 Insulin Glargine,Hum.rec.anlog [Lantus Solostar PEN -] 16 units SQ AM 30 Days # 16 ins 12/01/18 Loratadine [Claritin -] 10 mg PO DAILY 14 Days #14 tablet 12/01/18 Metoprolol Succinate [Toprol Xl] 50 mg PO BID 30 Days #30 tab.er.24h 12/01/18 Nitroglycerin [Nitrostat] 0.4 mg SL ASDIR 30 Days #30 tab.subl 12/01/18 [place]-3 Acid Ethyl Esters [Lovaza -] 1 gm PO DAILY 30 Days #30 cap 12/01/18 Pantoprazole Sodium [Protonix] 40 mg PO DAILY 30 Days #30 tablet.dr 12/01/18 Spironolactone 25 mg PO DAILY 30 Days #30 tablet 12/01/18 Tamsulosin HCl [Flomax] 0.4 mg PO BID 30 Days #30 capsule 12/01/18 Torsemide [Demadex -] 20 mg PO DAILY 30 Days #30 tablet 12/01/18 Aspirin Coated [Ecotrin -] 81 mg PO DAILY tablet.ec 12/02/18 Clopidogrel Bisulfate [Plavix -] 75 mg PO DAILY tablet 12/02/18 Amoxicillin/Potassium Clav [Augmentin 500-125 Tablet] 1 each PO Q12H 12/10/18 <Jazzy Dye - Last Filed: 12/11/18 10:41> - Home Medications Comprehensive Discharge Medication List: Ambulatory Orders Nitroglycerin 0.6 mg SL ASDIR 07/24/17 Atorvastatin Calcium 20 mg PO DAILY #30 tablet 12/01/18 Cholecalciferol (Vitamin D3) [Vitamin D3] 1,000 unit PO DAILY 30 Days #30 tablet 12/01/18 Collagenase Clostridium Hist. [Santyl] 1 applic TP DAILY #90 oint...g. 12/01/18 Donepezil HCl [Aricept] 10 mg PO DAILY 30 Days #30 tablet 12/01/18 Escitalopram Oxalate [Lexapro -] 20 mg PO DAILY 30 Days #30 tablet 12/01/18 Ferrous Sulfate 325 mg PO DAILY 30 Days #30 tab 12/01/18 Insulin Glargine,Hum.rec.anlog [Lantus Solostar PEN -] 16 units SQ AM 30 Days # 16 ins 12/01/18 Loratadine [Claritin -] 10 mg PO DAILY 14 Days #14 tablet 12/01/18 Metoprolol Succinate [Toprol Xl] 50 mg PO BID 30 Days #30 tab.er.24h 12/01/18 Nitroglycerin [Nitrostat] 0.4 mg SL ASDIR 30 Days #30 tab.subl 12/01/18 [place]-3 Acid Ethyl Esters [Lovaza -] 1 gm PO DAILY 30 Days #30 cap 12/01/18 Pantoprazole Sodium [Protonix] 40 mg PO DAILY 30 Days #30 tablet.dr 12/01/18 Spironolactone 25 mg PO DAILY 30 Days #30 tablet 12/01/18 Tamsulosin HCl [Flomax] 0.4 mg PO BID 30 Days #30 capsule 12/01/18 Torsemide [Demadex -] 20 mg PO DAILY 30 Days #30 tablet 12/01/18 Aspirin Coated [Ecotrin -] 81 mg PO DAILY tablet.ec 12/02/18 Clopidogrel Bisulfate [Plavix -] 75 mg PO DAILY tablet 12/02/18 Amoxicillin/Potassium Clav [Augmentin 500-125 Tablet] 1 each PO Q12H 12/10/18 Isosorbide Mononitrate [Imdur -] 30 mg PO DAILY #30 tab.sr.24h 12/12/18 <Edgar Fuller - Last Filed: 12/13/18 08:47> Condition: Improved - Instructions Diet, Activity, Other Instructions: Patient instructed to follow up with PMD in 3-4 days Instructed to follow up with [facility] Former Dr. Larios for furhter management Cont with hyberbaric treatment and daily IV ABT Follow up with podiatry outpatient low Na/diabetic diet cont taking medication as prescribed Referrals: Dom Staples MD [Primary Care Provider] - Alvarado Alaniz MD [Staff Physician] - Disposition: HOME
--- NOTE | 2018-12-11 11:08 | PN ---
Progress Note (short form) - Note Progress Note: PATIENT C/O CHEST PAIN TO NURSE WILL CHECK CARDIAC ENZYMES AND EKG STAT PEPCID IV X 1 NOW
--- NOTE | 2018-12-11 11:17 | PN ---
Progress Note (short form) - Note Progress Note: s: no cp sob palps dizzy o: Vital Signs Period Temp Pulse Resp BP Sys/Julio Pulse Ox Last 24 Hr 97.5 F-97.9 F 64-72 17-22 104-137/55-72 97-99 Constitutional: Yes: No Distress, Calm Eyes: Yes: Conjunctiva Clear Neck: Yes: Supple, Trachea Midline Respiratory: Yes: Regular, CTA Bilaterally Gastrointestinal: Yes: Normal Bowel Sounds, Soft Cardiovascular: Yes: Regular Rate and Rhythm JVD: No Heart Sounds: Yes: S1, S2 Murmur: Yes: Systolic Murmur, Grade 3 (systolic crescendo-decrescendo, audible S2) Musculoskeletal: No: Back Pain Extremities: No: Cold Edema: No Integumentary: No: Jaundice diaphoresis pos dp pt no carotid bruit Neurological: Yes: Alert, Oriented Current Medications Generic Name Dose Route Start Last Admin Trade Name Freq PRN Reason Stop Dose Admin Acetaminophen 650 mg 12/10/18 14:49 Tylenol - PO Q4H PRN PAIN OR FEVER Aspirin 81 mg 12/11/18 10:00 12/11/18 09:51 Ecotrin - PO 81 mg DAILY KJ Administration Atorvastatin Calcium 20 mg 12/11/18 22:00 Lipitor - PO HS KJ Cholecalciferol 1,000 unit 12/11/18 10:00 12/11/18 09:51 Vitamin D3 - PO 1,000 unit DAILY KJ Administration Clopidogrel Bisulfate 75 mg 12/11/18 10:00 12/11/18 09:51 Plavix - PO 75 mg DAILY KJ Administration Collagenase 1 applic 12/10/18 22:00 12/11/18 09:52 Santyl - TP 1 applic DAILY KJ Administration Protocol Donepezil HCl 10 mg 12/11/18 10:00 12/11/18 09:52 Aricept - PO 10 mg DAILY KJ Administration Enoxaparin Sodium 40 mg 12/11/18 10:00 12/11/18 09:50 Lovenox - SQ 40 mg DAILY KJ Administration Escitalopram Oxalate 20 mg 12/11/18 10:00 12/11/18 09:50 Lexapro - PO 20 mg DAILY KJ Administration Ferrous Sulfate 325 mg 12/11/18 10:00 12/11/18 09:51 Feosol - PO 325 mg DAILY KJ Administration Famotidine/Sodium Chloride 20 mg in 50 mls @ 100 mls/hr 12/11/18 11:06 Pepcid 20 Mg Premixed Ivpb - IVPB 12/11/18 11:35 ONCE ONE Insulin Aspart 1 vial 12/10/18 16:30 12/11/18 06:06 Novolog Vial Sliding Scale - SQ Not Given TIDAC [facility] Protocol Insulin Detemir 16 units 12/10/18 22:00 12/10/18 22:27 Levemir Vial SQ 16 units HS KJ Administration Loratadine 10 mg 12/11/18 10:00 12/11/18 09:51 Claritin - PO 10 mg DAILY KJ Administration Metoprolol Succinate 50 mg 12/10/18 22:00 12/11/18 09:51 Toprol Xl - PO 50 mg BID KJ Administration Kyeav-2-Omhw Ethyl Esters 1 gm 12/11/18 10:00 Lovaza - PO DAILY KJ Pantoprazole Sodium 40 mg 12/11/18 10:00 12/11/18 09:51 Protonix - PO 40 mg DAILY KJ Administration Spironolactone 25 mg 12/11/18 10:00 12/11/18 09:51 Aldactone - PO 25 mg DAILY KJ Administration Tamsulosin HCl 0.8 mg 12/10/18 15:15 12/11/18 09:10 Flomax - PO 0.8 mg DAILY@0830 KJ Administration Torsemide 20 mg 12/11/18 10:00 12/11/18 09:51 Demadex - PO 20 mg DAILY KJ Administration Laboratory Last Values WBC 5.8 K/mm3 (4.0-10.0) 12/10/18 11:15 RBC 3.09 M/mm3 (4.00-5.60) L 12/10/18 11:15 Hgb 9.3 GM/dL (11.7-16.9) L 12/10/18 11:15 Hct 26.7 % (35.4-49) L 12/10/18 11:15 MCV 86.4 fl (80-96) 12/10/18 11:15 MCH 30.1 pg (25.7-33.7) 12/10/18 11:15 MCHC 34.8 g/dl (32.0-35.9) 12/10/18 11:15 RDW 19.2 % (11.9-15.9) H 12/10/18 11:15 Plt Count 172 K/MM3 (134-434) 12/10/18 11:15 MPV 7.1 fl (7.5-11.1) L 12/10/18 11:15 Absolute Neuts (auto) 4.4 K/mm3 (1.5-8.0) 12/10/18 11:15 Neutrophils % 76.7 % (42.8-82.8) 12/10/18 11:15 Lymphocytes % 12.2 % (8-40) 12/10/18 11:15 Monocytes % 6.4 % (3.8-10.2) 12/10/18 11:15 Eosinophils % 3.8 % (0-4.5) 12/10/18 11:15 Basophils % 0.9 % (0-2.0) 12/10/18 11:15 Nucleated RBC % 0 % (0-0) 12/10/18 11:15 PT with INR 13.70 SEC (9.7-13.0) H 12/10/18 11:15 INR 1.16 (0.83-1.09) H 12/10/18 11:15 Sodium 135 mmol/L (136-145) L 12/10/18 11:15 Potassium 5.1 mmol/L (3.5-5.1) 12/10/18 11:15 Chloride 100 mmol/L (98-107) 12/10/18 11:15 Carbon Dioxide 28 mmol/L (21-32) 12/10/18 11:15 Anion Gap 7 MMOL/L (8-16) L 12/10/18 11:15 BUN 45 mg/dL (7-18) H 12/10/18 11:15 Creatinine 2.6 mg/dL (0.55-1.3) H 12/10/18 11:15 Creat Clearance w eGFR 24.05 (>60) 12/10/18 11:15 POC Glucometer 214 UNITS (80-120) 12/11/18 06:04 Random Glucose 348 mg/dL (74-106) H* 12/10/18 11:15 Calcium 8.5 mg/dL (8.5-10.1) 12/10/18 11:15 Magnesium 1.8 mg/dL (1.8-2.4) 12/10/18 11:15 Total Bilirubin 0.6 mg/dL (0.2-1) 12/10/18 11:15 AST 10 U/L (15-37) L 12/10/18 11:15 ALT 23 U/L (13-61) 12/10/18 11:15 Alkaline Phosphatase 74 U/L (45-117) 12/10/18 11:15 Troponin I 0.02 ng/ml (0.00-0.05) 12/10/18 18:03 Total Protein 6.7 g/dl (6.4-8.2) 12/10/18 11:15 Albumin 3.3 g/dl (3.4-5.0) L 12/10/18 11:15 EKG: sinus, old LBBB, PVC, no sig change prior cardiac FDG PET perfusion [facility] 10/2018: large, severe partially reversible defect anterior and apex, medium , moderate predominantly reversible inferior defect +TID, globally decreased LVSF , EF 28%, myocardium viable throughout Echo 08/2018 [facility] exam limited, no definity used. mod dec LVSF, EF 30-35%nl filling pressures, dd1, nl RV size, mildly decreased RVSF, mod , mod MR L/RHC 11/17 wedge 25, PA 60/25, RA 15, CI 2.1, AV gradient peak 25, mean 18, MADELINE 0.9, ISR of pLAD 70-80%-Xience, remainder unchanged vs prior: EARTH SCIENCE TEACHER of RCA with large collateral from LCx, mid dstal LA occluded (EARTH SCIENCE TEACHER) prior to LINDER touchdown, D2 jailed (EARTH SCIENCE TEACHER), OM1 moderate diffuse dz cxr: clear lungs tele: sr, pvcs a/p: 77M h/o HTN, HLD, DM, CAD s/p stents, chronic systolic HF EF 30-35%, moderate , TIA, GERD, anemia, toe osteo on chronic abx as outpt here with cp. 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 His current cp is this same angina and was relieved by nitro. No cp now. trop neg x2. he can be discharged today from cardiac pov with plan for further workup and management of CAD, at [facility] as outpt - on aspirin, plavix, metoprolol, statin PAd, R toe osteo -s/p RLE angioplasty -abx per ID -on asa, plavix Chronic systolic HF - euvolemic on aldactone, furosemide, continue HTN - stable on metoprolol HLD - continue statin DM - manage per primary CKD - renal function at baseline anemia - stable, manage per primary
--- NOTE | 2018-12-11 11:18 | PN ---
Progress Note (short form) - Note Progress Note: ID CONSULT DICTATED CELLULITIS/ CHRONIC OSTEOMYELITIS R GREAT TOE CHEST PAIN SYNDROME AZOTEMIA COMPLETING WEEK 3 OF 6 FOR OSTEOMYELITIS CHECK RANDOM VANCO LEVEL/ ESR/ CRP HOLD VANCOMYCIN PENDING LEVEL
[2018-12-11] MEDS ORDERED: FAMOTIDINE 20 MG/50 ML IVPB 20 MG/50 ML MG IVPB ONE (11:30)
[2018-12-11] MEDS: OMEGA-3 ACID ETHYL ESTERS (FATTY-ACIDS) 1 GM CAPSULE (FP) PO SCH (11:36)
[2018-12-11] MEDS ORDERED: NITROGLYCERIN SUBLINGUAL 1/150 0.4 MG TAB SL PRN (12:00)
--- NOTE | 2018-12-11 12:02 | CONS ---
DATE OF CONSULTATION: DATE OF DICTATION: 12/11/2018 HISTORY: The patient is a 77-year-old male who is undergoing treatment for chronic osteomyelitis of the right great toe. He is now admitted for evaluation of chest pain syndrome. The patient was hospitalized at [facility] from November 20 through December 02. He had developed a blister on his great toe several weeks prior to admission, which subsequently ruptured and resulted in a nonhealing ulcer. He had gotten a course of oral antibiotic therapy as an outpatient, however, worsening erythema, swelling of the toe. An MRI was performed and showed osteomyelitis of the right distal phalanx. He underwent a bone biopsy the results of which yielded staphylococcus coagulase-negative. He was discharged to complete a 6-week course of vancomycin after a tunneled catheter was placed. At the present time, he is awake and alert. He has no complaints of foot pain. He appears to be tolerating the infusions without adverse reaction. PAST MEDICAL HISTORY: Positive for mild dementia, TIA, coronary artery disease, chronic kidney disease, hypertension, hyperlipidemia, congestive heart failure, diabetes mellitus. PAST SURGICAL HISTORY: Status post appendectomy, coronary artery bypass graft, coronary artery stents. ALLERGIES: RANOLAZINE. MEDICATIONS: Tylenol, aspirin, Lipitor, Plavix, Aricept, Lovenox, insulin, metoprolol. SOCIAL HISTORY: Lives at home with his significant other. LABORATORY DATA: White count 5.8, hematocrit 26.7, platelet count 172, BUN 45, creatinine 2.6, vancomycin trough level 20. PHYSICAL EXAMINATION: General: He is awake and alert. He is in moderate distress secondary to epigastric discomfort. Vital Signs: Temperature 97.5, blood pressure 122/65, pulse 71 and regular, respirations 18 per minute. HEENT: Sclerae anicteric. Heart: Sounds S1, S2. A 2/6 pansystolic murmur. Lungs: Clear. Abdomen: Obese, soft, nontender. Extremities: There is an ulceration present over the medial aspect of the right great toe with a fibrinous base approximately 2 cm in diameter. There is erythema involving the right great toe. The swelling and erythema appears improved compared to his most recent examination as an inpatient last admission. IMPRESSION: 1. Cellulitis, chronic osteomyelitis of the right great toe. 2. Chest pain syndrome. 3. Azotemia. PLAN: The patient is completing week 3 of 6 for chronic osteomyelitis. We will check random vancomycin level, C-reactive protein, ESR. Hold vancomycin pending level. Continue local wound care. The patient will continue to receive hyperbaric oxygen treatments and follow up in the [facility]. YULISSA KIMBLE M.D. [id number]
[2018-12-11] MEDS: ISOSORBIDE MONONITRATE 30 MG TAB.SR.24H (FP) PO SCH (12:16)
--- NOTE | 2018-12-11 12:44 | EKG ---
Test Reason : Blood Pressure : / mmHG Vent. Rate : 077 BPM Atrial Rate : 077 BPM P-R Int : 178 ms QRS Dur : 160 ms QT Int : 448 ms P-R-T Axes : 034 -37 142 degrees QTc Int : 506 ms NORMAL SINUS RHYTHM LEFT AXIS DEVIATION LEFT BUNDLE BRANCH BLOCK ABNORMAL ECG WHEN COMPARED WITH ECG OF 10-DEC-2018 10:53, ABERRANT CONDUCTION IS NO LONGER PRESENT Confirmed by TRAY SALMON, MARGOT ([id number]) on 12/11/2018 12:43:39 PM Referred By: LAYLA MCKEON DR Confirmed By:MARGOT FELIZ MD
[2018-12-11] MEDS ORDERED: guaiFENesin 200 MG/10 ML 10 ML UNIT-DOSE CUPS PO PRN (18:07)
--- NOTE | 2018-12-11 18:08 | PN ---
Progress Note (short form) - Note Progress Note: Patient complained of chest pain sharp 9/10 earlier in shift. STAT EKG and troponin ordered. Given Nitro 0.4mg SL x 1 with relief. Repeat troponin neg. Will hold off on discharge for today and will monitor overnight. Will re- assess in AM for possible discharge. <Jazzy Dye - Last Filed: 12/11/18 18:06> - Note Progress Note: I AGREE WITH ABOVE NOTE, PATIENT IS CHEST PAIN FREE AND CAN F/U OUTPATIENT <Edgar Fuller - Last Filed: 12/13/18 08:47>
[2018-12-11] MEDS: AMOX TR/POT CLAV 500MG/125MG TABLETS (FP) PO SCH (18:21)
[2018-12-11] MEDS: ACETAMINOPHEN 325 MG TABLET (FP) PO PRN (19:52)
[2018-12-11] MEDS ORDERED: ATORVASTATIN CA 20 MG TABLET (FP) PO SCH (22:00)
[2018-12-11] MEDS: INSULIN (LEVEMIR) 100 UNITS/ML UNITS SQ SCH (22:20)
[2018-12-12] MEDS: INSULIN SLIDING SCALE (NOVOLOG) 1 VIAL SQ SCH ×3 (06:14→17:24)
--- NOTE | 2018-12-12 08:58 | DS ---
Physical Examination Vital Signs: Vital Signs Temperature 97.2 F L 12/12/18 06:00 Pulse Rate 64 12/12/18 06:00 Respiratory Rate 16 12/12/18 06:00 Blood Pressure 119/60 12/12/18 06:00 O2 Sat by Pulse Oximetry (%) 96 12/12/18 04:00 Cardiovascular: Yes: S1, S2 Respiratory: Yes: Regular, CTA Bilaterally Gastrointestinal: Yes: Normal Bowel Sounds, Soft. No: Tenderness Labs: CBC, BMP 12/10/18 11:15 12/10/18 11:15 Discharge Summary Reason For Visit: ANEMIA/ANGINA AT REST Current Active Problems Anemia (Acute) CKD (chronic kidney disease) (Acute) Osteomyelitis (Acute) Stable angina (Acute) Unstable angina (Acute) Hospital Course: 77M h/o HTN, HLD, DM, CAD s/p stents, chronic systolic HF EF 30-35%, moderate , TIA, GERD, anemia, toe osteo on chronic abx as outpt here with cp. Recent dc after long admit for toe osteo. Has been getting iv abx and hbo at hospital. He has chronic bush and stable anginal sxs that have been occuring as usual past few days. CP resolves with sl nitro as he is supposed to take. Today he went for abx and infusion nurse told him to go to er because he has been having this cp. Pt would not have come otherwise as this is his normal anginal sxs. Feels well now. No cp sob palps dizzy loc pnd orthopnea le edema. Asking to go home. 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, TIA Cardiovascular: Yes: CAD, CHF, HTN, Hyperlipdemia, NC Gastrointestinal: Yes: GERD Heme/Onc: Yes: Anemia Psych: Yes: Depression Musculoskeletal: Yes: Chronic low back pain, Other (diabetic neuropathy) ENT: Yes: Other (hard of hearing) Endocrine: Yes: Diabetes Mellitus - Past Surgical History Past Surgical History: Yes: Appendectomy, CABG, Stent - Problems (1) Stable angina Assessment/Plan: -resolved with Nitro -Seen by cardiology cp, CAD: - s/p PCI (LAURA pLAD with PTCA of ostial diag 12/2011, ISR with CABG 03/2013, cath 05/2013 patient LINDER (30% at anasthamosis site) with good perfusion of distal LAD but anasthamotic clips distal wall and occludes backflow; 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 His current cp is this same angina and was relieved by nitro. No cp now. trop neg x2. he can be discharged today from cardiac pov with plan for further workup and management of CAD, at [facility] as outpt - on aspirin, plavix, metoprolol, statin -Trop negative Code(s): I20.8 - OTHER FORMS OF ANGINA PECTORIS (2) CKD (chronic kidney disease) Assessment/Plan: -At baseline -monitor trend if he stays Code(s): N18.9 - CHRONIC KIDNEY DISEASE, UNSPECIFIED (3) Type 2 diabetes mellitus with foot ulcer Assessment/Plan: -BGM AC HS -Novolog sliding scale+ levemir -Diabetic sodium diet -On IV vanco daily for osteomyelitis dose per id -Seen by ID and Podiatry at [facility] -Also goes for hyperbaric chamber Code(s): E11.621 - TYPE 2 DIABETES MELLITUS WITH FOOT ULCER; L97.509 - NON- PRESSURE CHRONIC ULCER OTH PRT UNSP FOOT W UNSP SEVERITY Condition: Improved - Instructions Diet, Activity, Other Instructions: Patient instructed to follow up with PMD in 3-4 days Instructed to follow up with Account Services Manager Dr. Larios for furhter management Cont with hyberbaric treatment and daily IV ABT Follow up with podiatry outpatient low Na/diabetic diet cont taking medication as prescribed Referrals: Dom Staples MD [Primary Care Provider] - Alvarado Alaniz MD [Staff Physician] - Disposition: HOME - Home Medications Comprehensive Discharge Medication List: Ambulatory Orders Nitroglycerin 0.6 mg SL ASDIR 07/24/17 Atorvastatin Calcium 20 mg PO DAILY #30 tablet 12/01/18 Cholecalciferol (Vitamin D3) [Vitamin D3] 1,000 unit PO DAILY 30 Days #30 tablet 12/01/18 Collagenase Clostridium Hist. [Santyl] 1 applic TP DAILY #90 oint...g. 12/01/18 Donepezil HCl [Aricept] 10 mg PO DAILY 30 Days #30 tablet 12/01/18 Escitalopram Oxalate [Lexapro -] 20 mg PO DAILY 30 Days #30 tablet 12/01/18 Ferrous Sulfate 325 mg PO DAILY 30 Days #30 tab 12/01/18 Insulin Glargine,Hum.rec.anlog [Lantus Solostar PEN -] 16 units SQ AM 30 Days # 16 ins 12/01/18 Loratadine [Claritin -] 10 mg PO DAILY 14 Days #14 tablet 12/01/18 Metoprolol Succinate [Toprol Xl] 50 mg PO BID 30 Days #30 tab.er.24h 12/01/18 Nitroglycerin [Nitrostat] 0.4 mg SL ASDIR 30 Days #30 tab.subl 12/01/18 [place]-3 Acid Ethyl Esters [Lovaza -] 1 gm PO DAILY 30 Days #30 cap 12/01/18 Pantoprazole Sodium [Protonix] 40 mg PO DAILY 30 Days #30 tablet.dr 12/01/18 Spironolactone 25 mg PO DAILY 30 Days #30 tablet 12/01/18 Tamsulosin HCl [Flomax] 0.4 mg PO BID 30 Days #30 capsule 12/01/18 Torsemide [Demadex -] 20 mg PO DAILY 30 Days #30 tablet 12/01/18 Aspirin Coated [Ecotrin -] 81 mg PO DAILY tablet.ec 12/02/18 Clopidogrel Bisulfate [Plavix -] 75 mg PO DAILY tablet 12/02/18 Amoxicillin/Potassium Clav [Augmentin 500-125 Tablet] 1 each PO Q12H 12/10/18 Isosorbide Mononitrate [Imdur -] 30 mg PO DAILY #30 tab.sr.24h 12/12/18
[2018-12-12] MEDS: SPIRONOLACTONE 25 MG TABLET (FP) PO SCH (09:44)
[2018-12-12] MEDS: ENOXAPARIN NA (PORCINE) 40 MG/0.4 ML DISP.SYRIN SQ SCH (09:44)
[2018-12-12] MEDS: ASPIRIN COATED 81 MG TABLET.EC PO SCH (09:44)
[2018-12-12] MEDS: PANTOPRAZOLE 40 MG TABLET (FP) PO SCH (09:44)
[2018-12-12] MEDS: ACETAMINOPHEN 325 MG TABLET (FP) PO PRN (09:45)
[2018-12-12] MEDS: CHOLECALCIFEROL (VITAMIN D3) 1,000 UNIT TABLET (FP) PO SCH (09:45)
[2018-12-12] MEDS: TORSEMIDE 20 MG TABLET (FP) PO SCH (09:45)
[2018-12-12] MEDS: DONEPEZIL HCL 10 MG TABLET (FP) PO SCH (09:45)
[2018-12-12] MEDS: AMOX TR/POT CLAV 500MG/125MG TABLETS (FP) PO SCH ×2 (09:45→17:23)
[2018-12-12] MEDS: ESCITALOPRAM OXALATE 20 MG TABLET (FP) PO SCH (09:45)
[2018-12-12] MEDS: TAMSULOSIN HCL 0.4 MG CAP PO SCH (09:45)
[2018-12-12] MEDS: FERROUS SO4 325 MG TABLET (FP) PO SCH (09:45)
[2018-12-12] MEDS: CLOPIDOGREL BISULFATE 75 MG TABLET (FP) PO SCH (09:45)
[2018-12-12] MEDS: ISOSORBIDE MONONITRATE 30 MG TAB.SR.24H (FP) PO SCH (09:45)
[2018-12-12] MEDS: LORATADINE 10 MG TABLET PO SCH (09:45)
[2018-12-12 09:55] LABS: BASO % 1.2 % (0-2.0); EOS % 4.2 % (0-4.5); HEMOGLOBIN 9.4 GM/dL (11.7-16.9); LYMPH % 15.1 % (8-40); MCH 28.4 pg (25.7-33.7); MCHC 32.3 g/dl (32.0-35.9); MEAN PLT VOLUME 7.5 fl (7.5-11.1); MONO % 8.1 % (3.8-10.2); NEUT % 71.4 % (42.8-82.8); PLATELET COUNT 165 K/MM3 (134-434); RDW 19.7 % (11.9-15.9)
[2018-12-12 10:08] LABS: ALBUMIN 3.5 g/dl (3.4-5.0); ALK PHOS 69 U/L (45-117); ANION GAP 7 MMOL/L (8-16); BILIRUBIN,TOTAL 0.9 mg/dL (0.2-1); BLOOD UREA NITROGEN 41 mg/dL (7-18); CALCIUM 8.6 mg/dL (8.5-10.1); CHLORIDE 104 mmol/L (98-107); CO2 29 mmol/L (21-32); CREATININE 2.4 mg/dL (0.55-1.3); GLUCOSE,RANDOM 179 mg/dL (74-106); POTASSIUM 4.3 mmol/L (3.5-5.1); SGOT/AST 10 U/L (15-37); SGPT/ALT 19 U/L (13-61); SODIUM 140 mmol/L (136-145); TOT PROT 6.9 g/dl (6.4-8.2)
[2018-12-12] MEDS: OMEGA-3 ACID ETHYL ESTERS (FATTY-ACIDS) 1 GM CAPSULE (FP) PO SCH (11:45)
--- NOTE | 2018-12-12 11:56 | PN ---
Progress Note (short form) - Note Progress Note: s: no cp sob palps dizzy o: Vital Signs Period Temp Pulse Resp BP Sys/Julio Pulse Ox Last 24 Hr 97.2 F-98.8 F 62-121 16-18 98-140/53-73 94-96 Constitutional: Yes: No Distress, Calm Eyes: Yes: Conjunctiva Clear Neck: Yes: Supple, Trachea Midline Respiratory: Yes: Regular, CTA Bilaterally Gastrointestinal: Yes: Normal Bowel Sounds, Soft Cardiovascular: Yes: Regular Rate and Rhythm JVD: No Heart Sounds: Yes: S1, S2 Murmur: Yes: Systolic Murmur, Grade 3 (systolic crescendo-decrescendo, audible S2) Musculoskeletal: No: Back Pain Extremities: No: Cold Edema: No Integumentary: No: Jaundice diaphoresis pos dp pt no carotid bruit Neurological: Yes: Alert, Oriented Current Medications Generic Name Dose Route Start Last Admin Trade Name Freq PRN Reason Stop Dose Admin Acetaminophen 650 mg 12/10/18 14:49 12/12/18 09:45 Tylenol - PO 650 mg Q4H PRN Administration PAIN OR FEVER Amoxicillin/Clavulanate Potassium 1 tab 12/11/18 18:30 12/12/18 09:45 Augmentin - 500mg Tablet PO 1 tab BIDWM KJ Administration Aspirin 81 mg 12/11/18 10:00 12/12/18 09:44 Ecotrin - PO 81 mg DAILY KJ Administration Atorvastatin Calcium 20 mg 12/11/18 22:00 12/11/18 22:21 Lipitor - PO 20 mg HS KJ Administration Cholecalciferol 1,000 unit 12/11/18 10:00 12/12/18 09:45 Vitamin D3 - PO 1,000 unit DAILY KJ Administration Clopidogrel Bisulfate 75 mg 12/11/18 10:00 12/12/18 09:45 Plavix - PO 75 mg DAILY KJ Administration Collagenase 1 applic 12/10/18 22:00 12/11/18 09:52 Santyl - TP 1 applic DAILY KJ Administration Protocol Donepezil HCl 10 mg 12/11/18 10:00 12/12/18 09:45 Aricept - PO 10 mg DAILY KJ Administration Enoxaparin Sodium 40 mg 12/11/18 10:00 12/12/18 09:44 Lovenox - SQ 40 mg DAILY KJ Administration Escitalopram Oxalate 20 mg 12/11/18 10:00 12/12/18 09:45 Lexapro - PO 20 mg DAILY KJ Administration Ferrous Sulfate 325 mg 12/11/18 10:00 12/12/18 09:45 Feosol - PO 325 mg DAILY JK Administration Guaifenesin 10 ml 12/11/18 18:07 12/11/18 18:21 Robitussin - PO 10 ml Q8H PRN Administration COUGH Insulin Aspart 1 vial 12/10/18 16:30 12/12/18 11:42 Novolog Vial Sliding Scale - SQ 4 units TIDAC JK Administration Protocol Insulin Detemir 16 units 12/10/18 22:00 12/11/18 22:20 Levemir Vial SQ 16 units HS KJ Administration Isosorbide Mononitrate 30 mg 12/11/18 12:15 12/12/18 09:45 Imdur - PO 30 mg DAILY KJ Administration Loratadine 10 mg 12/11/18 10:00 12/12/18 09:45 Claritin - PO 10 mg DAILY KJ Administration Metoprolol Succinate 50 mg 12/10/18 22:00 12/12/18 09:44 Toprol Xl - PO 50 mg BID KJ Administration Nitroglycerin 0.4 mg 12/11/18 12:00 12/11/18 11:20 Nitrostat - SL 0.4 mg Q5M PRN Administration FOR CHEST PAIN Inlvq-0-Vcbj Ethyl Esters 1 gm 12/11/18 10:00 12/12/18 11:45 Lovaza - PO 1 gm DAILY KJ Administration Pantoprazole Sodium 40 mg 12/11/18 10:00 12/12/18 09:44 Protonix - PO 40 mg DAILY KJ Administration Spironolactone 25 mg 12/11/18 10:00 12/12/18 09:44 Aldactone - PO 25 mg DAILY KJ Administration Tamsulosin HCl 0.8 mg 12/10/18 15:15 12/12/18 09:45 Flomax - PO 0.8 mg DAILY@0830 KJ Administration Torsemide 20 mg 12/11/18 10:00 12/12/18 09:45 Demadex - PO 20 mg DAILY KJ Administration CBC, BMP 12/12/18 09:10 12/12/18 09:10 EKG: sinus, old LBBB, PVC, no sig change prior cardiac FDG PET perfusion [facility] 10/2018: large, severe partially reversible defect anterior and apex, medium , moderate predominantly reversible inferior defect +TID, globally decreased LVSF , EF 28%, myocardium viable throughout Echo 08/2018 [facility] exam limited, no definity used. mod dec LVSF, EF 30-35%nl filling pressures, dd1, nl RV size, mildly decreased RVSF, mod , mod MR L/RHC 12/17 wedge 25, PA 60/25, RA 15, CI 2.1, AV gradient peak 25, mean 18, MADELINE 0.9, ISR of pLAD 70-80%-Xience, remainder unchanged vs prior: MULTIMEDIA COORDINATOR of RCA with large collateral from LCx, mid dstal LA occluded (MULTIMEDIA COORDINATOR) prior to LINDER touchdown, D2 jailed (MULTIMEDIA COORDINATOR), OM1 moderate diffuse dz cxr: clear lungs tele: sr, pvcs a/p: 77M h/o HTN, HLD, DM, CAD s/p stents, chronic systolic HF EF 30-35%, moderate , TIA, GERD, anemia, toe osteo on chronic abx as outpt here with cp. cp, CAD: - s/p PCI (LAURA pLAD with PTCA of ostial diag 12/2011, ISR with CABG 03/2013, cath 05/2013 patient LINDER (30% at anasthamosis site) with good perfusion of distal LAD but anasthamotic clips distal wall and occludes backflow; old MULTIMEDIA COORDINATOR of RCA with collats unchanged) - pt has stable angina for which he takes nitro sl for long time. His current cp is this same angina and was relieved by nitro. No cp now. trop neg. Added imdur 30 qd to his current regimen. he can be discharged today from cardiac pov with plan for further workup and management of CAD, at [facility] as outpt - on aspirin, plavix, metoprolol, statin PAd, R toe osteo -s/p RLE angioplasty -abx per ID -on asa, plavix Chronic systolic HF - euvolemic on aldactone, furosemide, continue HTN - stable on metoprolol HLD - continue statin DM - manage per primary CKD - renal function at baseline anemia - stable, manage per primary
[2018-12-12] MEDS: COLLAGENASE CLOSTRIDIUM HIST. 30 GRAMS TUBE TP SCH (13:02)
[2018-12-12] MEDS ORDERED: VANCOMYCIN 1 GRAM (PRE-DOCKED) 1,000 MG/250 ML BAG IVPB SCH (14:45)
[2018-12-12 14:59] VITALS: BP 102/60; PULSE 70; TEMP 97.6
[2018-12-12] MEDS ORDERED: PT OWN MED DRAWER 7, Y5N ONE (17:37)
[2018-12-12] MEDS ORDERED: INSULIN SLIDING SCALE (NOVOLOG) 1 VIAL SQ ONE (17:37)
== END 2018-12-12 19:34 | disposition home or self-care (01) ==
LOC: JER 10:42 → INTOOBSV 12:28 → UNDOADMOB 12:28 → JERBED 12:28 → J4S 21:35
PROVIDERS: ADMIT Family Medicine; ATTEND Family Medicine
PROC: 3E03329 Introduction of Other Anti-infective into Peripheral Vein, Percutaneous Approach (ICD-10-PCS; principal; 2018-12-10)
PROC: 3E0337Z Introduction of Electrolytic and Water Balance Substance into Peripheral Vein, Percutaneous Approach (ICD-10-PCS; 2018-12-10)
DX: I25.118 Atherosclerotic heart disease of native coronary artery with other forms of angina pectoris (principal); E11.22 Type 2 diabetes mellitus with diabetic chronic kidney disease; I13.10 Hypertensive heart and chronic kidney disease without heart failure, with stage 1 through stage 4 chronic kidney disease, or unspecified chronic kidney disease; N18.9 Chronic kidney disease, unspecified; Z87.891 Personal history of nicotine dependence; Z79.4 Long term (current) use of insulin; I11.0 Hypertensive heart disease with heart failure; F03.90 Unspecified dementia, unspecified severity, without behavioral disturbance, psychotic disturbance, mood disturbance, and anxiety; D64.9 Anemia, unspecified; I73.9 Peripheral vascular disease, unspecified; K21.9 Gastro-esophageal reflux disease without esophagitis; I44.7 Left bundle-branch block, unspecified; M86.9 Osteomyelitis, unspecified; I50.22 Chronic systolic (congestive) heart failure; E78.5 Hyperlipidemia, unspecified; I25.2 Old myocardial infarction; E88.1 Lipodystrophy, not elsewhere classified; E11.40 Type 2 diabetes mellitus with diabetic neuropathy, unspecified; M54.5 Low back pain; G89.29 Other chronic pain; F32.9 Major depressive disorder, single episode, unspecified; H91.90 Unspecified hearing loss, unspecified ear
CPT/HCPCS: 36415; 71046-TC-FY; 80053; 82550; 82962; 83735; 84484; 85025; 85610; 85651; 86140; 93005; 93010; 96365; 96366; 96368; 96375; 97116-GP; 97161-GP; 99285-25; G0277; G0378; G0480

== ENCOUNTER → 2018-12-10 | Day surgery (SDC) | payer OTHER | LOC: JHBOT 08:12 → JINFUSION 08:12 | PROVIDERS: ATTEND Internal Medicine | CPT/HCPCS: 82962; G0277 ==

== ENCOUNTER 2018-12-13 10:17 | Day surgery (SDC) | payer OTHER ==
[2018-12-13] MEDS ORDERED: VANCOMYCIN 1,250 MG in SODIUM CHLORIDE 250 ML IVPB ONE (10:45)
[2018-12-13 11:05] VITALS: BP 115/49; PULSE 67
[2018-12-13 15:56] VITALS: TEMP 97.3
== END 2018-12-13 12:05 | disposition home or self-care (01) ==
LOC: JINFUSION 10:17 → J7W 10:20 → JINFUSION 12:05
PROVIDERS: ATTEND Family Medicine
DX: E11.69 Type 2 diabetes mellitus with other specified complication (principal); M86.9 Osteomyelitis, unspecified; I10 Essential (primary) hypertension; Z79.4 Long term (current) use of insulin
CPT/HCPCS: 96365; 96366; 96367

== ENCOUNTER 2018-12-14 09:40 | Day surgery (SDC) | payer OTHER ==
[2018-12-14] MEDS ORDERED: VANCOMYCIN 1,250 MG in SODIUM CHLORIDE 250 ML IVPB ONE (11:00)
[2018-12-14 17:56] VITALS: BP 117/56; PULSE 65; TEMP 97.8
== END 2018-12-14 13:00 | disposition home or self-care (01) ==
LOC: JINFUSION 09:40 → J7W 09:41 → JINFUSION 13:00
PROVIDERS: ATTEND Internal Medicine Infectious Disease
DX: E11.69 Type 2 diabetes mellitus with other specified complication (principal); M86.9 Osteomyelitis, unspecified; I10 Essential (primary) hypertension; Z79.4 Long term (current) use of insulin
CPT/HCPCS: 96365; 96366

== ENCOUNTER 2018-12-15 07:33 | Day surgery (SDC) | payer OTHER | END 2018-12-15 10:45 | disposition home or self-care (01) | LOC: JINFUSION 07:33 | PROVIDERS: ATTEND Internal Medicine Infectious Disease | PROC: 3E033GC Introduction of Other Therapeutic Substance into Peripheral Vein, Percutaneous Approach (ICD-10-PCS; principal; 2018-12-15) | DX: Z53.8 Procedure and treatment not carried out for other reasons (principal) | CPT/HCPCS: G0277; G0480 ==

== ENCOUNTER 2018-12-16 07:34 | Day surgery (SDC) | payer OTHER ==
[2018-12-16] MEDS ORDERED: VANCOMYCIN 1,250 MG in SODIUM CHLORIDE 250 ML IVPB ONE (10:00)
[2018-12-16 11:20] VITALS: TEMP 97.4
[2018-12-16 13:02] VITALS: BP 109/58; PULSE 72
== END 2018-12-16 13:03 | disposition home or self-care (01) ==
LOC: JINFUSION 07:34
PROVIDERS: ATTEND Internal Medicine Infectious Disease
DX: E11.69 Type 2 diabetes mellitus with other specified complication (principal); M86.9 Osteomyelitis, unspecified; I10 Essential (primary) hypertension; Z79.4 Long term (current) use of insulin
CPT/HCPCS: 82962; 96365; 96366; G0277

== ENCOUNTER → 2018-12-17 | Day surgery (SDC) | payer OTHER ==
[~2018-12-17] MED LIST changes: -VANCOMYCIN 1,250 MG in DEXTROSE 5%-WATER - 250 ML IVPB ONE
[2018-12-17 13:58] VITALS: BP 110/58; PULSE 67; TEMP 97.6
== END | disposition home or self-care (01) ==
LOC: JINFUSION 07:37
PROVIDERS: ATTEND Internal Medicine Infectious Disease
DX: E11.69 Type 2 diabetes mellitus with other specified complication (principal); M86.9 Osteomyelitis, unspecified; I10 Essential (primary) hypertension; Z79.4 Long term (current) use of insulin
CPT/HCPCS: 82962; 96365; 96366; G0277

== ENCOUNTER 2018-12-18 07:38 | Day surgery (SDC) | payer OTHER ==
[2018-12-18] MEDS ORDERED: VANCOMYCIN 1,250 MG in SODIUM CHLORIDE 250 ML IVPB ONE (08:30)
[2018-12-18 15:15] VITALS: BP 100/60; PULSE 60; TEMP 97
--- NOTE | 2018-12-18 20:41 | PN ---
Progress Note, Physician Chief Complaint: FUV right big toe History of Present Illness: FUV right big toe. Missed last weeks appointment. - Objective Vital Signs: Vital Signs Temperature 97.0 F L 12/18/18 15:14 Pulse Rate 60 12/18/18 15:14 Respiratory Rate 18 12/18/18 15:14 Blood Pressure 100/60 12/18/18 15:14 O2 Sat by Pulse Oximetry (%) Extremities: Yes: Other (Dry eschar right big toe medial aspect, +poor bleeding on debridement, -cellulitis, -drainage) Assessment/Plan Ischemia non painful right foot grade 2-3 wound right foot. Sharp Debride wound. No bleeding noted. Betadine dressing daily. Long conversation with patient and . Needs to address cardiac issues first. Has appointment on 01/12/19 at [facility]. Explained circulation to poor for surgery right big toe. Most likely needs an open bypass however due to Cardiac history needs ti take care of that first. Explained that we could keep wound clean and if no downside currently, we would treat palliatively. Continue HBO. PTR 1 week. Continue post op shoe. present throughout. Would re-visit intervention after cardiac consultation and possible intervention.
== END 2018-12-18 13:00 | disposition home or self-care (01) ==
LOC: JINFUSION 07:38
PROVIDERS: ATTEND Internal Medicine Infectious Disease
DX: E11.69 Type 2 diabetes mellitus with other specified complication (principal); M86.9 Osteomyelitis, unspecified; I10 Essential (primary) hypertension; Z79.4 Long term (current) use of insulin
CPT/HCPCS: 82962; 96365; 96366; 97597; G0277

== ENCOUNTER 2018-12-19 07:37 | Day surgery (SDC) | payer OTHER ==
[2018-12-19 08:15] LABS: HEMATOCRIT 27.5 % (35.4-49); HEMOGLOBIN 9.3 GM/dL (11.7-16.9); MCH 29.9 pg (25.7-33.7); MEAN CELL VOLUME 88.2 fl (80-96); MEAN PLT VOLUME 7.4 fl (7.5-11.1); PLATELET COUNT 154 K/MM3 (134-434); RBC 3.12 M/mm3 (4.00-5.60); RDW 19.4 % (11.9-15.9); WHITE BLOOD COUNT 5.2 K/mm3 (4.0-10.0)
[2018-12-19 09:03] LABS: ALBUMIN 3.5 g/dl (3.4-5.0); ALK PHOS 71 U/L (45-117); ANION GAP 7 MMOL/L (8-16); BILIRUBIN,TOTAL 0.6 mg/dL (0.2-1); BLOOD UREA NITROGEN 45 mg/dL (7-18); CALCIUM 8.6 mg/dL (8.5-10.1); CHLORIDE 102 mmol/L (98-107); CO2 28 mmol/L (21-32); CREATININE 2.4 mg/dL (0.55-1.3); GLUCOSE,RANDOM 277 mg/dL (74-106); POTASSIUM 4.3 mmol/L (3.5-5.1); SGOT/AST 14 U/L (15-37); SGPT/ALT 22 U/L (13-61); SODIUM 137 mmol/L (136-145); TOT PROT 6.7 g/dl (6.4-8.2)
[2018-12-19] MEDS ORDERED: VANCOMYCIN 1,000 MG in SODIUM CHLORIDE 250 ML IVPB ONE (09:45)
[2018-12-19] MEDS ORDERED: VANCOMYCIN 1,000 MG in DEXTROSE 5%-WATER - 250 ML IVPB SCH (09:45)
[2018-12-19 11:24] VITALS: TEMP 97.9
[2018-12-19 12:44] VITALS: BP 113/67; PULSE 63
== END 2018-12-19 12:45 | disposition home or self-care (01) ==
LOC: JINFUSION 07:37
PROVIDERS: ATTEND Internal Medicine Infectious Disease
DX: E11.69 Type 2 diabetes mellitus with other specified complication (principal); M86.9 Osteomyelitis, unspecified; I10 Essential (primary) hypertension; Z79.4 Long term (current) use of insulin
CPT/HCPCS: 36415; 80053; 82962; 85027; 96365; 96366; G0277; G0480

== ENCOUNTER 2018-12-20 08:50 | Day surgery (SDC) | payer OTHER ==
[2018-12-20] MEDS ORDERED: VANCOMYCIN 1,250 MG in SODIUM CHLORIDE 250 ML IVPB ONE (09:15)
[2018-12-20] MEDS ORDERED: VANCOMYCIN 1,000 MG in SODIUM CHLORIDE 250 ML IVPB ONE (09:30)
[2018-12-20 12:58] VITALS: TEMP 98.1
[2018-12-20 13:01] VITALS: BP 123/60; PULSE 80
== END 2018-12-20 15:44 | disposition home or self-care (01) ==
LOC: JINFUSION 08:50 → J7W 09:04 → JINFUSION 15:44
PROVIDERS: ATTEND Internal Medicine Infectious Disease
DX: E11.69 Type 2 diabetes mellitus with other specified complication (principal); M86.9 Osteomyelitis, unspecified; I10 Essential (primary) hypertension; Z79.4 Long term (current) use of insulin
CPT/HCPCS: 96365; 96366

== ENCOUNTER 2018-12-21 09:06 | Day surgery (SDC) | payer OTHER ==
[2018-12-21] MEDS ORDERED: VANCOMYCIN 1,000 MG in SODIUM CHLORIDE 250 ML IVPB ONE (09:30)
[2018-12-21 12:03] VITALS: BP 119/69; PULSE 86
[2018-12-24 09:18] VITALS: TEMP 97.7
== END 2018-12-21 12:17 | disposition home or self-care (01) ==
LOC: JINFUSION 09:06 → J7W 09:06 → JINFUSION 12:17
PROVIDERS: ATTEND Internal Medicine Infectious Disease
DX: E11.69 Type 2 diabetes mellitus with other specified complication (principal); M86.9 Osteomyelitis, unspecified; I10 Essential (primary) hypertension; Z79.4 Long term (current) use of insulin
CPT/HCPCS: 96365; 96366

== ENCOUNTER 2018-12-22 08:02 | Day surgery (SDC) | payer OTHER ==
[2018-12-22] MEDS ORDERED: VANCOMYCIN 1,000 MG in SODIUM CHLORIDE 250 ML IVPB ONE (11:00)
[2018-12-22 14:13] VITALS: BP 118/56; PULSE 70; TEMP 97.6
== END 2018-12-22 13:15 | disposition home or self-care (01) ==
LOC: JHBOT 08:02 → JINFUSION 13:15
PROVIDERS: ATTEND Internal Medicine Infectious Disease
DX: E11.69 Type 2 diabetes mellitus with other specified complication (principal); M86.9 Osteomyelitis, unspecified; I10 Essential (primary) hypertension; Z79.4 Long term (current) use of insulin
CPT/HCPCS: 82962; 96365; 96366; G0277

== ENCOUNTER → 2018-12-23 | Day surgery (SDC) | payer OTHER | LOC: JINFUSION 07:33 ==

== ENCOUNTER 2018-12-24 07:31 | Day surgery (SDC) | payer OTHER ==
[2018-12-24] MEDS ORDERED: VANCOMYCIN 1,000 MG in SODIUM CHLORIDE 250 ML IVPB ONE (11:00)
[2018-12-24 13:47] VITALS: BP 106/61; PULSE 60; TEMP 97.9
== END 2018-12-24 13:00 | disposition home or self-care (01) ==
LOC: JINFUSION 07:31
PROVIDERS: ATTEND Internal Medicine Infectious Disease
DX: E11.69 Type 2 diabetes mellitus with other specified complication (principal); M86.9 Osteomyelitis, unspecified; I10 Essential (primary) hypertension; Z79.4 Long term (current) use of insulin
CPT/HCPCS: 82962; 96365; 96366; G0277

== ENCOUNTER 2018-12-25 07:42 | Day surgery (SDC) | payer OTHER | END 2018-12-25 12:40 | disposition home or self-care (01) | LOC: JINFUSION 07:42 ==

== ENCOUNTER 2018-12-26 07:31 | Day surgery (SDC) | payer OTHER | END 2018-12-26 13:12 | disposition home or self-care (01) | LOC: JINFUSION 07:31 | DX: E11.52 Type 2 diabetes mellitus with diabetic peripheral angiopathy with gangrene (principal); I70.4 Atherosclerosis of autologous vein bypass graft(s) of the extremities; Z79.4 Long term (current) use of insulin ==

== ENCOUNTER 2018-12-27 07:18 | Day surgery (SDC) | payer OTHER | END 2018-12-27 12:30 | disposition home or self-care (01) | LOC: JINFUSION 07:18 → J7W 07:18 → JINFUSION 12:30 ==

== ENCOUNTER 2018-12-28 04:16 | Inpatient (IN) | payer OTHER ==
[2018-12-28 04:33] VITALS: BMI 25.7
--- NOTE | 2018-12-28 04:35 | PDOC ---
History of Present Illness - General Chief Complaint: Pain Stated Complaint: HEART BURN/ABDOMINAL PAIN Time Seen by Provider: 12/28/18 04:35 - History of Present Illness Initial Comments: 12/28/18 04:39 Mr. Whipple is a 78 yo male w/ pmh of dementia, prior TIA, anemia, PAD, CAD s/p CABG and PCI, CKD, HTN, HLD, CHF, DMII, diabetic foot ulcer w/ osteomyelitis (currently getting outpatient IV treatment through PICC line w/ vancomycin and hyperbarics) who presents for evaluation of chest pain since approximately midnight last night. Patient reports he was attempting to go to bed when he noticed it and it kept him from sleeping. Attempted to take home nitro for the pain x3 with no effect. Also took antacids and pantoprazole - also with no effect. Describes pain as burning and mid sternal. Does not radiate. Endorses 1 episode of nausea/vomiting. Denies other symptoms at this time. The patient denies shortness of breath, headache and dizziness. Denies fever, chills, diarrhea and constipation. Denies dysuria, frequency, urgency and hematuria. Past History - Past Medical History Allergies/Adverse Reactions: Allergies Allergy/AdvReac Type Severity Reaction Status Date / Time ranolazine [From Ranexa] AdvReac Intermediate Hallucinati Verified 12/28/18 04: 31 ons Home Medications: Ambulatory Orders Nitroglycerin 0.6 mg SL ASDIR 07/24/17 Atorvastatin Calcium 20 mg PO DAILY #30 tablet 12/01/18 Cholecalciferol (Vitamin D3) [Vitamin D3] 1,000 unit PO DAILY 30 Days #30 tablet 12/01/18 Donepezil HCl [Aricept] 10 mg PO DAILY 30 Days #30 tablet 12/01/18 Escitalopram Oxalate [Lexapro -] 20 mg PO DAILY 30 Days #30 tablet 12/01/18 Ferrous Sulfate 325 mg PO DAILY 30 Days #30 tab 12/01/18 Insulin Glargine,Hum.rec.anlog [Lantus Solostar PEN -] 16 units SQ AM 30 Days # 16 ins 12/01/18 Loratadine [Claritin -] 10 mg PO DAILY 14 Days #14 tablet 12/01/18 Metoprolol Succinate [Toprol Xl] 50 mg PO BID 30 Days #30 tab.er.24h 12/01/18 Nitroglycerin [Nitrostat] 0.4 mg SL ASDIR 30 Days #30 tab.subl 12/01/18 [place]-3 Acid Ethyl Esters [Lovaza -] 1 gm PO DAILY 30 Days #30 cap 12/01/18 Pantoprazole Sodium [Protonix] 40 mg PO DAILY 30 Days #30 tablet. 12/01/18 Spironolactone 25 mg PO DAILY 30 Days #30 tablet 12/01/18 Tamsulosin HCl [Flomax] 0.4 mg PO BID 30 Days #30 capsule 12/01/18 Torsemide [Demadex -] 20 mg PO DAILY 30 Days #30 tablet 12/01/18 Aspirin Coated [Ecotrin -] 81 mg PO DAILY tablet.ec 12/02/18 Clopidogrel Bisulfate [Plavix -] 75 mg PO DAILY tablet 12/02/18 Isosorbide Mononitrate [Imdur -] 30 mg PO DAILY #30 tab.sr.24h 12/12/18 Vancomycin [Vancocin] 1,250 mg IV DAILY 12/18/18 Anemia: Yes Asthma: No Cardiac Disorders: Yes (Bypass 03/03/13,Cath with Stents 09/2015) CVA: Yes (TIA) COPD: No CHF: No Dementia: Yes Diabetes: Yes GI Disorders: Yes (Reflux) Disorders: Yes HTN: Yes Hypercholesterolemia: Yes - Surgical History Appendectomy: Yes Cardiac Surgery: Yes (Stents) - Immunization History Immunization Up to Date: No - Suicide/Smoking/Psychosocial Hx Smoking Status: No Smoking History: Never smoked Have you smoked in the past 12 months: No Number of Cigarettes Smoked Daily: 0 Information on smoking cessation initiated: No Hx Alcohol Use: No Drug/Substance Use Hx: No Substance Use Type: None Hx Substance Use Treatment: No Review of Systems - Review of Systems Comments:: 12/28/18 04:49 GENERAL/CONSTITUTIONAL: No fever or chills. No weakness. HEAD, EYES, EARS, NOSE AND THROAT: No change in vision. No ear pain or discharge. No sore throat. CARDIOVASCULAR: +Midline substernal non-radiating constant chest pain. No shortness of breath RESPIRATORY: No cough, wheezing, or hemoptysis. GASTROINTESTINAL: No nausea, vomiting, diarrhea or constipation. GENITOURINARY: No dysuria, frequency, or change in urination. MUSCULOSKELETAL: No joint or muscle swelling or pain. No neck or back pain. SKIN: No rash NEUROLOGIC: No headache, vertigo, loss of consciousness, or change in strength/ sensation. ENDOCRINE: No increased thirst. No abnormal weight change HEMATOLOGIC/LYMPHATIC: No anemia, easy bleeding, or history of blood clots. ALLERGIC/IMMUNOLOGIC: No hives or skin allergy. *Physical Exam - Vital Signs Last Vital Signs Temp Pulse Resp BP Pulse Ox 97.6 F 84 20 120/64 95 12/28/18 04:31 12/28/18 04:31 12/28/18 04:31 12/28/18 04:31 12/28/18 04:31 - Physical Exam Comments: 12/28/18 04:50 GENERAL: Awake, alert, and fully oriented, in no acute distress HEAD: No signs of trauma, normocephalic, atraumatic EYES: PERRLA, EOMI, sclera anicteric, conjunctiva clear ENT: Auricles normal inspection, hearing grossly normal, nares patent, oropharynx clear without exudates. Moist mucosa NECK: Normal ROM, supple, no lymphadenopathy, JVD, or masses LUNGS: No distress, speaks full sentences, clear to auscultation bilaterally HEART: +Murmur appreciated c/w known cardiac pathology. Regular rate and rhythm , normal S1 and S2, no murmurs, rubs or gallops, peripheral pulses normal and equal bilaterally. ABDOMEN: +Umbilical hernia noted. Otherwise soft, nontender, normoactive bowel sounds. No guarding, no rebound. No masses EXTREMITIES: Normal inspection, Normal range of motion, no edema. No clubbing or cyanosis. NEUROLOGICAL: Cranial nerves II through XII grossly intact. Normal speech, normal gait, no focal sensorimotor deficits SKIN: Warm, Dry, normal turgor, no rashes or lesions noted. Moderate Sedation - Procedure Monitoring Vital Signs: Procedure Monitoring Vital Signs Temperature 97.6 F 12/28/18 04:31 Pulse Rate 84 12/28/18 04:31 Respiratory Rate 20 12/28/18 04:31 Blood Pressure 120/64 12/28/18 04:31 O2 Sat by Pulse Oximetry (%) 95 12/28/18 04:31 Heart Score/ECG Review - History History: Moderately suspicious - Electrocardiogram EKG: Non specific repolarization disturbance - Age Age: >/= 65 - Risk Factors Risk Factors Heart Score: Yes Hx Hypercholesterolemia, Yes Hx Hypertension, Yes Hx Diabetes Based on the list above the patient has:: >/=3 risk factors or Hx atherosclerotic disease - Troponin Troponin: </= normal limit - Score Heart Score - Total: 6 ED Treatment Course - LABORATORY CBC & Chemistry Diagram: 12/28/18 05:14 12/28/18 05:14 Medical Decision Making - Medical Decision Making 12/28/18 05:34 Mr. Whipple is a 78 yo male w/ pmh as described who presents for evaluation of midline chest pain. Patient well appearing however given cardiac history patient will likely be admitted for cardiac evaluation and treatment of known osteo. Patient workup started with CBC/CMP/PT/INR/cardiac panel/EKG. EKG significant for LBBB w/ Left axis deviation as seen on previous EKG. Patient son requesting call for any change to plan (Leonardo: [phone]) 12/28/18 06:22 Troponin noted to be elevated as below. Patient will be admitted. Licensed Clinician paged. 12/28/18 06:40 Patient discussed with international trade compliance manager who believes symptoms likely still 2/2 gastric symptoms. Patient will be admitted for f/u w/ 2nd troponin and further cardiac evaluation. 12/28/18 06:57 Patient signed out to Dr. Sanches for further evaluation. *DC/Admit/Observation/Transfer Diagnosis at time of Disposition: Elevated troponin Chest pain Qualifiers: Chest pain type: unspecified Qualified Code(s): R07.9 - Chest pain, unspecified - Discharge Dispostion Decision to Admit order: Yes - Referrals Referrals: Dom Staples MD [Primary Care Provider] - - Patient Instructions - Post Discharge Activity
[2018-12-28] MEDS ORDERED: morphine CARPU-JECT 2 MG/1 ML DISP.SYRIN IVPUSH ONE (04:38)
[2018-12-28] MEDS ORDERED: MORPHINE SULFATE 2 MG/ML VIAL ONE (05:08)
--- NOTE | 2018-12-28 05:21 | PDOC ---
Attending Attestation - Resident Resident Name: [email or web address] - ED Attending Attestation I have performed the following: I have examined & evaluated the patient, The case was reviewed & discussed with the resident, I agree w/resident's findings & plan - HPI HPI: 12/28/18 05:19 Pt comes with MSCP; 3 nitros didn't help and he got anxious and came to the ER. Yesterday he ate a lot of foods that he ought not be eating, like mac and cheese. Pt has no fever. He has been getting vanco 1g daily for his osteomylitis thru the PICC line in his right CW. - Physicial Exam PE: 12/28/18 05:20 Agree with resident. Pt has crackles at the bases and he has minimal pittin gedema at the legs and he has holosystolic 4/6 murmur - Medical Decision Making 12/28/18 05:21 Tele admit; do all labs. CXR pending EKG old LBBB 12/28/18 06:[address] Crow who is aware of the elevated trop; we will continue to monitor here; if the next trop goes up then patient will be transferred to [facility] floor. If patient 's troponin stays stable or goes down then he will remain at [facility]. Dr. Crow is aware that we have started heparin. Pt has old LBBB on EKG. Heart Score/ECG Review - ECG Intrepretation Rhythm: Regular Rhythm - Maybee Maybee: Normal - P and NM Prominent R with upright T in V1 (true posterior SC): No Delta Wave(s) Present: No WPW: No - QRS Poor R Wave Progression: No Q Wave Present: No - ST and T Flattened T Waves: No Prolonged Q-T Interval: No - ECG Impressions Normal ECG: Yes Non-specific ST Elevation: No Ischemic Changes: No Bradycardia: No Torsades harry Pointes: No WPW: No
[2018-12-28 05:31] LABS: BASO % 1.1 % (0-2.0); EOS % 3.8 % (0-4.5); HEMATOCRIT 26.5 % (35.4-49); HEMOGLOBIN 9.4 GM/dL (11.7-16.9); LYMPH % 13.1 % (8-40); MCH 31.1 pg (25.7-33.7); MCHC 35.3 g/dl (32.0-35.9); MEAN CELL VOLUME 88.2 fl (80-96); MEAN PLT VOLUME 7.7 fl (7.5-11.1); PLATELET COUNT 121 K/MM3 (134-434); RDW 19.9 % (11.9-15.9); WHITE BLOOD COUNT 5.9 K/mm3 (4.0-10.0)
[2018-12-28] MEDS ORDERED: FAMOTIDINE 20 MG/50 ML IVPB 20 MG/50 ML MG IVPB ONE ×2 (05:45→05:47)
[2018-12-28] MEDS ORDERED: LIDOCAINE VISCOUS 2% ORAL/TOP 20 ML UNIT-DOSE CUP MM ONE (05:45)
[2018-12-28] MEDS ORDERED: MAG HYDROX/AL HYDROX/SIMETH 30 ML UNIT-DOSE CUP PO ONE (05:45)
[2018-12-28] MEDS ORDERED: LIDOCAINE VISCOUS 2% ORAL/TOP 20 ML UNIT-DOSE CUP ONE (05:46)
[2018-12-28] MEDS ORDERED: SODIUM CHLORIDE 250 ML IV STA (05:47)
[2018-12-28 06:08] LABS: ALBUMIN 3.4 g/dl (3.4-5.0); ALK PHOS 87 U/L (45-117); ANION GAP 9 MMOL/L (8-16); BLOOD UREA NITROGEN 49 mg/dL (7-18); CALCIUM 8.1 mg/dL (8.5-10.1); CHLORIDE 98 mmol/L (98-107); CO2 27 mmol/L (21-32); CREATININE 2.9 mg/dL (0.55-1.3); POTASSIUM 4.6 mmol/L (3.5-5.1); SGOT/AST 18 U/L (15-37); SGPT/ALT 31 U/L (13-61); SODIUM 133 mmol/L (136-145); TOT PROT 6.8 g/dl (6.4-8.2)
[2018-12-28 06:13] LABS: GLUCOSE,RANDOM 370 mg/dL (74-106)
[2018-12-28] MEDS ORDERED: HEPARIN NA (PORCINE) 5,000 UNITS/ML 1ML VIAL ONE (06:15)
[2018-12-28] MEDS ORDERED: HEPARIN INFUSION - 25,000 UNITS/500 ML INFUS.BAG IVPB ONE (06:15)
[2018-12-28] MEDS ORDERED: HEPARIN NA (PORCINE) 5,000 UNITS/ML 1ML VIAL IVPUSH PRN (06:20)
[2018-12-28] MEDS ORDERED: METOPROLOL TARTRATE 5 MG/5 ML VIAL IVPUSH ONE (06:25)
[2018-12-28 06:26] LABS: INR 1.14 (0.83-1.09); PROTHROMBIN TIME (PATIENT) 13.5 SEC (9.7-13.0)
[2018-12-28] MEDS ORDERED: METOPROLOL TARTRATE 5 MG/5 ML VIAL ONE (06:26)
[2018-12-28] MEDS: HEPARIN - 25,000 UNIT in SODIUM CHLORIDE 495 ML IV SCH ×2 (06:41→14:02)
[2018-12-28] MEDS ORDERED: INSULIN REGULAR HUMAN 100 UNITS/ML *VIAL IVPUSH ONE (07:12)
[2018-12-28] MEDS ORDERED: SUCRALFATE 1 GM/10 ML UNIT DOSE CUPS PO ONE (07:43)
[2018-12-28] MEDS ORDERED: INSULIN REGULAR HUMAN 100 UNITS/ML *VIAL ONE (07:48)
--- NOTE | 2018-12-28 09:48 | CON.CARD ---
Consult Consult Specialty:: cardio - History of Present Illness Chief Complaint: chest pain History of Present Illness: 78 male here with CP well-known to me from office for h/o CAD, CHF, . has prior LAD stent, then 1V LINDER to LAD, then recurrent proximal LAD stenoses ( de raymond lesions and in-stent) requiring mult PCIs for angina since then. 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 has developed LV dysfunction over the past 12-18 months, with EF last in 30-35% range. also has progressive felt to be moderate on 2 different workups at tertiary centers, last being done at [facility] with dr travis wang. recent FDG PET few months ago showed high-risk ischemia in LAD and RCA distributions with TID and low EF. pt referred back to dr wang for w/u of high-risk CABG/AVR vs multivessel stenting revascularization, with plan for ICD if EF did not improve once revascularized. in the interim, in 11/18 he developed osteo of the foot, was admitted her for treatment by ID and vascular surgery, sent home on prolonged abx course. son was instructed after that hosp stay to arrange the consult with dr wang to begin the deliberations and w/u, including interventional cardio and CTS opinions. his CHF has been well controlled for the past several months, and he has had stable angina pattern requiring only a few nitro SL per week, which is his best baseline. creat has been stable 2-2.2 on his med regimen. the son called me early this AM to report that father thought he was having severe heartburn but was unrelieved by tums and 3x Gaviscon. pt described burning sensation beginning in his stomach and rising up through the chest to the throat. he had vomited x 1 from this. he had taken NTG as well x 1, with no relief. the sx was not similar to his prior angina. he had taken his usual pantoprazole at dinner time. he attributed the sx to having eaten cured meats and cheese earlier that evening. denied diaphoresis, LH or sob. i advised to repeat a dose of pantoprazole and if sx's persisted, or if he developed diaph, sob or LH, to call 911 to go to ER. he arrived in ER later this AM with troponin of 0.1; repeat just came back at 2.1 CURRENTLY: pt states the pain onset was acute, approx 11:30pm. located in mid abdomen and radiating up to lower chest, slightly above lower rib margin. quality felt "like acid". there was no tearing sensation and no radiation to back. persisted unremitting since that time, including after received morphine in ER. was given carafate in ER subsequently and he then shortly later had BM and began to feel the pain subside. IT HAS NOW COMPLETELY RESOLVED. continues to deny sob. PMH: DM HPL CKD anemia CAD syst CHF - Past Medical History FINANCING ANALYST: Yes: Dementia, TIA Cardio/Vascular: Yes: CAD, CHF, HTN, Hyperlipdemia, NV Gastrointestinal: Yes: GERD Psych: Yes: Depression Musculoskeletal: Yes: Chronic low back pain, Other (diabetic neuropathy) ENT: Yes: Other (hard of hearing) Endocrine: Yes: Diabetes Mellitus - Past Surgical History Past Surgical History: Yes: Appendectomy, CABG, Stent - Alcohol/Substance Use Hx Alcohol Use: No History of Substance Use: reports: None - Smoking History Smoking history: Never smoked Have you smoked in the past 12 months: No Aproximately how many cigarettes per day: 0 - Social History Usual Living Arrangement: With Spouse History of Recent Travel: No Home Medications - Allergies Allergies/Adverse Reactions: Allergies Allergy/AdvReac Type Severity Reaction Status Date / Time ranolazine [From Ranexa] AdvReac Intermediate Hallucinati Verified 12/28/18 04: 31 ons - Home Medications Home Medications: Ambulatory Orders Nitroglycerin 0.6 mg SL ASDIR 07/24/17 Atorvastatin Calcium 20 mg PO DAILY #30 tablet 12/01/18 Cholecalciferol (Vitamin D3) [Vitamin D3] 1,000 unit PO DAILY 30 Days #30 tablet 12/01/18 Donepezil HCl [Aricept] 10 mg PO DAILY 30 Days #30 tablet 12/01/18 Escitalopram Oxalate [Lexapro -] 20 mg PO DAILY 30 Days #30 tablet 12/01/18 Ferrous Sulfate 325 mg PO DAILY 30 Days #30 tab 12/01/18 Insulin Glargine,Hum.rec.anlog [Lantus Solostar PEN -] 16 units SQ AM 30 Days # 16 ins 12/01/18 Loratadine [Claritin -] 10 mg PO DAILY 14 Days #14 tablet 12/01/18 Metoprolol Succinate [Toprol Xl] 50 mg PO BID 30 Days #30 tab.er.24h 12/01/18 Nitroglycerin [Nitrostat] 0.4 mg SL ASDIR 30 Days #30 tab.subl 12/01/18 [place]-3 Acid Ethyl Esters [Lovaza -] 1 gm PO DAILY 30 Days #30 cap 12/01/18 Pantoprazole Sodium [Protonix] 40 mg PO DAILY 30 Days #30 tablet.dr 12/01/18 Spironolactone 25 mg PO DAILY 30 Days #30 tablet 12/01/18 Tamsulosin HCl [Flomax] 0.4 mg PO BID 30 Days #30 capsule 12/01/18 Torsemide [Demadex -] 20 mg PO DAILY 30 Days #30 tablet 12/01/18 Aspirin Coated [Ecotrin -] 81 mg PO DAILY tablet.ec 12/02/18 Clopidogrel Bisulfate [Plavix -] 75 mg PO DAILY tablet 12/02/18 Isosorbide Mononitrate [Imdur -] 30 mg PO DAILY #30 tab.sr.24h 12/12/18 Vancomycin [Vancocin] 1,250 mg IV DAILY 12/18/18 Family Disease History - Family Disease History Family Disease History: Diabetes: Mother (HTN), Heart Disease: Father ( of [place] age 45), Mother Review of Systems - Review of Systems Constitutional: denies: Chills, Fever Eyes: denies: Eye Pain HENT: denies: Nasal Congestion Neck: denies: Stiffness Cardiovascular: denies: Palpitations Respiratory: denies: Orthopnea, PND Gastrointestinal: denies: Diarrhea, Rectal Bleeding Genitourinary: denies: Burning, Hematuria Musculoskeletal: denies: Muscle Pain Integumentary: denies: Rash Neurological: denies: Numbness, Seizure, Syncope Endocrine: denies: Excessive Sweating Hematology/Lymphatic: denies: Excessive Bleeding Vital Signs: Vital Signs Temperature 97.8 F 12/28/18 05:56 Pulse Rate 74 12/28/18 05:56 Respiratory Rate 20 12/28/18 05:56 Blood Pressure 115/68 12/28/18 06:25 O2 Sat by Pulse Oximetry (%) 98 12/28/18 05:56 Constitutional: Yes: Well Nourished, No Distress Eyes: No: Sclera Icterus HENT: No: Nasal Congestion Neck: No: Decreased ROM Respiratory: Yes: CTA Bilaterally. No: Accessory Muscle Use, Rales, Wheezes Gastrointestinal: Yes: Normal Bowel Sounds. No: Distention, Hepatomegaly, Palpable Mass, Pulsatile Mass, Tenderness Cardiovascular: Yes: Regular Rate and Rhythm JVD: No Carotid Bruit: No PMI: Non-Displaced Heart Sounds: Yes: S1, S2. No: Gallop Murmur: Yes: Systolic Murmur (3/6 [place] lusb, soft s1/s2 no split heard). No: Diastolic Murmur Musculoskeletal: Yes: Other (No kyphosis) Extremities: No: Cool, Cyanosis Edema: No Peripheral Pulses: 2+ Left Carotid, 2+ Right Carotid, 2+ Left Doralis Pedis, 2+ Right Dorsalis Pedis Integumentary: No: Jaundice Neurological: Yes: Alert, Oriented (x3) Psychiatric: No: Agitated - Other Data Labs, Other Data: CBC, BMP 12/28/18 05:14 12/28/18 05:14 INR, PTT INR 1.14 (0.83-1.09) H 12/28/18 05:14 Troponin, BNP 12/28/18 12/28/18 05:14 08:33 Troponin I 0.18 H 2.12 H* Troponin, BNP 12/28/18 12/28/18 05:14 08:33 Troponin I 0.18 H 2.12 H* Laboratory Tests 12/28/18 12/28/18 12/28/18 05:14 05:14 08:33 WBC 5.9 Hgb 9.4 L Plt Count 121 L Sodium 133 L Potassium 4.6 Carbon Dioxide 27 BUN 49 H Creatinine 2.9 H AST 18 ALT 31 Creatine Kinase 92 Troponin I 0.18 H 2.12 H* Assessment/Plan ECG #1 (12/28): NSR, LBBB with assctd ST-T abn--no change vs 12/11/18 #2 (12/28): no change CXR: weak inspiration, new congestive changes image reviewed: no effusion, + interstitial enhancement pattern. no vasc redistribution CAD, NSTEMI: -troponin 0.1-->2.1 -ongoing CP here in ER -pt with known recurrent LAD dz causing angina and ACS in past requiring mult stents, despite pre-existing LINDER to LAD. also RIM TURNING FINISHER of RCA which is ischemia- causing on FDG-PET -has known low EF 30-35% and co-existing moderate -UFH gtt started in ER earlier this am -pain has resolved completely now, ? carafate effect vs heparin -he is hemodynamically stable with no significant findings of acute CHF, no electrical instability -he is in JUSTYN, at very hi risk for BETITO -he is still receiving abx for osteomyelitis and has non-healing wound requiring hyperbaric O2 treatment -he is protected by a patent LINDER to his LAD (which has been patent on multiple caths since the bypass about 7 yrs ago), with proximal LAD disease recurrently which is not a myocardial distribution that is expected to be life-threatening in him -d/w'd interventional cardio at [facility]: if he remains cp free with no signs of shock or other life-threatening complications, the risks/benefits favor optimizing his renal fxn further prior to repeating cath. -will cont UFH here and observe for recurrent sx -will start very gentle IVF for renal hydration, given no suspected CHF at present (NS at 40-50 cc/hr) -continue home aspirin, plavix, metoprolol, nitro patch regimen -hi intensity statin (atorva 80) syst CHF: -EF 30-35% -on torsemide and spironolactone at home with good control of late -appears euvolemic here--holding diuretics and hydrating gently, as above aortic stenosis: -moderate on recent w/u by two TAVR programs ([facility], then [facility]) -he was not a candidate for TAVR (consdering RCT for moderate with syst CHF at [facility]) JUSTYN on CKD: -baseline creat runs 2-2.2 -currently acutely elevated likely due to acute hemodynamic effects from low cardiac output due to ischemia -hi risk for BETITO from cath DM: -poorly controlled for long time previously -well controlled of late diffuse PAD: -has severe, obstructive PAD involving arms and legs s/p osteomyelitis: -treated by ID and vascular here anemia: -baseline hgb runs 9s-10s. 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
[2018-12-28] MEDS ORDERED: VANCOMYCIN 1 GRAM (PRE-DOCKED) 1,000 MG/250 ML BAG IVPB ONE ×2 (10:00→10:04)
[2018-12-28] MEDS: COLLAGENASE CLOSTRIDIUM HIST. 30 GRAMS TUBE TP SCH (10:23)
--- NOTE | 2018-12-28 10:38 | PDOC ---
*Physical Exam - Vital Signs Last Vital Signs Temp Pulse Resp BP Pulse Ox 97.8 F 74 20 115/68 98 12/28/18 05:56 12/28/18 05:56 12/28/18 05:56 12/28/18 06:25 12/28/18 05:56 - Physical Exam Comments: 78 year old male with cardiac risk factors presenting with chest pain signed out pending admission (on heparin drip) to Dr. Fuller. Called Conor (Dr. Fuller' s MAT SEWER) and admitted the patient pending repeat trop and EKG. Repeat EKG not demonstrating any changes and overall STEMI negative per Scarbosa's criteria. However, Troponin went up from 0.[address] Larios re-consulted and he evaluated the patient. He wanted to keep the patient in our hospital for the time being to optimize him for cath in the next few days. He would like SL nitro as needed for chest pain and then to call him and consider transfer if the patient has intractable chest pain. 12/28/18 10:33 ED Treatment Course - LABORATORY CBC & Chemistry Diagram: 12/28/18 05:14 12/28/18 05:14 - ADDITIONAL ORDERS Additional order review: Laboratory Results 12/28/18 12/28/18 05:14 05:14 PT with INR 13.50 H INR 1.14 H Sodium 133 L Potassium 4.6 Chloride 98 Carbon Dioxide 27 Anion Gap 9 BUN 49 H Creatinine 2.9 H Creat Clearance w eGFR 21.15 Random Glucose 370 H* Calcium 8.1 L Total Bilirubin 1.0 AST 18 ALT 31 Alkaline Phosphatase 87 Creatine Kinase 92 Troponin I 0.18 H Total Protein 6.8 Albumin 3.4 12/28/18 05:14 RBC 3.00 L MCV 88.2 MCHC 35.3 RDW 19.9 H MPV 7.7 Neutrophils % 74.0 Lymphocytes % 13.1 Monocytes % 8.0 Eosinophils % 3.8 Basophils % 1.1 - Medications Given in the ED: ED Medications Discontinued Medications Generic Name Dose Route Start Last Admin Trade Name Freq PRN Reason Stop Dose Admin Al Hydroxide/Mg Hydroxide 30 ml 12/28/18 05:45 12/28/18 05:45 Mylanta Oral Suspension - PO 12/28/18 05:46 30 ml ONCE ONE Administration Famotidine/Sodium Chloride 20 mg in 50 mls @ 100 mls/hr 12/28/18 05:45 05:45 Pepcid 20 Mg Premixed Ivpb - IVPB 12/28/18 06:14 100 mls/hr ONCE ONE Administration Sodium Chloride 250 mls @ 1,000 mls/hr 12/28/18 05:47 12/28/18 05:47 Normal Saline - IV 12/28/18 06:01 1,000 mls/hr ASDIR STA Administration Insulin Human Regular 6 units 12/28/18 07:12 12/28/18 07:50 Novolin R Vial *For Ivpush Or Iv Drip Only* IVPUSH 12/28/18 07:13 6 units ONCE ONE Administration Lidocaine HCl 20 ml 12/28/18 05:45 12/28/18 05:45 Xylocaine 2% Viscous Oral - MM 12/28/18 05:46 20 ml ONCE ONE Administration Metoprolol Tartrate 5 mg 12/28/18 06:25 12/28/18 06:25 Lopressor Injection - IVPUSH 12/28/18 06:26 5 mg ONCE ONE Administration Morphine Sulfate 2 mg 12/28/18 04:38 12/28/18 05:08 Morphine Injection - IVPUSH 12/28/18 04:39 2 mg ONCE ONE Administration Sucralfate 1 gm 12/28/18 07:43 12/28/18 08:18 Carafate Oral Suspension - PO 12/28/18 07:44 1 gm ONCE ONE Administration Vancomycin HCl 1,000 mg 12/28/18 10:00 12/28/18 10:15 Vancomycin (Pre-Docked) IVPB 12/28/18 10:01 1,000 mg ONCE ONE Administration Protocol *DC/Admit/Observation/Transfer Diagnosis at time of Disposition: Elevated troponin Chest pain Qualifiers: Chest pain type: unspecified Qualified Code(s): R07.9 - Chest pain, unspecified - Referrals - Patient Instructions - Post Discharge Activity
[2018-12-28] MEDS ORDERED: ASPIRIN 325 MG TABLET PO ONE (10:42)
--- NOTE | 2018-12-28 11:00 | EKG ---
Test Reason : Blood Pressure : / mmHG Vent. Rate : 071 BPM Atrial Rate : 071 BPM P-R Int : 196 ms QRS Dur : 156 ms QT Int : 442 ms P-R-T Axes : 039 -32 161 degrees QTc Int : 480 ms NORMAL SINUS RHYTHM LEFT AXIS DEVIATION LEFT BUNDLE BRANCH BLOCK ABNORMAL ECG WHEN COMPARED WITH ECG OF 28-DEC-2018 05:04, NO SIGNIFICANT CHANGE WAS FOUND Confirmed by YULISSA JORDAN MD ([id number]) on 12/28/2018 11:00:27 AM Referred By: Confirmed By:YULISSA JORDAN MD
--- NOTE | 2018-12-28 11:02 | EKG ---
Test Reason : Blood Pressure : / mmHG Vent. Rate : 074 BPM Atrial Rate : 074 BPM P-R Int : 186 ms QRS Dur : 156 ms QT Int : 446 ms P-R-T Axes : 032 -34 150 degrees QTc Int : 495 ms NORMAL SINUS RHYTHM LEFT AXIS DEVIATION LEFT BUNDLE BRANCH BLOCK NONSPECIFIC ST ABNORMALITY ABNORMAL ECG Confirmed by YULISSA JORDAN MD ([id number]) on 12/28/2018 11:02:12 AM Referred By: Confirmed By:YULISSA JORDAN MD
[2018-12-28] MEDS ORDERED: METOPROLOL TARTRATE 50 MG TABLET (FP) ONE (11:15)
[2018-12-28] MEDS ORDERED: ASPIRIN 325 MG TABLET ONE (11:15)
[2018-12-28] MEDS ORDERED: CLOPIDOGREL BISULFATE 75 MG TABLET (FP) ONE (11:15)
[2018-12-28] MEDS: METOPROLOL TARTRATE 50 MG TABLET (FP) PO SCH ×2 (11:16→22:24)
[2018-12-28] MEDS: SODIUM CHLORIDE 1,000 ML IV SCH (11:16)
[2018-12-28] MEDS: CLOPIDOGREL BISULFATE 75 MG TABLET (FP) PO SCH (11:16)
[2018-12-28] MEDS: HEPARIN NA (PORCINE) 5,000 UNITS/ML 1ML VIAL IVPUSH PRN (14:02)
--- NOTE | 2018-12-28 15:20 | HP ---
Admitting History and Physical - Primary Care Physician PCP: Edgar Fuller - Admission Chief Complaint: Chest pain History of Present Illness: Patient is a 78 y/o male with past medical history of dementia, prior TIA, anemia, PAD, CAD, s/p CABG and PCI, CKD, HTN, HLD, CHF, DMII, diabetic foot ulcer with osteomyelitis on hyberbaric treatment and outpatient vancomycin. Patient presented to ER with complaints of abdominal pain that started off as a burning sensation. Patient sts he took "stomach pills" and tums with no relief. At around 12 midnight patient said he felt a sharp midsternal chest pain 08/11, he called his x ray physician at home and then presented to ER. Initial troponin in ER 0.12 then repeat trop 2.12. EKG show NSR with LBBB. Evaluated by x ray physician in ER. Currently denies chest pain, SOB, dizziness. History Source: Patient Limitations to Obtaining History: No Limitations - Past Medical History MOVIE STAR: Yes: Dementia, TIA Cardiovascular: Yes: CAD, CHF, HTN, Hyperlipdemia, [place] Gastrointestinal: Yes: GERD Heme/Onc: Yes: Anemia Psych: Yes: Depression Musculoskeletal: Yes: Chronic low back pain, Other (diabetic neuropathy) ENT: Yes: Other (hard of hearing) Endocrine: Yes: Diabetes Mellitus - Past Surgical History Past Surgical History: Yes: Appendectomy, CABG, Stent - Smoking History Smoking history: Never smoked Have you smoked in the past 12 months: No Aproximately how many cigarettes per day: 0 - Alcohol/Substance Use Hx Alcohol Use: No History of Substance Use: reports: None - Social History Usual Living Arrangement: Yes: With Spouse History of Recent Travel: No <Jazzy Dye - Last Filed: 12/28/18 17:25> Home Medications <Jazzy Dye - Last Filed: 12/28/18 17:25> <Edgar Fuller - Last Filed: 12/30/18 05:45> - Allergies Allergies/Adverse Reactions: Allergies Allergy/AdvReac Type Severity Reaction Status Date / Time ranolazine [From Ranexa] AdvReac Intermediate Hallucinati Verified 12/28/18 04: 31 ons - Home Medications Home Medications: Ambulatory Orders Nitroglycerin 0.6 mg SL ASDIR 07/24/17 Atorvastatin Calcium 20 mg PO DAILY #30 tablet 12/01/18 Cholecalciferol (Vitamin D3) [Vitamin D3] 1,000 unit PO DAILY 30 Days #30 tablet 12/01/18 Donepezil HCl [Aricept] 10 mg PO DAILY 30 Days #30 tablet 12/01/18 Escitalopram Oxalate [Lexapro -] 20 mg PO DAILY 30 Days #30 tablet 12/01/18 Ferrous Sulfate 325 mg PO DAILY 30 Days #30 tab 12/01/18 Insulin Glargine,Hum.rec.anlog [Lantus Solostar PEN -] 16 units SQ AM 30 Days # 16 ins 12/01/18 Loratadine [Claritin -] 10 mg PO DAILY 14 Days #14 tablet 12/01/18 Metoprolol Succinate [Toprol Xl] 50 mg PO BID 30 Days #30 tab.er.24h 12/01/18 Nitroglycerin [Nitrostat] 0.4 mg SL ASDIR 30 Days #30 tab.subl 12/01/18 [place]-3 Acid Ethyl Esters [Lovaza -] 1 gm PO DAILY 30 Days #30 cap 12/01/18 Pantoprazole Sodium [Protonix] 40 mg PO DAILY 30 Days #30 tablet.dr 12/01/18 Spironolactone 25 mg PO DAILY 30 Days #30 tablet 12/01/18 Tamsulosin HCl [Flomax] 0.4 mg PO BID 30 Days #30 capsule 12/01/18 Torsemide [Demadex -] 20 mg PO DAILY 30 Days #30 tablet 12/01/18 Aspirin Coated [Ecotrin -] 81 mg PO DAILY tablet.ec 12/02/18 Clopidogrel Bisulfate [Plavix -] 75 mg PO DAILY tablet 12/02/18 Isosorbide Mononitrate [Imdur -] 30 mg PO DAILY #30 tab.sr.24h 12/12/18 Vancomycin [Vancocin] 1,250 mg IV DAILY 12/18/18 Family Disease History - Family Disease History Family Disease History: Diabetes: Mother (HTN), Heart Disease: Father ( of [place] age 45), Mother <Jazzy Dye - Last Filed: 12/28/18 17:25> Review of Systems - Review of Systems Constitutional: reports: No Symptoms Eyes: reports: No Symptoms HENT: reports: No Symptoms Neck: reports: No Symptoms Cardiovascular: reports: Other (MORALES) Respiratory: reports: SOB on Exertion Gastrointestinal: reports: No Symptoms Genitourinary: reports: No Symptoms Breasts: reports: No Symptoms Reported Musculoskeletal: reports: No Symptoms Integumentary: reports: No Symptoms Neurological: reports: No Symptoms Endocrine: reports: No Symptoms Hematology/Lymphatic: reports: No Symptoms Psychiatric: reports: No Symptoms <Jazzy Dye - Last Filed: 12/28/18 17:25> Physical Examination Vital Signs: Vital Signs Temperature 97.8 F 12/28/18 05:56 Pulse Rate 71 12/28/18 11:35 Respiratory Rate 18 12/28/18 11:35 Blood Pressure 122/71 12/28/18 11:35 O2 Sat by Pulse Oximetry (%) 100 12/28/18 11:35 Constitutional: Yes: Well Nourished, No Distress, Calm Eyes: Yes: Conjunctiva Clear HENT: Yes: Normocephalic Neck: Yes: Supple Cardiovascular: Yes: Regular Rate and Rhythm Respiratory: Yes: CTA Bilaterally Gastrointestinal: Yes: Normal Bowel Sounds, Soft Musculoskeletal: Yes: WNL Extremities: Yes: WNL Edema: No Neurological: Yes: Alert, Oriented Psychiatric: Yes: Alert, Oriented Labs: CBC, BMP 12/28/18 05:14 12/28/18 05:14 Troponin, BNP 12/28/18 12/28/18 05:14 08:33 Troponin I 0.18 H 2.12 H* <Jazzy Dye - Last Filed: 12/28/18 17:25> Vital Signs: Vital Signs Temperature 97.8 F 12/30/18 02:00 Pulse Rate 78 12/30/18 02:00 Respiratory Rate 20 12/30/18 02:00 Blood Pressure 129/68 12/30/18 02:00 O2 Sat by Pulse Oximetry (%) 96 12/29/18 21:00 Labs: CBC, BMP 12/29/18 05:30 12/29/18 05:30 <Edgar Fuller - Last Filed: 12/30/18 05:45> Problem List - Problems (1) Chest pain Assessment/Plan: -cardiology on board -continue with Heparin drip Code(s): R07.9 - CHEST PAIN, UNSPECIFIED Qualifiers: Chest pain type: unspecified Qualified Code(s): R07.9 - Chest pain, unspecified (2) Elevated troponin Assessment/Plan: -troponin 0.18, repeat troponin 2.12 -cardiology on board -will repeat and monitor troponin level Code(s): R74.8 - ABNORMAL LEVELS OF OTHER SERUM ENZYMES (3) Diabetes mellitus Assessment/Plan: -BGM ACHS, ISS -diabetic diet Code(s): E11.9 - TYPE 2 DIABETES MELLITUS WITHOUT COMPLICATIONS Qualifiers: Diabetes mellitus type: type 2 Diabetes mellitus complication status: with kidney complications Diabetes mellitus complication detail: with chronic kidney disease Qualified Code(s): E11.22 - Type 2 diabetes mellitus with diabetic chronic kidney disease (4) HTN (hypertension) Assessment/Plan: -cont metoprolol BID -low Na diet Code(s): I10 - ESSENTIAL (PRIMARY) HYPERTENSION Qualifiers: Hypertension type: essential hypertension Qualified Code(s): I10 - Essential (primary) hypertension (5) Hyperlipidemia Assessment/Plan: -cont atorvastatin -lipid profile ordered Code(s): E78.5 - HYPERLIPIDEMIA, UNSPECIFIED Qualifiers: Hyperlipidemia type: unspecified hyperlipidemia (6) NSTEMI (non-ST elevated myocardial infarction) Assessment/Plan: -cardio on board -will trend troponin -Heparin drip, monitor PTT -tele monitoring Code(s): I21.4 - NON-ST ELEVATION (NSTEMI) MYOCARDIAL INFARCTION (7) CKD (chronic kidney disease) Assessment/Plan: -BUN/Cr 49/2.9 -renal consult -IVF for gentle hydration -will monitor BUN/Cr Code(s): N18.9 - CHRONIC KIDNEY DISEASE, UNSPECIFIED (8) Chronic systolic heart failure Assessment/Plan: -holding diuretics due to renal function -CXR show new congestive changes but no pleural effusion observed -as per cardio note hx of EF 30-35% Code(s): I50.22 - CHRONIC SYSTOLIC (CONGESTIVE) HEART FAILURE <Jazzy Dye - Last Filed: 12/28/18 17:25> Assessment/Plan PATIENT SEEN AND EXAMINED AND I AGREE WITH THE ABOVE NOTE <Edgar Fuller - Last Filed: 12/30/18 05:45>
[2018-12-28] MEDS: INSULIN SLIDING SCALE (NOVOLOG) 1 VIAL SQ SCH ×2 (17:58→22:26)
[2018-12-28] MEDS: ATORVASTATIN CA 80 MG TABLET (FP) PO SCH (22:24)
[2018-12-29 06:36] LABS: BASO % 0.9 % (0-2.0); EOS % 2.8 % (0-4.5); HEMATOCRIT 25.4 % (35.4-49); HEMOGLOBIN 8.9 GM/dL (11.7-16.9); LYMPH % 13.3 % (8-40); MCH 30.9 pg (25.7-33.7); MEAN CELL VOLUME 88.3 fl (80-96); MEAN PLT VOLUME 7.8 fl (7.5-11.1); MONO % 9.3 % (3.8-10.2); NEUT % 73.7 % (42.8-82.8); PLATELET COUNT 128 K/MM3 (134-434); RBC 2.88 M/mm3 (4.00-5.60); RDW 19.8 % (11.9-15.9); WHITE BLOOD COUNT 6.6 K/mm3 (4.0-10.0)
[2018-12-29] MEDS: INSULIN SLIDING SCALE (NOVOLOG) 1 VIAL SQ SCH ×4 (06:46→22:10)
[2018-12-29 07:42] LABS: ANION GAP 9 MMOL/L (8-16); BLOOD UREA NITROGEN 39 mg/dL (7-18); CALCIUM 8.4 mg/dL (8.5-10.1); CHLORIDE 102 mmol/L (98-107); CO2 27 mmol/L (21-32); CREATININE 2.4 mg/dL (0.55-1.3); GLUCOSE,RANDOM 182 mg/dL (74-106); POTASSIUM 4.3 mmol/L (3.5-5.1); SODIUM 137 mmol/L (136-145)
[2018-12-29] MEDS ORDERED: PT OWN MED DRAWER 7, Y5N ONE (08:53)
[2018-12-29] MEDS: CLOPIDOGREL BISULFATE 75 MG TABLET (FP) PO SCH (09:17)
[2018-12-29] MEDS: PANTOPRAZOLE 40 MG TABLET (FP) PO SCH (09:17)
[2018-12-29] MEDS: METOPROLOL TARTRATE 50 MG TABLET (FP) PO SCH ×2 (09:17→22:10)
[2018-12-29] MEDS: ASPIRIN COATED 81 MG TABLET.EC PO SCH (09:17)
[2018-12-29] MEDS: COLLAGENASE CLOSTRIDIUM HIST. 30 GRAMS TUBE TP SCH (10:00)
[2018-12-29] MEDS: SODIUM CHLORIDE 1,000 ML IV SCH (10:00)
--- NOTE | 2018-12-29 11:07 | PN ---
Progress Note, Physician Chief Complaint: CP History of Present Illness: felt sob earlier this AM (several minutes ago)--RESOLVED ON ITS OWN. almost back to baseline. every now and then feels sob when gets oob to go to bathroom. when asked if this is more than his usual recent baseline at home he says "a little bit". no more cp or abdominal pain at all. no palpit, syncope no cigs - Current Medication List Current Medications: Active Medications Aspirin (Ecotrin -) 81 mg PO DAILY [facility] Last Admin: 12/29/18 09:17 Dose: 81 mg Atorvastatin Calcium (Lipitor -) 80 mg PO HS [facility] Last Admin: 12/28/18 22:24 Dose: 80 mg Clopidogrel Bisulfate (Plavix -) 75 mg PO DAILY [facility] Last Admin: 12/29/18 09:17 Dose: 75 mg Collagenase (Santyl -) 1 applic TP DAILY [facility]; Protocol Last Admin: 12/28/18 10:23 Dose: Not Given Heparin Sodium (Porcine) (Heparin -) 1,000 unit IVPUSH PRN PRN PRN Reason: Heparin Last Admin: 12/28/18 14:02 Dose: 1,000 unit Heparin Sodium (Porcine) (Heparin -) 5,000 unit IVPUSH PRN PRN PRN Reason: Heparin Heparin Sodium (Porcine) 25, (000 unit/ Sodium Chloride) 500 mls @ 20 mls/hr IV TITR [facility]; Protocol Last Titration: 12/29/18 06:25 Dose: 1,200 unit/hr, 24 mls/hr Sodium Chloride (Normal Saline -) 1,000 mls @ 50 mls/hr IV ASDIR [facility] Last Admin: 12/28/18 11:16 Dose: 50 mls/hr Insulin Aspart (Novolog Vial Sliding Scale -) 1 vial SQ ACHS [facility]; Protocol Last Admin: 12/29/18 06:46 Dose: 2 units Metoprolol Tartrate (Lopressor -) 50 mg PO BID [facility] Last Admin: 12/29/18 09:17 Dose: 50 mg Pantoprazole Sodium (Protonix -) 40 mg PO DAILY [facility] Last Admin: 12/29/18 09:17 Dose: 40 mg - Objective Vital Signs: Vital Signs Temperature 98.2 F 12/29/18 10:00 Pulse Rate 69 12/29/18 10:00 Respiratory Rate 18 12/29/18 10:00 Blood Pressure 105/65 12/29/18 10:00 O2 Sat by Pulse Oximetry (%) 92 L 12/28/18 21:00 Constitutional: Yes: No Distress, Calm Eyes: No: Sclera Icterus HENT: No: Nasal Congestion Cardiovascular: Yes: Regular Rate and Rhythm, S1, S2, Other (PMI non diplaced). No: JVD, Gallop, Murmur Respiratory: Yes: CTA Bilaterally. No: Accessory Muscle Use, Rales, Wheezes Gastrointestinal: Yes: Normal Bowel Sounds, Soft. No: Tenderness Musculoskeletal: Yes: Other (No kyphosis) Extremities: No: Cold, Cyanosis Edema: No Integumentary: No: Jaundice Neurological: Yes: Alert, Oriented (x3) Psychiatric: No: Agitated Labs: CBC, BMP 12/29/18 05:30 12/29/18 05:30 INR, PTT INR 1.14 (0.83-1.09) H 12/28/18 05:14 Assessment/Plan ECG #1 (12/28): NSR, LBBB with assctd ST-T abn--no change vs 12/11/18 #2 (12/28): no change CXR: weak inspiration, new congestive changes image reviewed: no effusion, + interstitial enhancement pattern. no vasc redistribution CAD, NSTEMI: -troponin 0.1-->2.1 -had approximately 8 hrs of unremitting sx's (abd pain radiating to lower chest) --resolved in ER (? completed his infarct, ? due to heparin, ? due to carafate/ BM) -pt with known recurrent LAD dz causing angina and ACS in past requiring mult stents, despite pre-existing LINDER to LAD. also GUN NUMBERER of RCA which is ischemia- causing on FDG-PET -has known low EF 30-35% and co-existing moderate -he is protected by a patent LINDER to his LAD (which has been patent on multiple caths since the bypass about 7 yrs ago), with proximal LAD disease recurrently which is not a myocardial distribution that is expected to be life-threatening in him. -continue UFH gtt. -continue home aspirin, plavix, metoprolol, hi intensity statin here -holding home nitrates (patch) -creatinine improving with gentle hydration, still above baseline -d/c IVF given sob at rest earlier. -d/w'd dr wang at [facility] [place], who will transfer pt for cath as he is currently in the midst of evaluating him for TAVR vs AVR/CABG syst CHF: -EF 30-35% -on torsemide and spironolactone at home with good control of late -appeared euvolemic initially -diuretics held, torsemide/spironolactone home regimen held, gentle hydration given for JUSTYN, to optimize renal fxn for contrast -incr sob today--d/c IVF -will hold lasix for now, as sob has nearly resolved. RN aware to call me and will give IV lasix if worsens. aortic stenosis: -moderate on recent w/u by two TAVR programs ([facility], then [facility] [place] -he was not a candidate for TAVR (consdering RCT for moderate with syst CHF at [facility] [place]) JUSTYN on CKD: -baseline creat runs 2-2.2 -hi risk for BETITO from cath. has completed max tolerable pre-cath hydration. -pt and son (on phone yest) counselled regarding BETITO risk but need to at least risk-stratify him with angiogram given his very hi risk vasculopathy/CAD history and presenting OR DM: -poorly controlled for long time previously -well controlled of late diffuse PAD: -has severe, obstructive PAD involving arms and legs s/p osteomyelitis: -treated by ID and vascular here anemia: -baseline hgb runs 9s-10s. 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
--- NOTE | 2018-12-29 11:52 | PN ---
Progress Note (short form) - Note Progress Note: ID CONSULT DICTATED CHRONIC OSTEOMYELITIS GREAT TOE/ NON-HEALING ULCER DIABETES MELLITUS CKD CHEST PAIN SYNDROME DAY # 37/42 TREATMENT FOR OSTEOMYELITIS CONTINUE VANCOMYCIN
--- NOTE | 2018-12-29 12:47 | CONS ---
DATE OF CONSULTATION: DATE OF DICTATION: 12/29/2018 HISTORY: The patient is a 78-year-old male with past medical history of diabetes mellitus, nonhealing right great toe ulcer with chronic osteomyelitis now seen in follow up for osteomyelitis. He was admitted to the hospital on December 28, 2018 with chest pain. The patient was found to have an elevated troponin and was admitted to the telemetry unit. The patient has been undergo treatment for chronic osteomyelitis of the right great toe. He has a nonhealing ulcer of that toe. A bone biopsy was performed on November 23, 2018. Bone culture grew Staphylococcus epidermidis. He has been receiving vancomycin. The patient is presently day 37 of a 42-day course. He has no complaints of pain in the right foot at the present time. He denies any fever or chills. He has been tolerating the vancomycin without adverse reaction. PAST MEDICAL HISTORY: Positive for dementia, history of TIA, coronary artery disease, chronic anemia. PAST SURGICAL HISTORY: Status post coronary artery stent, appendectomy, coronary artery bypass. ALLERGIES: RANEXA. MEDICATIONS: Aspirin, Lipitor, Plavix, heparin, insulin, Lopressor, Protonix, vancomycin. LABORATORY DATA: White count 6.6, platelets 128, creatinine 2.4, vancomycin trough 16.2, ESR 36, C-reactive protein 0.6. PHYSICAL EXAMINATION: General: He is awake and alert. Supine in bed in no acute distress. Vital Signs: Temperature 98.2, blood pressure 105/65, pulse 69 and regular, respirations 18 per minute. HEENT: Sclerae anicteric. Heart: Sounds S1, S2. Lungs: Clear. Abdomen: Soft and nontender. Extremities: Right great toe, there is a necrotic ulceration present on the medial aspect of the right great toe approximately 2 cm x 3 cm. It is elliptical in shape. No purulent drainage. Erythema and swelling of the right great toe have resolved since prior exams. Chest Wall: A catheter is present in the right chest. There is no erythema or tenderness. IMPRESSION: 1. Chronic osteomyelitis of the right great toe. 2. Nonhealing right great toe ulcer. 3. Diabetes mellitus. 4. Chronic kidney disease. 5. Chest pain syndrome. PLAN: Patient presently day number 37 of 42 for treatment of osteomyelitis. Continue vancomycin. Local wound care. Hyperbaric oxygen treatments. We will follow. Thank you for the kind referral. YULISSA KIMBLE M.D. [id number]
[2018-12-29] MEDS: HEPARIN - 25,000 UNIT in SODIUM CHLORIDE 495 ML IV SCH ×2 (15:00→22:10)
--- NOTE | 2018-12-29 15:37 | DS ---
Physical Examination Vital Signs: Vital Signs Temperature 98.4 F 12/29/18 14:39 Pulse Rate 71 12/29/18 14:39 Respiratory Rate 18 12/29/18 14:39 Blood Pressure 116/58 L 12/29/18 14:39 O2 Sat by Pulse Oximetry (%) 96 12/29/18 09:00 Constitutional: Yes: Mild Distress Eyes: Yes: WNL HENT: Yes: WNL Neck: Yes: WNL Cardiovascular: Yes: Pulse Irregular Respiratory: Yes: WNL Gastrointestinal: Yes: Soft, Abdomen, Obese, Distention Renal/: Yes: WNL Extremities: Yes: Deformity Edema: RLE: Trace Wound/Incision: Yes: Dressing Dry and Intact (RLE WOUND) Neurological: Yes: Loss of Sensation, Numbness, Paresthesia, Pre-Existing Deficit ...Motor Strength: RLE Psychiatric: Yes: WNL Labs: CBC, BMP 12/29/18 05:30 12/29/18 05:30 Discharge Summary Reason For Visit: ELEVATED TROPONIN LEVEL, CHEST PAIN Current Active Problems Chest pain (Acute) Elevated troponin (Acute) Hospital Course: ADMITTED WITH CAD, [facility] Condition: Fair - Instructions Diet, Activity, Other Instructions: FOLLOW UP WITH YOUR PRIMARY DOCTOR AFTER CARDIAC CATH Referrals: Dom Staples MD [Primary Care Provider] - Disposition: TRANSFER ACUTE CARE/OTHER HOSP - Home Medications Comprehensive Discharge Medication List: Ambulatory Orders Nitroglycerin 0.6 mg SL ASDIR 07/24/17 Atorvastatin Calcium 20 mg PO DAILY #30 tablet 12/01/18 Cholecalciferol (Vitamin D3) [Vitamin D3] 1,000 unit PO DAILY 30 Days #30 tablet 12/01/18 Donepezil HCl [Aricept] 10 mg PO DAILY 30 Days #30 tablet 12/01/18 Escitalopram Oxalate [Lexapro -] 20 mg PO DAILY 30 Days #30 tablet 12/01/18 Ferrous Sulfate 325 mg PO DAILY 30 Days #30 tab 12/01/18 Insulin Glargine,Hum.rec.anlog [Lantus Solostar PEN -] 16 units SQ AM 30 Days # 16 ins 12/01/18 Loratadine [Claritin -] 10 mg PO DAILY 14 Days #14 tablet 12/01/18 Metoprolol Succinate [Toprol Xl] 50 mg PO BID 30 Days #30 tab.er.24h 12/01/18 Nitroglycerin [Nitrostat] 0.4 mg SL ASDIR 30 Days #30 tab.subl 12/01/18 [place]-3 Acid Ethyl Esters [Lovaza -] 1 gm PO DAILY 30 Days #30 cap 12/01/18 Pantoprazole Sodium [Protonix] 40 mg PO DAILY 30 Days #30 tablet.dr 12/01/18 Spironolactone 25 mg PO DAILY 30 Days #30 tablet 12/01/18 Tamsulosin HCl [Flomax] 0.4 mg PO BID 30 Days #30 capsule 12/01/18 Torsemide [Demadex -] 20 mg PO DAILY 30 Days #30 tablet 12/01/18 Aspirin Coated [Ecotrin -] 81 mg PO DAILY tablet.ec 12/02/18 Clopidogrel Bisulfate [Plavix -] 75 mg PO DAILY tablet 12/02/18 Isosorbide Mononitrate [Imdur -] 30 mg PO DAILY #30 tab.sr.24h 12/12/18 Vancomycin [Vancocin] 1,250 mg IV DAILY 12/18/18
[2018-12-29] MEDS ORDERED: MAG HYDROX/AL HYDROX/SIMETH 30 ML UNIT-DOSE CUP PO ONE (15:49)
[2018-12-29] MEDS ORDERED: MAGNESIUM HYDROX 2400MG/30ML ORAL SUSPENSION 30 ML CUP PO PRN (15:49)
[2018-12-29] MEDS ORDERED: VANCOMYCIN 1 GRAM (PRE-DOCKED) 1,000 MG/250 ML BAG IVPB ONE (15:52)
[2018-12-29] MEDS: HEPARIN NA (PORCINE) 5,000 UNITS/ML 1ML VIAL IVPUSH PRN (16:03)
--- NOTE | 2018-12-29 16:50 | CONSULT ---
Consult - text type - Consultation Consultation Note: Renal Consult for CKD/BETITO risk stratification and prophylaxis This is a 78 year old gentleman with hx of CAD s/p CABG, CKD,HTN,HLD, CHF, DM Type 2, osteomyelitis on Abx (Vanco), CKD stage 4 with baseline cr of 2.1 who presented with chest pain and found to have NSTEMI with Cr of 2.9. Cr improved to 2.4 s/p gentle IVF hydration. Pt developed some SOB today and IVF was discontinued a short time ago. Pt denies any chest pain at this time. Denies any N/V, abd pain, flank pain or dysuria. Making urine w/o difficulty. No NSAID use. No fever, chills, MATUTE, confusion or lethargy. Pt is pending transfer to [facility] [place] [facility] [place]. On IV heparin. PMHx: as above Allergies: ranolazine Family Hx: NC Social Hx: No T/A/D ROS: as per hPI, all other pertinent ros negative Home Medications Medication Instructions Recorded Nitroglycerin 0.6 mg SL ASDIR 07/24/17 Atorvastatin Calcium 20 mg PO DAILY #30 tablet 12/01/18 Cholecalciferol (Vitamin D3) 1,000 unit PO DAILY 30 Days #30 12/01/18 [Vitamin D3] tablet Donepezil HCl [Aricept] 10 mg PO DAILY 30 Days #30 tablet 12/01/18 Escitalopram Oxalate [Lexapro -] 20 mg PO DAILY 30 Days #30 tablet 12/01/18 Ferrous Sulfate 325 mg PO DAILY 30 Days #30 tab 12/01/18 Insulin Glargine,Hum.rec.anlog 16 units SQ AM 30 Days #16 ins 12/01/18 [Lantus Solostar PEN -] Loratadine [Claritin -] 10 mg PO DAILY 14 Days #14 tablet 12/01/18 Metoprolol Succinate [Toprol Xl] 50 mg PO BID 30 Days #30 tab.er.24h 12/01/18 Nitroglycerin [Nitrostat] 0.4 mg SL ASDIR 30 Days #30 12/01/18 tab.subl [place]-3 Acid Ethyl Esters [Lovaza 1 gm PO DAILY 30 Days #30 cap 12/01/18 -] Pantoprazole Sodium [Protonix] 40 mg PO DAILY 30 Days #30 12/01/18 tablet. Spironolactone 25 mg PO DAILY 30 Days #30 tablet 12/01/18 Tamsulosin HCl [Flomax] 0.4 mg PO BID 30 Days #30 capsule 12/01/18 Torsemide [Demadex -] 20 mg PO DAILY 30 Days #30 tablet 12/01/18 Aspirin Coated [Ecotrin -] 81 mg PO DAILY tablet.ec 12/02/18 Clopidogrel Bisulfate [Plavix -] 75 mg PO DAILY tablet 12/02/18 Isosorbide Mononitrate [Imdur -] 30 mg PO DAILY #30 tab.sr.24h 12/12/18 Vancomycin [Vancocin] 1,250 mg IV DAILY 12/18/18 Vital Signs Temperature 98.4 F 12/29/18 14:39 Pulse Rate 71 12/29/18 14:39 Respiratory Rate 18 12/29/18 14:39 Blood Pressure 116/58 L 12/29/18 14:39 O2 Sat by Pulse Oximetry (%) 96 12/29/18 09:00 Intake & Output 12/26/18 12/27/18 12/28/18 12/29/18 23:59 23:59 23:59 23:59 Intake Total 280 154 Balance 280 154 Weight 86.183 kg NAD awake and alert neck supple, no JVD RRR, No M/R Dec BS, no overt rales soft NT/ND, no tenderness trace LE edema, no clubbing or cyanosis CBC, BMP 12/29/18 05:30 12/29/18 05:30 Current Medications Aspirin (Ecotrin -) 81 mg PO DAILY [facility] Last Admin: 12/29/18 09:17 Dose: 81 mg Atorvastatin Calcium (Lipitor -) 80 mg PO HS [facility] Last Admin: 12/28/18 22:24 Dose: 80 mg Clopidogrel Bisulfate (Plavix -) 75 mg PO DAILY [facility] Last Admin: 12/29/18 09:17 Dose: 75 mg Collagenase (Santyl -) 1 applic TP DAILY [facility]; Protocol Last Admin: 12/29/18 10:00 Dose: 1 applic Heparin Sodium (Porcine) (Heparin -) 1,000 unit IVPUSH PRN PRN PRN Reason: Heparin Last Admin: 12/29/18 16:03 Dose: 1,000 unit Heparin Sodium (Porcine) (Heparin -) 5,000 unit IVPUSH PRN PRN PRN Reason: Heparin Heparin Sodium (Porcine) 25, (000 unit/ Sodium Chloride) 500 mls @ 20 mls/hr IV TITR [facility]; Protocol Last Admin: 12/29/18 15:00 Dose: 1,300 unit/hr, 26 mls/hr Insulin Aspart (Novolog Vial Sliding Scale -) 1 vial SQ ACHS [facility]; Protocol Last Admin: 12/29/18 12:34 Dose: 4 units Metoprolol Tartrate (Lopressor -) 50 mg PO BID [facility] Last Admin: 12/29/18 09:17 Dose: 50 mg Pantoprazole Sodium (Protonix -) 40 mg PO DAILY [facility] Last Admin: 12/29/18 09:17 Dose: 40 mg Polyethylene Glycol (Miralax (For Daily Use) -) 17 gm PO DAILY [facility] Simethicone (Mylicon -) 80 mg PO Q4H PRN PRN Reason: GAS 78 year old gentleman with hx of CAD s/p CABG, CKD,HTN,HLD, CHF, DM Type 2, osteomyelitis on Abx (Vanco), CKD stage 4 with baseline cr of 2.1 who presented with chest pain and found to have NSTEMI with Cr of 2.9. Cr improved to 2.4 s/p gentle IVF hydration. #JUSTYN on CKD likely due to mild intravascular volume depletion +/- hemodynamic changes in setting of NSTEMI #NSTEMI #Contrast Nephropathy risk stratification #Contrast Nephropathy prophylaxis Pt BETITO risk calculated using calculator developed by Elvin et Al BETITO risk is 50% and risk of acute dialysis is 12%, this was explained to both the patient and the son. Renal function improved with IV hydration but fluids held because of worsening congestion Will given Mucomyst 1200mg PO BID today and tomorrow Case discussed with cardiology who will attempt to limit contrast volume during procedure Continue heparin gtt hold any KRYS/ARB for now hold diuretics for now unless pt becomes acutely short of breath trend renal function and electrolytes Thank you Case was discussed with primary car spotter Dr. Kaplan as well Cortes Houser DO
[2018-12-29] MEDS ORDERED: ACETYLCYSTEINE 20% 200MG/ML 30 ML VIAL *FOR ORAL / INH USE ONLY PO SCH (18:00)
[2018-12-29] MEDS: ACETYLCYSTEINE 20% 200MG/ML 4 ML VIAL *FOR ORAL / INH USE ONLY PO SCH (18:39)
[2018-12-29] MEDS: ATORVASTATIN CA 80 MG TABLET (FP) PO SCH (22:09)
[2018-12-29] MEDS: SIMETHICONE 80 MG TAB.CHEW (FP) PO PRN (22:52)
[2018-12-30] MEDS: HEPARIN - 25,000 UNIT in SODIUM CHLORIDE 495 ML IV SCH ×2 (02:00→10:16)
[2018-12-30] MEDS ORDERED: PT OWN MED DRAWER 7, Y5N ONE (05:44)
[2018-12-30] MEDS: SIMETHICONE 80 MG TAB.CHEW (FP) PO PRN (05:46)
[2018-12-30] MEDS: ACETYLCYSTEINE 20% 200MG/ML 4 ML VIAL *FOR ORAL / INH USE ONLY PO SCH (06:22)
[2018-12-30] MEDS: INSULIN SLIDING SCALE (NOVOLOG) 1 VIAL SQ SCH ×2 (06:23→12:06)
[2018-12-30 07:47] LABS: ANION GAP 10 MMOL/L (8-16); BLOOD UREA NITROGEN 29 mg/dL (7-18); CALCIUM 8.9 mg/dL (8.5-10.1); CHLORIDE 105 mmol/L (98-107); CO2 24 mmol/L (21-32); CREATININE 2.1 mg/dL (0.55-1.3); GLUCOSE,RANDOM 240 mg/dL (74-106); POTASSIUM 4.4 mmol/L (3.5-5.1); SODIUM 138 mmol/L (136-145)
[2018-12-30 08:18] LABS: HEMATOCRIT 25.8 % (35.4-49); MCH 30.9 pg (25.7-33.7); MCHC 34.9 g/dl (32.0-35.9); MEAN CELL VOLUME 88.5 fl (80-96); MEAN PLT VOLUME 7.9 fl (7.5-11.1); PLATELET COUNT 128 K/MM3 (134-434); RBC 2.92 M/mm3 (4.00-5.60); RDW 19.6 % (11.9-15.9); WHITE BLOOD COUNT 6.4 K/mm3 (4.0-10.0)
[2018-12-30] MEDS ORDERED: FAMOTIDINE 20 MG/50 ML IVPB 20 MG/50 ML MG IVPB ONE (08:39)
--- NOTE | 2018-12-30 08:45 | PN ---
Progress Note (short form) - Note Progress Note: PATIENT SEEN AND DISCHARGE FORM COMPLETE DC PLANNING TRANSFER TO [facility] FOR CARDIAC CATH
[2018-12-30] MEDS: PANTOPRAZOLE 40 MG TABLET (FP) PO SCH (09:18)
[2018-12-30] MEDS: CLOPIDOGREL BISULFATE 75 MG TABLET (FP) PO SCH (09:18)
[2018-12-30] MEDS: COLLAGENASE CLOSTRIDIUM HIST. 30 GRAMS TUBE TP SCH (09:18)
[2018-12-30] MEDS: ASPIRIN COATED 81 MG TABLET.EC PO SCH (09:18)
[2018-12-30] MEDS: METOPROLOL TARTRATE 50 MG TABLET (FP) PO SCH (09:18)
[2018-12-30] MEDS ORDERED: SERTRALINE HCL 25 MG TABLET (FP) PO SCH (10:00)
[2018-12-30] MEDS ORDERED: POLYETHYLENE GLYCOL 3350 119 GM BTL PO SCH (10:00)
--- NOTE | 2018-12-30 10:55 | PN ---
Progress Note (short form) - Note Progress Note: s: occasional dyspnea when walking to bathroom, no chest pain, palps, dizziness Current Medications Acetylcysteine (Mucomyst 20 Oral / Inh Use Only*) 1,200 mg PO Q12H [facility] Stop: 12/31/18 06:01 Last Admin: 12/30/18 06:22 Dose: 1,200 mg Aspirin (Ecotrin -) 81 mg PO DAILY KJ Last Admin: 12/30/18 09:18 Dose: 81 mg Atorvastatin Calcium (Lipitor -) 80 mg PO HS KJ Last Admin: 12/29/18 22:09 Dose: 80 mg Clopidogrel Bisulfate (Plavix -) 75 mg PO DAILY KJ Last Admin: 12/30/18 09:18 Dose: 75 mg Collagenase (Santyl -) 1 applic TP DAILY [facility]; Protocol Last Admin: 12/30/18 09:18 Dose: 1 applic Heparin Sodium (Porcine) (Heparin -) 1,000 unit IVPUSH PRN PRN PRN Reason: Heparin Last Admin: 12/29/18 16:03 Dose: 1,000 unit Heparin Sodium (Porcine) (Heparin -) 5,000 unit IVPUSH PRN PRN PRN Reason: Heparin Last Admin: 12/30/18 10:31 Dose: 5,000 unit Heparin Sodium (Porcine) 25, (000 unit/ Sodium Chloride) 500 mls @ 20 mls/hr IV TITR KJ; Protocol Last Admin: 12/30/18 10:16 Dose: 1,450 unit/hr, 29 mls/hr Vancomycin HCl 1,000 mg/ (Dextrose) 250 mls @ 150 mls/hr IVPB DAILY@1800 KJ; Protocol Insulin Aspart (Novolog Vial Sliding Scale -) 1 vial SQ ACHS [facility]; Protocol Last Admin: 12/30/18 06:23 Dose: 2 units Metoprolol Tartrate (Lopressor -) 50 mg PO BID [facility] Last Admin: 12/30/18 09:18 Dose: 50 mg Pantoprazole Sodium (Protonix -) 40 mg PO DAILY [facility] Last Admin: 12/30/18 09:18 Dose: 40 mg Polyethylene Glycol (Miralax (For Daily Use) -) 17 gm PO DAILY [facility] Simethicone (Mylicon -) 80 mg PO Q4H PRN PRN Reason: GAS Last Admin: 12/30/18 05:46 Dose: 80 mg - Objective Vital Signs Period Temp Pulse Resp BP Sys/Julio Pulse Ox Last 24 Hr 97.8 F-98.6 F 71-79 18-20 114-135/58-74 96-96 Constitutional: Yes: No Distress, Calm Eyes: No: Sclera Icterus HENT: No: Nasal Congestion Cardiovascular: Yes: Regular Rate and Rhythm, S1, S2, Other (PMI non diplaced). No: JVD, Gallop, Murmur Respiratory: Yes: CTA Bilaterally. No: Accessory Muscle Use, Rales, Wheezes Gastrointestinal: Yes: Normal Bowel Sounds, Soft. No: Tenderness Musculoskeletal: Yes: Other (No kyphosis) Extremities: No: Cold, Cyanosis Edema: No Integumentary: No: Jaundice Neurological: Yes: Alert, Oriented (x3) Psychiatric: No: Agitated Assessment/Plan ECG #1 (12/28): NSR, LBBB with assctd ST-T abn--no change vs 12/11/18 #2 (12/28): no change CXR: weak inspiration, new congestive changes image reviewed: no effusion, + interstitial enhancement pattern. no vasc redistribution CAD, NSTEMI: -troponin 0.1-->2.1 -had approximately 8 hrs of unremitting sx's (abd pain radiating to lower chest) --resolved in ER (? completed his infarct, ? due to heparin, ? due to carafate/ BM) -pt with known recurrent LAD dz causing angina and ACS in past requiring mult stents, despite pre-existing LINDER to LAD. 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 -continue UFH gtt. -continue home aspirin, plavix, metoprolol, hi intensity statin here -holding home nitrates (patch) -creatinine improving with gentle hydration, still above baseline - awaiting transfer to [facility] for cath, Dr. Ortez as he is currently in the midst of evaluating him for TAVR vs AVR/CABG syst CHF: -EF 30-35% -on torsemide and spironolactone at home with good control of late -appeared euvolemic initially -diuretics held, torsemide/spironolactone home regimen held, gentle hydration given for JUSTYN, to optimize renal fxn for contrast, improving -holding IVF and lasix aortic stenosis: -moderate on recent w/u by two TAVR programs ([place], then [facility]) -he was not a candidate for TAVR (consdering RCT for moderate with syst CHF at [facility] [place]) JUSTYN on CKD: -baseline creat runs 2-2.2 -hi risk for BETITO from cath. has completed max tolerable pre-cath hydration. -pt and son (on phone yest) counselled regarding BETITO risk but need to at least risk-stratify him with angiogram given his very hi risk vasculopathy/CAD history and presenting AR DM: -poorly controlled for long time previously -well controlled of late diffuse PAD: -has severe, obstructive PAD involving arms and legs s/p osteomyelitis: -treated by ID and vascular here anemia: -baseline hgb runs 9s-10s. 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
--- NOTE | 2018-12-30 11:49 | PN ---
Progress Note (short form) - Note Progress Note: Renal follow up for CKD/BETITO prophylaxis Pt seen and examined at the bedside feel ok, no cp, overt sob no cough making urine Vital Signs Temperature 98.5 F 12/30/18 09:00 Pulse Rate 79 12/30/18 09:00 Respiratory Rate 20 12/30/18 09:00 Blood Pressure 135/74 12/30/18 09:00 O2 Sat by Pulse Oximetry (%) 96 12/30/18 09:00 Intake & Output 12/27/18 12/28/18 12/29/18 12/30/18 23:59 23:59 23:59 23:59 Intake Total 280 528 358 Output Total 200 250 Balance 280 328 108 Weight 86.183 kg NAD awake and alert neck supple, no JVD RRR, No M/R Dec BS, no overt rales soft NT/ND, no tenderness trace LE edema, no clubbing or cyanosis CBC, BMP 12/30/18 05:30 12/30/18 05:30 Current Medications Acetylcysteine (Mucomyst 20 Oral / Inh Use Only*) 1,200 mg PO Q12H KJ Stop: 12/31/18 06:01 Last Admin: 12/30/18 06:22 Dose: 1,200 mg Aspirin (Ecotrin -) 81 mg PO DAILY KJ Last Admin: 12/30/18 09:18 Dose: 81 mg Atorvastatin Calcium (Lipitor -) 80 mg PO HS KJ Last Admin: 12/29/18 22:09 Dose: 80 mg Clopidogrel Bisulfate (Plavix -) 75 mg PO DAILY KJ Last Admin: 12/30/18 09:18 Dose: 75 mg Collagenase (Santyl -) 1 applic TP DAILY KJ; Protocol Last Admin: 12/30/18 09:18 Dose: 1 applic Heparin Sodium (Porcine) (Heparin -) 1,000 unit IVPUSH PRN PRN PRN Reason: Heparin Last Admin: 12/29/18 16:03 Dose: 1,000 unit Heparin Sodium (Porcine) (Heparin -) 5,000 unit IVPUSH PRN PRN PRN Reason: Heparin Last Admin: 12/30/18 10:31 Dose: 5,000 unit Heparin Sodium (Porcine) 25, (000 unit/ Sodium Chloride) 500 mls @ 20 mls/hr IV TITR KJ; Protocol Last Admin: 12/30/18 10:16 Dose: 1,450 unit/hr, 29 mls/hr Vancomycin HCl 1,000 mg/ (Dextrose) 250 mls @ 150 mls/hr IVPB DAILY@1800 KJ; Protocol Insulin Aspart (Novolog Vial Sliding Scale -) 1 vial SQ ACHS [facility]; Protocol Last Admin: 12/30/18 06:23 Dose: 2 units Metoprolol Tartrate (Lopressor -) 50 mg PO BID KJ Last Admin: 12/30/18 09:18 Dose: 50 mg Pantoprazole Sodium (Protonix -) 40 mg PO DAILY KJ Last Admin: 12/30/18 09:18 Dose: 40 mg Polyethylene Glycol (Miralax (For Daily Use) -) 17 gm PO DAILY [facility] Simethicone (Mylicon -) 80 mg PO Q4H PRN PRN Reason: GAS Last Admin: 12/30/18 05:46 Dose: 80 mg 78 year old gentleman with hx of CAD s/p CABG, CKD,HTN,HLD, CHF, DM Type 2, osteomyelitis on Abx (Vanco), CKD stage 4 with baseline cr of 2.1 who presented with chest pain and found to have NSTEMI with Cr of 2.9. Cr improved to 2.4 s/p gentle IVF hydration. #JUSTYN on CKD likely due to mild intravascular volume depletion +/- hemodynamic changes in setting of NSTEMI #NSTEMI #Contrast Nephropathy risk stratification #Contrast Nephropathy prophylaxis Renal function improved to baseline this morning Pt BETITO risk calculated using calculator developed by Elvin et Al BETITO risk is 50% and risk of acute dialysis is 12%, this was explained to both the patient and the son. off IVF hydration because of chest congestion Continue Mucomyst 1200mg PO BID for transfer to tertiary care center today Cortes Houser DO
[2018-12-30 13:46] VITALS: BP 124/66; PULSE 67; TEMP 98
[2018-12-30] MEDS ORDERED: VANCOMYCIN 1 GRAM (PRE-DOCKED) 1,000 MG/250 ML BAG IVPB SCH (18:00)
== END 2018-12-30 13:52 | disposition short-term general hospital (02) | DRG 281 ==
LOC: JER 04:16 → JERBED 06:17 → J4W 12:02
PROVIDERS: ADMIT Family Medicine; ATTEND Family Medicine
DX: I21.4 Non-ST elevation (NSTEMI) myocardial infarction (principal); I50.22 Chronic systolic (congestive) heart failure; M86.60 Other chronic osteomyelitis, unspecified site; N17.9 Acute kidney failure, unspecified; N18.4 Chronic kidney disease, stage 4 (severe); I13.0 Hypertensive heart and chronic kidney disease with heart failure and stage 1 through stage 4 chronic kidney disease, or unspecified chronic kidney disease; E11.69 Type 2 diabetes mellitus with other specified complication; E78.5 Hyperlipidemia, unspecified; D64.9 Anemia, unspecified; E86.9 Volume depletion, unspecified; Z79.4 Long term (current) use of insulin; R07.89 Other chest pain; I35.0 Nonrheumatic aortic (valve) stenosis; I25.10 Atherosclerotic heart disease of native coronary artery without angina pectoris; Z95.1 Presence of aortocoronary bypass graft
CPT/HCPCS: 36415; 71045-TC-FY; 74018-TC-FY; 80048; 80053; 82550; 82962; 84484; 85025; 85027; 85610; 85651; 85730; 93005; 93010; 96365; 96366; 99285-25; G0277; G0463-25; G0480; J1644; J7030